=== PATIENT | female | born 1945 | race African-American/Black ===

== ENCOUNTER → 2022-03-18 08:09 | Outpatient (CLI) | payer MEDICARE, MEDICAID, SELFPAY ==
--- NOTE | ~2022-03-18 | MMUS_ITS ---
EXAMINATION: MM diagnostic savage BI w aviva, US breast LT limited HISTORY: Palpable lump of the lower inner left breast TECHNIQUE: Craniocaudal, mediolateral, and mediolateral oblique 3-D tomosynthesis images of the breas ts were performed and synthetic 2-D images were generated. CAD analysis was submitted and interpreted . High resolution limited left breast and left axillary ultrasound was performed. COMPARISON: No prior mammogram is currently available for comparison. BREAST PARENCHYMAL COMPOSITION: The breasts are almost entirely fatty. FINDINGS: MAMMOGRAPHIC FINDINGS: Left breast: There is a 3.2 x 2.4 cm irregular spiculated high density mass in the posterior third of the lower-outer quadrant of the breast at the 7:00 location 9 cm from the nipple corresponding to th e palpable abnormality of concern. The mass causes retraction of the adjacent skin. There is also an enlarged left axillary lymph node. Right breast: There is no suspicious mass, calcification, or architectural distortion to suggest mal ignancy. Scattered benign-appearing calcifications are present. ULTRASOUND: There is a 2.9 x 1.4 cm irregular parallel, hypoechoic mass with spiculated margins at the 8:00 locat ion 8 cm from the nipple corresponding to the palpable abnormality of concern in the left breast. The mass extends to the skin and demonstrates posterior acoustic shadowing and internal vascularity. The re is a 2.7 x 0.7 cm lymph node of the left axilla with a 1.5 cm of focal irregular cortical thickeni ng. IMPRESSION: 1. Highly suspicious left breast mass corresponding to the palpable abnormality of concern and abnorm al cortical thickening of a left axillary lymph node as described above. 2. Ultrasound-guided biopsy is recommended. BI-RADS category 5, highly suggestive of malignancy. Reviewed, dictated and finalized at location A. IMPRESSION: 1. Highly suspicious left breast mass corresponding to the palpable abnormality of concern and abnormal cortical thickening of a left axillary lymph node as d escribed above. 2. Ultrasound-guided biopsy is recommended. BI-RADS category 5, highly suggestive of malignancy.
== END ==
PROVIDERS: PCP Family Medicine Adolescent Medicine; Visit Provider Physician Assistant
DX: N63.24 Unspecified lump in the left breast, lower inner quadrant (principal)
CPT/HCPCS: 76642; 77062; 77066; G0279

== ENCOUNTER 2022-03-27 09:52 | Outpatient (CLI) | payer MEDICARE, MEDICAID, SELFPAY ==
--- NOTE | ~2022-03-27 | MMUS_ITS ---
MM post biopsy invasive LT, US breast biopsy LT w image EXAMINATION: US GUIDED NEEDLE BIOPSY WITH VACUUM ASSISTANCE DATE: 03/27/2022 11:31 CDT INDICATION: Left breast mass seen on recent ultrasound and mammogram. Ultrasound-guided core biopsy is requested to evaluate for malignancy. TECHNIQUE AND FINDINGS: The risks and potential benefits of the procedure were discussed with the patient, and written inform ed consent was obtained. After sterile preparation of the left breast, 1% lidocaine was utilized for local anesthesia. 1% lidocaine with epinephrine was used for deep anesthesia. A 10G vacuum-assisted biopsy gun needle was advanced through to the outer edge of the region of inter est from a medial approach utilizing sonographic guidance. A total of 4 tissue core samples were obt ained through the lesion. An Inrad tissue marker clip was then placed at the biopsy site. Hemostasis was achieved. The patient tolerated procedure well and there was no evidence of immediate complication. The patien t was given verbal instructions partly is from the department. Left breast mammograms to document ti ssue marker clip placement. The tissue samples were submitted to surgical pathology for histologic an alysis. IMPRESSION: 1. Successful ultrasound-guided vacuum-assisted biopsy of left breast mass with tissue marker placem ent in the lower inner quadrant. Please refer to pathology report for histologic analysis. Reviewed, dictated and finalized at location A. IMPRESSION: 1. Successful ultrasound-guided vacuum-assisted biopsy of left breast mass wit h tissue marker placement in the lower inner quadrant. Please refer to patholog y report for histologic analysis.
== END 2022-03-27 09:53 | disposition home or self-care (01) ==
PROVIDERS: PCP Family Medicine Adolescent Medicine; Visit Provider Physician Assistant
DX: C50.912 Malignant neoplasm of unspecified site of left female breast (principal)
CPT/HCPCS: 19083; 88305; 88360; A4648

== ENCOUNTER 2022-04-10 09:32 | Outpatient (CLI) | payer MEDICARE, MEDICAID, SELFPAY ==
[2022-04-10 10:03] LABS: Anion Gap 9 mmol/L (8-16); Blood Urea Nitrogen 17 mg/dL (7-17); Carbon Dioxide 25 mmol/L (22-30); Chloride 107 mmol/L (98-107); Estimated Glomerular Filt Rate 48; Glucose 141 mg/dL (65-110); Potassium 3.5 mmol/L (3.4-5.0); Sodium 141 mmol/L (137-145)
== END 2022-04-10 09:33 | disposition home or self-care (01) ==
LOC: ANHSURGERY 09:37
PROVIDERS: Anesthesiology; PCP Family Medicine Adolescent Medicine; Visit Provider Surgery
DX: Z01.812 Encounter for preprocedural laboratory examination (principal); C50.912 Malignant neoplasm of unspecified site of left female breast; E11.9 Type 2 diabetes mellitus without complications
CPT/HCPCS: 36415; 80048; 86850; 86900; 86901

== ENCOUNTER 2022-04-17 01:16 | Day surgery (SDC) | payer MEDICARE, MEDICAID, SELFPAY ==
--- NOTE | 2022-04-08 11:13 | PC.NURSE ---
Report to the Outpatient Waiting Room, entrance under the green pavilion located off [facility], at time __0830 on date _04/17/22 . OR Time: 1130___. - You and your visitor will be asked a series of questions to screen for COVID 19 for your protection. NUC MED 0930 - Only one visitor is allowed at this time. - The patient visitor is requested to leave or wait in car when not with patient. - A mask is required within the hospital. Patients may have clear liquids (water, carbonated beverages, clear teas, apple juice) until 3 hours prior to surgery with a maximum of 20 ounces. - No food from midnight until time of surgery - Infants may have breast milk until 4 hours before surgery, infant formula 6 hours prior to surgery. - Children will be allowed to drink immediately following surgery. If applicable, please bring a bottle or sippy cup to assist with drinking. Juice, water, soda, and popsicles are readily available. For infants on formula, please bring formula the day of surgery. Pacifiers are allowed. Take the following medications with a SIP of water the morning of surgery: ___AMLODIPINE,METOPROLOL Medications to discontinue per physician ____PLAVIX 5 DAYS PRE OP PER DR LUNA, Date to take last dose___04/11/22 Please no make-up, nail samoan, hairspray, perfume, deodorant, or body powder the day of surgery. No jewelry (including any body piercings) or valuables the day of surgery, leave them at home. Please take a shower or bath the night before, or the morning of, surgery with an antibacterial soap. Wear comfortable, loose fitting clothing. Children are encouraged to wear pajamas. - Jewelry must be removed prior to entering the operating room. Rings and piercings that are not removed may be cut off. - The hospital will not accept responsibility for valuables. HIBICLENS SHOWER MORNING OF SURGERY - Please leave all valuables, including medications, at home the day of surgery. If you are going home after surgery, a licensed hazmat cdl driver must drive you home. - NO public transportation without another adult. - We recommend that an adult stay with you for 24 hours following discharge. - We also recommend that you do not drive, make important decision, drink alcoholic beverages, or take any drugs that were not prescribed by your health care provider for at least 24 hours after your discharge time. For Pediatric surgeries, we recommend two adults accompany the child home (only one inside the building at this time). Follow any additional instructions given to you from your surgeon. If you or anyone in your household have experienced Covid symptoms in the past week, please notify your surgeon or the nurse liaison at the phone number below for possible testing. Telephone instructions given to _PATIENT and asked if any additional questions and then verbalized understanding. Patient advised to call surgeon office or pre surgery nurse liaison [phone] if any additional questions.
[2022-04-08 11:28] VITALS: BMI 36.6
[2022-04-17] VITALS (15 sets, daily range): BP systolic 113–146; BP diastolic 47–80; PULSE 62–85; RESP 12–18; TEMP 36.1–36.7; O2SAT 91–100; BMI 35.2
--- NOTE | ~2022-04-17 | NM_ITS ---
NM sentinel node inject only 04/17/2022 10:26 CDT INDICATION: Left breast cancer TECHNIQUE: 1.08 Millicuries Tc 99m filtered sulfur colloid was injected and 4 aliquots in the anterio r upper outer quadrant of the breast near the areola. No images were obtained. IMPRESSION: 1: Status post left breast sentinel lymph node radiopharmaceutical injection. Reviewed, dictated and finalized at location A.
[2022-04-17 09:40] LABS: Glucose Point of Care 115 mg/dl (65-105)
[2022-04-17] MEDS: LACTATED RINGERS 1,000 ML 30 ML IV CONT ×2 (10:14→13:37)
[2022-04-17] MEDS: KETOROLAC 15 MG/ML VIAL (*BKC) IV PUSH (10:16)
[2022-04-17] MEDS: ACETAMINOPHEN 500 MG TABLET 1000 MG PO (10:16)
--- NOTE | 2022-04-17 10:59 | WPDANESEPPF ---
Anes - Initial Pre Proc Eval Procedure: Operation Date: 04/17/22 11:30 Proposed Procedures p Left Breast Mastectomy with [place] Lymph Node Biopsy - Jose Lim DO Date/Time: 04/17/22 10:59 Surgeon: Jose Lim DO Pre Op Diagnosis: left breast CA Patient Data Age: 76 Gender: F Height: 1.55 m Weight: 84.45 kg Last Vital Signs Temp 98.0 F 04/17/22 08:44 Pulse 85 04/17/22 08:44 Resp 18 04/17/22 08:44 BP 146/66 H 04/17/22 08:44 Pulse Ox 100 04/17/22 08:44 O2 Del Method Room Air 04/17/22 08:44 Allergies Allergy/AdvReac Type Severity Reaction Status Date / Time No Known Allergies Allergy Verified 04/17/22 08:45 Home Medications Medication Instructions Recorded Confirmed Type glimepiride 1 mg tablet 1 mg PO QAM #30 tabs 11/05/21 04/17/22 Rx albuterol sulfate 90 mcg/actuation 1 puff inhalation Q4H PRN 03/03/22 04/17/22 History aerosol inhaler (Proventil HFA) Shortness Of Breath aspirin 81 mg tablet,delayed 81 mg PO DAILY 03/03/22 04/17/22 History release atorvastatin 80 mg tablet 80 mg PO HS 03/03/22 04/17/22 History cetirizine 10 mg capsule (Zyrtec) 10 mg PO PRN PRN Allergy Symptoms 03/03/22 04/17/22 History clopidogrel 75 mg tablet 75 mg PO DAILY 03/03/22 04/17/22 History famotidine 20 mg tablet 20 mg PO BID 03/03/22 04/17/22 History losartan 100 mg tablet 100 mg PO DAILY 03/03/22 04/17/22 History metoprolol succinate 100 mg 100 mg PO DAILY #90 tabs 03/03/22 04/17/22 Rx tablet,extended release 24 hr nitroglycerin 0.4 mg sublingual 0.4 mg sublingual Q5M PRN Chest 03/03/22 04/17/22 History tablet Pain potassium chloride 20 mEq 20 meq PO DAILY 03/03/22 04/17/22 History tablet,extended release(part/cryst) triamterene 37.5 1 tablet PO QAM 03/03/22 04/17/22 History mg-hydrochlorothiazide 25 mg tablet acetaminophen 500 mg tablet 500 mg PO Q6H PRN Pain 03/31/22 04/17/22 History (Tylenol Extra Strength) amlodipine 10 mg tablet 10 mg PO DAILY 03/31/22 04/17/22 History Laboratory Tests 04/17/22 09:37 POC Capillary Glucose 115 mg/dl H mg/dl (65-105) Patient hx anesthesia problems: none Family hx anesthesia problems: none Results Review: All pre-operative results and documents have been reviewed as part of the pre-operative evaluation. [facility] Past Medical History Medical History Hx of hemorrhoids Surgical History Surgical History Hx of CABG Hx of carpal tunnel repair Hx of hysterectomy Family History Family History Other Cerebrovascular accident Family history of malignant neoplasm Social History Social History (Updated 03/31/22 @ 16:28 by JULIAN Pinzon) Social History: current everyday caffeine use Smoking packs per day: 0.5 Smoking cigarettes per day: 10.0 Years smoked: 24 Smoking pack-years: 12.00 Smoking status: Former smoker Tobacco type: cigarettes Second hand tobacco smoke exposure: No Smoking end date: 10/11/82 Alcohol intake: never Substance use: never Substance use type: does not use Living arrangements: alone Gender identity (if verbalized by the patient): Female Sexual Orientation (if Verbalized by the Patient): Straight or Heterosexual Spiritual care concerns: No Agree to blood products: Yes Anes - Eval Final PreProcedure Day of Procedure 04/17/22 10:59 Patient weight: obese Heart: regular rate and rhythm Lungs: clear to auscultation Airway: Mallampati scale class II Neurological: alert and oriented Last oral intake: >/= 8 hours ASA classification: III Emergent: no Anesthetic plan: proceed Anesthesia type and monitoring: general ETT and standard monitoring Results Review: All pre-operative results and documents have been reviewed as part of the pre-operative evaluation.
--- NOTE | 2022-04-17 11:16 | WPDHPUPDATE1 ---
History and Physical Update Update Date/Time: 04/17/22 11:16 History and Physical has been reviewed, including an updated exam of the patient. There are NO changes in the patient's condition. Risks, benefits, and alternatives have been discussed and questions answered. Patient agrees to proceed with procedure.
[2022-04-17] MEDS: ceFAZolin 2 GM/D5W 50 ML 2 GM/50 ML BAG IVPB (11:42)
[2022-04-17] MEDS: ISOSULFAN BLUE 1% INJ 5 ML VIAL SUB-Q (12:10)
[2022-04-17] MEDS: TRANEXAMIC ACID 1,000MG/ISO100 1,000 MG/100 ML BAG 200 MG IVPB (12:18)
--- NOTE | 2022-04-17 12:33 | SUR.OPER ---
Left Axillary Sentinal Lymph Node #1 & #2 (Fresh) sent with KAROL Lozano to Pathology. Received by Bruno.
--- NOTE | 2022-04-17 12:57 | SUR.OPER ---
Left Breast Mastectomy Specimen sent Fresh with KAROL Lozano to Path. Received by Dwight.
[2022-04-17] MEDS: BUPIVACAINE/EPINEPHRINE 0.25% 50 ML VIAL INFILTRATE (13:23)
--- NOTE | 2022-04-17 13:35 | W.PM.PROC2 ---
Procedure Note - Detailed Date of Procedure 04/17/22 Pre-op Diagnosis left breast cancer Post-op Diagnosis Same Procedure Performed 1. Left simple mastectomy 2. Injection of isosulfan blue for lymphatic mapping 3. Left axillary sentinel lymph node biopsy Surgeon Jose Lim, DO Indications This is a 76-year-old woman who presented with a recent finding of left breast cancer. She had a wound developed on the inner portion of her left breast and had an associated mass in this area. She underwent mammogram and ultrasound on 03/18/2022 and then subsequently underwent ultrasound-guided core needle biopsy on 03/27/2022. Biopsy confirmed ductal carcinoma which was ER and [place] positive and HER2 negative. She also had a palpable enlarged lymph node that was also visible on the ultrasound. This was suspected to be a metastatic lymph node but had not been biopsied preoperatively. Discussions were made with the patient about treatment options and decision was made to proceed with left simple mastectomy with left axillary sentinel lymph node biopsy. Findings Left simple mastectomy was performed. The patient had an infiltrating mass in the left lower inner breast that appeared to be eroding through the skin. Patient underwent isotope injection preoperatively and then I also injected isosulfan blue in the periareolar region once patient was on the table for surgery. This allowed for mapping the sentinel lymph node. A wide elliptical incision was made around the area where the mass was infiltrating through the skin and simple mastectomy was performed. I identified a blue lymph node in the region of the enlarged lymph node and excised the enlarged lymph node along with the blue lymph node. This initial sentinel lymph node had an uptake with the gamma probe around 2100. I then used the gamma probe to identify any further lymph nodes and there was 1 other lymph node that was showing up with significant uptake with the gamma probe. This also appeared to be blue as well. This sentinel lymph node was removed and sent as sentinel lymph node 2 and had an uptake of around 1400. After removing these sentinel lymph nodes, the baseline gamma uptake was only around 50. A 19 round Ghulam drain was placed within the axillary and pectoral region. The mastectomy specimen was marked with a short suture superior and long suture lateral. Description of Procedure Procedure as well as risks, benefits, and alternatives were discussed with the patient. Written consent was obtained and placed in chart prior to procedure. Patient was brought back to surgical suite. She was placed supine on operating table. Time-out was done to confirm patient and procedure. She was then intubated by the anesthesia department. 4 mL Isosulfan blue was infiltrated in the periareolar region. The left breast was massaged for about 5 minutes to allow for adequate uptake of the dye. Her left breast and axillary region was prepped and draped in sterile fashion using chlorhexidine prep. 0.25% bupivacaine with epinephrine was infiltrated locally around the breast tissue. The skin flaps were marked out for proper wide excision. A light elliptical incision was then made using a 10 blade scalpel to encompass the entire left breast and this was angled towards the left axillary region. Electrocautery was used for hemostasis and for dissection through the subcutaneous tissue. The cephalad skin flap was then carefully created using electrocautery and as I dissected out further lateral I then extended into the axilla. The clavipectoral fascia was incised with electrocautery and the axillary contents were identified. The gamma probe was used to help identify the sentinel lymph nodes. The sentinel lymph nodes with blue dye were identified and excised with electrocautery and sent for pathology. I then continued along with the mastectomy. The inferior skin flap was extended using electrocautery all the way to the inf
[2022-04-17 13:56] LABS: Glucose Point of Care 130 mg/dl (65-105)
--- NOTE | 2022-04-17 15:30 | ADMGEN ---
This patient, Savannah Lyles, was admitted to Medical Room 258-. Patient/family oriented to hospital policies and general routines including ID bracelet, bed and alarms, visiting hours, pain management, procedures, bathroom and other care routines, personal items, smoking policy, room service/diet, and visiting hours. Information on how to activate the Rapid Response Team has been discussed. Patient/Family are encouraged to report perceived risks to care and to ask questions if they do not understand what they are told or what they should do.
[2022-04-17 16:23] LABS: Estimated CRCL calculation 26 ml/min; Estimated Glomerular Filt Rate 38
[2022-04-17 16:45] LABS: Glucose Point of Care 149 mg/dl (65-105)
[2022-04-17] MEDS: LACTATED RINGERS 1,000 ML 100 ML IV CONT (16:48)
[2022-04-17] MEDS: ACETAMINOPHEN 500 MG TABLET PO ×2 (16:49→23:08)
[2022-04-17] MEDS: ATORVASTATIN 40 MG TABLET 80 MG PO (21:44)
[2022-04-17] MEDS: FAMOTIDINE 20 MG TABLET PO (21:44)
[2022-04-17 22:23] LABS: Glucose Point of Care 185 mg/dl (65-105)
[2022-04-18 04:00] VITALS: BP 127/82; PULSE 82; RESP 18; TEMP 36.1; O2SAT 100
[2022-04-18 06:15] LABS: Mean Platelet Volume 8.9 fl (7.4-10.4); Platelet Count Result 180 k/mm3 (150-375)
--- NOTE | 2022-04-18 07:54 | WPDANESPN ---
Anes - Prog Note Post-Op Date/Time: 04/18/22 07:54 Cardiovascular status: normal Respiratory status: normal Airway patency: baseline Mental status: baseline Post-Op hydration status: normal Vital Signs: Last Vital Signs Temp 36.1 C L 04/18/22 04:00 Pulse 82 04/18/22 04:00 Resp 18 04/18/22 04:00 BP 127/82 04/18/22 04:00 Pulse Ox 100 04/18/22 04:00 O2 Del Method Room Air 04/17/22 16:23 O2 Flow Rate 10 04/17/22 13:45 Pain Score (VAS): 12/18 I/O: Intake & Output 04/17/22 04/17/22 04/18/22 15:59 23:59 07:59 Intake Total 192 904 5488 Output Total 20 650 950 Balance 530 -230 550 Laboratory Tests 04/18/22 06:04 04/17/22 15:58 04/17/22 04/17/22 04/17/22 09:37 13:41 15:58 Plt Count MPV Creatinine 1.60 H Estim Creat Clear Calc 26 Estimated GFR 38 L POC Capillary Glucose 115 H 130 H 04/17/22 04/17/22 04/18/22 16:42 21:41 06:04 Plt Count 180 MPV 8.9 Creatinine Estim Creat Clear Calc Estimated GFR POC Capillary Glucose 149 H 185 H Post-procedural complaints: none Patient Feedback: Patient satisfied with anesthetic care.
[2022-04-18 08:00] VITALS: BP 144/62; PULSE 81; RESP 20; TEMP 36.3; O2SAT 97
[2022-04-18] MEDS: ACETAMINOPHEN 500 MG TABLET PO (08:27)
[2022-04-18] MEDS: FAMOTIDINE 20 MG TABLET PO (08:28)
[2022-04-18] MEDS: ASPIRIN 81 MG ENTERIC TABLET PO (08:28)
[2022-04-18] MEDS: amLODIPine BESYLATE 5 MG TABLET 10 MG PO (08:28)
[2022-04-18 08:29] VITALS: PULSE 62
[2022-04-18 08:29] LABS: Glucose Point of Care 169 mg/dl (65-105)
[2022-04-18] MEDS: POTASSIUM CHLORIDE 20 MEQ TABLET.ER PO (08:29)
[2022-04-18] MEDS: GLIMEPIRIDE 1 MG TABLET PO (08:29)
[2022-04-18] MEDS: TRIAMTERENE 37.5 MG/HCTZ 25 MG (MAXZIDE) TABLET 1 TAB PO (08:29)
[2022-04-18] MEDS: METOPROLOL SUCCINATE EXT REL 100 MG TABCR PO (08:29)
[2022-04-18] MEDS: LOSARTAN POTASSIUM 100 MG TABLET PO (08:29)
[2022-04-18] MEDS: ENOXAPARIN 40 MG/0.4 ML SYRINGE SUB-Q (08:30)
--- NOTE | 2022-04-18 09:07 | PM.DS ---
DS: Admitting Diagnosis Discharge Date 04/18/2022 Admitting Diagnosis left breast cancer DS: Discharge Diagnosis Discharge Diagnosis (1) Invasive ductal carcinoma of left breast: Code(s): C50.912 - Malignant neoplasm of unspecified site of left female breast Status: Acute Assessment and Plan: Status post mastectomy and lymph node biopsy, doing well continue routine postoperative care and drain care, home with p.o. analgesia, follow-up in 1 week for drain removal, await path (2) Antiplatelet or antithrombotic long-term use: Code(s): Z79.02 - care home (current) use of antithrombotics/antiplatelets Status: Acute Assessment and Plan: continue to hold Plavix until Friday 04/20 DS: Summary Hospital Course Reason for hospitalization: Left invasive ductal breast cancer Hospital Course: The patient is a 76-year-old female presenting with left invasive ductal breast cancer. The patient was brought to the operating room on 04/17/2022 and left mastectomy with left axillary sentinel lymph node biopsy was done, please see full operative report for details. Postoperative, the patient did well was transferred to the surgical floor. On postoperative day 1. , the patient was doing well and reports her pain is well controlled with p.o. analgesia. She has been up and ambulating without difficulty and tolerating a normal diet. The patient will be sent home at this time with instructions for routine postoperative care and drain care. She will be sent home with p.o. analgesia and instructions to follow up in 1 week for drain removal. Status at Discharge Functional status at discharge: independent ambulation Overall status at discharge: patient is progressing back to baseline Time Spent with Patient Time attestation: Total time spent providing and/or coordinating discharge services: Exam Const: General: cooperative, comfortable and no acute distress Chest: Other: L breast incision - C/D/I, RAINA c mod s/s fluid Resp: Auscultation: clear to auscultation bilaterally Cardio: Rate: regular rate Rhythm: regular rhythm GI: Inspection: normal to inspection and non-distended GI Palp: No abdominal tenderness and Yes Soft to palpation DS: Data Data Completed and Pending Pending studies at discharge: Pending at discharge 04/17/22 12:38 Surgical [PTH] Routine Surgical [PTH] Routine Surgical [PTH] Routine Labs on day of discharge: Labs from last 24 hours 04/18/22 04/18/22 04/17/22 08:27 06:04 21:41 Plt Count 180 MPV 8.9 Creatinine Estim Creat Clear Calc Estimated GFR POC Capillary Glucose 169 H 185 H 04/17/22 04/17/22 04/17/22 16:42 15:58 13:41 Plt Count MPV Creatinine 1.60 H Estim Creat Clear Calc 26 Estimated GFR 38 L POC Capillary Glucose 149 H 130 H 04/17/22 09:37 Plt Count MPV Creatinine Estim Creat Clear Calc Estimated GFR POC Capillary Glucose 115 H Discharge Plan Discharge Patient Disposition: Home, Self-Care Discharge Instructions: Discharge Instruction Sheet for [place] Node Biopsy (Possible Axillary Node Dissection) Patients Dr. [facility] [address] [place]. [address] 1.) Keep wound clean and dry. If drains are present, will need to sponge bathe until drain(s) are removed. This drain will be removed during your follow up visit. 2.) No vigorous activity or carrying with affected arm. May use arm to comb hair, eat, write, etc. 3.) Do not apply creams or ointments unless directed to do so by your surgeon. 4.) Ambulate (walk) for exercise at least 3 times per day. 5.) Contact your surgeon?s office if you have excessive and persistent pain, swelling, bleeding, or drainage through the dressing, redness or red streaks around the wound, heat or warmth at the site of the incision, or fever of more the
[2022-04-18 11:13] LABS: Glucose Point of Care 152 mg/dl (65-105)
--- NOTE | 2022-04-18 11:33 | PC.NURSE ---
spoke with Dr. Tam to clarify dressing/ drain order at time of discharge. Dr. Tam stated he had already spoken with patient's family on dressing and drain care at home. Will send patient with measuring cup for drainage amount as well as drain sponges to replace per Dr. Tam's instruction at time of discharge
[2022-04-18 12:04] VITALS: BP 140/50; PULSE 83; RESP 20; TEMP 36.6; O2SAT 100
== END 2022-04-18 12:50 | disposition home or self-care (01) ==
LOC: ANHSURGERY 07:36 → ANH2MED 15:24
PROVIDERS: PCP Family Medicine Adolescent Medicine; Visit Provider Surgery
PROC: (CPT 19303; principal; 2022-04-17 11:30)
DX: C50.512 Malignant neoplasm of lower-outer quadrant of left female breast (principal); C77.3 Secondary and unspecified malignant neoplasm of axilla and upper limb lymph nodes; I25.10 Atherosclerotic heart disease of native coronary artery without angina pectoris; I10 Essential (primary) hypertension; E11.9 Type 2 diabetes mellitus without complications; Z95.1 Presence of aortocoronary bypass graft; Z87.891 Personal history of nicotine dependence; Z79.51 Long term (current) use of inhaled steroids; Z79.84 Long term (current) use of oral hypoglycemic drugs; Z79.02 Long term (current) use of antithrombotics/antiplatelets
CPT/HCPCS: 19303; 38525; 38900; 36415; 38792; 82565; 82948; 85049; 88307; A9270; A9520; J0330; J0690; J1100; J1170; J1650; J1885; J2370; J2405; J2704; J2710; J3010; J7120

== ENCOUNTER 2022-04-22 10:24 | Outpatient (CLI) | payer MEDICARE, SELFPAY ==
[2022-04-22 10:56] LABS: Basophils Percent Auto 0.2 % (0.2-1.2); Eosinophils Absolute Auto 0.3 K/mm3 (0-0.3); Eosinophils Percent Auto 2.9 % (0-4.4); Hematocrit 36.9 % (37.0-47.0); Hemoglobin 11.3 g/dL (12.0-15.0); Immature Granulocyte Absolute 0.03 K/mm3 (0.00-0.031); Immature Granulocyte Percent A 0.3 % (0-0.5); Lymphocytes Absolute Auto 2.08 K/mm3 (0.9-3.2); Lymphocytes Percent Auto 23.3 % (18.3-44.2); Mean Corpuscular HGB Conc 30.6 g/dl (32-36); Mean Corpuscular Volume 88.3 fl (80-100); Mean Platelet Volume 8.8 fl (7.4-10.4); Monocytes Absolute Auto 0.8 K/mm3 (0.1-0.6); Monocytes Percent Auto 8.8 % (2.6-8.5); Neutrophils Absolute Auto 5.8 K/mm3 (1.3-6.7); Neutrophils Percent Auto 64.5 % (45.5-73.1); Platelet Count Result 209 k/mm3 (150-375); Red Blood Count 4.18 M/mm3 (4.2-5.4); Red Cell Distribution Width 14.6 % (11.5-14.5); White Blood Count 8.9 K/mm3 (4.5-10.0)
[2022-04-22 11:14] LABS: Alanine Aminotransferase 23 U/L (6-35); Albumin Level 4.3 g/dL (3.5-5.1); Alkaline Phosphatase 87 U/L (38-126); Anion Gap 8 mmol/L (8-16); Aspartate Amino Transferase 37 U/L (14-36); Bilirubin,Total 0.4 mg/dL (0.2-1.3); Blood Urea Nitrogen 19 mg/dL (7-17); Calcium 9.2 mg/dL (8.4-10.2); Carbon Dioxide 26 mmol/L (22-30); Chloride 106 mmol/L (98-107); Estimated Glomerular Filt Rate 53; Glucose 106 mg/dL (65-110); Potassium 3.6 mmol/L (3.4-5.0); Sodium 140 mmol/L (137-145)
[2022-04-24 05:09] LABS: CA 15-3 11 U/mL (<32)
== END 2022-04-22 10:25 | disposition home or self-care (01) ==
LOC: ANHLAB 10:25
PROVIDERS: PCP Family Medicine Adolescent Medicine; Visit Provider Internal Medicine Hematology & Oncology
DX: C50.312 Malignant neoplasm of lower-inner quadrant of left female breast (principal); Z17.0 Estrogen receptor positive status [ER+]
CPT/HCPCS: 36415; 80053; 85025; 86300

== ENCOUNTER 2022-05-07 08:48 | Outpatient (CLI) | payer MEDICARE, MEDICAID, SELFPAY ==
--- NOTE | ~2022-05-07 | PE_ITS ---
EXAMINATION: PET skull to mid thigh DATE: 05/07/2022 11:06 INDICATION: Malignant neoplasm of the lower-outer quadrant of the left breast TECHNIQUE: Blood glucose level was 129 mg/dL. 10.055 mCi of 18-fluorodeoxyglucose (18-FDG) was admini stered i.v. Low dose computed tomography (CT) images were acquired from the base of the brain to the proximal thighs for attenuation correction and anatomic localization. Positron emission tomography (P ET) images were acquired in the same distribution beginning 67 minutes after injection. The dose-miriam th product (DLP) was 1007.63 mGy-cm. COMPARISON: None FINDINGS: Head/neck: No abnormal FDG uptake is identified. FDG uptake in the oral cavity and vocal cords withou t suspicious CT correlate is likely physiologic. Chest: There are changes of left mastectomy. No abnormal FDG uptake is identified. There is mild emph ysema. There is a 7 mm nodule of the right upper lobe without associated FDG uptake. There are at diane st five nodules of the right upper lobe measuring up to 7 mm. There is a 5 mm nodule in the superior segment of the right lower lobe. None of the nodules demonstrate associated FDG uptake however this c ould be due to their small size. No pleural effusion or pneumothorax. Mediastinal lymph nodes are upp er limits of normal in size and without abnormal FDG uptake. The heart size is normal. There are reyes ges of coronary artery bypass grafting. There is low level FDG uptake in the left anterior chest wall at the site of prior mastectomy, likely postsurgical change. No discrete mass is identified. Abdomen/pelvis/proximal thighs: Physiologic FDG activity is present in the bowel and urinary tract. N o abnormal FDG uptake is identified. The gallbladder is surgically absent. The liver, spleen, pancrea s, and adrenal glands are normal. The kidneys are unremarkable. No pathologically enlarged abdominal or pelvic lymph nodes are identified. There is no free intraperitoneal gas or evidence of bowel obstr uction. There is calcified atherosclerosis of the aorta and many of the other arteries. Colonic diver ticulosis is present without evidence of diverticulitis. Musculoskeletal: No abnormal FDG uptake is identified. IMPRESSION: 1. Changes of left mastectomy with low level FDG activity in the left anterior chest wall, likely pos tsurgical in nature. No discrete mass identified. 2. No definite evidence of a metastatic disease however right lung nodules are small and possibly bel ow threshold for detection of metabolic activity. Consider follow-up with CT of the chest in 3-6 alex hs. Reviewed, dictated and finalized at location L. IMPRESSION: 1. Changes of left mastectomy with low level FDG activity in the left anterior chest wall, likely postsurgical in nature. No discrete mass identified. 2. No definite evidence of a metastatic disease however right lung nodules are small and possibly below threshold for detection of metabolic activity. Conside r follow-up with CT of the chest in 3-6 months.
[2022-05-07 09:34] LABS: Glucose Point of Care 129 mg/dl (65-105)
== END 2022-05-07 08:49 | disposition home or self-care (01) ==
PROVIDERS: PCP Family Medicine Adolescent Medicine; Visit Provider Internal Medicine Hematology & Oncology
DX: C50.512 Malignant neoplasm of lower-outer quadrant of left female breast (principal); Z90.12 Acquired absence of left breast and nipple; R91.8 Other nonspecific abnormal finding of lung field
CPT/HCPCS: 78815; A9552

== ENCOUNTER 2022-05-26 11:46 | Outpatient (CLI) | payer MEDICARE, MEDICAID, SELFPAY ==
[2022-05-26 12:28] LABS: Prothrombin Time 13.1 Seconds (11.1-14.7)
[2022-05-26 12:29] LABS: Partial Thromboplastin Time 49.9 SECONDS (22.3-36.8)
== END 2022-05-26 11:47 | disposition home or self-care (01) ==
LOC: ANHSURGERY 11:58
PROVIDERS: PCP Family Medicine Adolescent Medicine; Visit Provider Surgery
DX: Z01.818 Encounter for other preprocedural examination (principal); C50.919 Malignant neoplasm of unspecified site of unspecified female breast
CPT/HCPCS: 36415; 85610; 85730

== ENCOUNTER 2022-05-28 01:07 | Day surgery (SDC) | payer MEDICARE, MEDICAID, SELFPAY ==
[2022-05-22 15:04] VITALS: BMI 34.9
--- NOTE | 2022-05-22 15:15 | PC.NURSE ---
PRE-OP INSTRUCTIONS, PLEASE READ CAREFULLY Report to the Outpatient Waiting Room, entrance under the green pavilion located off [facility], at time _1100_ on date _05/28/22_. OR Time: _1 PM_. - You and your visitor will be asked to self-screen and do not enter if you have any COVID symptoms. - Only one visitor and NO children visitors are allowed at this time. - The patient visitor is requested to leave or wait in car when not with patient due to restrictions. - A mask is required within the hospital. Patients may have clear liquids (water, carbonated beverages, clear teas, apple juice) until 3 hours prior to surgery (1000 AM) with a maximum of 20 ounces. - No food from midnight until time of surgery Take the following medications with a SIP of water the morning of surgery: _AMLODIPINE, METOPROLOL, TYLENOL IF NEEDED_ Medications to discontinue per physician _CLOPIDOGREL (PLAVIX) 5 DAYS PRIOR TO SURGERY, Date to take last dose 05/22/22_ Please no make-up, nail belgian, hairspray, perfume, deodorant, or body powder the day of surgery. No jewelry (including any body piercings) or valuables the day of surgery, leave them at home. Please take a shower or bath the night before, or the morning of, surgery with an antibacterial soap. Wear comfortable, loose fitting clothing. - Jewelry must be removed prior to entering the operating room. Rings and piercings that are not removed may be cut off. - The hospital will not accept responsibility for valuables. - Please leave all valuables, including medications, at home the day of surgery. If you are going home after surgery, a licensed horse and wagon driver must drive you home. - NO public transportation without another adult. - We recommend that an adult stay with you for 24 hours following discharge. - We also recommend that you do not drive, make important decision, drink alcoholic beverages, or take any drugs that were not prescribed by your health care provider for at least 24 hours after your discharge time. Follow any additional instructions given to you from your surgeon. If you or anyone in your household have experienced Covid symptoms in the past week, please notify your surgeon or the nurse liaison at the phone number below for possible testing. Telephone instructions given to _MIAH LEO_and asked if any additional questions and then verbalized understanding. Patient advised to call surgeon office or pre surgery nurse liaison [phone] if any additional questions.
--- NOTE | ~2022-05-28 | XR_ITS ---
EXAMINATION: XR chest port-a-cath/central INDICATION: Port-A-Cath insertion TECHNIQUE: Portable AP chest at 1344 hours COMPARISON: 01/23/2006 FINDINGS: A right subclavian Port-A-Cath ends with its tip in the distal superior vena cava. The port is kinked as it passes between the clavicle and first rib. There is a mild diffuse interstitial lázaro rashi. No pleural effusion or pneumothorax. The heart size is normal. Median sternotomy wires and media stinal surgical clips are seen, likely from prior coronary artery bypass grafting. Surgical clips in the right upper quadrant are likely from prior cholecystectomy. IMPRESSION: 1. Right subclavian Port-A-Cath ending with its tip in the distal superior vena cava. Port is kinked as it passes between the clavicle and first rib and at increased risk for catheter fracture. 2. Mild diffuse interstitial pattern, likely mild pulmonary edema. Reviewed, dictated and finalized at location A. IMPRESSION: 1. Right subclavian Port-A-Cath ending with its tip in the distal superior vena cava. Port is kinked as it passes between the clavicle and first rib and at in creased risk for catheter fracture. 2. Mild diffuse interstitial pattern, likely mild pulmonary edema.
--- NOTE | ~2022-05-28 | XR_ITS ---
EXAMINATION: XR fl guide central line place INDICATION: Port-A-Cath insertion TECHNIQUE: Total fluoroscopic time was 30.9 seconds. A single fluoroscopic image is submitted for rev iew. COMPARISON: None available FINDINGS: Fluoroscopic image demonstrates a right subclavian Port-A-Cath ending with its tip in the d istal superior vena cava. There is kinking of the cord as it passes between the clavicle and first ri b. IMPRESSION: 1. Right subclavian Port-A-Cath insertion with kinking of the port as it passes between the clavicle and first rib. Please refer to procedure note for full details. Reviewed, dictated and finalized at location A. IMPRESSION: 1. Right subclavian Port-A-Cath insertion with kinking of the port as it passes between the clavicle and first rib. Please refer to procedure note for full de tails.
[2022-05-28 11:33] VITALS: BP 150/57; PULSE 69; RESP 20; TEMP 36.8; O2SAT 100
--- NOTE | 2022-05-28 11:44 | PM.IMHP ---
H&P: HPI History of Present Illness Date/Time: 05/28/22 11:44 Chief Complaint: L breast cancer Narrative: Pt is a 76 y/o F c L breast cancer s/p mastectomy and SLNB. Pt will require adjuvant chemoradiation. Pt had previous central line for CABG but does not remember exact location. Review of Systems Review of Systems: All systems reviewed & are unremarkable except as noted in HPI and below PMFSH Past Medical History Medical History Hx of hemorrhoids Surgical History Surgical History H/O lymph node biopsy left axillary sentinel lymph node biopsy on 04/17/22. H/O mastectomy left simple mastectomy on 04/17/22 Hx of CABG Hx of carpal tunnel repair Hx of hysterectomy Family History Family History Other Cerebrovascular accident Family history of malignant neoplasm Social History Social History Social History: current everyday caffeine use Smoking packs per day: 0.5 Smoking cigarettes per day: 10.0 Years smoked: 24 Smoking pack-years: 12.00 Smoking status: Former smoker Tobacco type: cigarettes Second hand tobacco smoke exposure: No Smoking end date: 10/11/82 Alcohol intake: never Substance use: never Substance use type: does not use Living arrangements: alone Gender identity (if verbalized by the patient): Female Sexual Orientation (if Verbalized by the Patient): Straight or Heterosexual Spiritual care concerns: No Agree to blood products: Yes Meds Home Medications and Allergies Home Medications Medication Instructions Recorded Confirmed Type glimepiride 1 mg tablet 1 mg PO QAM #30 tabs 11/05/21 05/28/22 Rx albuterol sulfate 90 mcg/actuation 1 puff inhalation Q4H PRN 03/03/22 05/22/22 History aerosol inhaler (Proventil HFA) Shortness Of Breath aspirin 81 mg tablet,delayed 81 mg PO DAILY 03/03/22 05/28/22 History release atorvastatin 80 mg tablet 80 mg PO HS 03/03/22 05/28/22 History cetirizine 10 mg capsule (Zyrtec) 10 mg PO PRN PRN Allergy Symptoms 03/03/22 05/22/22 History clopidogrel 75 mg tablet 75 mg PO DAILY 03/03/22 05/28/22 History famotidine 20 mg tablet 20 mg PO BID 03/03/22 05/28/22 History losartan 100 mg tablet 100 mg PO DAILY 03/03/22 05/28/22 History metoprolol succinate 100 mg 100 mg PO DAILY #90 tabs 03/03/22 05/28/22 Rx tablet,extended release 24 hr nitroglycerin 0.4 mg sublingual 0.4 mg sublingual Q5M PRN Chest 03/03/22 05/22/22 History tablet Pain potassium chloride 20 mEq 20 meq PO DAILY 03/03/22 05/28/22 History tablet,extended release(part/cryst) triamterene 37.5 1 tablet PO QAM 03/03/22 05/28/22 History mg-hydrochlorothiazide 25 mg tablet acetaminophen 500 mg tablet 500 mg PO Q6H PRN Pain 03/31/22 05/28/22 History (Tylenol Extra Strength) amlodipine 10 mg tablet 10 mg PO DAILY 03/31/22 05/28/22 History docusate sodium 100 mg capsule 100 mg PO BID #30 caps 04/18/22 05/28/22 Rx (Colace) hydrocodone 5 mg-acetaminophen 325 1 tablet PO Q6H PRN pain #30 tabs 04/18/22 05/22/22 Rx mg tablet Allergies Allergy/AdvReac Type Severity Reaction Status Date / Time No Known Allergies Allergy Verified 05/28/22 11:34 Exam Const: General: cooperative, comfortable and no acute distress Neck: Neck: normal visual inspection, full ROM and no lymphadenopathy Chest: Chest palpation & inspection: normal inspection of the chest Resp: Auscultation: clear to auscultation bilaterally Cardio: Rate: regular rate Rhythm: regular rhythm GI: Inspection: normal to inspection Assessment and Plan Assessment and plan (1) Breast CA: Code(s): C50.919 - Malignant neoplasm of unspecified site of unspecified female breast Status: Acute Assessment and Plan: will setup for right sided port placement
--- NOTE | 2022-05-28 11:47 | WPDHPUPDATE1 ---
History and Physical Update Update Date/Time: 05/28/22 11:47 History and Physical has been reviewed, including an updated exam of the patient. There are NO changes in the patient's condition. Risks, benefits, and alternatives have been discussed and questions answered. Patient agrees to proceed with procedure.
[2022-05-28] MEDS: LACTATED RINGERS 1,000 ML 30 ML IV CONT (12:05)
[2022-05-28 12:12] LABS: Glucose Point of Care 127 mg/dl (65-105)
--- NOTE | 2022-05-28 12:25 | WPDANESEPPF ---
Anes - Initial Pre Proc Eval Procedure: Operation Date: 05/28/22 13:00 Proposed Procedures p Insertion Abhi Cath - Raysa Tam MD Date/Time: 05/28/22 12:25 Surgeon: Raysa Tam MD Pre Op Diagnosis: malignant neoplasm of Left breast Patient Data Age: 76 Gender: F Height: 1.55 m Weight: 84 kg Allergies Allergy/AdvReac Type Severity Reaction Status Date / Time No Known Allergies Allergy Verified 05/28/22 11:34 Home Medications Medication Instructions Recorded Confirmed Type glimepiride 1 mg tablet 1 mg PO QAM #30 tabs 11/05/21 05/28/22 Rx albuterol sulfate 90 mcg/actuation 1 puff inhalation Q4H PRN 03/03/22 05/22/22 History aerosol inhaler (Proventil HFA) Shortness Of Breath aspirin 81 mg tablet,delayed 81 mg PO DAILY 03/03/22 05/28/22 History release atorvastatin 80 mg tablet 80 mg PO HS 03/03/22 05/28/22 History cetirizine 10 mg capsule (Zyrtec) 10 mg PO PRN PRN Allergy Symptoms 03/03/22 05/22/22 History clopidogrel 75 mg tablet 75 mg PO DAILY 03/03/22 05/28/22 History famotidine 20 mg tablet 20 mg PO BID 03/03/22 05/28/22 History losartan 100 mg tablet 100 mg PO DAILY 03/03/22 05/28/22 History metoprolol succinate 100 mg 100 mg PO DAILY #90 tabs 03/03/22 05/28/22 Rx tablet,extended release 24 hr nitroglycerin 0.4 mg sublingual 0.4 mg sublingual Q5M PRN Chest 03/03/22 05/22/22 History tablet Pain potassium chloride 20 mEq 20 meq PO DAILY 03/03/22 05/28/22 History tablet,extended release(part/cryst) triamterene 37.5 1 tablet PO QAM 03/03/22 05/28/22 History mg-hydrochlorothiazide 25 mg tablet acetaminophen 500 mg tablet 500 mg PO Q6H PRN Pain 03/31/22 05/28/22 History (Tylenol Extra Strength) amlodipine 10 mg tablet 10 mg PO DAILY 03/31/22 05/28/22 History docusate sodium 100 mg capsule 100 mg PO BID #30 caps 04/18/22 05/28/22 Rx (Colace) hydrocodone 5 mg-acetaminophen 325 1 tablet PO Q6H PRN pain #30 tabs 04/18/22 05/22/22 Rx mg tablet Laboratory Tests 05/28/22 05/28/22 11:58 12:06 APTT Pending POC Capillary Glucose 127 mg/dl H mg/dl (65-105) Patient hx anesthesia problems: none Family hx anesthesia problems: none Results Review: All pre-operative results and documents have been reviewed as part of the pre-operative evaluation. [facility] Past Medical History Medical History Hx of hemorrhoids Surgical History Surgical History H/O lymph node biopsy left axillary sentinel lymph node biopsy on 04/17/22. H/O mastectomy left simple mastectomy on 04/17/22 Hx of CABG Hx of carpal tunnel repair Hx of hysterectomy Family History Family History Other Cerebrovascular accident Family history of malignant neoplasm Social History Social History Social History: current everyday caffeine use Smoking packs per day: 0.5 Smoking cigarettes per day: 10.0 Years smoked: 24 Smoking pack-years: 12.00 Smoking status: Former smoker Tobacco type: cigarettes Second hand tobacco smoke exposure: No Smoking end date: 10/11/82 Alcohol intake: never Substance use: never Substance use type: does not use Living arrangements: alone Gender identity (if verbalized by the patient): Female Sexual Orientation (if Verbalized by the Patient): Straight or Heterosexual Spiritual care concerns: No Agree to blood products: Yes Anes - Eval Final PreProcedure Day of Procedure 05/28/22 12:25 Patient weight: obese Heart: regular rate and rhythm Lungs: clear to auscultation Airway: Mallampati scale class III Neurological: alert and oriented Last oral intake: >/= 8 hours ASA classification: III Emergent: no Anesthetic plan: proceed Anesthesia type and monitoring: general GIVS and standard monitoring Resul
[2022-05-28 12:31] LABS: Partial Thromboplastin Time 49.8 SECONDS (22.3-36.8)
[2022-05-28] MEDS: KETOROLAC 15 MG/ML VIAL (*BKC) IV PUSH (12:33)
[2022-05-28] MEDS: ceFAZolin 2 GM/D5W 50 ML 2 GM/50 ML BAG IVPB (12:48)
[2022-05-28] MEDS: HEPARIN SODIUM 5,000 UNITS/ML VIAL 5000 UNITS IRRIGATION (13:15)
[2022-05-28] MEDS: HEPARIN SODIUM, PORCINE 10,000 UNITS/10 ML VIAL 5000 UNITS IV PUSH (13:27)
[2022-05-28 13:37] VITALS: BP 136/50; PULSE 88; RESP 16; O2SAT 98
--- NOTE | 2022-05-28 13:44 | SUR.PREOP ---
[id number] RESULT CALLED TO DR. STREET, STATES OKAY TO PROCEED.
--- NOTE | 2022-05-28 13:49 | W.PM.PROC2 ---
Procedure Note - Detailed Date of Procedure 05/28/22 Pre-op Diagnosis malignant neoplasm of Left breast Post-op Diagnosis Same Procedure Performed placement right subclavian venous access device under fluroscopic guidance Surgeon Raysa Tam MD Anesthesia MAC and Local Indications 76 y/o F c L breast cancer requiring access for chemotherapy Findings 1st stick R SCV Description of Procedure Patient was brought into the operating room and placed in the supine position. After adequate induction of mac anesthesia, the patient was prepped and draped in normal sterile fashion. Time-out was then done to verify the patient's identity, as well as the procedure being performed. I began by making a small incision in the right chest, I then gained access into the right subclavian vein with an 18 gauge needle. I then placed the guidewire into the vein and confirmed placement via fluoroscopic guidance. I then locally anesthetized the area in the right chest. I then enlarged the incision around the guidewire including making a subcutaneous pocket inferiorly to allow placement of the port itself. I then placed a dilating sheath over the guidewire into the right subclavian vein via sterile Seldinger technique. This was once again done and confirmed via fluoroscopic guidance. I then removed the dilator and the guidewire, now just leaving the sheath in the vein. I then fed the previously flushed catheter into the right subclavian vein under fluoroscopic guidance. At approximately 15 cm, the catheter was noted to be near the atrial caval junction. I then peeled away the sheath, now just leaving the catheter in the vein. I then was able to easily draw and flush from the catheter. The catheter was cut to fit and attached to the port itself. The port was placed into the previously made subcutaneous pocket and sutured in with 0 Ethibond suture. Final fluoroscopic view showed the termination of the catheter at the atrial caval junction with a nice smooth curvature back to the port itself. I was able to gain access to the port with a Chester needle and was able to easily draw and flush from the port. I then flushed 4 cc of a final heparin flush into the port. The incision was closed with 3 0 Vicryl suture in the subcutaneous tissue and the skin was closed with 4 O Monocryl subcuticular suture. Dermabond was then placed on wound. The patient tolerated the procedure well and will be sent to the recovery room in stable condition. Implants R SCV VAD Estimated Blood Loss 5 Drains No Packing No Pathology None sent Complications No immediate complications Condition Stable Disposition PACU [facility] Billing Surgery - Charge Forward: Surgery Billing
[2022-05-28 13:50] LABS: Glucose Point of Care 136 mg/dl (65-105)
[2022-05-28 14:00] VITALS: BP 127/43; PULSE 71; RESP 16; O2SAT 100
[2022-05-28 14:25] VITALS: BP 123/40; PULSE 67; RESP 16
== END 2022-05-28 14:34 | disposition home or self-care (01) ==
PROVIDERS: PCP Family Medicine Adolescent Medicine; Visit Provider Surgery
PROC: (CPT 36561; principal; 2022-05-28 13:00)
DX: C50.919 Malignant neoplasm of unspecified site of unspecified female breast (principal); Z79.51 Long term (current) use of inhaled steroids; Z79.84 Long term (current) use of oral hypoglycemic drugs; Z79.02 Long term (current) use of antithrombotics/antiplatelets; Z79.82 Long term (current) use of aspirin; Z79.891 Long term (current) use of opiate analgesic; Z95.1 Presence of aortocoronary bypass graft; Z87.891 Personal history of nicotine dependence; E66.9 Obesity, unspecified; Z68.35 Body mass index [BMI] 35.0-35.9, adult
CPT/HCPCS: 36561; 36415; 77001; 82948; 85730; C1788; J0690; J1644; J1885; J2704; J3010; J7030; J7120

== ENCOUNTER 2022-07-17 08:24 | Outpatient (CLI) | payer MEDICARE, MEDICAID, SELFPAY ==
[2022-07-17 08:48] LABS: Basophils Percent Auto 0.6 % (0.2-1.2); Eosinophils Percent Auto 0.6 % (0-4.4); Hematocrit 31.8 % (37.0-47.0); Hemoglobin 9.8 g/dL (12.0-15.0); Immature Granulocyte Absolute 0.01 K/mm3 (0.00-0.031); Immature Granulocyte Percent A 0.6 % (0-0.5); Lymphocytes Absolute Auto 0.89 K/mm3 (0.9-3.2); Lymphocytes Percent Auto 57.1 % (18.3-44.2); Mean Corpuscular HGB Conc 30.8 g/dl (32-36); Mean Corpuscular Hemoglobin 26.8 pg (26-34); Mean Corpuscular Volume 86.9 fl (80-100); Mean Platelet Volume 8.6 fl (7.4-10.4); Monocytes Absolute Auto 0.6 K/mm3 (0.1-0.6); Monocytes Percent Auto 38.5 % (2.6-8.5); Neutrophils Percent Auto 2.6 % (45.5-73.1); Platelet Count Result 160 k/mm3 (150-375); Red Blood Count 3.66 M/mm3 (4.2-5.4); Red Cell Distribution Width 14.9 % (11.5-14.5)
[2022-07-17 09:17] LABS: Partial Thromboplastin Time 45.7 SECONDS (22.3-36.8)
[2022-07-17 10:48] LABS: White Blood Count 1.6 K/mm3 (4.5-10.0)
== END 2022-07-17 08:25 | disposition home or self-care (01) ==
LOC: ANHSURGERY 08:29
PROVIDERS: PCP Family Medicine Adolescent Medicine; Visit Provider Surgery
DX: Z01.818 Encounter for other preprocedural examination (principal); C50.919 Malignant neoplasm of unspecified site of unspecified female breast
CPT/HCPCS: 36415; 85025; 85730

== ENCOUNTER 2022-07-22 00:21 | Day surgery (SDC) | payer MEDICARE, MEDICAID, SELFPAY ==
--- NOTE | 2022-07-16 08:37 | PC.NURSE ---
PRE-OP INSTRUCTIONS, PLEASE READ CAREFULLY Report to the Outpatient Waiting Room, entrance under the green pavilion located off [facility], at time _0800_ on date _07/22/22_. OR Time: _1000_. Time changes happen often and if your time is changed the preop area will call you the afternoon before. - You and your visitor will be asked to self-screen and do not enter if you have any COVID symptoms. - Only one visitor and NO children visitors are allowed at this time. - The patient visitor is requested to leave or wait in car when not with patient due to restrictions. - A mask is required within the hospital. Patients may have clear liquids (water, carbonated beverages, clear teas, apple juice) until 3 hours prior to surgery (0700 AM) with a maximum of 20 ounces. - No food from midnight until time of surgery Take the following medications with a SIP of water the morning of surgery: _AMLODIPINE, METOPROLOL, TYLENOL IF NEEDED_ Medications to discontinue _PLAVIX PER DR. STREET'S INSTRUCTIONS - (5 DAYS PRIOR TO SURGERY PER MIAH)_ Date to take last dose___07/16/22 Please no make-up, nail saudi arabian, hairspray, perfume, deodorant, or body powder the day of surgery. No jewelry (including any body piercings) or valuables the day of surgery, leave them at home. Please take a shower or bath the night before, or the morning of, surgery with an antibacterial soap. Wear comfortable, loose fitting clothing. - Jewelry must be removed prior to entering the operating room. Rings and piercings that are not removed may be cut off. - The hospital will not accept responsibility for valuables. - Please leave all valuables, including medications, at home the day of surgery. If you are going home after surgery, a licensed cat driver must drive you home. - NO public transportation without another adult. - We recommend that an adult stay with you for 24 hours following discharge. - We also recommend that you do not drive, make important decision, drink alcoholic beverages, or take any drugs that were not prescribed by your health care provider for at least 24 hours after your discharge time. Follow any additional instructions given to you from your surgeon. If you or anyone in your household have experienced Covid symptoms in the past week, please notify your surgeon or the nurse liaison at the phone number below for possible testing. Telephone instructions given to _PT'S DAUGHTER IN LAW (MIAH)_and asked if any additional questions and then verbalized understanding. Patient advised to call surgeon office or pre surgery nurse liaison [phone] if any additional questions.
[2022-07-16 08:43] VITALS: BMI 34.9
--- NOTE | ~2022-07-22 | XR_ITS ---
EXAMINATION: XR chest port-a-cath/central DATE: 07/22/2022 11:05 INDICATION: Port catheter insertion TECHNIQUE: frontal and lateral views of the chest were obtained. COMPARISON: Chest radiograph dated 05/28/2022 FINDINGS: Interval removal of a prior right subclavian central venous port catheter placement of a new right in ternal jugular central venous port catheter with distal tip at the caudal superior vena cava. Persistent subtle increased interstitial pattern which could represent mild pulmonary edema, atelecta sis or more chronic interstitial lung disease. No new airspace opacities, pleural effusion or pneumot horax. The cardiomediastinal silhouette is normal. Cholecystectomy clips in the right upper quadrant. IMPRESSION: 1. Replacement of a now right internal jugular central venous port catheter with distal tip at the ca udal superior vena cava. 2. Unchanged subtle diffuse increased interstitial pattern which could represent mild pulmonary edema , atelectasis or chronic interstitial lung disease. Reviewed, dictated and finalized at location B. IMPRESSION: 1. Replacement of a now right internal jugular central venous port catheter wit h distal tip at the caudal superior vena cava. 2. Unchanged subtle diffuse increased interstitial pattern which could represen t mild pulmonary edema, atelectasis or chronic interstitial lung disease.
--- NOTE | ~2022-07-22 | XR_ITS ---
EXAMINATION: XR fl guide central line place DATE: 07/22/2022 10:45 INDICATION: Port catheter insertion TECHNIQUE: Single frontal fluoroscopic image of the upper chest was obtained during procedure perform ed by Dr. Tam. Radiologist was not present for the imaging or procedure. The amount of fluoroscopy time used during this procedure was 0.3 minutes. COMPARISON: 05/28/2022 FINDINGS: Interval removal of prior right subclavian central venous port catheter and placement of a new right internal jugular central venous port catheter with distal tip near the superior cavoatrial junction. Visualized portions of the lungs are clear. No pneumothorax. Median sternotomy wires and mediastinal surgical clips are seen, likely from prior coronary artery bypass grafting. IMPRESSION: 1. Replacement of a now right internal jugular central venous port catheter with distal tip near the superior cavoatrial junction. Reviewed, dictated and finalized at location B. IMPRESSION: 1. Replacement of a now right internal jugular central venous port catheter wit h distal tip near the superior cavoatrial junction.
[2022-07-22 08:15] VITALS: BP 146/60; PULSE 105; RESP 16; TEMP 37.2; O2SAT 100; BMI 35.0
[2022-07-22] MEDS: LACTATED RINGERS 1,000 ML 30 ML IV CONT (08:40)
[2022-07-22] MEDS: KETOROLAC 15 MG/ML VIAL (*BKC) IV PUSH (08:49)
--- NOTE | 2022-07-22 08:58 | WPDANESEPPF ---
Anes - Initial Pre Proc Eval Procedure: Operation Date: 07/22/22 10:00 Proposed Procedures p Removal Abhi Cath - Raysa Tam MD s Insertion Abhi Cath - Raysa Tam MD Date/Time: 07/22/22 08:58 Surgeon: Raysa aTm MD Pre Op Diagnosis: malfunctioning port Patient Data Age: 77 Gender: F Height: 1.55 m Weight: 84 kg Allergies Allergy/AdvReac Type Severity Reaction Status Date / Time No Known Allergies Allergy Verified 07/22/22 08:28 Home Medications Medication Instructions Recorded Confirmed Type glimepiride 1 mg tablet 1 mg PO QAM #30 tabs 11/05/21 07/21/22 Rx aspirin 81 mg tablet,delayed 81 mg PO DAILY 03/03/22 07/21/22 History release atorvastatin 80 mg tablet 80 mg PO HS 03/03/22 07/21/22 History cetirizine 10 mg capsule (Zyrtec) 10 mg PO PRN PRN Allergy Symptoms 03/03/22 07/21/22 History clopidogrel 75 mg tablet 75 mg PO DAILY 03/03/22 07/22/22 History famotidine 20 mg tablet 20 mg PO BID 03/03/22 07/21/22 History losartan 100 mg tablet 100 mg PO DAILY 03/03/22 07/21/22 History metoprolol succinate 100 mg 100 mg PO DAILY #90 tabs 03/03/22 07/22/22 Rx tablet,extended release 24 hr nitroglycerin 0.4 mg sublingual 0.4 mg sublingual Q5M PRN Chest 03/03/22 07/21/22 History tablet Pain potassium chloride 20 mEq 20 meq PO DAILY 03/03/22 07/21/22 History tablet,extended release(part/cryst) triamterene 37.5 1 tablet PO QAM 03/03/22 07/21/22 History mg-hydrochlorothiazide 25 mg tablet acetaminophen 500 mg tablet 500 mg PO Q6H PRN Pain 03/31/22 07/21/22 History (Tylenol Extra Strength) amlodipine 10 mg tablet 10 mg PO DAILY 03/31/22 07/22/22 History docusate sodium 100 mg capsule 100 mg PO BID #30 caps 04/18/22 07/21/22 Rx (Colace) albuterol sulfate 90 mcg/actuation 2 puff inhalation QID PRN 07/13/22 07/21/22 Rx aerosol inhaler (Proventil HFA) Shortness Of Breath #8.5 grams cholecalciferol (vitamin D3) 125 125 mcg PO DAILY 07/13/22 07/21/22 History mcg (5,000 unit) capsule dexamethasone 4 mg tablet 4 mg PO .COMPLEX 07/13/22 07/21/22 History ondansetron 8 mg disintegrating 8 mg PO Q12H PRN Nausea 07/13/22 07/21/22 History tablet vitamin B complex (B 1 tablet PO DAILY 07/13/22 07/21/22 History Complex-Vitamin B12 tablet) Laboratory Tests 07/22/22 08:44 APTT Pending Patient hx anesthesia problems: none Family hx anesthesia problems: none Results Review: All pre-operative results and documents have been reviewed as part of the pre-operative evaluation. [facility] Past Medical History Medical History Hx of hemorrhoids Surgical History Surgical History H/O lymph node biopsy left axillary sentinel lymph node biopsy on 04/17/22. H/O mastectomy left simple mastectomy on 04/17/22 Hx of CABG Hx of carpal tunnel repair Hx of hysterectomy Family History Family History Other Cerebrovascular accident Family history of malignant neoplasm Social History Social History Social History: current everyday caffeine use Smoking packs per day: 0.5 Smoking cigarettes per day: 10.0 Years smoked: 24 Smoking pack-years: 12.00 Smoking status: Former smoker Tobacco type: cigarettes Second hand tobacco smoke exposure: No Smoking end date: 10/11/82 Alcohol intake: never Substance use: never Substance use type: does not use Living arrangements: alone Gender identity (if verbalized by the patient): Female Sexual Orientation (if Verbalized by the Patient): Straight or Heterosexual Spiritual care concerns: No Agree to blood products: Yes Anes - Eval Final PreProcedure Day of Procedure 07/22/22 08:58 Patient weight: morbidly obese Heart: regular rate and rhythm Lungs: clear to auscultation Airwa
[2022-07-22 08:59] LABS: Glucose Point of Care 125 mg/dl (65-105)
[2022-07-22 09:06] LABS: Partial Thromboplastin Time 39.7 SECONDS (22.3-36.8)
--- NOTE | 2022-07-22 09:17 | SUR.PREOP ---
0917- PTT resulted at 39.7 for today's lab draw- call to Dr. Tam and notified. Per Dr. Tam will proceed with case.
--- NOTE | 2022-07-22 09:56 | PM.IMHP ---
H&P: HPI History of Present Illness Date/Time: 07/22/22 09:56 Chief Complaint: L breast cancer Narrative: Pt is a 77 y/o F c L breast cancer currently undergoing adjuvant chemotherapy. Pt had R SCV VAD placed in May. Pt reports VAD c difficulty drawing back at last treatment. Pt had further imaging showing kinking of catheter as it passes the clavicle. Pt denies any pain or other symptomatology. Review of Systems Review of Systems: All systems reviewed & are unremarkable except as noted in HPI and below PMFSH Past Medical History Medical History Hx of hemorrhoids Surgical History Surgical History H/O lymph node biopsy left axillary sentinel lymph node biopsy on 04/17/22. H/O mastectomy left simple mastectomy on 04/17/22 Hx of CABG Hx of carpal tunnel repair Hx of hysterectomy Family History Family History Other Cerebrovascular accident Family history of malignant neoplasm Social History Social History Social History: current everyday caffeine use Smoking packs per day: 0.5 Smoking cigarettes per day: 10.0 Years smoked: 24 Smoking pack-years: 12.00 Smoking status: Former smoker Tobacco type: cigarettes Second hand tobacco smoke exposure: No Smoking end date: 10/11/82 Alcohol intake: never Substance use: never Substance use type: does not use Living arrangements: alone Gender identity (if verbalized by the patient): Female Sexual Orientation (if Verbalized by the Patient): Straight or Heterosexual Spiritual care concerns: No Agree to blood products: Yes Meds Home Medications and Allergies Home Medications Medication Instructions Recorded Confirmed Type glimepiride 1 mg tablet 1 mg PO QAM #30 tabs 11/05/21 07/21/22 Rx aspirin 81 mg tablet,delayed 81 mg PO DAILY 03/03/22 07/21/22 History release atorvastatin 80 mg tablet 80 mg PO HS 03/03/22 07/21/22 History cetirizine 10 mg capsule (Zyrtec) 10 mg PO PRN PRN Allergy Symptoms 03/03/22 07/21/22 History clopidogrel 75 mg tablet 75 mg PO DAILY 03/03/22 07/22/22 History famotidine 20 mg tablet 20 mg PO BID 03/03/22 07/21/22 History losartan 100 mg tablet 100 mg PO DAILY 03/03/22 07/21/22 History metoprolol succinate 100 mg 100 mg PO DAILY #90 tabs 03/03/22 07/22/22 Rx tablet,extended release 24 hr nitroglycerin 0.4 mg sublingual 0.4 mg sublingual Q5M PRN Chest 03/03/22 07/21/22 History tablet Pain potassium chloride 20 mEq 20 meq PO DAILY 03/03/22 07/21/22 History tablet,extended release(part/cryst) triamterene 37.5 1 tablet PO QAM 03/03/22 07/21/22 History mg-hydrochlorothiazide 25 mg tablet acetaminophen 500 mg tablet 500 mg PO Q6H PRN Pain 03/31/22 07/21/22 History (Tylenol Extra Strength) amlodipine 10 mg tablet 10 mg PO DAILY 03/31/22 07/22/22 History docusate sodium 100 mg capsule 100 mg PO BID #30 caps 04/18/22 07/21/22 Rx (Colace) albuterol sulfate 90 mcg/actuation 2 puff inhalation QID PRN 07/13/22 07/21/22 Rx aerosol inhaler (Proventil HFA) Shortness Of Breath #8.5 grams cholecalciferol (vitamin D3) 125 125 mcg PO DAILY 07/13/22 07/21/22 History mcg (5,000 unit) capsule dexamethasone 4 mg tablet 4 mg PO .COMPLEX 07/13/22 07/21/22 History ondansetron 8 mg disintegrating 8 mg PO Q12H PRN Nausea 07/13/22 07/21/22 History tablet vitamin B complex (B 1 tablet PO DAILY 07/13/22 07/21/22 History Complex-Vitamin B12 tablet) Allergies Allergy/AdvReac Type Severity Reaction Status Date / Time No Known Allergies Allergy Verified 07/22/22 08:28 Vital Signs Vital Signs - 24 hr 07/22/22 08:15 Temperature 37.2 C Pulse Rate 105 H Respiratory Rate 16 Blood Pressure 146/60 H Pulse Oximetry 100 Oxygen Delivery Room Air Exam Const: General: cooperat
--- NOTE | 2022-07-22 10:00 | WPDHPUPDATE1 ---
History and Physical Update Update Date/Time: 07/22/22 10:00 History and Physical has been reviewed, including an updated exam of the patient. There are NO changes in the patient's condition. Risks, benefits, and alternatives have been discussed and questions answered. Patient agrees to proceed with procedure.
[2022-07-22] MEDS: ceFAZolin 2 GM/D5W 50 ML 2 GM/50 ML BAG IVPB (10:01)
[2022-07-22] MEDS: BUPIVACAINE/EPINEPHRINE 0.25% 50 ML VIAL 30 ML INFILTRATE (10:33)
[2022-07-22] MEDS: HEPARIN SODIUM 5,000 UNITS/ML VIAL 5000 UNITS IRRIGATION (10:34)
[2022-07-22] MEDS: HEPARIN SODIUM, PORCINE 10,000 UNITS/10 ML VIAL 3000 UNITS IRRIGATION (10:35)
[2022-07-22 11:00] VITALS: BP 127/46; PULSE 107; RESP 16; O2SAT 97
[2022-07-22 11:01] LABS: Glucose Point of Care 127 mg/dl (65-105)
--- NOTE | 2022-07-22 11:02 | P.OP_ITS ---
Procedure Note - Detailed Date of Procedure 07/22/22 Pre-op Diagnosis L breast cancer, R SCV malfunctioning port Post-op Diagnosis Same Procedure Performed removal of R SCV VAD, placement of RIJ VAD under U/S and fluoroscopic guidance Surgeon Raysa Tam MD Anesthesia MAC and Local Indications 77 y/o F c L breast cancer presenting c kinking of previously placed R SCV VAD Findings previous VAD removed intact, no evidence of fracture Description of Procedure Patient was brought into the operating room and placed in the supine position. After adequate induction of mac anesthesia, the patient was prepped and draped in normal sterile fashion. Time-out was then done to verify the patient's identity, as well as the procedure being performed. The previous incision site in the right chest was locally anesthetized. I then opened the incision and was able to dissect out the previous port. The suture holding the previous port was cut. I was then able to remove the port from the subcutaneous pocket. I then removed the port and catheter in full. The catheter was noted to be intact and there was no evidence of any fracturing. I then used the ultrasound to gain access into the right internal jugular vein. Once access was gained, I placed the guidewire in the vein and confirmed proper positioning using fluoroscopy. I proceeded to tunnel the catheter from the chest to the right neck insertion s ite. I then placed a dilating sheath over the guidewire into the right internal jugular vein via sterile Seldinger technique. This was once again done and confirmed via fluoroscopic guidance. I then removed the dilator and the guidewire, now just leaving the sheath in the vein. I then fed the previously flushed catheter into the right internal jugular vein under fluoroscopic guidance. At approximately 24 cm, the catheter was noted to be near the atrial caval junction. I then peeled away the sheath, now just leaving the catheter in the vein. I then was able to easily draw and flush from the catheter. The catheter was cut to fit and attached to the port itself. The port was placed into the previously made subcutaneous pocket and sutured in with 0 Ethibond suture. Final fluoroscopic view showed the termination of the catheter at the atrial caval junction with a nice smooth curvature back to the port itself. I was able to gain access to the port with a Chester needle and was able to easily draw and flush from the port. I then flushed 3 cc of a final heparin flush into the port. The incision was closed with 3 0 Vicryl suture in the subcutaneous tissue and the skin was closed with 4 O Monocryl subcuticular suture. Dermabond was then placed on wound. The patient tolerated the procedure well and will be sent to the recovery room in stable condition. Implants RIJ VAD Estimated Blood Loss 10 Pathology None sent Complications No immediate complications Condition Stable Disposition PACU [facility] Billing Surgery - Charge Forward: Surgery Billing
[2022-07-22 11:30] VITALS: BP 124/67; PULSE 100; RESP 16; O2SAT 100
--- NOTE | 2022-07-22 11:43 | SUR.PHASEII ---
NO PNEUMOTHORAX IN READING OF CXR.
[2022-07-22 12:00] VITALS: BP 136/52; PULSE 93; RESP 16
--- NOTE | 2022-07-22 12:20 | SUR.PHASEII ---
1120 PATIENT REQUESTED TO USE ALBUTEROL INHALER; NO RESPIRATORY DISTRESS; GOOD AERATION. USED 2 PUFFS.
== END 2022-07-22 12:10 | disposition home or self-care (01) ==
PROVIDERS: PCP Family Medicine Adolescent Medicine; Visit Provider Surgery
PROC: (CPT 36589; principal; 2022-07-22 10:00)
PROC: (CPT 36590; 2022-07-22 10:00)
DX: T82.524A Displacement of infusion catheter, initial encounter (principal); C50.912 Malignant neoplasm of unspecified site of left female breast; Y83.8 Other surgical procedures as the cause of abnormal reaction of the patient, or of later complication, without mention of misadventure at the time of the procedure; Z95.1 Presence of aortocoronary bypass graft; Z87.891 Personal history of nicotine dependence; E66.9 Obesity, unspecified; Z68.35 Body mass index [BMI] 35.0-35.9, adult; Z79.84 Long term (current) use of oral hypoglycemic drugs; Z79.82 Long term (current) use of aspirin; Z79.02 Long term (current) use of antithrombotics/antiplatelets; Z79.899 Other long term (current) drug therapy
CPT/HCPCS: 36590; 36561; 36415; 77001; 82948; 85730; C1788; J0690; J1644; J1885; J2704; J3010; J7030; J7120

== ENCOUNTER 2022-07-28 10:34 | Outpatient (CLI) | payer MEDICARE, MEDICAID, SELFPAY ==
--- NOTE | ~2022-07-28 | XR_ITS ---
EXAMINATION: XR chest 2V DATE: 07/28/2022 11:35 INDICATION: Breast cancer TECHNIQUE: PA and lateral views of the chest are obtained. COMPARISON: 07/22/2022 FINDINGS: There is mild chronic interstitial lung disease. The lungs are free of acute opacities. No pleural effusion or pneumothorax. A right internal jugular Port-A-Cath ends with its tip at the super ior cavoatrial junction. Changes of prior cardiac surgery are noted. There is severe thoracic spondyl osis. Cholecystectomy clips are noted. IMPRESSION: 1. No acute cardiopulmonary abnormality. Reviewed, dictated and finalized at location A.
== END 2022-07-28 10:35 | disposition home or self-care (01) ==
PROVIDERS: PCP Family Medicine Adolescent Medicine; Visit Provider Surgery
DX: C50.919 Malignant neoplasm of unspecified site of unspecified female breast (principal); Z45.2 Encounter for adjustment and management of vascular access device
CPT/HCPCS: 36415; 71046; 80047; 80053; 85025

== ENCOUNTER 2022-07-30 11:42 | Outpatient (CLI) | payer MEDICARE, MEDICAID, SELFPAY ==
[2022-07-30 14:22] LABS: INR 1.1; Prothrombin Time 13.4 Seconds (11.1-14.7)
[2022-07-30 14:23] LABS: Partial Thromboplastin Time 36.8 SECONDS (22.3-36.8)
== END 2022-07-30 11:43 | disposition home or self-care (01) ==
LOC: ANHLAB 08-04 15:34
PROVIDERS: PCP Family Medicine Adolescent Medicine; Visit Provider Surgery
DX: Z01.818 Encounter for other preprocedural examination (principal)
CPT/HCPCS: 36415; 85610; 85730

== ENCOUNTER 2022-08-03 00:23 | Day surgery (SDC) | payer MEDICARE, MEDICAID, SELFPAY ==
--- NOTE | 2022-07-29 14:26 | PC.NURSE ---
Addendum entered by Karen Hitchcock RN 07/29/22 14:33: DAUGHTER IN LAW MIAH LEO STATES HOLD PLAVIX STARTING TOMORROW(PT ALREADY TOOK DOSE TODAY). INSTRUCTIONS GIVEN TO MIAH LEO Original Note: Report to the Outpatient Waiting Room, entrance under the green pavilion [facility], at time __0830 on date __08/03/22 . Planned Procedure Time: _1030 . Time changes happen often and if your time is changed the preop area will call you the afternoon before. - You and your visitor will be asked to self-screen and do not enter if you have any COVID symptoms. - We encourage only one visitor and NO visitors under age 16 are allowed at this time. Your visitor will receive communication by the phone number that is given day of service. - The patient visitor is requested to social distance or may leave the building when not with patient due to restrictions. - A mask is required within the hospital. Patients may have clear liquids (water, carbonated beverages, clear teas, apple juice) until 3 hours prior to surgery with a maximum of 20 ounces. - No food from midnight until time of surgery - Infants may have breast milk until 4 hours before surgery, formula 6 hours prior to surgery. - Children will be allowed to drink immediately following surgery. If applicable, please bring a bottle or sippy cup to assist with drinking. Juice, water, soda, and popsicles are readily available. For infants on formula, please bring formula the day of surgery. Pacifiers are allowed. Take the following medications with a SIP of water the morning of surgery: __AMLODIPINE,METOPROLOL,DEXAMETHASONE Medications to discontinue per physician _ALL VITAMINS AND SUPPLEMENTS 3 DAYS PRE OP Date to take last dose__07/30/22 Please no make-up, nail sa[place], hairspray, perfume, deodorant, or body powder the day of surgery. No jewelry (including any body piercings) or valuables the day of surgery, leave them at home. Please take a shower or bath the night before, or the morning of, surgery with an antibacterial soap. Wear comfortable, loose fitting clothing. Children are encouraged to wear pajamas. - Jewelry must be removed prior to entering the operating room. Rings and piercings that are not removed may be cut off. - The hospital will not accept responsibility for valuables. - Please leave all valuables, including medications, at home the day of surgery. If you are going home after surgery, a licensed fuel oil truck driver must drive you home. - NO public transportation without another adult. - We recommend that an adult stay with you for 24 hours following discharge. - We also recommend that you do not drive, make important decision, drink alcoholic beverages, or take any drugs that were not prescribed by your health care provider for at least 24 hours after your discharge time. For Pediatric surgeries, we recommend two adults accompany the child home. Follow any additional instructions given to you from your surgeon. If you or anyone in your household have experienced Covid symptoms in the past week, please notify your surgeon or the nurse liaison at the phone number below for possible testing. Telephone instructions given to and asked if any additional questions and then verbalized understanding. Patient advised to call surgeon office or pre surgery nurse liaison [phone] if any additional questions.
[2022-07-29 14:35] VITALS: BMI 54.7
--- NOTE | ~2022-08-03 | XR_ITS ---
CORRECTED REPORT Examination changed to XR fluoroscopy <1hr 08/07/2022 sef This report was recreated on 08/07/2022 09:36 CDT. Original report was signed by Cricket Thorne on 08/04/2022 7:25 CDT . EXAMINATION: XR fluoroscopy <1hr DATE: 08/03/2022 15:37 INDICATION: Open assessment and repositioning of the portography right internal jugular central venous port catheter. TECHNIQUE: 2 fluoroscopic images of the right chest were obtained during procedure performed by Dr. Orozco. Radiologist was not present for the imaging or procedure. The amount of fluoroscopy time used during this procedure was 0.3 minutes. COMPARISON: 07/28/2022 FINDINGS: Again seen is a right internal jugular central venous port catheter. Change in position of the port of the catheter which was previously rotated to the face laterally and now appears in expected position. The distal tip is in the high right atrium. Markers for a lap sponge, presumably external to the patient projects over the right chest on one of the images. Median sternotomy wires which may be related to prior coronary artery bypass grafting. No pneumothorax. IMPRESSION: 1. Expected appearance of a right internal jugular central venous port catheter post repositioning of the port. Reviewed, dictated and finalized at location A. MTDD
--- NOTE | ~2022-08-03 | XR_ITS ---
XR chest port-a-cath/central DATE: 08/03/2022 16:05 INDICATION: Port-A-Cath revision TECHNIQUE: Portable upright AP chest on 07/30/2022 at 1554 hours COMPARISON: 07/28/2022 2 view chest FINDINGS: Right internal jugular Port-A-Cath, catheter tip situated near superior cavoatrial junction . Cardiomegaly. Aortic calcification. There is pulmonary vascular congestion and redistribution. There are mild patchy infiltrates involvin g primarily the mid and lower lung zones. Findings suggest congestive heart failure and pulmonary blanca ma. Pneumonia is not excluded. There is minimal if any pleural effusion. No pneumothorax. Suggestion of surgical clips, right upper quadrant, likely due to cholecystectomy. IMPRESSION: Congestive changes Right internal jugular Port-A-Cath catheter tip at superior cavoatrial junction; no pneumothorax Reviewed, dictated and finalized at [facility]. Reviewed, dictated and finalized at location A. IMPRESSION: Congestive changes Right internal jugular Port-A-Cath catheter tip at superior cavoatrial junction ; no pneumothorax
[2022-08-03 09:00] VITALS: BP 171/66; PULSE 98; RESP 16; TEMP 36.2; O2SAT 100
[2022-08-03] MEDS: LACTATED RINGERS 1,000 ML 30 ML IV CONT (09:00)
--- NOTE | 2022-08-03 09:31 | WPDANESEPPF ---
Anes - Initial Pre Proc Eval Procedure: Operation Date: 08/03/22 10:30 Proposed Procedures p Revision of Abhi Cath - Davonte Orozco MD Date/Time: 08/03/22 09:31 Surgeon: Davonte Orozco MD Pre Op Diagnosis: malfunctioning portacath Patient Data Age: 77 Gender: F Height: 1.52 m Weight: 127.05 kg Allergies Allergy/AdvReac Type Severity Reaction Status Date / Time No Known Allergies Allergy Verified 07/29/22 14:20 Home Medications Medication Instructions Recorded Confirmed Type glimepiride 1 mg tablet 1 mg PO QAM #30 tabs 11/05/21 08/01/22 Rx aspirin 81 mg tablet,delayed 81 mg PO DAILY 03/03/22 08/01/22 History release atorvastatin 80 mg tablet 80 mg PO HS 03/03/22 08/01/22 History cetirizine 10 mg capsule (Zyrtec) 10 mg PO PRN PRN Allergy Symptoms 03/03/22 08/01/22 History clopidogrel 75 mg tablet 75 mg PO DAILY 03/03/22 08/01/22 History famotidine 20 mg tablet 20 mg PO BID 03/03/22 08/01/22 History losartan 100 mg tablet 100 mg PO DAILY 03/03/22 08/01/22 History metoprolol succinate 100 mg 100 mg PO DAILY #90 tabs 03/03/22 08/01/22 Rx tablet,extended release 24 hr nitroglycerin 0.4 mg sublingual 0.4 mg sublingual Q5M PRN Chest 03/03/22 08/01/22 History tablet Pain potassium chloride 20 mEq 20 meq PO DAILY 03/03/22 08/01/22 History tablet,extended release(part/cryst) triamterene 37.5 1 tablet PO QAM 03/03/22 08/01/22 History mg-hydrochlorothiazide 25 mg tablet acetaminophen 500 mg tablet 500 mg PO Q6H PRN Pain 03/31/22 08/01/22 History (Tylenol Extra Strength) amlodipine 10 mg tablet 10 mg PO DAILY 03/31/22 08/01/22 History docusate sodium 100 mg capsule 100 mg PO BID #30 caps 04/18/22 08/01/22 Rx (Colace) albuterol sulfate 90 mcg/actuation 2 puff inhalation QID PRN 07/13/22 08/01/22 Rx aerosol inhaler (Proventil HFA) Shortness Of Breath #8.5 grams cholecalciferol (vitamin D3) 125 125 mcg PO DAILY 07/13/22 08/01/22 History mcg (5,000 unit) capsule dexamethasone 4 mg tablet 4 mg PO .COMPLEX 07/13/22 08/01/22 History ondansetron 8 mg disintegrating 8 mg PO Q12H PRN Nausea 07/13/22 08/01/22 History tablet vitamin B complex (B 1 tablet PO DAILY 07/13/22 08/01/22 History Complex-Vitamin B12 tablet) Patient hx anesthesia problems: none Family hx anesthesia problems: none Results Review: All pre-operative results and documents have been reviewed as part of the pre-operative evaluation. [facility] Past Medical History Medical History Hx of hemorrhoids Surgical History Surgical History H/O lymph node biopsy left axillary sentinel lymph node biopsy on 04/17/22. H/O mastectomy left simple mastectomy on 04/17/22 Hx of CABG Hx of carpal tunnel repair Hx of hysterectomy Family History Family History Other Cerebrovascular accident Family history of malignant neoplasm Social History Social History Social History: current everyday caffeine use Smoking packs per day: 0.5 Smoking cigarettes per day: 10.0 Years smoked: 24 Smoking pack-years: 12.00 Smoking status: Former smoker Tobacco type: cigarettes Second hand tobacco smoke exposure: No Smoking end date: 10/11/82 Alcohol intake: never Substance use: never Substance use type: does not use Living arrangements: alone Gender identity (if verbalized by the patient): Female Sexual Orientation (if Verbalized by the Patient): Straight or Heterosexual Spiritual care concerns: No Agree to blood products: Yes Anes - Eval Final PreProcedure Day of Procedure 08/03/22 09:31 Patient weight: morbidly obese Heart: regular rate and rhythm Lungs: clear to auscultation Airway: Mallampati scale class II Neurological: alert and oriented Last oral intake: >/= 8 hours A
[2022-08-03 09:37] LABS: Glucose Point of Care 154 mg/dl (65-105)
--- NOTE | 2022-08-03 14:08 | WPDHPUPDATE1 ---
History and Physical Update Update Date/Time: 08/03/22 14:08 History and Physical has been reviewed, including an updated exam of the patient. There are NO changes in the patient's condition. Risks, benefits, and alternatives have been discussed and questions answered. Patient agrees to proceed with procedure.
[2022-08-03] MEDS: ceFAZolin 2 GM/D5W 50 ML 2 GM/50 ML BAG IVPB (14:35)
[2022-08-03] MEDS: BUPIVACAINE/EPINEPHRINE 0.25% 50 ML VIAL 30 ML INFILTRATE (15:10)
[2022-08-03] MEDS: HEPARIN SODIUM 5,000 UNITS/ML VIAL 5000 UNITS IRRIGATION (15:11)
[2022-08-03 15:45] VITALS: BP 129/46; PULSE 95; RESP 16; O2SAT 95
--- NOTE | 2022-08-03 16:02 | W.PM.PROC2 ---
Procedure Note - Detailed Date of Procedure 08/03/22 Pre-op Diagnosis malfunctioning portacath Post-op Diagnosis Same Procedure Performed Repositioning of Port-A-Cath, port Surgeon Davonte Orozco MD Licensed Real Estate Broker JOE [place] 1st assist Indications Patient is a pleasant 77-year-old white female who is being treated for breast cancer with chemotherapy. She has had several treatments but a recently placed Port-A-Cath seems to have rotated such that it cannot be accessed. Therefore, after trying access in the office and evaluated chest x-ray we brought her to the operating room in order to explore the pocket for the Port-A-Cath and re-sutured it. As long as it was able to be accessed and flushed properly with good aspiration of blood we were not planning to replace it. Findings The Bard low-profile if profile port was sitting on it side within the pocket with the diaphragm for needle access pointing laterally. Description of Procedure Patient was brought to the operative room placed supine on the operating table. After induction of adequate IV sedation by a Maurilio anesthesia we prepped and draped the patient's entire upper chest and neck. Following this time-out was performed confirming patient site of surgery. Following this I carefully placed local anesthetic into the incision for the pocket on the patient's right anterior chest. I allowed this to work for 30 seconds. Following this we carefully made an incision and removed the old Monocryl sutures and continued to gently cut down on to the port- catheter junction. I then carefully dissected around this with scissors. We found that the port was facing to the right side laying on its side rather than laying flat with the silastic dome pointing toward the surface of the skin. I completely dissected the port out of the pocket. I brought it up and out the pocket laid it on a 4 x 4. Then I accessed it with a bent Chester needle. It immediately kasi back good dark blood and we flushed this with 3 cc of heparinized saline. ( this means that I did not need replace the whole catheter and I did not need to disconnect the catheter from the port ). Following this I remodeled the pocket such that I could place the port more medially in the pocket and further inferior under the inferior skin flap.. This was done with iris scissors and Bovie cautery to achieve hemostasis. The port seemed to sit deeply or inferiorly in the pocket well. I then re-sutured it both medially and laterally with a 3-0 Prolene suture such that it would sit with its flat back toward the patient's chest wall and the silastic dome toward the skin. The port itself was nicely about a cm inferior to the incision. Prior to closing the incision we reaccessed the port with a new bent Chester needle that was connected to tubing. We accessed on the 2nd try and good dark blood was aspirated we flushed with 3 cc of heparinized saline and left this needle in place going through the skin inferior to the incision directly into the silastic top of the port. Following this I sutured the incision closed with buried subcutaneous sutures of 3-0 Vicryl x3 followed by a skin closure with a running subcuticular closure of 4-0 Monocryl. We then dressed the wound with his surgical glue. Once this was dried I then placed a antibiotic ring around the base of the needle between it and the port site skin. We then placed a folded 2 x 2 underneath the right angle part of the needle and then a flat 2 x 2 over the needle and covered the area entirely with a medium Tegaderm. We left the IV tubing that connects to the right angle Chester needle coming out from underneath the Tegaderm dressing such that it can be used for chemo tomorrow and then nurses at Dr. Mohan's office will remove it and use it again 3 weeks later. 2 times during this repositioning I did use fluoro to reconfirm that the catheter was still in the central venous systemand had a good curvilinear flow fro
[2022-08-03 16:15] VITALS: BP 135/56; PULSE 82
[2022-08-03 16:15] LABS: Glucose Point of Care 161 mg/dl (65-105)
[2022-08-03 16:45] VITALS: BP 134/58; PULSE 78
== END 2022-08-03 16:55 | disposition home or self-care (01) ==
PROVIDERS: PCP Family Medicine Adolescent Medicine; Visit Provider Surgery
PROC: (CPT 36597; principal; 2022-08-03 10:30)
DX: T82.524A Displacement of infusion catheter, initial encounter (principal); Y83.8 Other surgical procedures as the cause of abnormal reaction of the patient, or of later complication, without mention of misadventure at the time of the procedure; Z79.84 Long term (current) use of oral hypoglycemic drugs; Z79.02 Long term (current) use of antithrombotics/antiplatelets; Z79.51 Long term (current) use of inhaled steroids; Z87.891 Personal history of nicotine dependence; E66.01 Morbid (severe) obesity due to excess calories; Z68.36 Body mass index [BMI] 36.0-36.9, adult
CPT/HCPCS: 36597; 76000; 77001; 82948; J0690; J1644; J2704; J3010; J7030; J7120

== ENCOUNTER 2023-04-06 09:53 | Outpatient (CLI) | payer MEDICARE, MEDICAID, SELFPAY ==
--- NOTE | ~2023-04-06 | MM_ITS ---
EXAMINATION: MM screening savage RT w aviva HISTORY: Screening mammogram; status post left mastectomy in March 2022 breast malignancy. TECHNIQUE: Craniocaudal and mediolateral oblique 3-D tomosynthesis images were obtained and synthetic 2-D images were generated. CAD analysis was submitted and interpreted. COMPARISON: 03/18/2022 bilateral screening mammogram BREAST PARENCHYMAL COMPOSITION: The breasts are almost entirely fatty. FINDINGS: Scattered benign calcifications. There is no evidence of suspicious mass, calcification, or architectural distortion to suggest malignancy in either breast. There has been no suspicious interv al change. IMPRESSION: 1. Status post left mastectomy for breast cancer. No mammographic evidence of right breast malignancy . 2. Recommend routine screening mammography in one year. BI-RADS Category 2: Benign finding(s). Reviewed, dictated and finalized at location A. IMPRESSION: 1. Status post left mastectomy for breast cancer. No mammographic evidence of r ight breast malignancy. 2. Recommend routine screening mammography in one year. BI-RADS Category 2: Benign finding(s).
== END 2023-04-06 09:54 | disposition home or self-care (01) ==
LOC: ANHIMG 09:55
PROVIDERS: PCP Family Medicine Adolescent Medicine; Visit Provider Internal Medicine Hematology & Oncology
DX: Z12.31 Encounter for screening mammogram for malignant neoplasm of breast (principal)
CPT/HCPCS: 77063; 77067

== ENCOUNTER 2023-06-02 14:49 | Outpatient (CLI) | payer MEDICARE, MEDICAID, SELFPAY ==
--- NOTE | ~2023-06-02 | DEXA_ITS ---
Bone Density Report Name: LEVON CLINE Age: 77 Sex: Female Ethnicity: White Date of : 1945 Indication: postmenopausal; screening for osteoporosis; height loss; cancer; asthma or emphysema; hysterectomy; rheumatoid arthritis; Referring Provider: HAL SOLIMAN Study: Bone densitometry was performed. Exam Date: June 02, 2023 Accession number: [id number] Bone Density: Region BMD T-score Z-score Classification AP Spine(L1-L4) 0.849 -1.8 0.8 Osteopenia Femoral Neck (Left) 0.607 -2.2 0.1 Osteopenia Total Hip (Left) 0.826 -1.0 1.0 Normal Femoral Neck (Right) 0.603 -2.2 0.0 Osteopenia Total Hip (Right) 0.832 -0.9 1.1 Normal Total Hip Mean 0.829 -1.0 1.1 Normal World Health Organization criteria for BMD impression classify patients as: Normal (T-score at or above -1.0), Osteopenia (T-score between -1.0 and -2.5), or Osteoporosis (T-score at or below -2.5). 10-year Fracture Risk(1): Major Osteoporotic Fracture 18% Hip Fracture 5.6% Reported Risk Factors: [place] (), Neck BMD=0.607, BMI=39.0, rheumatoid arthritis (1) FRAX(R) Version 3.08. Fracture probability calculated for an untreated patient. Fracture probability may be lower if the patient has received treatment. Clinical Information Provided by Patient: Has rheumatoid arthritis Has used the following medications: Vitamin D, Calcium Has the following medical conditions: Asthma or Emphysema, Cancer, Hysterectomy Patient maximum height was 60 Menopause Age: 49 No regular weight bearing exercise Does not regularly consume dairy products Drinks caffeinated beverages Onset of menses at age 12 Number of children 5 Impression: The patient has low bone mass, based on the Left Femoral Neck T-score. The patient has an estimated ten-year risk of hip fracture of 5.6% and an estimated ten-year risk of major fracture of 18%, based on the WHO FRAX algorithm. Discussion: BONE DENSITY IS LOW AT ONE OR MORE SKELETAL SITES. THE PATIENT'S BMD AND CLINICAL RISK FACTORS CONTRIBUTE TO THIS PATIENT'S INCREASED RISK OF FRACTURE. This patient's lowest T-score is low at one or more skeletal sites. It meets the World Health Organization's (WHO) criteria for ?low bone mass? (T-score between -1.0 and -2.5). The patient's 10-year risk of hip fracture as calculated by FRAX exceeds the threshold where pharmacological therapy is recommended by the National Osteoporosis Foundation (NOF). However, all treatment decisions require clinical judgment and consideration of individual patient factors, including patient preferences, comorbidities, previous drug use, risk factors not captured in the FRAX model (e.g., frailty, falls, vitamin D deficiency, increased bone turnover, interval significant decline in bone density) and possible under or overes
== END 2023-06-02 14:50 | disposition home or self-care (01) ==
LOC: ANHIMG 14:51
PROVIDERS: PCP Family Medicine Adolescent Medicine; Visit Provider Internal Medicine Hematology & Oncology
DX: M85.89 Other specified disorders of bone density and structure, multiple sites (principal)
CPT/HCPCS: 77080

== ENCOUNTER 2024-01-15 09:04 | Outpatient (CLI) | payer MEDICARE, SELFPAY ==
[2024-01-15 09:21] LABS: Hemoglobin 11.5 g/dL (12.0-15.0)
[2024-01-15 12:05] LABS: Anion Gap 7 mmol/L (4-12); Blood Urea Nitrogen 21 mg/dL (7-17); Calcium 9.9 mg/dL (8.4-10.2); Carbon Dioxide 23 mmol/L (22-30); Chloride 105 mmol/L (98-107); Estimated Glomerular Filt Rate 53; Glucose 232 mg/dL (65-110); Potassium 4.1 mmol/L (3.4-5.0); Sodium 135 mmol/L (137-145)
== END 2024-01-15 09:05 | disposition home or self-care (01) ==
LOC: ANHLAB 09:07
PROVIDERS: PCP Family Medicine Adolescent Medicine; Visit Provider Anesthesiology
DX: Z01.818 Encounter for other preprocedural examination (principal); E11.9 Type 2 diabetes mellitus without complications; D64.9 Anemia, unspecified
CPT/HCPCS: 36415; 80048; 85014; 85018

== ENCOUNTER 2024-01-17 00:47 | Day surgery (SDC) | payer MEDICARE, SELFPAY ==
[2024-01-10 12:50] VITALS: BMI 38.7
--- NOTE | 2024-01-10 12:58 | PC.NURSE ---
Report to the Outpatient Waiting Room, entrance under the green pavilion located off [facility], at time __8:30AM on date __01/17/24 . Planned Procedure Time: __10:30AM . Time changes happen often and if your time is changed the preop area will call you the afternoon before. - You and your visitor will be asked to self-screen and do not enter if you have any COVID symptoms. - A mask is optional within the hospital at this time. Patients may have clear liquids (water, carbonated beverages, clear teas, apple juice) until 3 hours prior to surgery with a maximum of 20 ounces. - No food from midnight until time of surgery. Take the following medications with a SIP of water the morning of surgery: __AMLODIPINE & METOPROLOL. USE INHALER NEEDED DO NOT STOP ANY OF YOUR OTHER PRESCRIPTION MEDICATIONS PRIOR TO SURGERY ?EXCEPT THE FOLLOWING Medications to discontinue per physician __HOLD PLAVIX, ASPIRIN & FISH OIL 7 DAYS PRE-OP PER STUDENT SUPPORT ADVISOR/DR LAWRENCE. LAST DOSE 01/09/24.__ HOLD ALL VITAMINS/SUPPLEMENTS 3 DAYS PRE-OP PER ANESTHESIA -LAST DOSE 01/13/24. Please no make-up, nail danish, hairspray, perfume, deodorant, or body powder the day of surgery. No jewelry (including any body piercings) or valuables the day of surgery, leave them at home. Please take a shower or bath the night before, or the morning of, surgery with an antibacterial soap. Wear comfortable, loose fitting clothing. - Jewelry must be removed prior to entering the operating room. Rings and piercings that are not removed may be cut off. - The hospital will not accept responsibility for valuables. - Please leave all valuables, including medications, at home the day of surgery. If you are going home after surgery, a licensed driver education instructor must drive you home. - NO public transportation without another adult if you receive anesthesia. - We recommend that an adult stay with you for 24 hours following discharge. - We also recommend that you do not drive, make important decision, drink alcoholic beverages, or take any drugs that were not prescribed by your health care provider for at least 24 hours after your discharge time. Follow any additional instructions given to you from your surgeon. If you or anyone in your household have experienced Covid symptoms in the past week, please notify your surgeon or the nurse liaison at the phone number below for possible testing. Telephone instructions given to ___PATIENT and asked if any additional questions and then verbalized understanding. Patient advised to call surgeon office or pre surgery nurse liaison [phone] if any additional questions.
[2024-01-17 07:47] VITALS: BP 147/53; PULSE 87; RESP 18; TEMP 37.2; O2SAT 100
[2024-01-17] MEDS: LACTATED RINGERS 1,000 ML 30 ML IV CONT (07:50)
[2024-01-17 07:59] LABS: Glucose Point of Care 185 mg/dl (65-105)
--- NOTE | 2024-01-17 08:22 | WPDANESEPPF ---
Anes - Initial Pre Proc Eval Procedure: Operation Date: 01/17/24 09:30 Proposed Procedures p Removal Abhi Cath - Francesco Baptiste MD Date/Time: 01/17/24 08:22 Surgeon: Francesco Baptiste MD Pre Op Diagnosis: malignant neoplasm of lower inner quadrant Patient Data Age: 78 Gender: F Height: 1.52 m Weight: 88.5 kg Allergies Allergy/AdvReac Type Severity Reaction Status Date / Time No Known Allergies Allergy Verified 01/17/24 07:29 Home Medications Medication Instructions Recorded Confirmed Type aspirin 81 mg tablet,delayed 81 mg PO DAILY 03/03/22 01/10/24 History release atorvastatin 80 mg tablet 80 mg PO HS 03/03/22 01/10/24 History cetirizine 10 mg capsule (Zyrtec) 10 mg PO PRN PRN Allergy Symptoms 03/03/22 01/10/24 History clopidogrel 75 mg tablet 75 mg PO DAILY 03/03/22 01/10/24 History losartan 100 mg tablet 100 mg PO QAM 03/03/22 01/10/24 History nitroglycerin 0.4 mg sublingual 0.4 mg sublingual Q5M PRN Chest 03/03/22 01/10/24 History tablet Pain potassium chloride 20 mEq 20 meq PO DAILY 03/03/22 01/10/24 History tablet,extended release(part/cryst) triamterene 37.5 1 tablet PO QAM 03/03/22 01/10/24 History mg-hydrochlorothiazide 25 mg tablet acetaminophen 500 mg tablet 1,000 mg PO Q6H PRN Pain 03/31/22 01/10/24 History (Tylenol Extra Strength) amlodipine 10 mg tablet 10 mg PO QAM 03/31/22 01/10/24 History cholecalciferol (vitamin D3) 125 125 mcg PO DAILY 07/13/22 01/10/24 History mcg (5,000 unit) capsule ondansetron 8 mg disintegrating 8 mg PO Q12H PRN Nausea 07/13/22 01/10/24 History tablet vitamin B complex (B 1 tablet PO DAILY 07/13/22 01/10/24 History Complex-Vitamin B12 tablet) anastrozole 1 mg tablet 1 mg PO DAILY 02/08/23 01/10/24 History Ventolin HFA 90 mcg/actuation 2 inh inhalation QID PRN shortness 10/01/23 01/10/24 Rx aerosol inhaler (albuterol sulfate) of breath or wheezing #8 grams ferrous sulfate 325 mg (65 mg 325 mg PO DAILY 12/09/23 01/10/24 History iron) tablet,delayed release glimepiride 1 mg tablet See Rx Instructions .Route 12/27/23 01/10/24 Rx .COMPLEX #30 tabs docusate sodium 100 mg capsule 100 mg PO BID PRN Constipation 01/10/24 01/10/24 History (Colace) metoprolol succinate 100 mg 100 mg PO QAM 01/10/24 01/10/24 History tablet,extended release 24 hr omega-3 fatty acids-vitamin E 1 cap PO DAILY 01/10/24 01/10/24 History 1,000 mg capsule Laboratory Tests 01/17/24 07:56 POC Capillary Glucose 185 H mg/dl (65-105) Patient hx anesthesia problems: none Family hx anesthesia problems: none Results Review: All pre-operative results and documents have been reviewed as part of the pre-operative evaluation. [facility] Past Medical History Medical History (Updated 12/09/23 @ 06:00 by Jose Arguello MD) History of breast cancer (2021) Hx of hemorrhoids Surgical History Surgical History (Updated 09/20/22 @ 13:09 by Nehemias Zarate MD) H/O lymph node biopsy left axillary sentinel lymph node biopsy on 04/17/22. H/O mastectomy left simple mastectomy on 04/17/22 Hx of CABG Hx of carpal tunnel repair Hx of hysterectomy Family History Family History Other Cerebrovascular accident Family history of malignant neoplasm Social History Social History Social History: current everyday caffeine use Smoking packs per day: 0.5 Smoking cigarettes per day: 10.0 Years smoked: 13 Smoking pack-years: 6.50 Smoking status: Former smoker Tobacco type: cigarettes Second hand tobacco smoke exposure: No Smoking end date: 04/10/88 Alcohol intake: never Substance use: never Substance use type: does not use Living arrangements: alone Occupation/Education: retired Gender identity (if verbalized by the patient): Female Sexual Orientation (if Verbalized by the Patient): Straight or Heterosexual
--- NOTE | 2024-01-17 09:12 | PM.IMHP ---
H&P: HPI History of Present Illness Date/Time: 01/17/24 09:12 Chief Complaint: Hx of Left breast cancer Narrative: Patient has a history of left breast cancer is been treated. She has a zayda catheter in place and no longer needs to zayda catheter. She presents now for removal zayda catheter. She has not used zayda catheter in over a year. Review of Systems Review of Systems: The remainder of the review of systems to include constitutional, HEENT, cardiovascular, respiratory, GI, , integumentary, musculoskeletal, endocrine, immunologic, hematologic, psychiatric, and neurologic are all negative except for which is mentioned above in the HPI. [facility] Past Medical History Medical History History of breast cancer (2021) Hx of hemorrhoids Surgical History Surgical History H/O lymph node biopsy left axillary sentinel lymph node biopsy on 04/17/22. H/O mastectomy left simple mastectomy on 04/17/22 Hx of CABG Hx of carpal tunnel repair Hx of hysterectomy Family History Family History Other Cerebrovascular accident Family history of malignant neoplasm Social History Social History Social History: current everyday caffeine use Smoking packs per day: 0.5 Smoking cigarettes per day: 10.0 Years smoked: 13 Smoking pack-years: 6.50 Smoking status: Former smoker Tobacco type: cigarettes Second hand tobacco smoke exposure: No Smoking end date: 04/10/88 Alcohol intake: never Substance use: never Substance use type: does not use Living arrangements: alone Occupation/Education: retired Gender identity (if verbalized by the patient): Female Sexual Orientation (if Verbalized by the Patient): Straight or Heterosexual Spiritual care concerns: No Agree to blood products: Yes Meds Home Medications and Allergies Home Medications Medication Instructions Recorded Confirmed Type aspirin 81 mg tablet,delayed 81 mg PO DAILY 03/03/22 01/10/24 History release atorvastatin 80 mg tablet 80 mg PO HS 03/03/22 01/10/24 History cetirizine 10 mg capsule (Zyrtec) 10 mg PO PRN PRN Allergy Symptoms 03/03/22 01/10/24 History clopidogrel 75 mg tablet 75 mg PO DAILY 03/03/22 01/10/24 History losartan 100 mg tablet 100 mg PO QAM 03/03/22 01/10/24 History nitroglycerin 0.4 mg sublingual 0.4 mg sublingual Q5M PRN Chest 03/03/22 01/10/24 History tablet Pain potassium chloride 20 mEq 20 meq PO DAILY 03/03/22 01/10/24 History tablet,extended release(part/cryst) triamterene 37.5 1 tablet PO QAM 03/03/22 01/10/24 History mg-hydrochlorothiazide 25 mg tablet acetaminophen 500 mg tablet 1,000 mg PO Q6H PRN Pain 03/31/22 01/10/24 History (Tylenol Extra Strength) amlodipine 10 mg tablet 10 mg PO QAM 03/31/22 01/10/24 History cholecalciferol (vitamin D3) 125 125 mcg PO DAILY 07/13/22 01/10/24 History mcg (5,000 unit) capsule ondansetron 8 mg disintegrating 8 mg PO Q12H PRN Nausea 07/13/22 01/10/24 History tablet vitamin B complex (B 1 tablet PO DAILY 07/13/22 01/10/24 History Complex-Vitamin B12 tablet) anastrozole 1 mg tablet 1 mg PO DAILY 02/08/23 01/10/24 History Ventolin HFA 90 mcg/actuation 2 inh inhalation QID PRN shortness 10/01/23 01/10/24 Rx aerosol inhaler (albuterol sulfate) of breath or wheezing #8 grams ferrous sulfate 325 mg (65 mg 325 mg PO DAILY 12/09/23 01/10/24 History iron) tablet,delayed release glimepiride 1 mg tablet See Rx Instructions .Route 12/27/23 01/10/24 Rx .COMPLEX #30 tabs docusate sodium 100 mg capsule 100 mg PO BID PRN Constipation 01/10/24 01/10/24 History (Colace) metoprolol succinate 100 mg 100 mg PO QAM 01/10/24 01/10/24 History tablet,extended release 24 hr omega-3 fatty acids-vitamin E 1 cap PO DAILY 01/10/24 01/10/24 History 1
--- NOTE | 2024-01-17 09:19 | WPDHPUPDATE1 ---
History and Physical Update Update Date/Time: 01/17/24 09:19 History and Physical has been reviewed, including an updated exam of the patient. There are NO changes in the patient's condition. Risks, benefits, and alternatives have been discussed and questions answered. Patient agrees to proceed with procedure.
[2024-01-17] MEDS: ceFAZolin 2 GM/D5W 50 ML 2 GM/50 ML BAG IVPB (09:24)
[2024-01-17] MEDS: BUPivacaine HCL 0.5% PF 30 ML VIAL 20 ML INFILTRATE (09:45)
[2024-01-17] MEDS: LIDO 1%/EPINEPHRINE 1:100,000 50 ML VIAL 20 ML INFILTRATE (09:45)
--- NOTE | 2024-01-17 10:06 | W.PM.PROC2 ---
Procedure Note - Detailed Date of Procedure 01/17/24 Pre-op Diagnosis History left breast cancer Post-op Diagnosis Same Procedure Performed Removal right internal jugular vein portacatheter Surgeon Francesco Baptiste MD Anesthesia MAC and Local Indications Patient is a 78-year-old female who had a history of left breast cancer which has been treated. She had a left mastectomy. She received chemotherapy treatments but no longer needs chemotherapy and so she is presenting now for removal of the right internal jugular vein zayda catheter. Findings None significant Description of Procedure After informed consent was obtained patient brought to the operating room where she was placed supine position and IV sedation was administered by anesthesia. The right upper anterior neck and chest was then prepped and draped usual sterile fashion. A time-out was then performed correctly identifying the patient as well as procedure to be performed. She was given some Ancef for IV antibiotics. I then anesthetized the area the old scar in the right upper anterior chest utilizing 1% lidocaine mixed with 0.5% Marcaine with some epinephrine. I also anesthetized around the port the subcutaneous tissues. A scalp was then used to excise out the small narrow ellipse of skin was continue the old scar. Dissection was then carried down through subcutaneous tissues with electrocautery to encounter the hub of the port. The hub was then dissected out circumferentially in the proximal portion of the catheter was dissected out so that was freely movable. I then with gentle traction pulled back on the catheter and wire removed from the right internal jugular vein. Gentle pressure was then held on the area the right internal jugular vein to achieve hemostasis. I then sized the port out from the subcutaneous port pocket utilized electrocautery. Port and catheter was then discarded. I then irrigated out the incision sterile saline solution hemostasis was good. I then fulgurated the fibrous capsule the subcu port pocket utilized electrocautery. I then closed the utilizing interrupted 3-0 Vicryl sutures in subcutaneous tissues. Skin edges were then approximated utilizing a running subcuticular 4 Monocryl suture. The incision was then cleaned the skin glue was applied. The patient tolerated the procedure well no complications. All sponges, needles, and instrument counts were correct at the end procedure. EBL was __5_cc. The patient was awakened and taken to recovery in stable and satisfactory condition. Implants None Estimated Blood Loss 5 Drains No Packing No Pathology None sent Complications No immediate complications Condition Stable Disposition PACU [facility] Billing Surgery - Charge Forward: Surgery Billing
[2024-01-17 10:15] VITALS: BP 114/33; RESP 14; O2SAT 98
[2024-01-17 10:22] LABS: Glucose Point of Care 183 mg/dl (65-105)
[2024-01-17 10:45] VITALS: BP 110/55; RESP 14
== END 2024-01-17 11:05 | disposition home or self-care (01) ==
PROVIDERS: PCP Family Medicine Adolescent Medicine; Visit Provider Surgery
PROC: (CPT 36589; principal; 2024-01-17 09:30)
DX: Z45.2 Encounter for adjustment and management of vascular access device (principal); E66.9 Obesity, unspecified; Z68.38 Body mass index [BMI] 38.0-38.9, adult; Z79.82 Long term (current) use of aspirin; Z79.02 Long term (current) use of antithrombotics/antiplatelets; Z79.84 Long term (current) use of oral hypoglycemic drugs; Z98.890 Other specified postprocedural states; Z90.12 Acquired absence of left breast and nipple; Z87.891 Personal history of nicotine dependence; Z95.1 Presence of aortocoronary bypass graft; Z85.3 Personal history of malignant neoplasm of breast; Z92.21 Personal history of antineoplastic chemotherapy; Z80.9 Family history of malignant neoplasm, unspecified; Z82.49 Family history of ischemic heart disease and other diseases of the circulatory system
CPT/HCPCS: 36590; 82948; J0690; J2704; J3010; J7120

== ENCOUNTER 2024-02-11 08:23 | Outpatient (CLI) | payer MEDICARE, SELFPAY ==
[2024-02-11 08:44] LABS: Basophils Percent Auto 0.2 % (0.2-1.2); Eosinophils Absolute Auto 0.2 K/mm3 (0-0.3); Eosinophils Percent Auto 3.3 % (0-4.4); Hematocrit 36.9 % (37.0-47.0); Hemoglobin 11.7 g/dL (12.0-15.0); Immature Granulocyte Absolute 0.03 K/mm3 (0.00-0.031); Immature Granulocyte Percent A 0.6 % (0-0.5); Lymphocytes Absolute Auto 1.38 K/mm3 (0.9-3.2); Lymphocytes Percent Auto 25.4 % (18.3-44.2); Mean Corpuscular HGB Conc 31.7 g/dl (32-36); Mean Corpuscular Hemoglobin 28.5 pg (26-34); Mean Corpuscular Volume 89.8 fl (80-100); Mean Platelet Volume 8.5 fl (7.4-10.4); Monocytes Absolute Auto 0.6 K/mm3 (0.1-0.6); Monocytes Percent Auto 11.4 % (2.6-8.5); Neutrophils Absolute Auto 3.2 K/mm3 (1.3-6.7); Neutrophils Percent Auto 59.1 % (45.5-73.1); Platelet Count Result 120 k/mm3 (150-375); Red Blood Count 4.11 M/mm3 (4.2-5.4); Red Cell Distribution Width 14.3 % (11.5-14.5); White Blood Count 5.4 K/mm3 (4.5-10.0)
[2024-02-11 11:55] LABS: Alanine Aminotransferase 133 U/L (6-35); Albumin Level 4.2 g/dL (3.5-5.1); Alkaline Phosphatase 133 U/L (38-126); Anion Gap 7 mmol/L (4-12); Aspartate Amino Transferase 76 U/L (14-36); Bilirubin,Total 0.5 mg/dL (0.2-1.3); Blood Urea Nitrogen 16 mg/dL (7-17); Calcium 9.6 mg/dL (8.4-10.2); Carbon Dioxide 26 mmol/L (22-30); Chloride 105 mmol/L (98-107); Estimated Glomerular Filt Rate > 60; Glucose 212 mg/dL (65-110); Potassium 3.5 mmol/L (3.4-5.0); Sodium 138 mmol/L (137-145)
[2024-02-15 01:28] LABS: CA 15-3 11 U/mL (<32)
== END 2024-02-11 08:24 | disposition home or self-care (01) ==
LOC: ANHLAB 08:25
PROVIDERS: PCP Family Medicine Adolescent Medicine; Visit Provider Internal Medicine Hematology & Oncology
DX: C50.312 Malignant neoplasm of lower-inner quadrant of left female breast (principal); Z17.0 Estrogen receptor positive status [ER+]
CPT/HCPCS: 36415; 80053; 85025; 86300

== ENCOUNTER 2024-03-01 14:06 | Outpatient (CLI) | payer MEDICARE, SELFPAY ==
[2024-03-01 14:24] LABS: Basophils Percent Auto 0.2 % (0.2-1.2); Eosinophils Absolute Auto 0.1 K/mm3 (0-0.3); Eosinophils Percent Auto 1.3 % (0-4.4); Hematocrit 38.8 % (37.0-47.0); Hemoglobin 12.2 g/dL (12.0-15.0); Immature Granulocyte Absolute 0.01 K/mm3 (0.00-0.031); Immature Granulocyte Percent A 0.2 % (0-0.5); Lymphocytes Absolute Auto 1.26 K/mm3 (0.9-3.2); Lymphocytes Percent Auto 23.3 % (18.3-44.2); Mean Corpuscular HGB Conc 31.4 g/dl (32-36); Mean Corpuscular Hemoglobin 28.5 pg (26-34); Mean Corpuscular Volume 90.7 fl (80-100); Mean Platelet Volume 8.6 fl (7.4-10.4); Monocytes Absolute Auto 0.5 K/mm3 (0.1-0.6); Monocytes Percent Auto 9.8 % (2.6-8.5); Neutrophils Absolute Auto 3.5 K/mm3 (1.3-6.7); Neutrophils Percent Auto 65.2 % (45.5-73.1); Platelet Count Result 125 k/mm3 (150-375); Red Blood Count 4.28 M/mm3 (4.2-5.4); Red Cell Distribution Width 14.3 % (11.5-14.5); White Blood Count 5.4 K/mm3 (4.5-10.0)
[2024-03-01 14:31] LABS: Blood Urea Nitrogen 17 mg/dL (8-26); Carbon Dioxide 28 mmol/L (22-30); Chloride 101 mmol/L (98-109); Estimated Glomerular Filt Rate 58; Glucose 328 mg/dL (70-105); Ionized Calcium (POC) 1.27 mmol/L (1.11-1.31); Sodium 139 mmol/L (138-146)
[2024-03-01 17:27] LABS: Alanine Aminotransferase 223 U/L (6-35); Albumin Level 4.3 g/dL (3.5-5.1); Alkaline Phosphatase 142 U/L (38-126); Anion Gap 8 mmol/L (4-12); Aspartate Amino Transferase 137 U/L (14-36); Bilirubin,Total 0.5 mg/dL (0.2-1.3); Blood Urea Nitrogen 18 mg/dL (7-17); Calcium 9.5 mg/dL (8.4-10.2); Carbon Dioxide 26 mmol/L (22-30); Chloride 103 mmol/L (98-107); Estimated Glomerular Filt Rate > 60; Glucose 328 mg/dL (65-110); Sodium 137 mmol/L (137-145)
== END 2024-03-01 14:07 | disposition home or self-care (01) ==
PROVIDERS: PCP Family Medicine Adolescent Medicine; Visit Provider Internal Medicine Hematology & Oncology
DX: C50.312 Malignant neoplasm of lower-inner quadrant of left female breast (principal); Z17.0 Estrogen receptor positive status [ER+]
CPT/HCPCS: 36415; 80047; 80053; 85025

== ENCOUNTER 2024-04-11 09:31 | Outpatient (CLI) | payer MEDICARE, SELFPAY ==
--- NOTE | ~2024-04-11 | MM_ITS ---
EXAMINATION: MM screening savage RT w aviva HISTORY: Screening mammogram TECHNIQUE: Craniocaudal and mediolateral oblique 3-D tomosynthesis images were obtained and synthetic 2-D images were generated. CAD analysis was submitted and interpreted. COMPARISON: 04/06/2023, 03/18/2022 BREAST PARENCHYMAL COMPOSITION:Not Dense. The breasts are almost entirely fatty FINDINGS: No suspicious mass, calcification, or architectural distortion are identified in either rosalee ast to suggest malignancy. There has been no suspicious interval change. IMPRESSION: No mammographic evidence of malignancy. Recommend routine screening mammography in one year. BI-RADS Category 1: Negative Reviewed, dictated and finalized at location .
== END 2024-04-11 09:32 | disposition home or self-care (01) ==
LOC: ANHIMG 09:35
PROVIDERS: PCP Family Medicine Adolescent Medicine; Visit Provider Internal Medicine Hematology & Oncology
DX: Z12.31 Encounter for screening mammogram for malignant neoplasm of breast (principal)
CPT/HCPCS: 77063; 77067

== ENCOUNTER 2024-06-21 12:34 | Outpatient (CLI) | payer MEDICARE, SELFPAY ==
[2024-06-21 13:05] LABS: Basophils Percent Auto 0.2 % (0.2-1.2); Eosinophils Absolute Auto 0.1 K/mm3 (0-0.3); Eosinophils Percent Auto 0.9 % (0-4.4); Hematocrit 38.3 % (37.0-47.0); Immature Granulocyte Absolute 0.03 K/mm3 (0.00-0.031); Immature Granulocyte Percent A 0.6 % (0-0.5); Immature Platelet Fraction Pct 1.7 % (0.9-11.2); Lymphocytes Absolute Auto 1.36 K/mm3 (0.9-3.2); Lymphocytes Percent Auto 25.7 % (18.3-44.2); Mean Corpuscular HGB Conc 31.3 g/dl (32-36); Mean Corpuscular Hemoglobin 29.1 pg (26-34); Monocytes Absolute Auto 0.5 K/mm3 (0.1-0.6); Monocytes Percent Auto 9.2 % (2.6-8.5); Neutrophils Absolute Auto 3.4 K/mm3 (1.3-6.7); Neutrophils Percent Auto 63.4 % (45.5-73.1); Platelet Count Result 128 k/mm3 (150-375); Red Blood Count 4.12 M/mm3 (4.2-5.4); White Blood Count 5.3 K/mm3 (4.5-10.0)
[2024-06-21 16:35] LABS: Alanine Aminotransferase 116 U/L (6-35); Albumin Level 3.8 g/dL (3.5-5.1); Alkaline Phosphatase 156 U/L (38-126); Anion Gap 9 mmol/L (4-12); Aspartate Amino Transferase 79 U/L (14-36); Bilirubin,Total 0.4 mg/dL (0.2-1.3); Blood Urea Nitrogen 21 mg/dL (7-17); Calcium 9.4 mg/dL (8.4-10.2); Carbon Dioxide 28 mmol/L (22-30); Chloride 102 mmol/L (98-107); Estimated Glomerular Filt Rate 41; Glucose 217 mg/dL (65-110); Potassium 3.8 mmol/L (3.4-5.0); Sodium 139 mmol/L (137-145)
[2024-06-23 06:08] LABS: CA 15-3 20 U/mL (<32)
== END 2024-06-21 12:35 | disposition home or self-care (01) ==
LOC: ANHLAB 12:36
PROVIDERS: PCP Family Medicine Adolescent Medicine; Visit Provider Internal Medicine Hematology & Oncology
DX: C50.512 Malignant neoplasm of lower-outer quadrant of left female breast (principal); Z17.0 Estrogen receptor positive status [ER+]
CPT/HCPCS: 36415; 80053; 85025; 85055; 86300

== ENCOUNTER 2024-11-21 10:44 | Outpatient (CLI) | payer MEDICARE, SELFPAY ==
--- NOTE | ~2024-11-21 | PE_ITS ---
EXAMINATION: PET skull to mid thigh DATE: 11/21/2024 12:44 INDICATION: Left breast cancer metastatic to bone. TECHNIQUE: Blood glucose level was 65 mg/dL. 9.379 mCi of 18-fluorodeoxyglucose (18-FDG) was administ ered i.v. Low dose computed tomography (CT) images were acquired from the base of the brain to the pr oximal thighs for attenuation correction and anatomic localization. Automated exposure control was em ployed. Dose-length product (DLP) was 945 mGy-cm. Positron emission tomography (PET) images were acqu ired in the same distribution. COMPARISON: PET/CT 04/27/2022 FINDINGS: Head/neck: There are likely changes of ocular lens replacement surgeries. 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 There are lytic lesions in cervical spine with increased activity. Chest: There is mild emphysema. There is mild radiation fibrosis in anterior left lung. There are gre ater than 10 nodules in the lungs in a random distribution, some with increased activity. The largest measures 15 mm in right upper lobe with maximum SUV of 15.7. No pleural effusion. The heart size is normal. There are coronary artery calcifications. No pericardial effusion. There are changes of coron sheyla artery bypass grafting. There is a small sliding hiatal hernia. There are widespread lytic bone l esions with increased activity. There is a healing pathologic fracture of proximal right humerus. Abdomen/pelvis/proximal thighs: The liver and spleen are normal. There are changes of cholecystectomy . The pancreas, adrenal glands, and kidneys are normal. There is diverticulosis of the colon without evidence of diverticulitis. The appendix is normal. There are no dilated loops of bowel. There are no pathologically enlarged lymph nodes. There is no free intraperitoneal fluid. There are widespread ly tic bone lesions with increased activity. There is a 1.4 cm subcutaneous mass in lateral left pelvis with increased activity that may be inflammation or metastatic disease. IMPRESSION: 1. Pulmonary nodules and widespread bone lesions with increased activity, consistent with metastatic disease, worsened from 05/07/2022. Reviewed, dictated and finalized at location A. [facility]ER IMPRESSION: 1. Pulmonary nodules and widespread bone lesions with increased activity, consi stent with metastatic disease, worsened from 05/07/2022.
[2024-11-21 11:18] LABS: Glucose Point of Care 65 mg/dl (65-105)
--- OUTSIDE RECORDS SUMMARY | 2024-11-21 12:03 | XMS_ITS | Referral Summary ---
Author Organization [facility] Address [address] [place] [address] Care Team Providers Care Communications Advisor Name Role Phone Jose Arguello MD Primary Care Prov ider Encounters Date Type Department Care Team Description 11/09/2024 Orders Only [facility] [address] [facility] 6th [place] [address] [place] [phone] Dany Guerin MD 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) (Primary Dx) 11/06/2024 8:07 PM DEHAIRER - 11/06/2024 11:59 PM DEHAIRER Hospital Encounter [facility] MRI [address] [place] [address] Unspecified fracture of shaft of humerus, right arm, initial encounter for closed fracture Discharge Disposition: Discharge to home or self care 10/19/2024 Orders Only [facility] [address] [facility] 6th [place] [address] [place] [phone] Dany Guerin MD 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, subsequent encounter (Primary Dx) 09/29/2024 8:15 AM DEHAIRER - 09/29/2024 11:59 PM DEHAIRER Hospital Encounter [facility] [address] [place] [address] Dany Guerin MD 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, subsequent encounter Discharge Disposition: Discharge to home or self care 09/29/2024 8:45 AM DEHAIRER Office Visit [facility] [address] [facility] 6th [place] [address] [place] [address] Dany Guerin MD 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) (Primary Dx); 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, initial encounter 09/28/2024 Orders Only [facility] [address] [place] [address] 6th [place] [address] [place] [address] Dany Guerin MD 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, subsequent encounter (Primary Dx) 09/26/2024 1:15 PM DEHAIRER - 09/26/2024 11:59 PM DEHAIRER Hospital Encounter [facility] [address] [place] [id number] Acute pain of right shoulder Discharge Disposition: Discharge to home or self care 09/26/2024 1:00 PM DEHAIRER Office Visit [facility] [address] [place] [address] 2nd [address] [place] [phone] Antony Silva PA Pathological fracture of right humerus, unspecified pathological cause, initial encounter (Primary Dx); Acute pain of right shoulder; Chronic right shoulder pain 09/19/2024 Telephone [facility] [address] [place] [phone] Pramod Carty MD 09/19/2024 Orders Only [facility] [address] [place] [phone] Pramod Carty MD Chronic right shoulder pain (Primary Dx) 09/17/2024 2:09 PM DEHAIRER - 09/17/2024 6:26 PM DEHAIRER Emergency [address] [address] Closed fracture of proximal end of right humerus, unspecified fracture morphology, initial encounter (Primary Dx); Left hip pain Discharge Disposition: Discharge to home or self care from Last 3 Months Allergies Active Allergy Reactions Criticality Noted Date Comments Aspirin Nausea only Low 02/04/2020 nausea Atorvastatin Muscle pain Medium 04/18/2016 Colesevelam Other (See comments) Low 04/18/2016 Ezetimibe Unknown 05/11/2016 ineffective Fenofibrate Muscle pain Medium 04/18/2016 Fluvastatin Muscle pain Medium 04/18/2016 Lisinopril Swelling Medium 04/18/2016 Pitavastatin Rash Medium 04/18/2016 Pravastatin Muscle pain Medium 04/18/2016 Rosuvastatin Muscle pain Medium 04/18/2016 Simvastatin Muscle pain Medium 04/18/2016 Qwjlmxv-Url-Noq Reductase Inhibitors Muscle pain Medium 04/18/2016 Medications metoprolol XL (TOPROL-XL) 100 mg 24 hr tablet Take 1 tablet (100 mg total) by mouth daily 6 9 Active aspirin 81 mg chewable tablet 1 tablet (81 mg total) daily Active albuterol HFA (PROVENTIL HFA,VENTOLIN HFA,PROAIR HFA) 90 mcg/actuation inhaler Inhale 1 puff every 6 (six) hours as needed Active glimepiride (AMARYL) 1 mg tablet Take 1 tablet (1 mg total) by mouth daily 0 Active cetirizine (ZyrTEC) 10 mg tablet Take 1 tablet (10 mg total) by mouth daily as needed for allergies Active nitroglycerin (NITROSTAT) 0.[address] 1 tablet (0.4 mg total) under the tongue as needed for chest pain 30 tablet 2 Active ondansetron (ZOFRAN) 8 mg tablet Take by mouth every 8 (eight) hours as needed 2 Active omega 4-dxl-tmg-fish oil 1,000 mg (120 mg-180 mg) capsule Take 1 capsule (1,000 mg total) by mouth 2 (two) times a day 180 capsule 3 2 Active anastrozole (ARIMIDEX) 1 mg tablet Take 1 tablet (1 mg total) by mouth daily 3 Active cyanocobalamin (Vitamin B-12) 1,000 mcg tabletIndicatio ns:Prevention of Vitamin B12 Deficiency Take 1 tablet (1,000 mcg total) by mouth daily Active doxycycline (doxycycline hyclate) 100 mg capsule Take 1 tablet/capsule (100 mg total) by mouth 2 (two) times a day 2 Active dexAMETHasone (DECADRON) 4 mg tablet Take 1 tablet (4 mg total) by mouth 2 (two) times a day 2 Active losartan (COZAAR) 100 mg tablet Take 1 tablet by mouth once daily 90 tablet 3 4 Active clopidogreL (PLAVIX) 75 mg tablet Take 1 tablet by mouth once daily 90 tablet 3 4 Active triamterene-hyd roCHLOROthiazid e 37.5-25 mg per tablet/capsule Take 1 tablet by mouth once daily 90 tablet 3 4 Active potassium chloride ER 20 mEq CR tablet Take 1 tablet by mouth once daily 90 tablet 3 4 Active atorvastatin (LIPITOR) 80 mg tablet Take 1 tablet by mouth nightly 90 tablet 2 4 Active HYDROcodone-elvi taminophen (NORCO) 5-325 mg per tabletIndicatio ns:Pain Take 1 tablet by mouth every 6 (six) hours as needed for pain 15 tablet [address] (VOLTAREN) 75 mg EC tablet Take 1 tablet (75 mg total) by mouth 2 (two) times a day 4 Active ferrous sulfate 325 mg (65 mg of elemental iron) tablet Take 1 tablet (325 mg total) by mouth 2 (two) times a day 4 Active ketoconazole (NIZORAL) 2 % cream 4 Active predniSONE (DELTASONE) 10 mg tablet TAKE 4 TABLETS BY MOUTH ONCE DAILY FOR 5 DAYS THEN 3 ONCE DAILY FOR 5 DAYS THEN 2 ONCE DAILY FOR 5 DAYS THEN 1 ONCE DAILY FOR 5 DAYS 4 Active amLODIPine (NORVASC) 10 mg tablet Take 1 tablet by mouth once daily 90 tablet 5 Active Active Problems Problem Noted Date Diagnosed Date Benign essential hypertension 09/29/2024 CAD (coronary artery disease) 09/29/2024 Dyslipidemia 09/29/2024 Pathological fracture of rig ht 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 Rincon. Assessment & Plan (04/30/2021 8:42 PM CDT): Stent to the saphenous vein graft to the RCA 07/01/[address] Rincon. Aspirin. Plavix. Atorvastatin. Assessment & Plan (03/26/2021 4:08 PM CDT): Stent to the saphenous vein graft to the RCA 07/01/[address] Rincon. Aspirin. Plavix. Atorvastatin. Assessment & Plan (09/25/2020 10:41 AM DEHAIRER): Stent to the saphenous vein graft to the RCA 07/01/[address] Rincon. Anti- platelet regimen. Aggressive risk factor modification. Assessment & Plan (03/20/2020 5:41 PM CDT): Stent to the saphenous vein graft to the RCA 07/01/[address] Rincon. Assessment & Plan (11/15/2019 1:37 PM DEHAIRER): Stent to the saphenous vein graft to the RCA 07/01/[address] Rincon. Aggressive risk factor modification. Assessment & Plan (05/10/2019 5:06 PM CDT): Stent to the saphenous vein graft to the RCA 07/01/[address] Rincon. Exertional dyspnea 06/24/2018 Assessment & Plan (04/30/2021 8:40 PM CDT): Was related to the coronary artery disease and myocardial ischemia. No dyspnea since the the stenting to the saphenous vein graft to the RCA 07/01/2018. Assessment & Plan (03/26/2021 4:06 PM CDT): Was related to the coronary disease and myocardial ischemia. No dyspnea since the stenting to the saphenous vein graft to the RCA 07/01/2018. Assessment & Plan (09/25/2020 10:38 AM DEHAIRER): Was related to myocardial ischemia and to the coronary artery disease. No dyspnea since the stenting of the saphenous vein graft to the RCA 07/01/2018. Assessment & Plan (03/20/2020 5:36 PM CDT): No exertional dyspnea since the stenting of the saphenous vein graft to the RCA 07/01/2018. Assessment & Plan (11/15/2019 1:39 PM DEHAIRER): No exertional dyspnea since the stenting of the saphenous vein graft to the RCA 07/01/2018. Assessment & Plan (05/10/2019 5:05 PM CDT): No exertional dyspnea since the stenting of the SVG to the RCA on 07/01/2018. Hypertensive heart disease without heart failure 06/21/2018 Assessment & Plan (05/01/2021 10:26 AM CDT): Salt restriction. The the amlodipine. Losartan. Toprol XL. The blood pressure was elevated at the last visit. Strict salt restriction was emphasized once again. The. The dose of the amlodipine was increased to 10 mg p.o. daily. Blood pressure 130/70 today. Good response. Her blood pressure at home have been running somewhat higher than the office readings. I suggested buying a wider cuff for the home medications. Assessment & Plan (03/27/2021 9:29 AM CDT): Salt restriction. Amlodipine. Losartan. Toprol XL. Triamterene-HCTZ. Blood pressure 182/80 initially. I retook the blood pressure. 170/90. She has not been careful about her salt intake. Strict salt restriction was explained in emphasized once again. Low-salt diet menu was provided. Increase the Norvasc to 10 mg p.o. daily. Return 6 weeks. Assessment & Plan (09/26/2020 9:58 AM DEHAIRER): Blood pressure 158/60. Salt restriction. Continue the current regimen. Add losartan 100 mg p.o. daily for blood pressure control and for renal protective effect from diabetes. Assessment & Plan (03/21/2020 9:43 AM CDT): Blood pressure 144/80. Salt restriction. Continue the current regimen. Assessment & Plan (11/16/2019 11:28 AM DEHAIRER): Blood pressure 140/70. Salt restriction. Continue the current regimen. Assessment & Plan (05/11/2019 12:18 PM CDT): Blood pressure 138/80. Salt restriction. Continue the current regimen. History of coronary artery bypass surgery 2017 Overview (05/08/2019): 2006. Assessment & Plan (04/30/2021 8:41 PM CDT): Coronary artery bypass surgery 2006. Aspirin. Plavix. Atorvastatin. Assessment & Plan (03/26/2021 4:07 PM CDT): Coronary artery bypass surgery 2006. Aspirin. Atorvastatin. Plavix. Assessment & Plan (09/25/2020 10:38 AM DEHAIRER): Coronary artery bypass surgery 2006. Aggressive risk factor modification. Assessment & Plan (03/20/2020 5:37 PM CDT): Coronary artery bypass surgery 2006. Aggressive risk factor modification. Assessment & Plan (11/15/2019 1:39 PM DEHAIRER): History of coronary artery bypass surgery 2006. Aggressive risk factor modification. Assessment & Plan (05/10/2019 5:02 PM CDT): History of coronary artery bypass surgery 2006. Aggressive risk factor modification. Precordial chest pain 06/21/2018 Assessment & Plan (04/30/2021 8:41 PM CDT): No chest pain since his stenting to the SVG to the RCA 07/01/2018. Assessment & Plan (03/26/2021 4:08 PM CDT): No chest pain since the stenting to the SVG to the RCA 07/01/2018. Assessment & Plan (09/25/2020 10:40 AM DEHAIRER): No chest pains since stenting to the saphenous vein graft to the RCA 07/01/2018. Assessment & Plan (03/20/2020 5:42 PM CDT): No chest pain since stent to the saphenous vein graft to the RCA 07/01/2018. Ranexa was added which he found too expensive. Will consider Imdur if necessary. Assessment & Plan (11/16/2019 11:28 AM DEHAIRER): Stent to the saphenous vein graft to the RCA 07/01/2018. No chest pain since then. She discontinued the Ranexa as it was too expensive. Will consider Imdur if necessary. Assessment & Plan (05/11/2019 12:18 PM CDT): Stent to the saphenous vein graft to the RCA 07/01/2018. No chest pain since then. She discontinued the Ranexa as it was too expensive. Will consider Imdur if necessary. Right bundle branch block 06/21/2018 Assessment & Plan (04/30/2021 8:38 PM CDT): Chronic. Stable . Assessment & Plan (03/26/2021 4:05 PM CDT): Chronic. Stable. Assessment & Plan (09/25/2020 10:41 AM DEHAIRER): Chronic. Stable. Assessment & Plan (03/20/2020 5:40 PM CDT): Chronic. Stable. Assessment & Plan (11/15/2019 1:37 PM DEHAIRER): Chronic. Stable. Assessment & Plan (05/11/2019 12:19 PM CDT): Chronic. Stable. EKG today shows normal sinus rhythm, right bundle branch block, left axis deviation, T-wave changes. Hyperlipidemia 06/21/2018 Assessment & Plan (04/30/2021 8:37 PM CDT): Low-fat low-cholesterol diet. Atorvastatin. 01/04/2021 LDL 75. Assessment & Plan (03/26/2021 4:02 PM CDT): Low-fat low-cholesterol diet. Atorvastatin. On 07/24 the LDL was 86. Target less than 70. The Lipitor was increased to 80 mg bedtime daily . 01/04/2021 triglycerides 109, LDL 75 Assessment & Plan (09/26/2020 9:58 AM DEHAIRER): Low-fat low-cholesterol diet. Atorvastatin. On 07/24/2020 triglycerides 139, LDL 86. Target LDL less than 70. Increase the Lipitor to 80 mg bedtime daily. Repeat the lipid profile and CPK 2 months after increasing the dose. Assessment & Plan (03/21/2020 9:41 AM CDT): Low-fat low-cholesterol diet. Atorvastatin 40 mg bedtime daily . On 07/07/2018 the LDL was 67. Muscle cramps. Her CPK on 11/16/2019 was 93. Assessment & Plan (11/16/2019 11:29 AM DEHAIRER): Low-fat low-cholesterol diet. Atorvastatin 40 mg bedtime daily. On 07/07/2018 the LDL was 67. CPK 141. Having some muscle cramping most probably from the Lipitor. Will check the CPK today. Take plain Tylenol p.r.n. for cramping. Assessment & Plan (05/10/2019 5:04 PM CDT): Is low-fat low-cholesterol diet. Atorvastatin 40 mg bedtime daily. On 07/07/2018 the triglycerides were 153, total cholesterol 152, HDL 54, LDL 67, CPK 141. The Social History Tobacco Use Types Packs/Day Years Used Date Smoking Tobacco: Former Tobacco Cessation:Counseling Given: No Alcohol Use Standard Drinks/Week Comments Not Currently 0 (1 standard drink = 0.6 oz pur e alcohol) AUDIT-C Answer Date Recorded Q1: How often do you have a drink containing alc ohol? Never 09/29/2024 Average Number of Drinks Not on file 024 Frequency of Binge Drinking Not on file 09/11 Personal Safety Answer Date Recorded Have you ever been in or are you currently in a harmful physical or emotional relationship or is someone making you feel afraid or unsafe? Denies 09/17/2024 Comments No Sex and Gender Information Value Date Recorded Sex Assigned at Not on file Legal Sex Female 6:44 PM DEHAIRER Gender Identity Not on file Sexual Orientation Not on file Last Filed Vital Signs Vital Sign Reading Time Taken Comments Blood Pressure 145/81 09/17/2024 6:25 PM DEHAIRER Pulse 81 09/17/2024 6:25 PM DEHAIRER Temperature 36.7 C (98.1 F) 09/17/2024 10:39 AM DEHAIRER Respiratory Rate 14 09/17/2024 6:25 PM DEHAIRER Oxygen Saturation 98% 09/17/2024 6:25 PM DEHAIRER Inhaled Oxygen Concentration - - Weight 76.2 kg (168 lb) 09/29/2024 9:18 AM DEHAIRER Height 152.4 cm (5') 09/29/2024 9:18 AM DEHAIRER Body Mass Index 32.81 09/29/2024 9:18 AM DEHAIRER Plan of Treatment Not on file Procedures Procedure Name Priority Date/Time Associated Diagnosis Comments MRI SHOULDER RIGHT WO CONTRAST Schedule Routine, Read Routine (OP Routine) 11/06/2024 9:38 PM DEHAIRER Unspecified fracture of shaft of humerus, right arm, initial encounter for closed fracture XR HUMERUS RIGHT 2 OR MORE VIEWS Routine 09/29/2024 8:53 AM DEHAIRER 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, subsequent encounter XR SHOULDER RIGHT 2 OR MORE VIEWS Schedule Routine, Read Routine (OP Routine) 09/26/2024 1:38 PM DEHAIRER Acute pain of right shoulder XR HIP LEFT 2 OR 3 VIEWS ED 09/17/2024 11:51 AM DEHAIRER XR SHOULDER RIGHT 2 OR MORE VIEWS ED 09/17/2024 11:51 AM DEHAIRER DEXA AXIAL SKELETON BONE DENSITY 1 OR MORE SITES Routine 2015 1:50 PM CDT from Last 3 Months or Most Recently Relevant to Health Maintenance Results * MRI Shoulder Right WO Contrast (11/06/2024 9:38 PM DEHAIRER) Anatomical Region Laterality Modality Upper Extremities Right Magnetic Reson ance 11/07/2024 6:12 AM DEHAIRER Narrative 11/07/2024 6:24 AM DEHAIRER EXAM DESCRIPTION: MRI SHOULDER RIGHT WO CONTRAST REASON FOR STUDY: s42.801a F/u fracture. Patient was unable to put her arm in anatomic position due to injury. Patient was moving some during exam due to pain. Best obtainable TECHNIQUE: Multiplanar, multisequence MRI of the right shoulder was performed without contrast. COMPARISON: 09/26/2024 FINDINGS: MR images confirm a pathologic proximal right humerus fracture. There is a 7.9 cm marrow replacing lesion involving the proximal right humerus. Extra skeletal component versus evolving periosteal new bone formation can not be determined on this exam. There are additional 3 and 5 mm marrow replacing lesions more proximal to the primary predominant humerus lesion. There is a marrow replacing lesion involving the mid clavicle. Right upper lobe pulmonary nodule is present. There is a mesoacromion os acromiale. The coracoacromial ligament is mildly thickened. There is mild acromioclavicular joint osteoarthritis. There is mild subacromial subdeltoid bursitis. There is mild atrophy of the supraspinatus. The subscapularis is intact. The biceps tendon is located within the bicipital groove. There is insertional supraspinatus and infraspinatus cuff tendinopathy. There is superimposed interstitial tearing of the posterior supraspinatus. On this non arthrographic evaluation, the bicipital anchor and superior glenoid labrum are intact. The labrum below the equator is normal. There is mild glenohumeral joint chondrosis. Trace shoulder effusion is present. IMPRESSION: Pathologic proximal right humerus fracture with 7.9 cm marrow replacing lesion involving the proximal right humerus. Extra skeletal component versus evolving periosteal new bone formation can not be determined on this exam. Additional 3 and 5 mm marrow replacing lesions involving the proximal humerus and a marrow replacing lesion involving the mid right clavicle are present. Right upper lobe pulmonary nodule is present. These findings are suspicious for metastatic disease. Recommend further evaluation with a chest abdomen and pelvis CT with contrast. Insertional right supraspinatus and infraspinatus cuff tendinopathy with superimposed interstitial tearing of the posterior supraspinatus. Mild right acromioclavicular joint osteoarthritis with mild subacromial subdeltoid bursitis. Mild right glenohumeral joint chondrosis with a trace shoulder effusion. THIS IS AN ELECTRONICALLY VERIFIED FINAL REPORT 11/07/2024 6:24 AM - Electronically signed by Pramod Caraballo M.D. T: Report ID: [id number] Reading Location: [id number] Procedure Note Pramod Caraballo MD - 11/07/2024 EXAM DESCRIPTION: MRI SHOULDER RIGHT WO CONTRAST REASON FOR STUDY: s42.801a F/u fracture. Patient was unable to put her arm in anatomic position dueto injury. Patient was moving some during exam due to pain. Best obtainable TECHNIQUE: Multiplanar, multisequence MRI of the right shoulder was performed without contrast. COMPARISON: 09/26/2024 FINDINGS: MR images confirm a pathologic proximal right humerus fracture. There is a 7.9 cm marrow replacing lesion involving the proximal right humerus. Extra skeletal component versus evolving periosteal new bone formation can not be determined on this exam. There are additional 3 and 5 mm marrow replacing lesions more proximal tothe primary predominant humerus lesion. There is a marrow replacing lesion involving the mid clavicle. Right upper lobe pulmonary nodule is present. There is a mesoacromion os acromiale. The coracoacromial ligament ismildly thickened. There is mild acromioclavicular joint osteoarthritis. There is mild subacromial subdeltoid bursitis. There is mild atrophy of the supraspinatus. The subscapularis is intact.The biceps tendon is located within the bicipital groove. There is insertional supraspinatus and infraspinatus cuff tendinopathy. There is superimposed interstitial tearing of the posterior supraspinatus. On this non arthrographic evaluation, the bicipital anchor and superior glenoid labrum are intact. The labrum below the equator is normal. Thereis mild glenohumeral joint chondrosis. Trace shoulder effusion is present. IMPRESSION: Pathologic proximal right humerus fracture with 7.9 cm marrow replacing lesion involving the proximal right humerus. Extra skeletal componentversus evolving periosteal new bone formation can not be determined on this exam. Additional 3 and 5 mm marrow replacing lesions involving the proximalhumerus and a marrow replacing lesion involving the mid right clavicle arepresent. Right upper lobe pulmonary nodule is present. These findings aresuspicious for metastatic disease. Recommend further evaluation with a chest abdomenand pelvis CT with contrast. Insertional right supraspinatus and infraspinatus cuff tendinopathy with superimposed interstitial tearing of the posterior supraspinatus. Mild right acromioclavicular joint osteoarthritis with mild subacromial subdeltoid bursitis. Mild right glenohumeral joint chondrosis with a trace shouldereffusion. THIS IS AN ELECTRONICALLY VERIFIED FINAL REPORT 11/07/2024 6:24 AM - Electronically signed by Pramod Caraballo M.D. T: Report ID: [id number] Reading Location: [id number] Jose Arguello MD IMG MRI PROCEDURES Final Result * XR Humerus Right 2 or More Views (09/29/2024 8:53 AM DEHAIRER) Anatomical Region Laterality Modality Upper Extremities, Upper Arm Right Com puted Radiography 09/29/2024 11:0 1 AM DEHAIRER Impressions 09/29/2024 12:40 PM DEHAIRER Unchanged mildly displaced and angulated right proximal humerus pathologic fracture with underlying lytic lesion. Dictated by: Saige Bowers MD The radiology attending physician has personally reviewed this study, and had reviewed and/or edited this written report and agrees with it. Electronically signed by: Andrew Bernal M.D. Narrative 09/29/2024 12:40 PM DEHAIRER EXAMINATION: XR HUMERUS RIGHT 2 OR MORE VIEWS HISTORY: Fracture of the right humerus COMPARISON: 09/26/2024 FINDINGS: Mildly displaced and angulated pathologic fracture of the right proximal humerus diaphysis through an underlying permeative lytic lesion which extends to the mid humeral shaft. Mild right glenohumeral and acromioclavicular joint osteoarthritis. Procedure Note Andrew Bernal MD - 09/29/2024 EXAMINATION: XR HUMERUS RIGHT 2 OR MORE VIEWS HISTORY: Fracture of the right humerus COMPARISON: 09/26/2024 FINDINGS: Mildly displaced and angulated pathologic fracture of the right proximal humerus diaphysis through an underlying permeative lytic lesion which extends to the mid humeral shaft. Mild right glenohumeral and acromioclavicular joint osteoarthritis. IMPRESSION: Unchanged mildly displaced and angulated right proximal humerus pathologic fracture with underlying lytic lesion. Dictated by: Saige Bowers MD The radiology attending physician has personally reviewed this study, and had reviewed and/or edited this written report and agrees with it. Electronically signed by: Andrew Bernal M.D. Dany Guerin MD IMG XR PROCEDURES Final Re sult * XR Shoulder Right 2 or More Views (09/26/2024 1:38 PM DEHAIRER) Anatomical Region Laterality Modality Upper Extremities, Shoulder Right Comp uted Radiography 09/26/2024 1:43 PM DEHAIRER Impressions 09/26/2024 1:43 PM DEHAIRER 1. Mildly displaced right proximal humerus pathologic fracture with 6.5 cm underlying lytic lesion. Electronically signed by: Maite Sanchez MD Narrative 09/26/2024 1:43 PM DEHAIRER EXAMINATION: XR SHOULDER RIGHT 2 OR MORE VIEWS HISTORY: Fracture. FINDINGS: Comparison to 09/17/2024. There is a mildly displaced pathologic fracture of the proximal humerus with underlying roughly 6 cm permeative lytic lesion with endosteal scalloping. Alignment is unchanged, with slight anterior angulation and impaction. Moderate acromioclavicular and mild glenohumeral osteoarthritis. Sternotomy wires. Procedure Note Maite Sanchez MD - 09/26/2024 EXAMINATION: XR SHOULDER RIGHT 2 OR MORE VIEWS HISTORY: Fracture. FINDINGS: Comparison to 09/17/2024. There is a mildly displaced pathologic fracture of the proximal humerus with underlying roughly 6 cm permeative lytic lesion with endosteal scalloping. Alignment is unchanged, with slight anterior angulation and impaction. Moderate acromioclavicular and mild glenohumeral osteoarthritis. Sternotomy wires. IMPRESSION: 1. Mildly displaced right proximal humerus pathologic fracture with 6.5 cm underlying lytic lesion. Electronically signed by: Maite Sanchez MD Antony [facility] IMG XR PROCEDURES Final Result * XR Hip Left 2 or 3 Views (09/17/2024 11:51 AM DEHAIRER) Anatomical Region Laterality Modality Lower Extremities, Hip, Pelvis Left C omputed Radiography 09/17/2024 12:2 3 PM DEHAIRER Narrative 09/17/2024 12:24 PM DEHAIRER EXAM DESCRIPTION: XR HIP LEFT 2 OR 3 VIEWS REASON FOR STUDY: pain BIBEMS with c/o rt arm pain x2 weeks and left hip pain x1 week. Pt denies any injury. Pt breathing is even and non-labored. 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 No known injury to left hip TECHNIQUE: Two views COMPARISON: None available FINDINGS: No acute fracture or dislocation. No lytic or destructive process. Tesz-pn-lzzfpwuf degenerative change acetabulum and left SI joint. Soft tissues demonstrate phleboliths. IMPRESSION: Ezdm-td-pcjthbte degenerative changes left hip. THIS IS AN ELECTRONICALLY VERIFIED FINAL REPORT 09/17/2024 12:24 PM - Electronically signed by Calos DOWNING T: Report ID: [id number] Reading Location: [id number] Procedure Note Calos Madsen MD - 09/17/2024 EXAM DESCRIPTION: XR HIP LEFT 2 OR 3 VIEWS REASON FOR STUDY: pain BIBEMS with c/o rt arm pain x2 weeks and left hip pain x1 week. Pt deniesany injury. Pt breathing is even and non-labored. 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 Noknown injury to left hip TECHNIQUE: Two views COMPARISON: None available FINDINGS: No acute fracture or dislocation. No lytic or destructive process. Iirj-ba-myohhhqf degenerative change acetabulum and left SI joint. Soft tissues demonstrate phleboliths. IMPRESSION: Lnnr-uw-xkatfilr degenerative changes left hip. THIS IS AN ELECTRONICALLY VERIFIED FINAL REPORT 09/17/2024 12:24 PM - Electronically signed by Calos DOWNING T: Report ID: [id number] Reading Location: [id number] Rubi [facility] IMG XR PROCEDURES Olivia l Result * XR Shoulder Right 2 or More Views (09/17/2024 11:51 AM DEHAIRER) Anatomical Region Laterality Modality Upper Extremities, Shoulder Right Comp uted Radiography 09/17/2024 12:2 1 PM DEHAIRER Addenda Addendum by Pramod Ellison MD on 09/18/2024 2:14 PM DEHAIRER ADDENDUM: This addendum report supersedes the original report dated 09/17/2024. Review of this film with orthopedic surgery. On the [place] view along the most proximal shaft of the humerus is a somewhat mottled appearance through the identified angulated and mildly displaced fracture. Pathologic fracture is a consideration. Patient has history of breast cancer. Follow-up cross-sectional imaging could be obtained as warranted. END OF ADDENDUM REPORT THIS IS AN ELECTRONICALLY VERIFIED FINAL REPORT 09/18/2024 2:14 PM Addendum Electronically signed by Pramod ZABALA T: Report ID: [id number] Reading Location: [id number] Narrative 09/17/2024 12:23 PM DEHAIRER EXAM DESCRIPTION: XR SHOULDER RIGHT 2 OR MORE VIEWS REASON FOR STUDY: pain BIBEMS with c/o rt arm pain x2 weeks and left hip pain x1 week. Pt denies any injury. Pt breathing is even and non-labored. 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 No known injury to left hip TECHNIQUE: Four views COMPARISON: None available FINDINGS: Angulated fracture proximal right humeral metaphysis just below the surgical neck. Humeral head remains projecting over the bony glenoid normally. Moderate bony degenerative changes of the humeral head glenoid and AC joint. Adjacent ribs and lung apex as visualized appear normal. IMPRESSION: Angulated proximal humeral metaphyseal fracture. THIS IS AN ELECTRONICALLY VERIFIED FINAL REPORT 09/17/2024 12:23 PM - Electronically signed by Calos DOWNING T: Report ID: [id number] Reading Location: [id number] Procedure Note Calos Madsen MD / Pramod Ellison MD - 09/17/2024 EXAM DESCRIPTION: XR SHOULDER RIGHT 2 OR MORE VIEWS REASON FOR STUDY: pain BIBEMS with c/o rt arm pain x2 weeks and left hip pain x1 week. Pt deniesany injury. Pt breathing is even and non-labored. 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 Noknown injury to left hip TECHNIQUE: Four views COMPARISON: None available FINDINGS: Angulated fracture proximal right humeral metaphysis just below thesurgical neck. Humeral head remains projecting over the bony glenoid normally. Moderatebony degenerative changes of the humeral head glenoid and AC joint. Adjacent ribs and lung apex as visualized appear normal. IMPRESSION: Angulated proximal humeral metaphyseal fracture. THIS IS AN ELECTRONICALLY VERIFIED FINAL REPORT 09/17/2024 12:23 PM - Electronically signed by Calos DOWNING T: Report ID: [id number] Reading Location: [id number] Rubi [facility] IMG XR PROCEDURES Edit ed Result - Final * Dexa Axial Skeleton Bone Density 1 or 2 Site (2015 1:50 PM CDT) Anatomical Region Laterality Modality Body N/A Radiographic Tia ging 2015 1:50 PM CDT Impressions 2015 2:55 PM CDT Low bone mass. Fracture risk, as above. Significant increase in bone mineral density and lumbar spine since 2011. Bone mineral density: Normal (T-score above or = -1.0) Low bone mass (T-score between -1.0 and -2.5) replaces the previously used term osteopenia Osteoporosis (T-score = or below -2.5) Medical evaluation for secondary causes of low bone mineral density may be appropriate. FRAX is a World Health Organization validated fracture risk assessment tool that calculates a person's 10 year probability of a major osteoporosis related fracture and hip fracture. According to the National Osteoporosis Foundation guidelines, postmenopausal women and men age 50 or older with low bone mass and a 10 year probability of a major osteoporosis related fracture = or greater than 20% or a 10 year probability of a hip fracture = or greater than 3% should be considered for treatment. For further information, including treatment recommendations, please refer to the 2013 ISCD Official Positions (http://www.iscd.org) and the NOF's Clinician's Guide to Prevention and Treatment of Osteoporosis (http://www.nof.org/professionals/clinical-guidelines) THIS IS AN ELECTRONICALLY VERIFIED REPORT 2015 2:52 PM: Leander Moreira M.D. Leander Moreira M.D. NH:perla 02:52 PM 02:52 PM BM [EOD] Narrative 2015 2:55 PM CDT HISTORY: 70 year old postmenopausal female with given history of osteoporosis. Current Height: 60 inches Maximum Height: 60 inches Weight: 195 pounds RISK FACTORS: History of rheumatoid arthritis. History of 1 fall in the past year. She takes Fosamax. She does not regularly perform weightbearing exercise. She regularly consumes dairy products and caffeinated beverages. 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 Left Hip Current Total BMD is 0.959 g/eb1V-fvdlb is 0.1 Most recent prior Total BMD was 0.973 g/cm2 There has been a 1.4% decrease in BMD. Current femoral neck BMD is 0.705 g/tn2M-vggod is -1.3 Fracture risk assessment (FRAX): 10 year risk for a major osteoporotic fracture is 5.1 % 10 year risk for a hip fracture is 0.7 % The FRAX tool has not been validated in patients currently or previously treated with pharmacotherapy for osteoporosis. In such patients, clinical judgement must be exercised in interpreting FRAX scores as the fracture risk may be overestimated. Procedure Note Provider, MD Christopher - 02/24/2021 HISTORY: 70 year old postmenopausal female with given history ofosteoporosis. Current Height: 60 inches Maximum Height: 60 inches Weight: 195 pounds RISK FACTORS: History of rheumatoid arthritis. History of 1 fall in the past year. She takes Fosamax. She does not regularly performweightbearing exercise. She regularly consumes dairy products and caffeinatedbeverages. 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 Left Hip Current Total BMD is 0.959 g/ey0Y-epsyv is 0.1 Most recent prior Total BMD was 0.973 g/cm2 There has been a 1.4% decrease in BMD. Current femoral neck BMD is 0.705 g/gg1B-cdzjn is -1.3 Fracture risk assessment (FRAX): 10 year risk for a major osteoporotic fracture is 5.1 % 10 year risk for a hip fracture is 0.7 % The FRAX tool has not been validated in patients currently or previously treated with pharmacotherapy for osteoporosis. In such patients, clinical judgement must be exercised in interpreting FRAX scores as the fracturerisk may be overestimated. IMPRESSION: Low bone mass. Fracture risk, as above. Significant increasein bone mineral density and lumbar spine since 2011. Bone mineral density: Normal (T-score above or = -1.0) Low bone mass (T-score between -1.0 and -2.5) replaces the previously used term osteopenia Osteoporosis (T-score = or below -2.5) Medical evaluation for secondary causes of low bone mineral density may be appropriate. FRAX is a World Health Organization validated fracture risk assessmenttool that calculates a person's 10 year probability of a major osteoporosisrelated fracture and hip fracture. According to the National OsteoporosisFoundation guidelines, postmenopausal women and men age 50 or older with low bonemass and a 10 year probability of a major osteoporosis related fracture = or greater than 20% or a 10 year probability of a hip fracture = or greaterthan 3% should be considered for treatment. For further information, including treatment recommendations, please referto the 2013 ISCD Official Positions (http://www.iscd.org) and the NOF's Clinician's Guide to Prevention and Treatment of Osteoporosis (http://www.nof.org/professionals/clinical-guidelines) THIS IS AN ELECTRONICALLY VERIFIED REPORT 2015 2:52 PM: Leander Moreira M.D. Leander Moreira M.D. NH:perla 02:52 PM 02:52 PM BM [EOD] Jose Arguello MD IMBarry DXA PROCEDURES Final Result from Last 3 Months or Most Recently Relevant to Health Maintenance Insurance MEDICARE [facility] MEDICARE MEDICARE Advance Directives For more information, please contact: [phone] Documents on File Type Date Recorded Patient Tooth Cutter Spur Expl anation ADVANCE DIRECTIVE 02/22/2013 12:00 AM SARAY R OF MANAGER DATABASE ADMINISTRATION FINANCIAL/MEDICAL Care Teams Communications Advisor Relationship Specialty Start Date End Date Jose Arguello MD PCP - General Family Medicine 05/11/19
--- OUTSIDE RECORDS SUMMARY | 2024-11-21 12:03 | XMS_ITS | Clinical Summary ---
Author Organization [facility] at the [facility] Address [address] [place] [address] Care Team Providers Care Paper Cleaner Name Role Phone Jose Arguello MD Primary Care Prov ider Allergies Active Allergy Reactions Criticality Noted Date Comments Aspirin Nausea only Low 02/04/2020 nausea Atorvastatin Muscle pain Medium 04/18/2016 Colesevelam Other (See comments) Low 04/18/2016 Ezetimibe Unknown 05/11/2016 ineffective Fenofibrate Muscle pain Medium 04/18/2016 Fluvastatin Muscle pain Medium 04/18/2016 Lisinopril Swelling Medium 04/18/2016 Pitavastatin Rash Medium 04/18/2016 Pravastatin Muscle pain Medium 04/18/2016 Rosuvastatin Muscle pain Medium 04/18/2016 Simvastatin Muscle pain Medium 04/18/2016 Nxaqogj-Zfo-Oyn Reductase Inhibitors Muscle pain Medium 04/18/2016 Medications [...] (eight) hours as needed 2 Active omega 4-eje-luv-fish oil 1,000 mg (120 mg-180 mg) capsule [...] hours as needed for pain 15 tablet 12/08/[address] (VOLTAREN) 75 mg [...] Atorvastatin. Assessment & Plan (09/25/2020 10:41 AM WHITEPRINTING MACHINE OPERATOR): Stent to the saphenous vein graft to the RCA 07/01/[address] Rincon. Anti- platelet regimen. Aggressive risk factor modification. Assessment & Plan (03/20/2020 5:41 PM CDT): Stent to the saphenous vein graft to the RCA 07/01/[address] Rincon. Assessment & Plan (11/15/2019 1:37 PM WHITEPRINTING MACHINE OPERATOR): Stent to the saphenous vein graft to [...] 07/01/2018. Assessment & Plan (09/25/2020 10:38 AM WHITEPRINTING MACHINE OPERATOR): Was related to myocardial ischemia and to the coronary artery disease. No dyspnea since the stenting of the saphenous vein graft to the RCA 07/01/2018. Assessment & Plan (03/20/2020 5:36 PM CDT): No exertional dyspnea since the stenting of the saphenous vein graft to the RCA 07/01/2018. Assessment & Plan (11/15/2019 1:39 PM WHITEPRINTING MACHINE OPERATOR): No exertional dyspnea since the stenting of [...] weeks. Assessment & Plan (09/26/2020 9:58 AM WHITEPRINTING MACHINE OPERATOR): Blood pressure 158/60. Salt restriction. Continue the current regimen. Add losartan 100 mg p.o. daily for blood pressure control and for renal protective effect from diabetes. Assessment & Plan (03/21/2020 9:43 AM CDT): Blood pressure 144/80. Salt restriction. Continue the current regimen. Assessment & Plan (11/16/2019 11:28 AM WHITEPRINTING MACHINE OPERATOR): Blood pressure 140/70. Salt restriction. Continue the current regimen. Assessment & Plan (05/11/2019 12:18 PM CDT): Blood pressure 138/80. Salt restriction. Continue the current regimen. History of coronary artery bypass surgery 2017 Overview (05/08/2019): 2005. Assessment & Plan (04/30/2021 8:41 PM CDT): Coronary artery bypass surgery 2006. Aspirin. Plavix. Atorvastatin. Assessment & Plan (03/26/2021 4:07 PM CDT): Coronary artery bypass surgery 2006. Aspirin. Atorvastatin. Plavix. Assessment & Plan (09/25/2020 10:38 AM WHITEPRINTING MACHINE OPERATOR): Coronary artery bypass surgery 2006. Aggressive risk factor modification. Assessment & Plan (03/20/2020 5:37 PM CDT): Coronary artery bypass surgery 2006. Aggressive risk factor modification. Assessment & Plan (11/15/2019 1:39 PM WHITEPRINTING MACHINE OPERATOR): History of coronary artery bypass surgery 2006. [...] 07/01/2018. Assessment & Plan (09/25/2020 10:40 AM WHITEPRINTING MACHINE OPERATOR): No chest pains since stenting to the saphenous vein graft to the RCA 07/01/2018. Assessment & Plan (03/20/2020 5:42 PM CDT): No chest pain since stent to the saphenous vein graft to the RCA 07/01/2018. Ranexa was added which he found too expensive. Will consider Imdur if necessary. Assessment & Plan (11/16/2019 11:28 AM WHITEPRINTING MACHINE OPERATOR): Stent to the saphenous vein graft to [...] Stable. Assessment & Plan (09/25/2020 10:41 AM WHITEPRINTING MACHINE OPERATOR): Chronic. Stable. Assessment & Plan (03/20/2020 5:40 PM CDT): Chronic. Stable. Assessment & Plan (11/15/2019 1:37 PM WHITEPRINTING MACHINE OPERATOR): Chronic. Stable. Assessment & Plan (05/11/2019 12:19 PM CDT): Chronic. Stable. EKG today shows normal sinus rhythm, right bundle branch block, left axis deviation, T-wave changes. Hyperlipidemia 06/21/2018 Assessment & Plan (04/30/2021 8:37 PM CDT): Low-fat low-cholesterol diet. Atorvastatin. 01/04/2021 LDL 75. Assessment & Plan (03/26/2021 4:02 PM CDT): Low-fat low-cholesterol diet. Atorvastatin. On 07/24 220 the LDL was 86. Target less than 70. The Lipitor was increased to 80 mg bedtime daily . 01/04/2021 triglycerides 109, LDL 75 Assessment & Plan (09/26/2020 9:58 AM WHITEPRINTING MACHINE OPERATOR): Low-fat low-cholesterol diet. Atorvastatin. On 07/24/2020 triglycerides [...] 93. Assessment & Plan (11/16/2019 11:29 AM WHITEPRINTING MACHINE OPERATOR): Low-fat low-cholesterol diet. Atorvastatin 40 mg bedtime [...] HDL 54, LDL 67, CPK 141. The Encounters Date Type Department Care Team Description 11/09/2024 Orders Only [facility] [address] [place] [address] [address]th [place] [address] [place] [address] Dany Guerin MD 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) (Primary Dx) 11/06/2024 8:07 PM WHITEPRINTING MACHINE OPERATOR - 11/06/2024 11:59 PM WHITEPRINTING MACHINE OPERATOR Hospital Encounter [address] [address] Unspecified fracture of shaft of humerus, right arm, initial encounter for closed fracture Discharge Disposition: Discharge to home or self care 10/19/2024 Orders Only [facility] [address] [place] [address] [place] [address] [place] [address] Dany Guerin MD 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 [address] [place] [id number] Acute pain of right shoulder Discharge Disposition: Discharge to home or self care 09/26/2024 1:00 PM WHITEPRINTING MACHINE OPERATOR Office Visit [facility] [id number] [place] [address] 2nd [address] [place] [phone] Antony Silva PA Pathological fracture of right humerus, unspecified pathological cause, initial encounter (Primary Dx); Acute pain of right shoulder; Chronic right shoulder pain 09/19/2024 Telephone [facility] [address] [place] [phone] Pramod Carty MD 09/19/2024 Orders Only [facility] [address] [place] [phone] Pramod Carty MD Chronic right shoulder pain (Primary Dx) 09/17/2024 2:09 PM WHITEPRINTING MACHINE OPERATOR - 09/17/2024 6:26 PM WHITEPRINTING MACHINE OPERATOR Emergency [address] [address] Closed fracture of proximal end of right humerus, unspecified fracture morphology, initial encounter (Primary Dx); Left hip pain Discharge Disposition: Discharge to home or self care from Last 3 Months Surgical History Surgery Date Site/Laterality Comments HEMORRHOID SURGERY 06/09/2018 CATARACT EXTRACTION 12/16/2018 CATARACT EXTRACTION 11/11/2018 - 12/08/2018 BREAST LUMPECTOMY 10/11/2021 - 10/10/2022 Medical History Medical History Date Comments Hypertensive heart disease without heart failure History of coronary artery bypass surgery Precordial chest pain Right bundle branch block Hyperlipidemia Exertional dyspnea S/P coronary artery stent placement Diabetes mellitus (HCC) Family History Relation Name Status Comments Father Mother Social History Tobacco Use Types Packs/Day Years [...] on file Legal Sex Female 6:44 PM WHITEPRINTING MACHINE OPERATOR Gender Identity Not on file Sexual Orientation Not on file Obstetrics History Last Filed Vital Signs Vital Sign Reading Time Taken Comments Blood Pressure 145/81 09/17/2024 6:25 PM WHITEPRINTING MACHINE OPERATOR Pulse 81 09/17/2024 6:25 PM WHITEPRINTING MACHINE OPERATOR Temperature 36.7 C (98.1 F) 09/17/2024 10:39 AM WHITEPRINTING MACHINE OPERATOR Respiratory Rate 14 09/17/2024 6:25 PM WHITEPRINTING MACHINE OPERATOR Oxygen Saturation 98% 09/17/2024 6:25 PM WHITEPRINTING MACHINE OPERATOR Inhaled Oxygen Concentration - - Weight 76.2 kg (168 lb) 09/29/2024 9:18 AM WHITEPRINTING MACHINE OPERATOR Height 152.4 cm (5') 09/29/2024 9:18 AM WHITEPRINTING MACHINE OPERATOR Body Mass Index 32.81 09/29/2024 9:18 AM WHITEPRINTING MACHINE OPERATOR Plan of Treatment Health Maintenance Due Date Last Done Comments Depression Screening 1944 Fall Risk Assessment 1944 Pneumococcal vaccine 65+ (1 of 2 - PCV) 1950 Hepatitis B Screening 1962 Zoster Vaccine (1 of 2) 1963 DTaP/Tdap/Td Vaccine (1 - Tdap) 03/20/1995 5 Well Visit 65+ 2009 Osteoporosis Screening-Bone Density Scan 2017 2015, 2015 Influenza Vaccine (#1) 2024 10/11/2017, 2012 Procedures Procedure Name Priority Date/Time Associated Diagnosis Comments MRI SHOULDER RIGHT WO CONTRAST Schedule Routine, Read Routine (OP Routine) 11/06/2024 9:38 PM WHITEPRINTING MACHINE OPERATOR Unspecified fracture of shaft of humerus, right arm, initial encounter for closed fracture XR HUMERUS RIGHT 2 OR MORE VIEWS Routine 09/29/2024 8:53 AM WHITEPRINTING MACHINE OPERATOR 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, subsequent encounter XR SHOULDER RIGHT 2 OR MORE VIEWS Schedule Routine, Read Routine (OP Routine) 09/26/2024 1:38 PM WHITEPRINTING MACHINE OPERATOR Acute pain of right shoulder XR HIP LEFT 2 OR 3 VIEWS ED 09/17/2024 11:51 AM WHITEPRINTING MACHINE OPERATOR XR SHOULDER RIGHT 2 OR MORE VIEWS ED 09/17/2024 11:51 AM WHITEPRINTING MACHINE OPERATOR DEXA AXIAL SKELETON BONE DENSITY 1 OR MORE SITES Routine 2015 1:50 PM CDT from Last 3 Months or Most Recently Relevant to Health Maintenance Results * MRI Shoulder Right WO Contrast (11/06/2024 9:38 PM WHITEPRINTING MACHINE OPERATOR) Anatomical Region Laterality Modality Upper Extremities Right Magnetic Reson ance 11/07/2024 6:12 AM WHITEPRINTING MACHINE OPERATOR Narrative 11/07/2024 6:24 AM WHITEPRINTING MACHINE OPERATOR EXAM DESCRIPTION: MRI SHOULDER RIGHT WO CONTRAST [...] by Pramod Caraballo M.D. T: Report ID: [id number] Reading Location: [id number] Procedure Note Pramod Caraballo MD - 11/07/2024 [...] by Pramod Caraballo M.D. T: Report ID: [id number] Reading Location: [place] [address] Jose Arguello MD IMG MRI PROCEDURES Final Result * XR Humerus Right 2 or More Views (09/29/2024 8:53 AM WHITEPRINTING MACHINE OPERATOR) Anatomical Region Laterality Modality Upper Extremities, Upper Arm Right Com puted Radiography 09/29/2024 11:0 1 AM WHITEPRINTING MACHINE OPERATOR Impressions 09/29/2024 12:40 PM WHITEPRINTING MACHINE OPERATOR Unchanged mildly displaced and angulated right proximal humerus pathologic fracture with underlying lytic lesion. Dictated by: Saige Bowers MD The radiology attending physician has personally reviewed this study, and had reviewed and/or edited this written report and agrees with it. Electronically signed by: Andrew Bernal M.D. Narrative 09/29/2024 12:40 PM WHITEPRINTING MACHINE OPERATOR EXAMINATION: XR HUMERUS RIGHT 2 OR MORE [...] 2 or More Views (09/26/2024 1:38 PM WHITEPRINTING MACHINE OPERATOR) Anatomical Region Laterality Modality Upper Extremities, Shoulder Right Comp uted Radiography 09/26/2024 1:43 PM WHITEPRINTING MACHINE OPERATOR Impressions 09/26/2024 1:43 PM WHITEPRINTING MACHINE OPERATOR 1. Mildly displaced right proximal humerus pathologic fracture with 6.5 cm underlying lytic lesion. Electronically signed by: Maite Sanchez MD Narrative 09/26/2024 1:43 PM WHITEPRINTING MACHINE OPERATOR EXAMINATION: XR SHOULDER RIGHT 2 OR MORE [...] Electronically signed by: Maite Sanchez MD Antony RYAN XR PROCEDURES Final Result * XR Hip Left 2 or 3 Views (09/17/2024 11:51 AM WHITEPRINTING MACHINE OPERATOR) Anatomical Region Laterality Modality Lower Extremities, Hip, Pelvis Left C omputed Radiography 09/17/2024 12:2 3 PM WHITEPRINTING MACHINE OPERATOR Narrative 09/17/2024 12:24 PM WHITEPRINTING MACHINE OPERATOR EXAM DESCRIPTION: XR HIP LEFT 2 OR 3 VIEWS REASON FOR STUDY: pain BIBEMS with c/o rt arm pain x2 weeks and left hip pain x1 week. Pt denies any injury. Pt breathing is even and non-labored. Patient states she reached down to steel pickler a pillow from her chair and heard a pop in her right arm. No known injury to left hip TECHNIQUE: Two views COMPARISON: None available FINDINGS: No acute fracture or dislocation. No lytic or destructive process. Cvva-yp-caqdqdtb degenerative change acetabulum and left SI joint. Soft tissues demonstrate phleboliths. IMPRESSION: Myrz-fl-nawoheeb degenerative changes left hip. THIS IS AN ELECTRONICALLY VERIFIED FINAL REPORT 09/17/2024 12:24 PM - Electronically signed by Calos DOWNING T: Report ID: [id number] Reading Location: [id number] Procedure Note Calos Madsen MD - 09/17/2024 EXAM DESCRIPTION: XR HIP LEFT 2 OR 3 VIEWS REASON FOR STUDY: pain BIBEMS with c/o rt arm pain x2 weeks and left hip pain x1 week. Pt deniesany injury. Pt breathing is even and non-labored. Patient states she reacheddown to steel pickler a pillow from her chair and heard a pop in her right arm. Noknown injury to left hip TECHNIQUE: Two views COMPARISON: None available FINDINGS: No acute fracture or dislocation. No lytic or destructive process. Qqsd-to-qwozawwg degenerative change acetabulum and left SI joint. Soft tissues demonstrate phleboliths. IMPRESSION: Dagg-os-trobwhmx degenerative changes left hip. THIS IS AN ELECTRONICALLY VERIFIED FINAL REPORT 09/17/2024 12:24 PM - Electronically signed by Calos Madsen M.D. RB T: Report ID: [id number] Reading Location: [id number] Rubi P[facility] IMG XR PROCEDURES Olivia l Result * XR Shoulder Right 2 or More Views (09/17/2024 11:51 AM WHITEPRINTING MACHINE OPERATOR) Anatomical Region Laterality Modality Upper Extremities, Shoulder Right Comp uted Radiography 09/17/2024 12:2 1 PM WHITEPRINTING MACHINE OPERATOR Addenda Addendum by Pramod Ellison MD on 09/18/2024 2:14 PM WHITEPRINTING MACHINE OPERATOR ADDENDUM: This addendum report supersedes the original [...] signed by Pramod ZABALA T: Report ID: [id number] Reading Location: [id number] Narrative 09/17/2024 12:23 PM WHITEPRINTING MACHINE OPERATOR EXAM DESCRIPTION: XR SHOULDER RIGHT 2 OR MORE VIEWS REASON FOR STUDY: pain BIBEMS with c/o rt arm pain x2 weeks and left hip pain x1 week. Pt denies any injury. Pt breathing is even and non-labored. Patient states she reached down to steel pickler a pillow from her chair and heard [...] signed by Calos DOWNING T: Report ID: [id number] Reading Location: [id number] Procedure Note Calos Madsen MD / Pramod Ellison MD - 09/17/2024 EXAM DESCRIPTION: XR SHOULDER RIGHT 2 OR MORE VIEWS REASON FOR STUDY: pain BIBEMS with c/o rt arm pain x2 weeks and left hip pain x1 week. Pt deniesany injury. Pt breathing is even and non-labored. Patient states she reacheddown to steel pickler a pillow from her chair and heard [...] signed by Calos DOWNING T: Report ID: [id number] Reading Location: [place] [address] Rubi P[facility] IMG XR PROCEDURES Edit ed [...] PM: Leander Moreira M.D. Leander Moreira M.D. NH:nh 02:52 PM 02:52 PM [facility] [EOD] Narrative 2015 2:55 PM CDT HISTORY: 70 year old postmenopausal female with given history of osteoporosis. Current Height: 60 inches Maximum Height: 60 inches Weight: 195 pounds RISK FACTORS: History of rheumatoid arthritis. History of 1 fall in the past year. She takes Fosamax. She does not regularly perform weightbearing exercise. She regularly consumes dairy products and caffeinated beverages. 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 Left Hip Current Total BMD is 0.959 g/uy1Y-tsrmg is 0.1 Most recent prior Total BMD was 0.973 g/cm2 There has been a 1.4% decrease in BMD. Current femoral neck BMD is 0.705 g/qo9V-fjtsb is -1.3 Fracture risk assessment (FRAX): 10 [...] consumes dairy products and caffeinatedbeverages. COMPARISON(S): 06/08/2012 DECKHAND OYSTER DREDGE/MODEL: [employer] (S/N [id number]) FINDINGS: AP lumbar spine L1-L4 Total BMD is 0.86 g/lw1D-gtxkb is -1.7 Most recent prior BMD was 0.819 g/cm2 There has been a 4.9% increase in BMD which is statisticallysignificant. Left Hip Current Total BMD is 0.959 g/py8W-fsgsy is 0.1 Most recent prior Total BMD was 0.973 g/cm2 There has been a 1.4% decrease in BMD. Current femoral neck BMD is 0.705 g/uv0G-nfanx is -1.3 Fracture risk assessment (FRAX): 10 [...] Moreira M.D. NH:perla 02:52 PM 02:52 PM [facility] [EOD] Jose Arguello MD IM DXA PROCEDURES Final Result from Last 3 Months or Most Recently Relevant to Health Maintenance Insurance MEDICARE [facility] Address: [address] [address] [place] [address] [employer]PR MEDICARE Member Subscriber Plan / Payer (Ef fective 2009-Present) Name:Savannah Lyles Member ID:[id number] Relation to Subscriber:Self Name:Savannah Lyles Subscriber ID:[id number] Payer ID:[id number] Group ID:Not on file Type:[facility] Address: [address] [address] MEDICARE Advance Directives For more information, please contact: [phone] Documents on File Type Date Recorded Patient Engine Manager Expl anation ADVANCE DIRECTIVE 02/22/2013 12:00 AM SARAY Toure OF STEAMFITTER APPRENTICE FINANCIAL/MEDICAL Care Teams Paper Cleaner Relationship Specialty Start Date End Date Jose Arguello MD PCP - General Family Medicine 05/11/19
--- OUTSIDE RECORDS SUMMARY | 2024-11-21 12:04 | XMS_ITS | Encounter Summary ---
Author Organization [facility] Care Team Providers Care Glove Parts Inspector Name Role Phone No, Physician Primary Care Provider [phone] Jose Arguello MD Primary Care Prov ider Encounter Details Date Type Department Care Team (Latest Contact Info) Description 02/10/2006 Orders Only [facility] CLINCONV Provider, MD Christopher [address] [place] [id number] Social History Tobacco Use Types Packs/Day Years Used Date Smoking Tobacco: Never Assessed Comments Unknown Sex and Gender Information Value Date Recorded Sex Assigned at Not on file Legal Sex Female 6:44 PM RELOCATION MANAGER Gender Identity Not on file Sexual Orientation Not on file documented as of this encounter Plan of Treatment Not on file documented as of this encounter Procedures Procedure Name Priority Date/Time Associated Diagnosis Comments CARDIOLOGY REPORT 06/27/2018 12: 00 AM CDT documented in this encounter Results * CARDIOLOGY REPORT (06/27/2018 12:00 AM CDT) Anatomical Region Laterality Modality Other Narrative 06/27/2018 12:00 AM CDT Ordered by an unspecified provider. Historical Provider [facility] JEANNIE FRIEDMAN Final Result documented in this encounter Visit Diagnoses Not on filedocumented in this encounter Care Teams Glove Parts Inspector Relationship Specialty Start Date End Date No, Physician PCP - General 01/05/19 05/10/19 Jose Arguello MD PCP - General Family Medicine 05/11/19 documented as of this encounter
--- OUTSIDE RECORDS SUMMARY | 2024-11-21 12:04 | XMS_ITS | Clinical Summary ---
Author Organization [facility] / [facility] Address [address] [place] [address] Care Team Providers Care Deputy Sheriff Bailiff Name Role Phone Jose Arguello MD Primary Care Provider [phone] Zhou Elder MD Unavailable Allergies Active Allergy Reactions Criticality Noted Date Comments Atorvastatin Myalgias 04/18/2016 Colesevelam Lab Results 04/18/2016 Fenofibrate Myalgias 04/18/2016 Fluvastatin Myalgias 04/18/2016 Lisinopril Swelling 04/18/2016 Pitavastatin Rash Low 04/18/2016 Pravastatin Myalgias 04/18/2016 Rosuvastatin Myalgias 04/18/2016 Simvastatin Myalgias 04/18/2016 Statins Myalgias 04/18/2016 Ezetimibe Other (see comment) 05/11/2016 ineffective Medications Aspirin (ASPIR-81 OR) Take 1 tablet by mouth daily. 3 Active rosuvastatin (CRESTOR) 5 MG tablet take 1 tablet by mouth once a day at bedtime 5 Active meclizine 25 MG tablet take 1 tablet by mouth as needed 5 Active metoprolol succinate 50 MG 24 hr tablet Take 1 tablet by mouth daily. 4 Active nitroGLYCERIN (NITROSTAT) 0.4 MG SL tablet take 1 tablet under tongue as needed for chest pain 4 Active Potassium Chloride ER 20 MEQ Tab CR Take 1 tablet by mouth daily. 5 Active albuterol sulfate HFA (PROVENTIL HFA) 108 (90 BASE) MCG/ACT inhaler inhale 1 puff every 4 hours as needed for shortness of breath 6 Active Docusate Sodium (STOOL SOFTENER) 100 MG Tab take 1 tablet by mouth as needed 4 Active chlorpheniramin e (WAL-FINATE) 4 MG tablet take 1 tablet by mouth as needed 5 Active HYDROCHLOROTHIA ZIDE 25 MG tablet TAKE ONE TABLET BY MOUTH ONCE DAILY 30 tablet 6 6 Active amlodipine 5 MG tablet Take 1 tablet (5 mg total) by mouth daily. 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 Not on file Not on file Last Filed Vital Signs Vital Sign Reading Time Taken Comments Blood Pressure 148/84 10/15/2015 9:39 AM SCOUT EXECUTIVE Pulse 84 10/15/2015 9:39 AM SCOUT EXECUTIVE Temperature - - Respiratory Rate - - Oxygen Saturation - - Inhaled Oxygen Concentration - - Weight 89.8 kg (198 lb) 10/15/2015 9:39 AM SCOUT EXECUTIVE Height 154.9 cm (5' 1 ) 10/15/2015 9:39 AM SCOUT EXECUTIVE Body Mass Index 37.41 10/15/2015 9:39 AM SCOUT EXECUTIVE Plan of Treatment Health Maintenance Due Date Last Done Comments DTaP, Tdap and Td Vaccines ( 1 - Tdap) 1963 Zoster Vaccines (1 of 2) 1994 Dexa Scan (General) 2009 Pneumococcal Vaccine: 65+ Ye ars (1 of 1 - PCV) 2009 ASCVD LDL 10/17/2016 10/17/2015 RSV Immunization or 60+ Years (1 - 1-dose 75+ series) 2019 COVID-19 Vaccine ( - 2023-2 5 season) 2024 Influenza Adult (#1) 2024 Meningococcal B Vaccine Aged Out No l onger eligible based on patient's age to complete this topic Meningococcal Vaccine Aged Out No emilia analilia eligible based on patient's age to complete this topic RSV Immunizations Under 20 Months Aged Out No longer eligible based on patient's age to complete this topic Procedures Procedure Name Priority Date/Time Associated Diagnosis Comments LIPID PANEL Routine 10/17/2015 12:00 AM SCOUT EXECUTIVE from Last 3 Months or Most Recently Relevant to Health Maintenance Results * LIPID PANEL (10/17/2015 12:00 AM SCOUT EXECUTIVE) TRIGLYCERIDES 207 0 - 150 mg/dl MEDINFORMATIX TO EPIC CONVERSION CHOLESTEROL 238 0 - 200 mg/dl MEDINFORMATIX TO EPIC CONVERSION HDL 42 40 - 59 mg/dl MEDINFORMATIX TO EPIC CONVERSION LDL CONVERSION 155 0 - 100 mg/dl MEDINFORMATIX TO EPIC CONVERSION 10/17/2015 10/17/2015 Narrative MEDINFORMATIX TO EPIC CONVERSION - 10/17/2015 4:37 PM SCOUT EXECUTIVE Reviewed by NATASHA Oct 17 2015 4:37:54:000PM, Reviewed by JOHNY Nov 11 2015 2:36:31:000PM us Generic Conversion Md [facility] Final R esult MEDINFORMATIX TO EPIC CONVERSION from Last 3 Months or Most Recently Relevant to Health Maintenance Advance Directives Documents on File Type Date Recorded Patient Manager Of Pmo Expl anation Advance Directives and Livin g Will 08/29/2013 POWER OF STRESS ANALYST Care Teams Deputy Sheriff Bailiff Relationship Specialty Start Date End Date Jose Arguello MD [address] [facility] [address] [place] [address] PCP - General FAMILY PRACTICE 04/10/16 Zhou Elder MD [facility] [address] [place] [address] [place] Spray Applicator CARDIOVASCULAR DISEASE 04/10/16
--- OUTSIDE RECORDS SUMMARY | 2024-11-21 12:04 | XMS_ITS | Encounter Summary ---
Author Organization [facility] Facility Care Team Providers Care Flame Hardening Machine Operator Name Role Phone No, Physician Primary Care Provider [phone] Jose Arguello MD Primary Care Prov ider Encounter Details Date Type Department Care Team (Latest Contact Info) Description 08/30/2018 Orders Only [facility] CLINCONV Provider, MD Christopher [address] [place] [id number] Social History Tobacco Use Types Packs/Day Years Used Date Smoking Tobacco: Never Assessed Comments Unknown Sex and Gender Information Value Date Recorded Sex Assigned at Not on file Legal Sex Female 6:44 PM CLOCK MECHANIC Gender Identity Not on file Sexual Orientation Not on file documented as of this encounter Plan of Treatment Not on file documented as of this encounter Procedures Procedure Name Priority Date/Time Associated Diagnosis Comments PROCEDURE - RESULT 08/30/2018 12 :00 AM CLOCK MECHANIC documented in this encounter Results * PROCEDURE - RESULT (08/30/2018 12:00 AM CLOCK MECHANIC) Narrative 08/30/2018 12:00 AM CLOCK MECHANIC Ordered by an unspecified provider. us Historical Provider Final Res ult documented in this encounter Visit Diagnoses Not on filedocumented in this encounter Care Teams Flame Hardening Machine Operator Relationship Specialty Start Date End Date No, Physician PCP - General 01/05/19 05/10/19 Jose Arguello MD PCP - General Family Medicine 05/11/19 documented as of this encounter
--- OUTSIDE RECORDS SUMMARY | 2024-11-21 12:04 | XMS_ITS | Encounter Summary ---
Author Organization [facility] Facility Care Team Providers Care Project Manager Industrial Name Role Phone No, Physician Primary Care Provider [phone] Jose Arguello MD Primary Care Prov ider Encounter Details Date Type Department Care Team (Latest Contact Info) Description 06/24/2018 Orders Only [facility] CLINCONV Provider, MD Christopher [address] [place] [address] Social History Tobacco Use Types Packs/Day Years Used Date Smoking Tobacco: Never Assessed Comments Unknown Sex and Gender Information Value Date Recorded Sex Assigned at Not on file Legal Sex Female 6:44 PM RESOLUTION MANAGER Gender Identity Not on file Sexual Orientation Not on file documented as of this encounter Plan of Treatment Not on file documented as of this encounter Procedures Procedure Name Priority Date/Time Associated Diagnosis Comments CARDIOLOGY REPORT 06/24/2018 12: 00 AM CDT CARDIOLOGY REPORT 06/24/2018 12: 00 AM CDT documented in this encounter Results * CARDIOLOGY REPORT (06/24/2018 12:00 AM CDT) Anatomical Region Laterality Modality Other Narrative 06/24/2018 12:00 AM CDT Ordered by an unspecified provider. Historical Provider MD [facility] CARDIAC SERVICES PROCE DURES Final Result * CARDIOLOGY REPORT (06/24/2018 12:00 AM CDT) Anatomical Region Laterality Modality Other Narrative 06/24/2018 12:00 AM CDT Ordered by an unspecified provider. Historical Provider [facility] CARDIAC SERVICES PROCE DURES Final Result documented in this encounter Visit Diagnoses Not on filedocumented in this encounter Care Teams Project Manager Industrial Relationship Specialty Start Date End Date No, Physician PCP - General 01/05/19 05/10/19 Jose Arguello MD PCP - General Family Medicine 05/11/19 documented as of this encounter
[2024-11-21 13:07] LABS: Basophils Percent Auto 0.2 % (0.2-1.2); Eosinophils Percent Auto 0.2 % (0-4.4); Hematocrit 38.5 % (37.0-47.0); Immature Granulocyte Absolute 0.04 K/mm3 (0.00-0.031); Immature Granulocyte Percent A 0.8 % (0-0.5); Lymphocytes Absolute Auto 1.57 K/mm3 (0.9-3.2); Lymphocytes Percent Auto 30.1 % (18.3-44.2); Mean Corpuscular HGB Conc 31.2 g/dl (32-36); Mean Corpuscular Hemoglobin 29.2 pg (26-34); Mean Corpuscular Volume 93.7 fl (80-100); Mean Platelet Volume 8.9 fl (7.4-10.4); Monocytes Absolute Auto 0.6 K/mm3 (0.1-0.6); Monocytes Percent Auto 11.9 % (2.6-8.5); Neutrophils Percent Auto 56.8 % (45.5-73.1); Platelet Count Result 142 k/mm3 (150-375); Red Blood Count 4.11 M/mm3 (4.2-5.4); Red Cell Distribution Width 15.5 % (11.5-14.5); White Blood Count 5.2 K/mm3 (4.5-10.0)
[2024-11-21 14:22] LABS: Alanine Aminotransferase 22 U/L (6-35); Albumin Level 3.9 g/dL (3.5-5.1); Alkaline Phosphatase 141 U/L (38-126); Anion Gap 10 mmol/L (4-12); Aspartate Amino Transferase 47 U/L (14-36); Bilirubin,Total 0.7 mg/dL (0.2-1.3); Blood Urea Nitrogen 22 mg/dL (7-17); Calcium 12.6 mg/dL (8.4-10.2); Carbon Dioxide 22 mmol/L (22-30); Chloride 106 mmol/L (98-107); Estimated Glomerular Filt Rate 34; Glucose 65 mg/dL (65-110); Potassium 4.6 mmol/L (3.4-5.0); Sodium 138 mmol/L (137-145)
[2024-11-23 03:14] LABS: CA 15-3 121 U/mL (<32)
== END 2024-11-21 10:45 | disposition home or self-care (01) ==
PROVIDERS: PCP Family Medicine Adolescent Medicine; Visit Provider Internal Medicine Hematology & Oncology
DX: C50.512 Malignant neoplasm of lower-outer quadrant of left female breast (principal); C79.51 Secondary malignant neoplasm of bone; Z17.0 Estrogen receptor positive status [ER+]
CPT/HCPCS: 36415; 78815; 80053; 85025; 86300; A9552

== ENCOUNTER 2024-11-21 15:19 | Emergency (ER) | payer MEDICARE, SELFPAY ==
[2024-11-21 15:24] VITALS: BP 132/52; PULSE 81; RESP 16; TEMP 36.6; O2SAT 98
--- OUTSIDE RECORDS SUMMARY | 2024-11-21 15:57 | XMS_ITS | Clinical Summary ---
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 Not on file Not on file Last Filed Vital Signs Vital Sign Reading Time Taken Comments Blood Pressure 148/84 10/15/2015 9:39 AM LAPPING MACHINE TENDER Pulse 84 10/15/2015 9:39 AM LAPPING MACHINE TENDER Temperature - - Respiratory Rate - - Oxygen Saturation - - Inhaled Oxygen Concentration - - Weight 89.8 kg (198 lb) 10/15/2015 9:39 AM LAPPING MACHINE TENDER Height 154.9 cm (5' 1 ) 10/15/2015 9:39 AM LAPPING MACHINE TENDER Body Mass Index 37.41 10/15/2015 9:39 AM LAPPING MACHINE TENDER Plan of Treatment Health Maintenance Due Date [...] Comments LIPID PANEL Routine 10/17/2015 12:00 AM LAPPING MACHINE TENDER from Last 3 Months or Most Recently Relevant to Health Maintenance Results * LIPID PANEL (10/17/2015 12:00 AM LAPPING MACHINE TENDER) TRIGLYCERIDES 207 0 - 150 mg/dl MEDINFORMATIX TO EPIC CONVERSION CHOLESTEROL 238 0 - 200 mg/dl MEDINFORMATIX TO EPIC CONVERSION HDL 42 40 - 59 mg/dl MEDINFORMATIX TO EPIC CONVERSION LDL CONVERSION 155 0 - 100 mg/dl MEDINFORMATIX TO EPIC CONVERSION 10/17/2015 10/17/2015 Narrative MEDINFORMATIX TO EPIC CONVERSION - 10/17/2015 4:37 PM LAPPING MACHINE TENDER Reviewed by NATASHA Oct 17 2015 4:37:54:000PM, Reviewed by JOHNY Nov 11 2015 2:36:31:000PM us Generic Conversion Md [facility] Final R esult MEDINFORMATIX TO EPIC CONVERSION from Last 3 Months or Most Recently Relevant to Health Maintenance Advance Directives Documents on File Type Date Recorded Patient Teller Manager Expl anation Advance Directives and Livin g Will 08/29/2013 POWER OF TENTER FEEDER Care Teams Mediator Relationship Specialty Start Date End Date Jose Arguello MD [address] [facility] [address] [place] [address] PCP - General FAMILY PRACTICE 04/10/16 Zhou Elder MD [facility] [address] [place] [address] [place] Metal Weather Stripper CARDIOVASCULAR DISEASE 04/10/16
--- OUTSIDE RECORDS SUMMARY | 2024-11-21 15:57 | XMS_ITS | Encounter Summary ---
Author Organization [facility] [employer] [facility] Address [address] [place] [address] Care Team Providers Care Day Care Aide Name Role Phone Jose Arguello MD Primary Care Provider [phone] Encounter Details Date Type Department Care Team (Late Contact Info) Description 11/16/2024 Orders Only [facility] Oncology and Hematology - [address] [place] [address] Bhanu Mohan MD [facility] [employer] [address] [place] [id number] Social History Tobacco Use Types Packs/Day Years Used Date Smoking Tobacco: Former Alcohol Use Standard Drinks/Week Comments Never 0 (1 standard drink = 0.6 oz pur e alcohol) Comments Unknown Sex and Gender Information Value Date Recorded Sex Assigned at Not on file Legal Sex Female 12:27 PM CDT Gender Identity Not on file Sexual Orientation Not on file documented as of this encounter Plan of Treatment Upcoming Encounters Date Type Department Care Team (Late Contact Info) Description 11/28/2024 2:30 PM INCOME TAX RETURN PREPARER Office Visit [facility] Oncology and Hematology - [address] [place] [address] Bhanu Mohan MD [facility] [employer] [address] [place] [address] documented as of this encounter Procedures Procedure Name Priority Date/Time Associated Diagnosis Comments NM BONE SCAN WHOLE BODY Routine 11/13/2024 8:21 AM INCOME TAX RETURN PREPARER documented in this encounter Results * NM BONE SCAN WHOLE BODY (11/13/2024 8:21 AM INCOME TAX RETURN PREPARER) Anatomical Region Laterality Modality Other Bhanu Mohan MD NM ORDERABLES Final Result documented in this encounter Visit Diagnoses Not on filedocumented in this encounter Care Teams Day Care Aide Relationship Specialty Start Date End Date Jose Arguello MD [address] [address] PCP - General Family Practice 04/22/22 documented as of this encounter
--- OUTSIDE RECORDS SUMMARY | 2024-11-21 15:57 | XMS_ITS | Clinical Summary ---
Author Organization [facility] Address [address] [place] [address] Care Team Providers Care Right Of Way Agent Name Role Phone Jose Arguello MD Primary [...] Medium 04/18/2016 Simvastatin Muscle pain Medium 04/18/2016 Sxlhxoz-Wav-Uom Reductase Inhibitors Muscle pain Medium 04/18/2016 Medications [...] (eight) hours as needed 2 Active omega 6-xvr-mna-fish oil 1,000 mg (120 mg-180 mg) capsule [...] Atorvastatin. Assessment & Plan (09/25/2020 10:41 AM FINISHER SCREWDOWN): Stent to the saphenous vein graft to the RCA 07/01/[address] Rincon. Anti- platelet regimen. Aggressive risk factor modification. Assessment & Plan (03/20/2020 5:41 PM CDT): Stent to the saphenous vein graft to the RCA 07/01/[address] Rincon. Assessment & Plan (11/15/2019 1:37 PM FINISHER SCREWDOWN): Stent to the saphenous vein graft to [...] 07/01/2018. Assessment & Plan (09/25/2020 10:38 AM FINISHER SCREWDOWN): Was related to myocardial ischemia and to the coronary artery disease. No dyspnea since the stenting of the saphenous vein graft to the RCA 07/01/2018. Assessment & Plan (03/20/2020 5:36 PM CDT): No exertional dyspnea since the stenting of the saphenous vein graft to the RCA 07/01/2018. Assessment & Plan (11/15/2019 1:39 PM FINISHER SCREWDOWN): No exertional dyspnea since the stenting of [...] weeks. Assessment & Plan (09/26/2020 9:58 AM FINISHER SCREWDOWN): Blood pressure 158/60. Salt restriction. Continue the current regimen. Add losartan 100 mg p.o. daily for blood pressure control and for renal protective effect from diabetes. Assessment & Plan (03/21/2020 9:43 AM CDT): Blood pressure 144/80. Salt restriction. Continue the current regimen. Assessment & Plan (11/16/2019 11:28 AM FINISHER SCREWDOWN): Blood pressure 140/70. Salt restriction. Continue the [...] Plavix. Assessment & Plan (09/25/2020 10:38 AM FINISHER SCREWDOWN): Coronary artery bypass surgery 2006. Aggressive risk factor modification. Assessment & Plan (03/20/2020 5:37 PM CDT): Coronary artery bypass surgery 2006. Aggressive risk factor modification. Assessment & Plan (11/15/2019 1:39 PM FINISHER SCREWDOWN): History of coronary artery bypass surgery 2006. [...] 07/01/2018. Assessment & Plan (09/25/2020 10:40 AM FINISHER SCREWDOWN): No chest pains since stenting to the saphenous vein graft to the RCA 07/01/2018. Assessment & Plan (03/20/2020 5:42 PM CDT): No chest pain since stent to the saphenous vein graft to the RCA 07/01/2018. Ranexa was added which he found too expensive. Will consider Imdur if necessary. Assessment & Plan (11/16/2019 11:28 AM FINISHER SCREWDOWN): Stent to the saphenous vein graft to [...] Stable. Assessment & Plan (09/25/2020 10:41 AM FINISHER SCREWDOWN): Chronic. Stable. Assessment & Plan (03/20/2020 5:40 PM CDT): Chronic. Stable. Assessment & Plan (11/15/2019 1:37 PM FINISHER SCREWDOWN): Chronic. Stable. Assessment & Plan (05/11/2019 12:19 [...] 75 Assessment & Plan (09/26/2020 9:58 AM FINISHER SCREWDOWN): Low-fat low-cholesterol diet. Atorvastatin. On 07/24/2020 triglycerides [...] 93. Assessment & Plan (11/16/2019 11:29 AM FINISHER SCREWDOWN): Low-fat low-cholesterol diet. 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) (Primary Dx) 11/06/2024 8:07 PM FINISHER SCREWDOWN - 11/06/2024 11:59 PM FINISHER SCREWDOWN Hospital Encounter [address] [address] Unspecified fracture of shaft of humerus, right arm, initial encounter for closed fracture Discharge Disposition: Discharge to home or self care 10/19/2024 Orders Only [facility] [address] [place] [address] [place] [address] [place] [address] Dany Guerin MD 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, subsequent encounter (Primary Dx) 09/29/2024 8:45 AM FINISHER SCREWDOWN Office Visit [facility] [address] [place] [address] 6th [place] [address] [place] [address] Dany Guerin MD 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) (Primary Dx); 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, initial encounter 09/29/2024 8:15 AM FINISHER SCREWDOWN - 09/29/2024 11:59 PM FINISHER SCREWDOWN Hospital Encounter [facility] [address] [place] [address] Dany Guerin MD 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, subsequent encounter Discharge Disposition: Discharge to home or self care 09/28/2024 Orders Only [facility] [address] [place] [address] [facility] 6th [place] [address] [place] [address] Dany Guerin MD 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, subsequent encounter (Primary Dx) 09/26/2024 1:15 PM FINISHER SCREWDOWN - 09/26/2024 11:59 PM FINISHER SCREWDOWN Hospital Encounter [facility] [address] [place] [address] Acute pain of right shoulder Discharge Disposition: Discharge to home or self care 09/26/2024 1:00 PM FINISHER SCREWDOWN Office Visit [facility] [id number] [place] [address] 2nd Floor [address] [place] [phone] Antony Silva PA Pathological fracture of right humerus, unspecified pathological cause, initial encounter (Primary Dx); Acute pain of right shoulder; Chronic right shoulder pain 09/19/2024 Telephone [facility] [address] [place] [phone] Pramod Carty MD 09/19/2024 Orders Only [facility] [address] [place] [phone] Pramod Carty MD Chronic right shoulder pain (Primary Dx) 09/17/2024 2:09 PM FINISHER SCREWDOWN - 09/17/2024 6:26 PM FINISHER SCREWDOWN Emergency [address] [address] Closed fracture of proximal end of right [...] on file Legal Sex Female 6:44 PM FINISHER SCREWDOWN Gender Identity Not on file Sexual Orientation Not on file Obstetrics History Last Filed Vital Signs Vital Sign Reading Time Taken Comments Blood Pressure 145/81 09/17/2024 6:25 PM FINISHER SCREWDOWN Pulse 81 09/17/2024 6:25 PM FINISHER SCREWDOWN Temperature 36.7 C (98.1 F) 09/17/2024 10:39 AM FINISHER SCREWDOWN Respiratory Rate 14 09/17/2024 6:25 PM FINISHER SCREWDOWN Oxygen Saturation 98% 09/17/2024 6:25 PM FINISHER SCREWDOWN Inhaled Oxygen Concentration - - Weight 76.2 kg (168 lb) 09/29/2024 9:18 AM FINISHER SCREWDOWN Height 152.4 cm (5') 09/29/2024 9:18 AM FINISHER SCREWDOWN Body Mass Index 32.81 09/29/2024 9:18 AM FINISHER SCREWDOWN Plan of Treatment Health Maintenance Due Date [...] Read Routine (OP Routine) 11/06/2024 9:38 PM FINISHER SCREWDOWN Unspecified fracture of shaft of humerus, right arm, initial encounter for closed fracture XR HUMERUS RIGHT 2 OR MORE VIEWS Routine 09/29/2024 8:53 AM FINISHER SCREWDOWN 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, subsequent encounter XR SHOULDER RIGHT 2 OR MORE VIEWS Schedule Routine, Read Routine (OP Routine) 09/26/2024 1:38 PM FINISHER SCREWDOWN Acute pain of right shoulder XR HIP LEFT 2 OR 3 VIEWS ED 09/17/2024 11:51 AM FINISHER SCREWDOWN XR SHOULDER RIGHT 2 OR MORE VIEWS ED 09/17/2024 11:51 AM FINISHER SCREWDOWN DEXA AXIAL SKELETON BONE DENSITY 1 OR MORE SITES Routine 2015 1:50 PM CDT from Last 3 Months or Most Recently Relevant to Health Maintenance Results * MRI Shoulder Right WO Contrast (11/06/2024 9:38 PM FINISHER SCREWDOWN) Anatomical Region Laterality Modality Upper Extremities Right Magnetic Reson ance 11/07/2024 6:12 AM FINISHER SCREWDOWN Narrative 11/07/2024 6:24 AM FINISHER SCREWDOWN EXAM DESCRIPTION: MRI SHOULDER RIGHT WO CONTRAST [...] by Pramod Caraballo M.D. T: Report ID: [id number] Reading Location: [id number] Procedure Note Pramod Caraballo MD - 11/07/2024 [...] by Pramod Caraballo M.D. T: Report ID: [id number] Reading Location: [place] [address] Jose Arguello MD IMG MRI PROCEDURES Final Result * XR Humerus Right 2 or More Views (09/29/2024 8:53 AM FINISHER SCREWDOWN) Anatomical Region Laterality Modality Upper Extremities, Upper Arm Right Com puted Radiography 09/29/2024 11:0 1 AM FINISHER SCREWDOWN Impressions 09/29/2024 12:40 PM FINISHER SCREWDOWN Unchanged mildly displaced and angulated right proximal humerus pathologic fracture with underlying lytic lesion. Dictated by: Saige Bowers MD The radiology attending physician has personally reviewed this study, and had reviewed and/or edited this written report and agrees with it. Electronically signed by: Andrew Bernal M.D. Narrative 09/29/2024 12:40 PM FINISHER SCREWDOWN EXAMINATION: XR HUMERUS RIGHT 2 OR MORE [...] 2 or More Views (09/26/2024 1:38 PM FINISHER SCREWDOWN) Anatomical Region Laterality Modality Upper Extremities, Shoulder Right Comp uted Radiography 09/26/2024 1:43 PM FINISHER SCREWDOWN Impressions 09/26/2024 1:43 PM FINISHER SCREWDOWN 1. Mildly displaced right proximal humerus pathologic fracture with 6.5 cm underlying lytic lesion. Electronically signed by: Maite Sanchez MD Narrative 09/26/2024 1:43 PM FINISHER SCREWDOWN EXAMINATION: XR SHOULDER RIGHT 2 OR MORE [...] 2 or 3 Views (09/17/2024 11:51 AM FINISHER SCREWDOWN) Anatomical Region Laterality Modality Lower Extremities, Hip, Pelvis Left C omputed Radiography 09/17/2024 12:2 3 PM FINISHER SCREWDOWN Narrative 09/17/2024 12:24 PM FINISHER SCREWDOWN EXAM DESCRIPTION: XR HIP LEFT 2 OR 3 VIEWS REASON FOR STUDY: pain BIBEMS with c/o rt arm pain x2 weeks and left hip pain x1 week. Pt denies any injury. Pt breathing is even and non-labored. Patient states she reached down to bead picker a pillow from her chair and heard a pop in her right arm. No known injury to left hip TECHNIQUE: Two views COMPARISON: None available FINDINGS: No acute fracture or dislocation. No lytic or destructive process. Nmtq-by-vsulsugc degenerative change acetabulum and left SI joint. Soft tissues demonstrate phleboliths. IMPRESSION: Sjrd-gx-jhgfwxbg degenerative changes left hip. THIS IS AN ELECTRONICALLY VERIFIED FINAL REPORT 09/17/2024 12:24 PM - Electronically signed by Calos DOWNING T: Report ID: [id number] Reading Location: [id number] Procedure Note Calos Madsen MD - 09/17/2024 EXAM DESCRIPTION: XR HIP LEFT 2 OR 3 VIEWS REASON FOR STUDY: pain BIBEMS with c/o rt arm pain x2 weeks and left hip pain x1 week. Pt deniesany injury. Pt breathing is even and non-labored. Patient states she reacheddown to bead picker a pillow from her chair and heard a pop in her right arm. Noknown injury to left hip TECHNIQUE: Two views COMPARISON: None available FINDINGS: No acute fracture or dislocation. No lytic or destructive process. Qnbg-et-fqigzmlb degenerative change acetabulum and left SI joint. Soft tissues demonstrate phleboliths. IMPRESSION: Fbsf-wc-xqbzleav degenerative changes left hip. THIS IS AN ELECTRONICALLY VERIFIED FINAL REPORT 09/17/2024 12:24 PM - Electronically signed by Calos Madsen M.D. RB T: Report ID: [id number] Reading Location: [id number] [facility] IMG XR PROCEDURES Olivia l Result * XR Shoulder Right 2 or More Views (09/17/2024 11:51 AM FINISHER SCREWDOWN) Anatomical Region Laterality Modality Upper Extremities, Shoulder Right Comp uted Radiography 09/17/2024 12:2 1 PM FINISHER SCREWDOWN Addenda Addendum by Pramod Ellison MD on 09/18/2024 2:14 PM FINISHER SCREWDOWN ADDENDUM: This addendum report supersedes the original [...] signed by Pramod ZABALA T: Report ID: [id number] Reading Location: [id number] Narrative 09/17/2024 12:23 PM FINISHER SCREWDOWN EXAM DESCRIPTION: XR SHOULDER RIGHT 2 OR MORE VIEWS REASON FOR STUDY: pain BIBEMS with c/o rt arm pain x2 weeks and left hip pain x1 week. Pt denies any injury. Pt breathing is even and non-labored. Patient states she reached down to bead picker a pillow from her chair and heard [...] signed by Calos DOWNING T: Report ID: [id number] Reading Location: [id number] Procedure Note Calos Madsen MD / Pramod Ellison MD - 09/17/2024 EXAM DESCRIPTION: XR SHOULDER RIGHT 2 OR MORE VIEWS REASON FOR STUDY: pain BIBEMS with c/o rt arm pain x2 weeks and left hip pain x1 week. Pt deniesany injury. Pt breathing is even and non-labored. Patient states she reacheddown to bead picker a pillow from her chair and heard [...] signed by Calos DOWNING T: Report ID: [id number] Reading Location: [place] [address] [facility] IMG XR PROCEDURES Edit ed [...] dairy products and caffeinated beverages. COMPARISON(S): 06/08/2012 CRANE CHASER/MODEL: [employer] SL (S/N [id number]) FINDINGS: AP lumbar spine L1-L4 Total BMD is 0.86 g/hy4N-cnphn is -1.7 Most recent prior BMD was 0.819 g/cm2 There has been a 4.9% increase in BMD which is statistically significant. Left Hip Current Total BMD is 0.959 g/ag1P-dvmoy is 0.1 Most recent prior Total BMD was 0.973 g/cm2 There has been a 1.4% decrease in BMD. Current femoral neck BMD is 0.705 g/up5L-kxywh is -1.3 Fracture risk assessment (FRAX): 10 [...] consumes dairy products and caffeinatedbeverages. COMPARISON(S): 06/08/2012 CRANE CHASER/MODEL: [employer] (S/N [id number]) FINDINGS: AP lumbar spine L1-L4 Total BMD is 0.86 g/fk3L-qlriw is -1.7 Most recent prior BMD was 0.819 g/cm2 There has been a 4.9% increase in BMD which is statisticallysignificant. Left Hip Current Total BMD is 0.959 g/cw9X-uhzqo is 0.1 Most recent prior Total BMD was 0.973 g/cm2 There has been a 1.4% decrease in BMD. Current femoral neck BMD is 0.705 g/yh2V-pgnzk is -1.3 Fracture risk assessment (FRAX): 10 [...] Recently Relevant to Health Maintenance Insurance MEDICARE IDOH MEDICARE MEDICARE Advance Directives For more information, please contact: [phone] Documents on File Type Date Recorded Patient Machine Finisher Expl anation ADVANCE DIRECTIVE 02/22/2013 12:00 AM SARAY Toure OF CULINARY INSTRUCTOR FINANCIAL/MEDICAL Care Teams Right Of Way Agent Relationship Specialty Start Date End Date Jose Arguello MD PCP - General Family Medicine 05/11/19
--- OUTSIDE RECORDS SUMMARY | 2024-11-21 15:57 | XMS_ITS | Encounter Summary ---
Author Organization [facility])[3] [employer] [facility] Address [address] [place] [address] Care Team Providers Care Deckhand Maintenance Name Role Phone Jose Arguello MD Primary Care Provider [phone]- [phone] Reason for Visit * Reason Onset Date Comments Lab Results 11/21/2024 Encounter Details Date Type Department Care Team (Late st Contact Info) Description 11/21/2024 Telephone [facility] Oncology and Hematology [address] [facility] [address] [place] [address] [place] [address] [place] [address] [address] [place] [address] Lab Results Social History Tobacco Use Types Packs/Day Years [...] on file documented as of this encounter Miscellaneous Notes * Telephone Encounter - Hawa Simon - 11/21/2024 3:23 PM CST [facility] called stating patient had a critical lab. Her calcium is 12.6. I Talked to Dr. Mohan and he advised the patient go to the ER for treatment via IV therapy. I called patient to inform her . I called her which the patient asked me to call her son TL so he can bring her to the ER. Icalled patients son and after a second phone call he answered. I told Patients son what was going on that patient had a critical lab and that her calcium was high enough that Dr. Mohan would like her to go to the ER to get it treated immediately. Patients son expressed understanding and stated he will get her to the ER. TESTER documented in this encounter Plan of Treatment Upcoming Encounters Date Type Department Care Team (Late st Contact Info) Description 11/28/2024 2:30 PM AIR TESTER Office Visit [facility] Oncology and Hematology - [place] [address] [facility] [address] [address] Bhanu Mohan MD [address] [facility] [address] [place] [address] documented as of this encounter Visit Diagnoses Not on filedocumented in this encounter Care Teams Deckhand Maintenance Relationship Specialty Start Date End Date Jose Arguello MD [address] [facility] [address] [place] [phone] PCP - General Family Practice 04/22/22 documented as of this encounter
--- OUTSIDE RECORDS SUMMARY | 2024-11-21 15:57 | XMS_ITS | Clinical Summary ---
Author Organization [facility] Address [address] [place] [address] Care Team Providers Care Stock Cutter Name Role Phone Jose Arguello MD Primary Care Provider [phone] Allergies No known active allergies Medications amLODIPine (NORVASC) 10 mg tablet Take 10 mg by mouth daily. Active atorvastatin (LIPITOR) 80 mg tablet TAKE 1 TABLET BY MOUTH NIGHTLY Active clopidogreL (PLAVIX) 75 mg Tablet Take 75 mg by mouth daily. Active docusate sodium (COLACE) 100 mg capsule Take 100 mg by mouth 2 times daily. Active glimepiride (AMARYL) 1 mg tablet TAKE 1 TABLET BY MOUTH ONCE DAILY IN THE MORNING WITH BREAKFAST Active HYDROcodone-elvi taminophen (NORCO) 5-325 mg tablet Take 1 Tablet by mouth every 6 hours as needed. Active losartan (COZAAR) 100 mg tablet Take 100 mg by mouth daily. Active metoprolol succinate (TOPROL XL) 100 mg Extended Release 24 hour tablet Take 100 mg by mouth daily. Active potassium chloride (KLOR-CON) 20 mEq Extended Release tablet Take 20 mEq by mouth daily. Active aspirin (ECOTRIN EC) 81 mg Tablet, Delayed Release (E.C.) Take 81 mg by mouth daily. Active famotidine (PEPCID) 20 mg tablet Take 20 mg by mouth 2 times daily. Active albuterol sulfate 90 mcg/Actuation inhaler Take 1 Puff by inhalation. Active cetirizine (ZyrTEC) 10 mg tablet Take 10 mg by mouth. Active nitroglycerin (NITROSTAT) 0.4 mg Tablet, Sublingual Place 0.4 mg under tongue. 020 Active triamterene-hyd roCHLOROthiazid e (MAXZIDE 25) 37.5-25 mg tablet Take 1 Tablet by mouth daily. 022 Active dexAMETHasone (DECADRON) 4 mg tabletIndicatio ns:Malignant neoplasm of lower-inner quadrant of left breast in female, estrogen receptor positive (CMS/HCC) Take 1 Tablet (4 mg) by mouth 2 times daily. take 2 tablets with breakfast the day before treatment, the day of treatment, and the day after treatment. 12 Tablet 3 022 Active lidocaine-prilo elizabeth (EMLA) 2.5-2.5 % CreamIndication s:Malignant neoplasm of lower-inner quadrant of left breast in female, estrogen receptor positive (CMS/HCC) Apply to affected area see administration instructions. 30 Gram 3 022 Active omega-3 fatty acids-fish oil 300-1,000 mg Capsule Take by mouth daily. Active doxycycline hyclate (VIBRAMYCIN) 100 mg capsule Take 100 mg by mouth 2 times daily. 022 Active lidocaine (lidocaine viscous 2%) 2 % Solution 5 mL by Mouth/Throat route every 6 hours as needed for Pain. 100 mL 3 022 Active silver sulfADIAZINE (SILVADENE) 1 % Cream Apply to affected area daily. 400 Gram 023 Active anastrozole (ARIMIDEX) 1 mg tablet Take 1 Tablet (1 mg) by mouth daily. 90 Tablet 3 024 Active ferrous sulfate 325 mg (65 mg iron) Tablet, Delayed Release (E.C.)Indicatio ns:Malignant neoplasm of lower-outer quadrant of left breast of female, estrogen receptor positive (CMS/HCC) Take 1 tablet by mouth twice daily 60 Tablet 025 Active ondansetron (ZOFRAN) 8 mg TabletIndicatio ns:Malignant neoplasm of lower-inner quadrant of left breast in female, estrogen receptor positive (CMS/HCC) Take 1 Tablet (8 mg) by mouth every 8 hours as needed for Nausea/Emesis. 90 Tablet 025 Active ondansetron (ZOFRAN) 8 mg TabletIndicatio ns:Malignant neoplasm of lower-inner quadrant of left breast in female, estrogen receptor positive (CMS/HCC) take 1 tablet by mouth every 8 hours as needed for nausea 90 Tablet 024 2024 Discontinued(R eorder) ferrous sulfate 325 mg (65 mg iron) Tablet, Delayed Release (E.C.)Indicatio ns:Malignant neoplasm of lower-outer quadrant of left breast of female, estrogen receptor positive (CMS/HCC) Take 1 tablet by mouth twice daily 60 Tablet 024 2024 Discontinued Active Problems Problem Noted Date Diagnosed Date Malignant neoplasm of lower- outer quadrant of left breast of female, estrogen receptor positive 04/22/2022 Encounters Date Type Department Care Team Description 11/21/2024 Telephone [facility] Oncology and Hematology - [place] [address] [place] [id number] Bhanu Mohan MD Lab Results 11/16/2024 Orders Only [facility] On[facility] Hematology [facility] [address] [place] [phone] Bhanu Mohan MD 11/15/2024 Refill [facility] On[facility]ology - [place] [address] [place] [id number] Bhanu Mohan MD Malignant neoplasm of lower-inner quadrant of left breast in female, estrogen receptor positive (CMS/HCC) 11/14/2024 Abstract [facility] On[facility] Hematology - [place] [address] [place] [id number] Bhanu Mohan MD 11/08/2024 Telephone [facility] On[facility] H[facility]ology - [place] [address] [place] [id number] Bhanu Mohan MD MRI Results 11/08/2024 Telephone [facility] - [place] [address] [place] [phone] Bhanu Mohan MD labs for appt 11/07/2024 External Device Data ST[facility] ABSTRACTION Provider, Abstract 10/27/2024 [facility] Oncology and Hematology [facility] [address] [place] [phone] Bhanu Mohan MD Malignant neoplasm of lower-outer quadrant of left breast of female, estrogen receptor positive (CMS/HCC) 09/25/2024 [facility] On[facility] Hematology [facility] [address] [place] [address] Bhanu Mohan MD Malignant neoplasm of lower-outer quadrant of left breast of female, estrogen receptor positive (CMS/HCC) 09/19/2024 [facility] Oncology and Hematology [facility] [address] [place] [address] Bhanu Mohan MD Broken Arm from Last 3 Months Family History Medical History Relation Name Comments Cancer Sister Relation Name Status Comments Brother Daughter 1 Daughter 2 Alive Daughter 3 Alive Daughter 4 Alive Father Mother Sister Son Alive Social History Tobacco Use Types Packs/Day Years Used Date Smoking Tobacco: Former Tobacco Cessation:Counseling Given: Not Answered Alcohol Use Standard Drinks/Week Comments Never 0 (1 standard drink = 0.6 oz pur e alcohol) Comments Unknown Sex and Gender Information Value Date Recorded Sex Assigned at Not on file Legal Sex Female 12:27 PM CDT Gender Identity Not on file Sexual Orientation Not on file Last Filed Vital Signs Vital Sign Reading Time Taken Comments Blood Pressure 127/73 07/05/2024 1:06 PM CDT Pulse 87 07/05/2024 1:06 PM CDT Temperature 36.7 C (98 F) 07/05/2024 1:06 PM CDT Respiratory Rate 15 07/05/2024 1:06 PM CDT Oxygen Saturation 94% 07/05/2024 1:06 PM CDT Inhaled Oxygen Concentration - - Weight 86.5 kg (190 lb 9.6 oz) 07/05/2024 1:06 P M CDT Height 165.1 cm (5' 5 ) 07/28/2022 9:48 AM CDT Body Mass Index 31.72 07/28/2022 9:48 AM CDT Plan of Treatment Upcoming Encounters Date Type Department Care Team (Late st Contact Info) Description 11/28/2024 2:30 PM HANGING FLAGS DECORATOR Office Visit [facility] Oncology and Hematology - [place] [address] [facility] [address] [place] [address] Bhanu Mohan MD [address] [facility] [address] [place] [address] Health Maintenance Due Date Last Done Comments DTAP/TDAP/TD VACCINES (1 - Tdap) 1964 Traditional Medicare (ACO) Annual Wellness Visit 07/10 PNEUMOCOCCAL VACCINE 65+ YEARS (1 of 1 - PCV) 07/10/19 94 ZOSTER VACCINE (1 of 2) 1994 RSV VACCINE (60+ or ) (1 - 1-dose 75+ series) 2019 INFLUENZA VACCINE (#1) 2024 OSTEOPOROSIS SCREENING Completed 2015 Procedures Procedure Name Priority Date/Time Associated Diagnosis Comments NM BONE SCAN WHOLE BODY Routine 11/13/2024 8:21 AM HANGING FLAGS DECORATOR from Last 3 Months Results * NM BONE SCAN WHOLE BODY (11/13/2024 8:21 AM HANGING FLAGS DECORATOR) Anatomical Region Laterality Modality Other Bhanu Mohan MD NM ORDERABLES Final Result from Last 3 Months Insurance MEDICARE PART A AND B Care Teams Stock Cutter Relationship Specialty Start Date End Date Jose Arguello MD [address] [address] PCP - General Family Practice 04/22/22
--- OUTSIDE RECORDS SUMMARY | 2024-11-21 15:58 | XMS_ITS | Encounter Summary ---
Author Organization [facility] Facility Care Team Providers Care Model Builder Display Name Role Phone No, Physician Primary Care Provider [phone] Jose Arguello MD Primary Care Prov ider Encounter Details Date Type Department Care Team (Latest Contact Info) Description 06/24/2018 Orders Only [facility] Provider, MD Christopher [address] [place] [id number] Social History Tobacco Use Types Packs/Day Years Used Date Smoking Tobacco: Never Assessed Comments Unknown Sex and Gender Information Value Date Recorded Sex Assigned at Not on file Legal Sex Female 6:44 PM [employer] Gender Identity Not on file Sexual Orientation [...] on filedocumented in this encounter Care Teams Model Builder Display Relationship Specialty Start Date End Date No, Physician PCP - General 01/05/19 05/10/19 Jose Arguello MD PCP - General Family Medicine 05/11/19 documented as of this encounter
--- OUTSIDE RECORDS SUMMARY | 2024-11-21 15:58 | XMS_ITS | Referral Summary ---
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) 11/06/2024 8:07 PM VASCULAR ULTRASOUND TECHNICIAN - 11/06/2024 11:59 PM VASCULAR ULTRASOUND TECHNICIAN Hospital Encounter [facility] MRI [address] [place] [address] Unspecified fracture of shaft of humerus, right arm, initial encounter for closed fracture Discharge Disposition: Discharge to home or self care 10/19/2024 Orders Only [facility] Orthopaedic Surgery [address] [facility] 6th [place] [address] [place] [phone] Dany Guerin MD 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, subsequent encounter (Primary Dx) 09/29/2024 8:15 AM VASCULAR ULTRASOUND TECHNICIAN - 09/29/2024 11:59 PM VASCULAR ULTRASOUND TECHNICIAN Hospital Encounter [facility] [address] [place] [address] Dany Guerin MD 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, subsequent encounter Discharge Disposition: Discharge to home or self care 09/29/2024 8:45 AM VASCULAR ULTRASOUND TECHNICIAN Office Visit [facility] Orthopaedic Surgery [address] [facility] 6th [place] [address] [place] [address] Dany Guerin MD 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) (Primary Dx); 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, initial encounter 09/28/2024 Orders Only [facility] Orthopaedic Surgery [address] [place] [address] 6th [place] [address] [place] [address] Dany Guerin MD 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, subsequent encounter (Primary Dx) 09/26/2024 1:15 PM VASCULAR ULTRASOUND TECHNICIAN - 09/26/2024 11:59 PM VASCULAR ULTRASOUND TECHNICIAN Hospital Encounter [facility] [address] [place] [address] Acute pain of right shoulder Discharge Disposition: Discharge to home or self care 09/26/2024 1:00 PM VASCULAR ULTRASOUND TECHNICIAN Office Visit [facility] Orthopaedic Surgery [address] [place] [address] 2nd [address] [place] [phone] Antony Silva PA Pathological fracture of right humerus, unspecified pathological cause, initial encounter (Primary Dx); Acute pain of right shoulder; Chronic right shoulder pain 09/19/2024 Telephone [facility]ics [facility] Medicine [address] [place] [phone] Pramod Carty MD 09/19/2024 Orders Only [facility] [address] [place] [phone] Pramod Carty MD Chronic right shoulder pain (Primary Dx) 09/17/2024 2:09 PM VASCULAR ULTRASOUND TECHNICIAN - 09/17/2024 6:26 PM VASCULAR ULTRASOUND TECHNICIAN Emergency [address] [address] Closed fracture of proximal end of right [...] Medium 04/18/2016 Simvastatin Muscle pain Medium 04/18/2016 Opqzuiq-Kcx-Ccc Reductase Inhibitors Muscle pain Medium 04/18/2016 Medications [...] (eight) hours as needed 2 Active omega 5-fus-hdm-fish oil 1,000 mg (120 mg-180 mg) capsule [...] Atorvastatin. Assessment & Plan (09/25/2020 10:41 AM VASCULAR ULTRASOUND TECHNICIAN): Stent to the saphenous vein graft to the RCA 07/01/[address] Rincon. Anti- platelet regimen. Aggressive risk factor modification. Assessment & Plan (03/20/2020 5:41 PM CDT): Stent to the saphenous vein graft to the RCA 07/01/[address] Rincon. Assessment & Plan (11/15/2019 1:37 PM VASCULAR ULTRASOUND TECHNICIAN): Stent to the saphenous vein graft to [...] 07/01/2018. Assessment & Plan (09/25/2020 10:38 AM VASCULAR ULTRASOUND TECHNICIAN): Was related to myocardial ischemia and to the coronary artery disease. No dyspnea since the stenting of the saphenous vein graft to the RCA 07/01/2018. Assessment & Plan (03/20/2020 5:36 PM CDT): No exertional dyspnea since the stenting of the saphenous vein graft to the RCA 07/01/2018. Assessment & Plan (11/15/2019 1:39 PM VASCULAR ULTRASOUND TECHNICIAN): No exertional dyspnea since the stenting of [...] weeks. Assessment & Plan (09/26/2020 9:58 AM VASCULAR ULTRASOUND TECHNICIAN): Blood pressure 158/60. Salt restriction. Continue the current regimen. Add losartan 100 mg p.o. daily for blood pressure control and for renal protective effect from diabetes. Assessment & Plan (03/21/2020 9:43 AM CDT): Blood pressure 144/80. Salt restriction. Continue the current regimen. Assessment & Plan (11/16/2019 11:28 AM VASCULAR ULTRASOUND TECHNICIAN): Blood pressure 140/70. Salt restriction. Continue the [...] Plavix. Assessment & Plan (09/25/2020 10:38 AM VASCULAR ULTRASOUND TECHNICIAN): Coronary artery bypass surgery 2006. Aggressive risk factor modification. Assessment & Plan (03/20/2020 5:37 PM CDT): Coronary artery bypass surgery 2006. Aggressive risk factor modification. Assessment & Plan (11/15/2019 1:39 PM VASCULAR ULTRASOUND TECHNICIAN): History of coronary artery bypass surgery 2006. [...] 07/01/2018. Assessment & Plan (09/25/2020 10:40 AM VASCULAR ULTRASOUND TECHNICIAN): No chest pains since stenting to the saphenous vein graft to the RCA 07/01/2018. Assessment & Plan (03/20/2020 5:42 PM CDT): No chest pain since stent to the saphenous vein graft to the RCA 07/01/2018. Ranexa was added which he found too expensive. Will consider Imdur if necessary. Assessment & Plan (11/16/2019 11:28 AM VASCULAR ULTRASOUND TECHNICIAN): Stent to the saphenous vein graft to [...] Stable. Assessment & Plan (09/25/2020 10:41 AM VASCULAR ULTRASOUND TECHNICIAN): Chronic. Stable. Assessment & Plan (03/20/2020 5:40 PM CDT): Chronic. Stable. Assessment & Plan (11/15/2019 1:37 PM VASCULAR ULTRASOUND TECHNICIAN): Chronic. Stable. Assessment & Plan (05/11/2019 12:19 [...] 75 Assessment & Plan (09/26/2020 9:58 AM VASCULAR ULTRASOUND TECHNICIAN): Low-fat low-cholesterol diet. Atorvastatin. On 07/24/2020 triglycerides [...] 93. Assessment & Plan (11/16/2019 11:29 AM VASCULAR ULTRASOUND TECHNICIAN): Low-fat low-cholesterol diet. Atorvastatin 40 mg bedtime [...] on file Legal Sex Female 6:44 PM VASCULAR ULTRASOUND TECHNICIAN Gender Identity Not on file Sexual Orientation Not on file Last Filed Vital Signs Vital Sign Reading Time Taken Comments Blood Pressure 145/81 09/17/2024 6:25 PM VASCULAR ULTRASOUND TECHNICIAN Pulse 81 09/17/2024 6:25 PM VASCULAR ULTRASOUND TECHNICIAN Temperature 36.7 C (98.1 F) 09/17/2024 10:39 AM VASCULAR ULTRASOUND TECHNICIAN Respiratory Rate 14 09/17/2024 6:25 PM VASCULAR ULTRASOUND TECHNICIAN Oxygen Saturation 98% 09/17/2024 6:25 PM VASCULAR ULTRASOUND TECHNICIAN Inhaled Oxygen Concentration - - Weight 76.2 kg (168 lb) 09/29/2024 9:18 AM VASCULAR ULTRASOUND TECHNICIAN Height 152.4 cm (5') 09/29/2024 9:18 AM VASCULAR ULTRASOUND TECHNICIAN Body Mass Index 32.81 09/29/2024 9:18 AM VASCULAR ULTRASOUND TECHNICIAN Plan of Treatment Not on file Procedures Procedure Name Priority Date/Time Associated Diagnosis Comments MRI SHOULDER RIGHT WO CONTRAST Schedule Routine, Read Routine (OP Routine) 11/06/2024 9:38 PM VASCULAR ULTRASOUND TECHNICIAN Unspecified fracture of shaft of humerus, right arm, initial encounter for closed fracture XR HUMERUS RIGHT 2 OR MORE VIEWS Routine 09/29/2024 8:53 AM VASCULAR ULTRASOUND TECHNICIAN 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, subsequent encounter XR SHOULDER RIGHT 2 OR MORE VIEWS Schedule Routine, Read Routine (OP Routine) 09/26/2024 1:38 PM VASCULAR ULTRASOUND TECHNICIAN Acute pain of right shoulder XR HIP LEFT 2 OR 3 VIEWS ED 09/17/2024 11:51 AM VASCULAR ULTRASOUND TECHNICIAN XR SHOULDER RIGHT 2 OR MORE VIEWS ED 09/17/2024 11:51 AM VASCULAR ULTRASOUND TECHNICIAN DEXA AXIAL SKELETON BONE DENSITY 1 OR MORE SITES Routine 2015 1:50 PM CDT from Last 3 Months or Most Recently Relevant to Health Maintenance Results * MRI Shoulder Right WO Contrast (11/06/2024 9:38 PM VASCULAR ULTRASOUND TECHNICIAN) Anatomical Region Laterality Modality Upper Extremities Right Magnetic Reson ance 11/07/2024 6:12 AM VASCULAR ULTRASOUND TECHNICIAN Narrative 11/07/2024 6:24 AM VASCULAR ULTRASOUND TECHNICIAN EXAM DESCRIPTION: MRI SHOULDER RIGHT WO CONTRAST [...] by Pramod Caraballo M.D. T: Report ID: [id number] Reading Location: [id number] Procedure Note Pramod Caraballo MD - 11/07/2024 [...] by Pramod Caraballo M.D. T: Report ID: [id number] Reading Location: [id number] Jose Arguello MD IMG MRI PROCEDURES Final Result * XR Humerus Right 2 or More Views (09/29/2024 8:53 AM VASCULAR ULTRASOUND TECHNICIAN) Anatomical Region Laterality Modality Upper Extremities, Upper Arm Right Com puted Radiography 09/29/2024 11:0 1 AM VASCULAR ULTRASOUND TECHNICIAN Impressions 09/29/2024 12:40 PM VASCULAR ULTRASOUND TECHNICIAN Unchanged mildly displaced and angulated right proximal humerus pathologic fracture with underlying lytic lesion. Dictated by: Saige Bowers MD The radiology attending physician has personally reviewed this study, and had reviewed and/or edited this written report and agrees with it. Electronically signed by: Andrew Bernal M.D. Narrative 09/29/2024 12:40 PM VASCULAR ULTRASOUND TECHNICIAN EXAMINATION: XR HUMERUS RIGHT 2 OR MORE [...] 2 or More Views (09/26/2024 1:38 PM VASCULAR ULTRASOUND TECHNICIAN) Anatomical Region Laterality Modality Upper Extremities, Shoulder Right Comp uted Radiography 09/26/2024 1:43 PM VASCULAR ULTRASOUND TECHNICIAN Impressions 09/26/2024 1:43 PM VASCULAR ULTRASOUND TECHNICIAN 1. Mildly displaced right proximal humerus pathologic fracture with 6.5 cm underlying lytic lesion. Electronically signed by: Maite Sanchez MD Narrative 09/26/2024 1:43 PM VASCULAR ULTRASOUND TECHNICIAN EXAMINATION: XR SHOULDER RIGHT 2 OR MORE [...] 2 or 3 Views (09/17/2024 11:51 AM VASCULAR ULTRASOUND TECHNICIAN) Anatomical Region Laterality Modality Lower Extremities, Hip, Pelvis Left C omputed Radiography 09/17/2024 12:2 3 PM VASCULAR ULTRASOUND TECHNICIAN Narrative 09/17/2024 12:24 PM VASCULAR ULTRASOUND TECHNICIAN EXAM DESCRIPTION: XR HIP LEFT 2 OR 3 VIEWS REASON FOR STUDY: pain BIBEMS with c/o rt arm pain x2 weeks and left hip pain x1 week. Pt denies any injury. Pt breathing is even and non-labored. Patient states she reached down to fish bait picker a pillow from her chair and heard a pop in her right arm. No known injury to left hip TECHNIQUE: Two views COMPARISON: None available FINDINGS: No acute fracture or dislocation. No lytic or destructive process. Kuet-ni-ttkqfpox degenerative change acetabulum and left SI joint. Soft tissues demonstrate phleboliths. IMPRESSION: Mloj-qk-rsbuylxg degenerative changes left hip. THIS IS AN ELECTRONICALLY VERIFIED FINAL REPORT 09/17/2024 12:24 PM - Electronically signed by Calos DOWNING T: Report ID: [id number] Reading Location: [id number] Procedure Note Calos Madsen MD - 09/17/2024 EXAM DESCRIPTION: XR HIP LEFT 2 OR 3 VIEWS REASON FOR STUDY: pain BIBEMS with c/o rt arm pain x2 weeks and left hip pain x1 week. Pt deniesany injury. Pt breathing is even and non-labored. Patient states she reacheddown to fish bait picker a pillow from her chair and heard a pop in her right arm. Noknown injury to left hip TECHNIQUE: Two views COMPARISON: None available FINDINGS: No acute fracture or dislocation. No lytic or destructive process. Sysl-wh-xajijzfh degenerative change acetabulum and left SI joint. Soft tissues demonstrate phleboliths. IMPRESSION: Iyfu-el-fsyjyolk degenerative changes left hip. THIS IS AN ELECTRONICALLY VERIFIED FINAL REPORT 09/17/2024 12:24 PM - Electronically signed by Calos DOWNING T: Report ID: [id number] Reading Location: [id number] [facility] IMG XR PROCEDURES Olivia l Result * XR Shoulder Right 2 or More Views (09/17/2024 11:51 AM VASCULAR ULTRASOUND TECHNICIAN) Anatomical Region Laterality Modality Upper Extremities, Shoulder Right Comp uted Radiography 09/17/2024 12:2 1 PM VASCULAR ULTRASOUND TECHNICIAN Addenda Addendum by Pramod Ellison MD on 09/18/2024 2:14 PM VASCULAR ULTRASOUND TECHNICIAN ADDENDUM: This addendum report supersedes the original [...] signed by Pramod ZABALA T: Report ID: [id number] Reading Location: [id number] Narrative 09/17/2024 12:23 PM VASCULAR ULTRASOUND TECHNICIAN EXAM DESCRIPTION: XR SHOULDER RIGHT 2 OR MORE VIEWS REASON FOR STUDY: pain BIBEMS with c/o rt arm pain x2 weeks and left hip pain x1 week. Pt denies any injury. Pt breathing is even and non-labored. Patient states she reached down to fish bait picker a pillow from her chair and [...] signed by Calos DOWNING T: Report ID: [id number] Reading Location: [id number] Procedure Note Calos Madsen MD / Pramod Ellison MD - 09/17/2024 EXAM DESCRIPTION: XR SHOULDER RIGHT 2 OR MORE VIEWS REASON FOR STUDY: pain BIBEMS with c/o rt arm pain x2 weeks and left hip pain x1 week. Pt deniesany injury. Pt breathing is even and non-labored. Patient states she reacheddown to fish bait picker a pillow from her chair and [...] signed by Calos DOWNING T: Report ID: [id number] Reading Location: [id number] [facility] IMG XR PROCEDURES Edit ed [...] dairy products and caffeinated beverages. COMPARISON(S): 06/08/2012 WINTERIZER/MODEL: [employer]ENTS HTI (S/N [id number]) FINDINGS: AP lumbar spine L1-L4 Total BMD is 0.86 g/es4J-izvlx is -1.7 Most recent prior BMD was 0.819 g/cm2 There has been a 4.9% increase in BMD which is statistically significant. Left Hip Current Total BMD is 0.959 g/bq0Y-xfosq is 0.1 Most recent prior Total BMD was 0.973 g/cm2 There has been a 1.4% decrease in BMD. Current femoral neck BMD is 0.705 g/bi8T-kkyvv is -1.3 Fracture risk assessment (FRAX): 10 [...] consumes dairy products and caffeinatedbeverages. COMPARISON(S): 06/08/2012 WINTERIZER/MODEL: [employer] SL (S/N [id number]) FINDINGS: AP lumbar spine L1-L4 Total BMD is 0.86 g/pg2L-weehu is -1.7 Most recent prior BMD was 0.819 g/cm2 There has been a 4.9% increase in BMD which is statisticallysignificant. Left Hip Current Total BMD is 0.959 g/tz0Y-vpavu is 0.1 Most recent prior Total BMD was 0.973 g/cm2 There has been a 1.4% decrease in BMD. 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
--- OUTSIDE RECORDS SUMMARY | 2024-11-21 15:58 | XMS_ITS | Encounter Summary ---
Author Organization [facility] Care Team Providers Care Title Attorney Name Role Phone No, Physician Primary Care Provider [phone] Jose Arguello MD Primary Care Prov ider Encounter Details Date Type Department Care Team (Latest Contact Info) Description 08/30/2018 Orders Only [facility] Provider, MD Christopher [address] [place] [id number] Social History Tobacco Use Types Packs/Day Years Used Date Smoking Tobacco: Never Assessed Comments Unknown Sex and Gender Information Value Date Recorded Sex Assigned at Not on file Legal Sex Female 6:44 PM MASTER BAKER Gender Identity Not on file Sexual Orientation Not on file documented as of this encounter Plan of Treatment Not on file documented as of this encounter Procedures Procedure Name Priority Date/Time Associated Diagnosis Comments PROCEDURE - RESULT 08/30/2018 12 :00 AM MASTER BAKER documented in this encounter Results * PROCEDURE - RESULT (08/30/2018 12:00 AM MASTER BAKER) Narrative 08/30/2018 12:00 AM MASTER BAKER Ordered by an unspecified provider. us Historical Provider Final Res ult documented in this encounter Visit Diagnoses Not on filedocumented in this encounter Care Teams Title Attorney Relationship Specialty Start Date End Date No, Physician PCP - General 01/05/19 05/10/19 Jose Arguello MD PCP - General Family Medicine 05/11/19 documented as of this encounter
--- OUTSIDE RECORDS SUMMARY | 2024-11-21 15:58 | XMS_ITS | Encounter Summary ---
Author Organization [facility] Care Team Providers Care Air Conditioning Equipment Mechanic Name Role Phone No, Physician Primary Care Provider [phone] Jose Arguello MD Primary Care Prov ider Encounter Details Date Type Department Care Team (Latest Contact Info) Description 02/10/2006 Orders Only [facility] Provider, MD Christopher [address] [place] [id number] Social History Tobacco Use Types Packs/Day Years Used Date Smoking Tobacco: Never Assessed Comments Unknown Sex and Gender Information Value Date Recorded Sex Assigned at Not on file Legal Sex Female 6:44 PM DATA MANAGEMENT SPECIALIST Gender Identity Not on file Sexual Orientation [...] on filedocumented in this encounter Care Teams Air Conditioning Equipment Mechanic Relationship Specialty Start Date End Date No, Physician PCP - General 01/05/19 05/10/19 Joes Arguello MD PCP - General Family Medicine 05/11/19 documented as of this encounter
--- NOTE | 2024-11-21 17:59 | ED.RECABL ---
HPI - Recheck/Abnormal Lab/Rx General Chief Complaint: Recheck/Abnormal Lab/Rx <Kelly Grissom PA-C - Last Filed: 11/21/24 18:18> Stated Complaint: elevated calcium on OP labs <ADOLPH Grier Last Filed: 11/21/24 18:18> Time Seen by Provider: 11/21/24 17:59 <ADOLPH Grier Last Filed: 11/21/24 18:18> Focused HPI: Patient is an 79 y/o female who presents to the ED with c/o abnormal labs. Patient reports she had outpatient labs drawn today which showed elevated calcium level of 12.6. Was notified by Dr. Mohan and referred to the ED for further evaluation. Patient has history of left breast cancer status post cystectomy several years ago. A few months ago, she sustained a fracture to her R proximal humerus. This was thought to be a pathologic fracture. She has since undergone MRI and PET scanning which has shown evidence of metastatic disease. GENERAL: Elderly, obese with BMI of 31.2 and in no acute distress. HEAD: Normocephalic, atraumatic. CHEST: Clear to auscultation. ?No respiratory distress. HEART: Regular rate and rhythm.? MSK: RUE in sling. NEURO: ?Alert and oriented x3. Patient screened in triage and initial orders placed.? ?Additional care and disposition to be based upon?diagnostic testing and treatment. <Kelly Grissom PA-C - Last Filed: 11/21/24 18:18> Source: patient <Kelly Grissom PA-C - Last Filed: 11/21/24 18:18> Mode of arrival: ambulatory <ADOLPH Grier Last Filed: 11/21/24 18:18> Limitations: no limitations <ADOLPH Grier Last Filed: 11/21/24 18:18> History of Present Illness HPI narrative: I agree with the assessment and documentation of Kelly Grissom PA-C. <Neena Santiago APRN - Last Filed: 11/22/24 03:31> Related Data Home Medications: Home Medications ?Medication ?Instructions ?Recorded ?Confirmed ?Last Taken ?Type aspirin 81 mg tablet,delayed 81 mg PO DAILY 03/03/22 11/10/24 01/10/24 History release atorvastatin 80 mg tablet 80 mg PO HS 03/03/22 11/10/24 05/27/22 History cetirizine 10 mg capsule (Zyrtec) 10 mg PO PRN PRN Allergy Symptoms 03/03/22 11/10/24 Unknown History clopidogrel 75 mg tablet 75 mg PO DAILY 03/03/22 11/10/24 01/09/24 History losartan 100 mg tablet 100 mg PO QAM 03/03/22 11/10/24 05/27/22 History nitroglycerin 0.4 mg sublingual 0.4 mg sublingual Q5M PRN Chest 03/03/22 11/10/24 Unknown History tablet Pain potassium chloride 20 mEq 20 meq PO DAILY 03/03/22 11/10/24 05/27/22 History tablet,extended release(part/cryst) triamterene 37.5 1 tablet PO QAM 03/03/22 11/10/24 05/27/22 History mg-hydrochlorothiazide 25 mg tablet acetaminophen 500 mg tablet 1,000 mg PO Q6H PRN Pain 03/31/22 11/10/24 05/27/22 History (Tylenol Extra Strength) amlodipine 10 mg tablet 10 mg PO QAM 03/31/22 11/10/24 01/17/24 06:30 History cholecalciferol (vitamin D3) 125 125 mcg PO DAILY 07/13/22 11/10/24 01/10/24 History mcg (5,000 unit) capsule vitamin B complex (B 1 tablet PO DAILY 07/13/22 11/10/24 01/10/24 History Complex-Vitamin B12 tablet) docusate sodium 100 mg capsule 100 mg PO BID PRN Constipation 01/10/24 11/10/24 Unknown History (Colace) omega-3 fatty acids-vitamin E 1 cap PO DAILY 01/10/24 11/10/24 Unknown History 1,000 mg capsule anastrozole 1 mg tablet 1 mg PO DAILY 11/10/24 11/10/24 Unknown History ferrous sulfate 325 mg (65 mg 325 mg PO BID 11/10/24 11/10/24 Unknown History iron) tablet,delayed release <Kelly Grissom PA-C - Last Filed: 11/21/24 18:18> Allergies/Adverse Reactions: Allergies Allergy/AdvReac Type Severity Reaction Status Date / Time No Known Allergies Allergy Verified 11/10/24 10:43 <Kelly Grissom PA-C - Last Filed: 11/21/24 18:18> Review of Systems Review of Systems: All systems reviewed & are unremarkable except as noted in HPI and below <Neena Santiago APRN - Last Filed: 11/22/24 03:31> [facility] Past Medical History Medical History: Medical History Invasive ductal carcinoma of left breast History of breast cancer (2021) Hx of hemorrhoids <Kelly Grissom PA-C - Last Filed: 11/21/24 18:18> Surgical History Surgical History: Surgical History H/O lymph node biopsy left axillary sentinel lymph node biopsy on 04/17/22. H/O mastectomy left simple mastectomy on 04/17/22 Hx of hysterectomy Hx of carpal tunnel repair Hx of CABG <Kelly Grissom PA-C - Last Filed: 11/21/24 18:18> Family History Family History: Family History Other Cerebrovascular accident Family history of malignant neoplasm <Kelly Grissom PA-C - Last Filed: 11/21/24 18:18> Social History Social History: Social History Social History: current everyday caffeine use Smoking packs per day: 0.5 Smoking cigarettes per day: 10.0 Years smoked: 13 Smoking pack-years: 6.50 Smoking status: Former smoker Tobacco type: cigarettes Second hand tobacco smoke exposure: No Smoking end date: 04/10/88 Alcohol intake: never Substance use: never Substance use type: does not use Living arrangements: alone Occupation/Education: retired Gender identity (if verbalized by the patient): Female Sexual Orientation (if Verbalized by the Patient): Straight or Heterosexual Spiritual care concerns: No Agree to blood products: Yes <Kelly Grissom PA-C - Last Filed: 11/21/24 18:18> Exam Narrative: GENERAL: Well appearing, well-nourished, non-toxic, in no acute distress. HEAD: Normocephalic, atraumatic. NECK: Supple. No adenopathy, no masses. RESPIRATORY: Airway patent, respirations nonlabored. Clear to auscultation bilaterally, no rales, rhonchi, wheezing. CARDIOVASCULAR: Regular rate and rhythm without murmurs, rubs, or gallops. Peripheral pulses 2+ and equal bilaterally. ABDOMINAL: Soft, nontender, nondistended, no hepatosplenomegaly. Normoactive BS. MUSCULOSKELETAL: Moves all extremities. L arm weakness d/t previous R humerus fx. No back pain with palpation. SKIN: Warm, dry, normal color. No rashes. NEURO: A&O X3. Speech clear. Cranial nerves intact. No ataxic movements. PSYCHIATRIC: Appropriate mood and affect. Normal interaction. <Neena Santiago APRN - Last Filed: 11/22/24 03:31> Course Vital Signs Vital signs: Vital Signs Temperature 36.6 C 11/21/24 15:24 Pulse Rate 81 11/21/24 15:24 Respiratory Rate 16 11/21/24 15:24 Blood Pressure 132/52 L 11/21/24 15:24 Pulse Oximetry 98 11/21/24 15:24 Oxygen Delivery Room Air 11/21/24 15:24 Temperature 36.9 C 11/21/24 20:23 Pulse Rate 95 11/21/24 23:29 Respiratory Rate 14 11/21/24 23:29 Blood Pressure 155/70 H 11/21/24 23:29 Pulse Oximetry 98 11/21/24 23:29 Oxygen Delivery Room Air 11/21/24 15:24 <Kelly Grissom PA-C - Last Filed: 11/21/24 18:18> Vital Signs Temperature 36.6 C 11/21/24 15:24 Pulse Rate 81 11/21/24 15:24 Respiratory Rate 16 11/21/24 15:24 Blood Pressure 132/52 L 11/21/24 15:24 Pulse Oximetry 98 02/11/25 15:24 Oxygen Delivery Room Air 11/21/24 15:24 Temperature 36.9 C 11/21/24 20:23 Pulse Rate 95 11/21/24 23:29 Respiratory Rate 14 11/21/24 23:29 Blood Pressure 155/70 H 11/21/24 23:29 Pulse Oximetry 98 11/21/24 23:29 Oxygen Delivery Room Air 11/21/24 15:24 <Neena Santiago APRN - Last Filed: 11/22/24 03:31> MDM - Recheck/Abnormal Lab/Rx MDM Narrative Medical decision making narrative: MSE by BRANDYN in triage. <Kelly Grissom PA-C - Last Filed: 11/21/24 18:18> MSE by BRANDYN in triage. Patient is an 79 y/o female who presents to the ED with c/o abnormal labs. Patient reports she had outpatient labs drawn today which showed elevated calcium level of 12.6. Was notified by Dr. Mohan and referred to the ED for further evaluation. Patient has history of left breast cancer status post cystectomy several years ago. A few months ago, she sustained a fracture to her R proximal humerus. This was thought to be a pathologic fracture. She has since undergone MRI and PET scanning which has shown evidence of metastatic disease. Labs Ordered: CBC, CMP, TSH, troponin, phosphorus, magnesium Imaging Ordered: None necessary as patient had a PET scan yesterday Medications Ordered: 2 L normal saline IV bolus, Dilaudid 0.5 mg IV, Zolendronic Acid 5g IV Results: Patient's CBC indicates a red blood cell count of 3.73, hemoglobin of 10.9, hematocrit of 35.0%. Her CMP indicated carbon dioxide of 20, anion gap of 13, BUN of 24, creatinine of 1.86, GFR 32, calcium of 12.5, phosphorus of 4.3, magnesium 1.4, total bili of 0.6, AST of 45, ALT of 22, alk-phos of 133. Patient's troponin was less than 0.012. Her TSH was 9.510. Diagnosis: Hypercalcemia, elevated TSH, metastatic cancer Consults: oncology (Dr. Mohan) 2400-spoke with Dr. Mohan who advised patient be given IV fluids and zoledronic acid for treatment of her hypercalcemia. Will recheck pt's CMP following the IV fluids and medication administration. He reports if patient is asymptomatic, then she can be discharged home to follow-up with oncology. Patient Education/Shared MDM: 0300-After receiving 2 L normal saline IV bolus and Zoledronic Acid, patient's calcium levels have decreased to 11.8. Results shared of bloodwork shared with patient. She reports feeling pretty good. Patient strongly advised to call for an appointment and follow-up with an oncologist as soon as possible. She will be discharged home with no new prescriptions. Strict return precautions provided. Patient verbalized understanding is in agreement with plan. Vital signs stable at time of discharge. All questions answered. <Neena Santiago APRN - Last Filed: 11/22/24 03:31> Differential Diagnosis Differential diagnosis: Likely other (hypercalcemia, elevated TSH, abnormal electrolytes) <Neena Santiago APRN - Last Filed: 11/22/24 03:31> Lab Data Attestation: I reviewed the patient's lab results. <Neena Santiago APRN - Last Filed: 11/22/24 03:31> Result diagrams: 11/21/24 23:22 11/22/24 02:34 <Kelly Grissom PA-C - Last Filed: 11/21/24 18:18> Labs: Lab Results 11/21/24 11/22/24 Range/Units 23:22 02:34 WBC 6.1 (4.5-10.0) K/mm3 RBC 3.73 L (4.2-5.4) M/mm3 Hgb 10.9 L (12.0-15.0) g/dL Hct 35.0 L (37.0-47.0) % MCV 93.8 (80-100) fl MCH 29.2 (26-34) pg MCHC 31.1 L (32-36) g/dl RDW 15.5 H (11.5-14.5) % Plt Count 150 (150-375) k/mm3 MPV 8.9 (7.4-10.4) fl Immature Gran % (Auto) 1.3 H (0-0.5) % Neut % (Auto) 52.0 (45.5-73.1) % Lymph % (Auto) 31.2 (18.3-44.2) % [place] % (Auto) 14.7 H (2.6-8.5) % Eos % (Auto) 0.3 (0-4.4) % Baso % (Auto) 0.5 (0.2-1.2) % Lymph # (Auto) 1.91 (0.9-3.2) K/mm3 [place] # (Auto) 0.9 H (0.1-0.6) K/mm3 Eos # (Auto) 0.0 (0-0.3) K/mm3 Baso # (Auto) 0.0 (0.0-0.1) K/mm3 Abs Immat Gran (auto) 0.08 H (0.00-0.031) K/mm3 Absolute Neuts (auto) 3.2 (1.3-6.7) K/mm3 Absolute Nucleated RBC 0.000 (0.0-0.012) K/mm3 Nucleated RBC % 0.0 (0.0-0.2) % Sodium 139 139 (137-145) mmol/L Potassium 4.1 4.4 (3.4-5.0) mmol/L Chloride 106 107 (98-107) mmol/L Carbon Dioxide 20 L 21 L (22-30) mmol/L Anion Gap 13 H 11 (4-12) mmol/L BUN 24 H 22 H (7-17) mg/dL Creatinine 1.86 H 1.70 H (0.7-1.0) mg/dL Estim Creat Clear Calc 20 22 ml/min Estimated GFR 32 L 35 L (59 - ) Glucose 75 80 (65-110) mg/dL Calcium 12.5 H* 11.8 H (8.4-10.2) mg/dL Phosphorus 4.3 (2.5-4.5) mg/dL Magnesium 1.4 L (1.6-2.3) mg/dL Total Bilirubin 0.6 0.6 (0.2-1.3) mg/dL AST 45 H 43 H (14-36) U/L ALT 22 20 (6-35) U/L Alkaline Phosphatase 133 H 120 (38-126) U/L Troponin I < 0.012 (0.000-0.034) ng/mL Total Protein 7.0 7.0 (6.3-8.2) g/dL Albumin 3.7 3.4 L (3.5-5.1) g/dL TSH (Reflex) 9.510 H (0.465-4.68) uIU/mL Free T4 1.03 (0.78-2.19) ng/dL Total T3 1.35 (0.97-1.69) NG/ML <Kelly Grissom PA-C - Last Filed: 11/21/24 18:18> Lab Results 11/21/24 11/22/24 Range/Units 23:22 02:34 WBC 6.1 (4.5-10.0) K/mm3 RBC 3.73 L (4.2-5.4) M/mm3 Hgb 10.9 L (12.0-15.0) g/dL Hct 35.0 L (37.0-47.0) % MCV 93.8 (80-100) fl MCH 29.2 (26-34) pg MCHC 31.1 L (32-36) g/dl RDW 15.5 H (11.5-14.5) % Plt Count 150 (150-375) k/mm3 MPV 8.9 (7.4-10.4) fl Immature Gran % (Auto) 1.3 H (0-0.5) % Neut % (Auto) 52.0 (45.5-73.1) % Lymph % (Auto) 31.2 (18.3-44.2) % [place] % (Auto) 14.7 H (2.6-8.5) % Eos % (Auto) 0.3 (0-4.4) % Baso % (Auto) 0.5 (0.2-1.2) % Lymph # (Auto) 1.91 (0.9-3.2) K/mm3 [place] # (Auto) 0.9 H (0.1-0.6) K/mm3 Eos # (Auto) 0.0 (0-0.3) K/mm3 Baso # (Auto) 0.0 (0.0-0.1) K/mm3 Abs Immat Gran (auto) 0.08 H (0.00-0.031) K/mm3 Absolute Neuts (auto) 3.2 (1.3-6.7) K/mm3 Absolute Nucleated RBC 0.000 (0.0-0.012) K/mm3 Nucleated RBC % 0.0 (0.0-0.2) % Sodium 139 139 (137-145) mmol/L Potassium 4.1 4.4 (3.4-5.0) mmol/L Chloride 106 107 (98-107) mmol/L Carbon Dioxide 20 L 21 L (22-30) mmol/L Anion Gap 13 H 11 (4-12) mmol/L BUN 24 H 22 H (7-17) mg/dL Creatinine 1.86 H 1.70 H (0.7-1.0) mg/dL Estim Creat Clear Calc 20 22 ml/min Estimated GFR 32 L 35 L (59 - ) Glucose 75 80 (65-110) mg/dL Calcium 12.5 H* 11.8 H (8.4-10.2) mg/dL Phosphorus 4.3 (2.5-4.5) mg/dL Magnesium 1.4 L (1.6-2.3) mg/dL Total Bilirubin 0.6 0.6 (0.2-1.3) mg/dL AST 45 H 43 H (14-36) U/L ALT 22 20 (6-35) U/L Alkaline Phosphatase 133 H 120 (38-126) U/L Troponin I < 0.012 (0.000-0.034) ng/mL Total Protein 7.0 7.0 (6.3-8.2) g/dL Albumin 3.7 3.4 L (3.5-5.1) g/dL TSH (Reflex) 9.510 H (0.465-4.68) uIU/mL Free T4 1.03 (0.78-2.19) ng/dL Total T3 1.35 (0.97-1.69) NG/ML <Neena Santiago APRN - Last Filed: 11/22/24 03:31> Discharge Plan Discharge Clinical Impression: Hypercalcemia of malignancy, TSH elevation, Metastatic cancer <Kelly Grissom PA-C - Last Filed: 11/21/24 18:18> Patient Disposition: Home, Self-Care <Kelly Grissom PA-C - Last Filed: 11/21/24 18:18> Condition: Guarded Prognosis <Kelly Grissom PA-C - Last Filed: 11/21/24 18:18> Instructions: Antibiotic Form, Hypercalcemia (ED) <Kelly Grissom PA-C - Last Filed: 11/21/24 18:18> Additional Instructions: Please call your oncologist to day to schedule a follow-up appointment. Please return to the ER with an worsening symptoms. Take all regularly scheduled medications as prescribed. Do not take your calcium supplement anymore. <Kelly Grissom PA-C - Last Filed: 11/21/24 18:18> Patient Language: Croatian <Kelly Grissom PA-C - Last Filed: 11/21/24 18:18> Prescriptions: No Action anastrozole 1 mg tablet 1 mg PO DAILY amlodipine 10 mg tablet 10 mg PO QAM Patient Comments: QAM acetaminophen [Tylenol Extra Strength] 500 mg tablet 1,000 mg PO Q6H PRN (Reason: Pain) diclofenac sodium 75 mg tablet,delayed release (DR/EC) 75 mg PO BID Qty: 60 3RF cholecalciferol (vitamin D3) 125 mcg (5,000 unit) capsule 125 mcg PO DAILY vitamin B complex [B Complex-Vitamin B12] Tablet 1 tablet PO DAILY Patient Comments: QAM clopidogrel 75 mg tablet 75 mg PO DAILY Patient Comments: QAM aspirin 81 mg tablet,delayed release (DR/EC) 81 mg PO DAILY Patient Comments: QAM nitroglycerin 0.4 mg tablet, sublingual 0.4 mg sublingual Q5M PRN (Reason: Chest Pain) Rx Instructions: do not exceed 3 doses per episode triamterene-hydrochlorothiazid 37.5-25 mg tablet 1 tablet PO QAM atorvastatin 80 mg tablet 80 mg PO HS losartan 100 mg tablet 100 mg PO QAM Patient Comments: QAM potassium chloride 20 mEq tablet,ER particles/crystals 20 meq PO DAILY Patient Comments: QAM Zyrtec 10 mg capsule 10 mg PO PRN PRN (Reason: Allergy Symptoms) ferrous sulfate 325 mg (65 mg iron) tablet,delayed release (DR/EC) 325 mg PO BID docusate sodium [Colace] 100 mg capsule 100 mg PO BID PRN (Reason: Constipation) omega-3 fatty acids-vitamin E 1,000 mg Capsule 1 cap PO DAILY albuterol sulfate [Ventolin HFA] 90 mcg/actuation HFA aerosol inhaler 2 inh inhalation QID PRN (Reason: shortness of breath or wheezing) Qty: 8 3RF metoprolol succinate 100 mg tablet extended release 24 hr See Rx Instructions .ROUTE .COMPLEX Qty: 90 1RF Dose Instruction: Take 1 tablet by mouth once daily Rx Instructions: Take 1 tablet by mouth once daily glimepiride 1 mg tablet 1 mg PO DAILY Qty: 90 0RF ketoconazole 2 % cream 1 applic topical BID Qty: 30 1RF Rx Instructions: Apply o.5 grams to skin of the abdomen mupirocin 2 % ointment 1 applic topical BID Qty: 15 0RF <Kelly Grissom PA-C - Last Filed: 11/21/24 18:18> Follow-up/Referrals: Bhanu Mohan MD [Physician] - (oncology ) Jose Arguello MD [Primary Care Provider] - <Kelly Grissom PA-C - Last Filed: 11/21/24 18:18> Time of Disposition: 03:31 <Kelly Grissom PA-C - Last Filed: 11/21/24 18:18> 03:31 <Neena Santiago APRN - Last Filed: 11/22/24 03:31>
--- NOTE | 2024-11-21 18:04 | ECG_ITS ---
Test Date: 2024-11-21 18:40:18 Measurements Intervals [place] Rate: 85 P: 50 TN: 114 QRS: 5 QRSD: 125 T: 47 QT: 375 QTc: 448 Interpretive Statements SINUS RHYTHM WITH SHORT TN INTERVAL RIGHT BUNDLE BRANCH BLOCK BASELINE ARTIFACT- I, II, III, AVR, AVL, AVF, V4-V6 ABNORMAL ECG No previous ECG available for comparison Electronically Signed On 11-21-2024 20:06:29 ECLECTIC DOCTOR by Raymond Tena D.O.
[2024-11-21 20:23] VITALS: BP 156/79; PULSE 95; RESP 14; TEMP 36.9; O2SAT 100
--- OUTSIDE RECORDS SUMMARY | 2024-11-21 22:33 | XMS_ITS | Encounter Summary ---
Author Organization [facility] [employer] [facility] Address [address] [place] [address] Care Team Providers Care Oil And Gas Lease Pumper Name Role Phone Jose Arguello MD Primary Care Provider [phone] Encounter Details Date Type Department Care Team (Late Contact Info) Description 11/16/2024 Orders Only [facility] - [place] [address] [place] [address] Bhanu Mohan MD [facility] [address] [place] [id number] Social History Tobacco Use Types Packs/Day [...] (Late Contact Info) Description 11/28/2024 2:30 PM PRESS HAND Office Visit [facility] - [place] [address] [place] [address] Bhanu Mohan MD [facility] [address] [place] [address] documented as of this encounter Procedures Procedure Name Priority Date/Time Associated Diagnosis Comments NM BONE SCAN WHOLE BODY Routine 11/13/2024 8:21 AM PRESS HAND documented in this encounter Results * NM BONE SCAN WHOLE BODY (11/13/2024 8:21 AM PRESS HAND) Anatomical Region Laterality Modality Other Bhanu Mohan MD NM ORDERABLES Final Result documented in this encounter Visit Diagnoses Not on filedocumented in this encounter Care Teams Oil And Gas Lease Pumper Relationship Specialty Start Date End Date Jose Arguello MD [address] [address] PCP - General Family Practice 04/22/22 documented as of this encounter
--- OUTSIDE RECORDS SUMMARY | 2024-11-21 22:33 | XMS_ITS | Clinical Summary ---
Author Organization [facility] Address [address] [place] [address] Care Team Providers Care Field Professional Name Role Phone Jose Arguello MD Primary Care Provider [phone] Allergies No known active allergies Medications amLODIPine [...] Type Department Care Team Description 11/21/2024 Telephone [facility] - [place] [address] [place] [id number] Bhanu Mohan MD Lab Results 11/16/2024 Orders Only [facility] [address] [place] [phone] Bhanu Mohan MD 11/15/2024 Refill [facility] - [place] [address] [place] [phone] Bhanu Mohan MD Malignant neoplasm of lower-inner quadrant of left breast in female, estrogen receptor positive (CMS/HCC) 11/14/2024 Abstract [facility] - [place] [address] [place] [phone] Bhanu Mohan MD 11/08/2024 Telephone [facility] - [place] [address] [place] [phone] Bhanu Mohan MD MRI Results 11/08/2024 Telephone [facility] - [place] [address] [place] [phone] Bhanu Mohan MD labs for appt 11/07/2024 External Device Data ST[facility] ABSTRACTION Provider, Abstract 10/27/2024 [facility] [address] [place] [phone] Bhanu Mohan MD Malignant neoplasm of lower-outer quadrant of left breast of female, estrogen receptor positive (CMS/HCC) 09/25/2024 [facility] [address] [place] [address] Bhanu Mohan MD Malignant neoplasm of lower-outer quadrant of left breast of female, estrogen receptor positive (CMS/HCC) 09/19/2024 [facility] On[facility] and Hematology [facility] [address] [place] [address] Bhanu Mohan MD Broken Arm [...] st Contact Info) Description 11/28/2024 2:30 PM CRIMINAL RECORDS TECHNICIAN Office Visit [facility]ology - [place] [address] [facility] [address] [place] [address] Bhanu Mohan MD [address] [facility] [address] [place] [address] Health Maintenance Due Date Last [...] SCAN WHOLE BODY Routine 11/13/2024 8:21 AM CRIMINAL RECORDS TECHNICIAN from Last 3 Months Results * NM BONE SCAN WHOLE BODY (11/13/2024 8:21 AM CRIMINAL RECORDS TECHNICIAN) Anatomical Region Laterality Modality Other Bhanu Mohan MD NM ORDERABLES Final Result from Last 3 Months Insurance MEDICARE PART A AND B Care Teams Field Professional Relationship Specialty Start Date End Date Jose Arguello MD [address] [address] PCP - General Family Practice 04/22/22
--- OUTSIDE RECORDS SUMMARY | 2024-11-21 22:33 | XMS_ITS | Encounter Summary ---
Author Organization [facility] Facility Care Team Providers Care Science Job Titles Name Role Phone No, Physician Primary Care Provider [phone] Jose Arguello MD Primary Care Prov ider Encounter Details Date Type Department Care Team (Latest Contact Info) Description 08/30/2018 Orders Only [facility] Provider, MD Christopher [address] [place] [id number] Social History Tobacco Use Types Packs/Day Years Used Date Smoking Tobacco: Never Assessed Comments Unknown Sex and Gender Information Value Date Recorded Sex Assigned at Not on file Legal Sex Female 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 us Historical Provider Final Res ult documented in this encounter Visit Diagnoses Not on filedocumented in this encounter Care Teams Science Job Titles Relationship Specialty Start Date End Date No, Physician PCP - General 01/05/19 05/10/19 Jose Arguello MD PCP - General Family Medicine 05/11/19 documented as of this encounter
--- OUTSIDE RECORDS SUMMARY | 2024-11-21 22:33 | XMS_ITS | Encounter Summary ---
Author Organization [facility] Facility Care Team Providers Care Food Assembler [employer] Name Role Phone No, Physician Primary Care Provider [phone] Jose Arguello MD Primary Care Prov ider Encounter Details Date Type Department Care Team (Latest Contact Info) Description 02/10/2006 Orders Only [facility] Provider, MD Christopher [address] [place] [id number] Social History Tobacco Use Types Packs/Day Years Used Date Smoking Tobacco: Never Assessed Comments Unknown Sex and Gender Information Value Date Recorded Sex Assigned at Not on file Legal 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
--- OUTSIDE RECORDS SUMMARY | 2024-11-21 22:33 | XMS_ITS | Clinical Summary ---
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 Not on file Not on file Last Filed Vital Signs Vital Sign Reading Time Taken Comments Blood Pressure 148/84 10/15/2015 9:39 AM GAS BRAZER Pulse 84 10/15/2015 9:39 AM GAS BRAZER Temperature - - Respiratory Rate - - Oxygen Saturation - - Inhaled Oxygen Concentration - - Weight 89.8 kg (198 lb) 10/15/2015 9:39 AM GAS BRAZER Height 154.9 cm (5' 1 ) 10/15/2015 9:39 AM GAS BRAZER Body Mass Index 37.41 10/15/2015 9:39 AM GAS BRAZER Plan of Treatment Health Maintenance Due Date [...] Comments LIPID PANEL Routine 10/17/2015 12:00 AM GAS BRAZER from Last 3 Months or Most Recently Relevant to Health Maintenance Results * LIPID PANEL (10/17/2015 12:00 AM GAS BRAZER) TRIGLYCERIDES 207 0 - 150 mg/dl MEDINFORMATIX TO EPIC CONVERSION CHOLESTEROL 238 0 - 200 mg/dl MEDINFORMATIX TO EPIC CONVERSION HDL 42 40 - 59 mg/dl MEDINFORMATIX TO EPIC CONVERSION LDL CONVERSION 155 0 - 100 mg/dl MEDINFORMATIX TO EPIC CONVERSION 10/17/2015 10/17/2015 Narrative MEDINFORMATIX TO EPIC CONVERSION - 10/17/2015 4:37 PM GAS BRAZER Reviewed by NATASHA Oct 17 2015 4:37:54:000PM, Reviewed by JOHNY Nov 11 2015 2:36:31:000PM us Generic Conversion Md [facility] Final R esult MEDINFORMATIX TO EPIC CONVERSION from Last 3 Months or Most Recently Relevant to Health Maintenance Advance Directives Documents on File Type Date Recorded Patient Oracle Database Manager Expl anation Advance Directives and Livin g Will 08/29/2013 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
--- OUTSIDE RECORDS SUMMARY | 2024-11-21 22:33 | XMS_ITS | Clinical Summary ---
Author Organization [facility] Address [address] [place] [address] Care Team Providers Care Gas Meter Repair Supervisor Name Role Phone Jose Arguello MD Primary [...] Medium 04/18/2016 Simvastatin Muscle pain Medium 04/18/2016 Lnasvry-Egn-Exo Reductase Inhibitors Muscle pain Medium 04/18/2016 Medications [...] (eight) hours as needed 2 Active omega 6-lpf-awh-fish oil 1,000 mg (120 mg-180 mg) capsule [...] mouth nightly 90 tablet 2 4 Active HYDROcodone-eliv taminophen (NORCO) 5-325 mg per tabletIndicatio ns:Pain [...] Atorvastatin. Assessment & Plan (09/25/2020 10:41 AM SHOT BLASTER): Stent to the saphenous vein graft to the RCA 07/01/[address] Rincon. Anti- platelet regimen. Aggressive risk factor modification. Assessment & Plan (03/20/2020 5:41 PM CDT): Stent to the saphenous vein graft to the RCA 07/01/[address] Rincon. Assessment & Plan (11/15/2019 1:37 PM SHOT BLASTER): Stent to the saphenous vein graft to [...] 07/01/2018. Assessment & Plan (09/25/2020 10:38 AM SHOT BLASTER): Was related to myocardial ischemia and to the coronary artery disease. No dyspnea since the stenting of the saphenous vein graft to the RCA 07/01/2018. Assessment & Plan (03/20/2020 5:36 PM CDT): No exertional dyspnea since the stenting of the saphenous vein graft to the RCA 07/01/2018. Assessment & Plan (11/15/2019 1:39 PM SHOT BLASTER): No exertional dyspnea since the stenting of [...] weeks. Assessment & Plan (09/26/2020 9:58 AM SHOT BLASTER): Blood pressure 158/60. Salt restriction. Continue the current regimen. Add losartan 100 mg p.o. daily for blood pressure control and for renal protective effect from diabetes. Assessment & Plan (03/21/2020 9:43 AM CDT): Blood pressure 144/80. Salt restriction. Continue the current regimen. Assessment & Plan (11/16/2019 11:28 AM SHOT BLASTER): Blood pressure 140/70. Salt restriction. Continue the [...] Plavix. Assessment & Plan (09/25/2020 10:38 AM SHOT BLASTER): Coronary artery bypass surgery 2006. Aggressive risk factor modification. Assessment & Plan (03/20/2020 5:37 PM CDT): Coronary artery bypass surgery 2006. Aggressive risk factor modification. Assessment & Plan (11/15/2019 1:39 PM SHOT BLASTER): History of coronary artery bypass surgery 2006. [...] 07/01/2018. Assessment & Plan (09/25/2020 10:40 AM SHOT BLASTER): No chest pains since stenting to the saphenous vein graft to the RCA 07/01/2018. Assessment & Plan (03/20/2020 5:42 PM CDT): No chest pain since stent to the saphenous vein graft to the RCA 07/01/2018. Ranexa was added which he found too expensive. Will consider Imdur if necessary. Assessment & Plan (11/16/2019 11:28 AM SHOT BLASTER): Stent to the saphenous vein graft to [...] Stable. Assessment & Plan (09/25/2020 10:41 AM SHOT BLASTER): Chronic. Stable. Assessment & Plan (03/20/2020 5:40 PM CDT): Chronic. Stable. Assessment & Plan (11/15/2019 1:37 PM SHOT BLASTER): Chronic. Stable. Assessment & Plan (05/11/2019 12:19 [...] 74 Assessment & Plan (09/26/2020 9:58 AM SHOT BLASTER): Low-fat low-cholesterol diet. Atorvastatin. On 07/24/2020 triglycerides [...] 93. Assessment & Plan (11/16/2019 11:29 AM SHOT BLASTER): Low-fat low-cholesterol diet. 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) (Primary Dx) 11/06/2024 8:07 PM SHOT BLASTER - 11/06/2024 11:59 PM SHOT BLASTER Hospital Encounter [address] [address] Unspecified fracture of shaft of humerus, right arm, initial encounter for closed fracture Discharge Disposition: Discharge to home or self care 10/19/2024 Orders Only [facility] [address] [place] [address] [place] [address] [place] [address] Dany Guerin MD 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 [address] [place] [id number] Acute pain of right shoulder Discharge Disposition: Discharge to home or self care 09/26/2024 1:00 PM SHOT BLASTER Office Visit [facility] [address] [place] [address] 2nd [address] [place] [phone] Antony Silva PA Pathological fracture of right humerus, unspecified pathological cause, initial encounter (Primary Dx); Acute pain of right shoulder; Chronic right shoulder pain 09/19/2024 Telephone [facility] [address] [place] [phone] Pramod Carty MD 09/19/2024 Orders Only [facility] [address] [place] [phone] Pramod Carty MD Chronic right shoulder pain (Primary Dx) 09/17/2024 2:09 PM SHOT BLASTER - 09/17/2024 6:26 PM SHOT BLASTER Emergency [address] [address] Closed fracture of proximal end of right [...] on file Legal Sex Female 6:44 PM SHOT BLASTER Gender Identity Not on file Sexual Orientation Not on file Obstetrics History Last Filed Vital Signs Vital Sign Reading Time Taken Comments Blood Pressure 145/81 09/17/2024 6:25 PM SHOT BLASTER Pulse 81 09/17/2024 6:25 PM SHOT BLASTER Temperature 36.7 C (98.1 F) 09/17/2024 10:39 AM SHOT BLASTER Respiratory Rate 14 09/17/2024 6:25 PM SHOT BLASTER Oxygen Saturation 98% 09/17/2024 6:25 PM SHOT BLASTER Inhaled Oxygen Concentration - - Weight 76.2 kg (168 lb) 09/29/2024 9:18 AM SHOT BLASTER Height 152.4 cm (5') 09/29/2024 9:18 AM SHOT BLASTER Body Mass Index 32.81 09/29/2024 9:18 AM SHOT BLASTER Plan of Treatment Health Maintenance Due Date [...] Read Routine (OP Routine) 11/06/2024 9:38 PM SHOT BLASTER Unspecified fracture of shaft of humerus, right arm, initial encounter for closed fracture XR HUMERUS RIGHT 2 OR MORE VIEWS Routine 09/29/2024 8:53 AM SHOT BLASTER 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, subsequent encounter XR SHOULDER RIGHT 2 OR MORE VIEWS Schedule Routine, Read Routine (OP Routine) 09/26/2024 1:38 PM SHOT BLASTER Acute pain of right shoulder XR HIP LEFT 2 OR 3 VIEWS ED 09/17/2024 11:51 AM SHOT BLASTER XR SHOULDER RIGHT 2 OR MORE VIEWS ED 09/17/2024 11:51 AM SHOT BLASTER DEXA AXIAL SKELETON BONE DENSITY 1 OR MORE SITES Routine 2015 1:50 PM CDT from Last 3 Months or Most Recently Relevant to Health Maintenance Results * MRI Shoulder Right WO Contrast (11/06/2024 9:38 PM SHOT BLASTER) Anatomical Region Laterality Modality Upper Extremities Right Magnetic Reson ance 11/07/2024 6:12 AM SHOT BLASTER Narrative 11/07/2024 6:24 AM SHOT BLASTER EXAM DESCRIPTION: MRI SHOULDER RIGHT WO CONTRAST [...] by Pramod Caraballo M.D. T: Report ID: [id number] Reading Location: [id number] Procedure Note Pramod Caraballo MD - 11/07/2024 [...] by Pramod Caraballo M.D. T: Report ID: [id number] Reading Location: [place] [address] Jose Arguello MD IMG MRI PROCEDURES Final Result * XR Humerus Right 2 or More Views (09/29/2024 8:53 AM SHOT BLASTER) Anatomical Region Laterality Modality Upper Extremities, Upper Arm Right Com puted Radiography 09/29/2024 11:0 1 AM SHOT BLASTER Impressions 09/29/2024 12:40 PM SHOT BLASTER Unchanged mildly displaced and angulated right proximal humerus pathologic fracture with underlying lytic lesion. Dictated by: Saige Bowers MD The radiology attending physician has personally reviewed this study, and had reviewed and/or edited this written report and agrees with it. Electronically signed by: Andrew Bernal M.D. Narrative 09/29/2024 12:40 PM SHOT BLASTER EXAMINATION: XR HUMERUS RIGHT 2 OR MORE [...] 2 or More Views (09/26/2024 1:38 PM SHOT BLASTER) Anatomical Region Laterality Modality Upper Extremities, Shoulder Right Comp uted Radiography 09/26/2024 1:43 PM SHOT BLASTER Impressions 09/26/2024 1:43 PM SHOT BLASTER 1. Mildly displaced right proximal humerus pathologic fracture with 6.5 cm underlying lytic lesion. Electronically signed by: Maite Sanchez MD Narrative 09/26/2024 1:43 PM SHOT BLASTER EXAMINATION: XR SHOULDER RIGHT 2 OR MORE [...] 2 or 3 Views (09/17/2024 11:51 AM SHOT BLASTER) Anatomical Region Laterality Modality Lower Extremities, Hip, Pelvis Left C omputed Radiography 09/17/2024 12:2 3 PM SHOT BLASTER Narrative 09/17/2024 12:24 PM SHOT BLASTER EXAM DESCRIPTION: XR HIP LEFT 2 OR 3 VIEWS REASON FOR STUDY: pain BIBEMS with c/o rt arm pain x2 weeks and left hip pain x1 week. Pt denies any injury. Pt breathing is even and non-labored. Patient states she reached down to milk pickup driver a pillow from her chair and heard a pop in her right arm. No known injury to left hip TECHNIQUE: Two views COMPARISON: None available FINDINGS: No acute fracture or dislocation. No lytic or destructive process. Xlvt-vx-yyadzpjd degenerative change acetabulum and left SI joint. Soft tissues demonstrate phleboliths. IMPRESSION: Ejtr-kd-sfkwdlxa degenerative changes left hip. THIS IS AN ELECTRONICALLY VERIFIED FINAL REPORT 09/17/2024 12:24 PM - Electronically signed by Calos DOWNING T: Report ID: [id number] Reading Location: [id number] Procedure Note Calos Madsen MD - 09/17/2024 EXAM DESCRIPTION: XR HIP LEFT 2 OR 3 VIEWS REASON FOR STUDY: pain BIBEMS with c/o rt arm pain x2 weeks and left hip pain x1 week. Pt deniesany injury. Pt breathing is even and non-labored. Patient states she reacheddown to milk pickup driver a pillow from her chair and heard a pop in her right arm. Noknown injury to left hip TECHNIQUE: Two views COMPARISON: None available FINDINGS: No acute fracture or dislocation. No lytic or destructive process. Wvsx-ry-vdaapwjb degenerative change acetabulum and left SI joint. Soft tissues demonstrate phleboliths. IMPRESSION: Hkuf-ao-hnwmcyjd degenerative changes left hip. THIS IS AN ELECTRONICALLY VERIFIED FINAL REPORT 09/17/2024 12:24 PM - Electronically signed by Calos Madsen M.D. RB T: Report ID: [id number] Reading Location: [id number] [facility] IMG XR PROCEDURES Olivia l Result * XR Shoulder Right 2 or More Views (09/17/2024 11:51 AM SHOT BLASTER) Anatomical Region Laterality Modality Upper Extremities, Shoulder Right Comp uted Radiography 09/17/2024 12:2 1 PM SHOT BLASTER Addenda Addendum by Pramod Ellison MD on 09/18/2024 2:14 PM SHOT BLASTER ADDENDUM: This addendum report supersedes the original [...] signed by Pramod ZABALA T: Report ID: [id number] Reading Location: [id number] Narrative 09/17/2024 12:23 PM SHOT BLASTER EXAM DESCRIPTION: XR SHOULDER RIGHT 2 OR MORE VIEWS REASON FOR STUDY: pain BIBEMS with c/o rt arm pain x2 weeks and left hip pain x1 week. Pt denies any injury. Pt breathing is even and non-labored. Patient states she reached down to milk pickup driver a pillow from her chair and heard [...] signed by Calos DOWNING T: Report ID: [id number] Reading Location: [id number] Procedure Note Calos Madsen MD / Pramod Ellison MD - 09/17/2024 EXAM DESCRIPTION: XR SHOULDER RIGHT 2 OR MORE VIEWS REASON FOR STUDY: pain BIBEMS with c/o rt arm pain x2 weeks and left hip pain x1 week. Pt deniesany injury. Pt breathing is even and non-labored. Patient states she reacheddown to milk pickup driver a pillow from her chair and heard [...] signed by Calos DOWNING T: Report ID: [id number] Reading Location: [place] [address] [facility] IM[facility] XR PROCEDURES Edit ed [...] dairy products and caffeinated beverages. 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 Left Hip Current Total BMD is 0.959 g/vd9Z-pczvt is 0.1 Most recent prior Total BMD was 0.973 g/cm2 There has been a 1.4% decrease in BMD. Current femoral neck BMD is 0.705 g/rb9M-wtius is -1.3 Fracture risk assessment (FRAX): 10 [...] consumes dairy products and caffeinatedbeverages. COMPARISON(S): 06/08/2012 CRYSTALLOGRAPHER/MODEL: [employer] (S/N [id number]) FINDINGS: AP lumbar spine L1-L4 Total BMD is 0.86 g/ei9Q-oevto is -1.7 Most recent prior BMD was 0.819 g/cm2 There has been a 4.9% increase in BMD which is statisticallysignificant. Left Hip Current Total BMD is 0.959 g/cm4Y-nyznz is 0.1 Most recent prior Total BMD was 0.973 g/cm2 There has been a 1.4% decrease in BMD. 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
--- OUTSIDE RECORDS SUMMARY | 2024-11-21 22:33 | XMS_ITS | Referral Summary ---
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) 11/06/2024 8:07 PM EDUCATIONAL COORDINATOR - 11/06/2024 11:59 PM EDUCATIONAL COORDINATOR Hospital Encounter [facility] MRI [address] [place] [address] Unspecified fracture of shaft of humerus, right arm, initial encounter for closed fracture Discharge Disposition: Discharge to home or self care 10/19/2024 Orders Only [facility] Orthopaedic Surgery [address] [facility] 6th [place] [address] [place] [phone] Dany Guerin MD 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, subsequent encounter (Primary Dx) 09/29/2024 8:15 AM EDUCATIONAL COORDINATOR - 09/29/2024 11:59 PM EDUCATIONAL COORDINATOR Hospital Encounter [facility] [address] [place] [address] Dany Guerin MD 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, subsequent encounter Discharge Disposition: Discharge to home or self care 09/29/2024 8:45 AM EDUCATIONAL COORDINATOR Office Visit [facility] Orthopaedic Surgery [address] [facility] 6th [place] [address] [place] [address] Dany Guerin MD 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) (Primary Dx); 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, initial encounter 09/28/2024 Orders Only [facility] Orthopaedic Surgery [address] [place] [address] 6th [place] [address] [place] [address] Dany Guerin MD 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, subsequent encounter (Primary Dx) 09/26/2024 1:15 PM EDUCATIONAL COORDINATOR - 09/26/2024 11:59 PM EDUCATIONAL COORDINATOR Hospital Encounter [facility] [address] [place] [address] Acute pain of right shoulder Discharge Disposition: Discharge to home or self care 09/26/2024 1:00 PM EDUCATIONAL COORDINATOR Office Visit [facility] Orthopaedic Surgery [address] [place] [address] 2nd Floor [address] [place] [address] Antony Silva PA Pathological fracture of right humerus, unspecified pathological cause, initial encounter (Primary Dx); Acute pain of right shoulder; Chronic right shoulder pain 09/19/2024 Telephone [facility] Orth[facility] Medicine [address] [place] [phone] Pramod Carty MD 09/19/2024 Orders Only [facility] [address] [place] [phone] Pramod Carty MD Chronic right shoulder pain (Primary Dx) 09/17/2024 2:09 PM EDUCATIONAL COORDINATOR - 09/17/2024 6:26 PM EDUCATIONAL COORDINATOR Emergency [address] [address] Closed fracture of proximal end of right [...] Medium 04/18/2016 Simvastatin Muscle pain Medium 04/18/2016 Tyqrzkw-Lzu-Opb Reductase Inhibitors Muscle pain Medium 04/18/2016 Medications [...] (eight) hours as needed 2 Active omega 3-nue-jbf-fish oil 1,000 mg (120 mg-180 mg) capsule [...] Atorvastatin. Assessment & Plan (09/25/2020 10:41 AM EDUCATIONAL COORDINATOR): Stent to the saphenous vein graft to the RCA 07/01/[address] Rincon. Anti- platelet regimen. Aggressive risk factor modification. Assessment & Plan (03/20/2020 5:41 PM CDT): Stent to the saphenous vein graft to the RCA 07/01/[address] Rincon. Assessment & Plan (11/15/2019 1:37 PM EDUCATIONAL COORDINATOR): Stent to the saphenous vein graft to [...] 07/01/2018. Assessment & Plan (09/25/2020 10:38 AM EDUCATIONAL COORDINATOR): Was related to myocardial ischemia and to the coronary artery disease. No dyspnea since the stenting of the saphenous vein graft to the RCA 07/01/2018. Assessment & Plan (03/20/2020 5:36 PM CDT): No exertional dyspnea since the stenting of the saphenous vein graft to the RCA 07/01/2018. Assessment & Plan (11/15/2019 1:39 PM EDUCATIONAL COORDINATOR): No exertional dyspnea since the stenting of [...] weeks. Assessment & Plan (09/26/2020 9:58 AM EDUCATIONAL COORDINATOR): Blood pressure 158/60. Salt restriction. Continue the current regimen. Add losartan 100 mg p.o. daily for blood pressure control and for renal protective effect from diabetes. Assessment & Plan (03/21/2020 9:43 AM CDT): Blood pressure 144/80. Salt restriction. Continue the current regimen. Assessment & Plan (11/16/2019 11:28 AM EDUCATIONAL COORDINATOR): Blood pressure 140/70. Salt restriction. Continue the [...] Plavix. Assessment & Plan (09/25/2020 10:38 AM EDUCATIONAL COORDINATOR): Coronary artery bypass surgery 2006. Aggressive risk factor modification. Assessment & Plan (03/20/2020 5:37 PM CDT): Coronary artery bypass surgery 2006. Aggressive risk factor modification. Assessment & Plan (11/15/2019 1:39 PM EDUCATIONAL COORDINATOR): History of coronary artery bypass surgery 2006. [...] 07/01/2018. Assessment & Plan (09/25/2020 10:40 AM EDUCATIONAL COORDINATOR): No chest pains since stenting to the saphenous vein graft to the RCA 07/01/2018. Assessment & Plan (03/20/2020 5:42 PM CDT): No chest pain since stent to the saphenous vein graft to the RCA 07/01/2018. Ranexa was added which he found too expensive. Will consider Imdur if necessary. Assessment & Plan (11/16/2019 11:28 AM EDUCATIONAL COORDINATOR): Stent to the saphenous vein graft to [...] Stable. Assessment & Plan (09/25/2020 10:41 AM EDUCATIONAL COORDINATOR): Chronic. Stable. Assessment & Plan (03/20/2020 5:40 PM CDT): Chronic. Stable. Assessment & Plan (11/15/2019 1:37 PM EDUCATIONAL COORDINATOR): Chronic. Stable. Assessment & Plan (05/11/2019 12:19 [...] 75 Assessment & Plan (09/26/2020 9:58 AM EDUCATIONAL COORDINATOR): Low-fat low-cholesterol diet. Atorvastatin. On 07/24/2020 triglycerides [...] 93. Assessment & Plan (11/16/2019 11:29 AM EDUCATIONAL COORDINATOR): Low-fat low-cholesterol diet. Atorvastatin 40 mg bedtime [...] on file Legal Sex Female 6:44 PM EDUCATIONAL COORDINATOR Gender Identity Not on file Sexual Orientation Not on file Last Filed Vital Signs Vital Sign Reading Time Taken Comments Blood Pressure 145/81 09/17/2024 6:25 PM EDUCATIONAL COORDINATOR Pulse 81 09/17/2024 6:25 PM EDUCATIONAL COORDINATOR Temperature 36.7 C (98.1 F) 09/17/2024 10:39 AM EDUCATIONAL COORDINATOR Respiratory Rate 14 09/17/2024 6:25 PM EDUCATIONAL COORDINATOR Oxygen Saturation 98% 09/17/2024 6:25 PM EDUCATIONAL COORDINATOR Inhaled Oxygen Concentration - - Weight 76.2 kg (168 lb) 09/29/2024 9:18 AM EDUCATIONAL COORDINATOR Height 152.4 cm (5') 09/29/2024 9:18 AM EDUCATIONAL COORDINATOR Body Mass Index 32.81 09/29/2024 9:18 AM EDUCATIONAL COORDINATOR Plan of Treatment Not on file Procedures Procedure Name Priority Date/Time Associated Diagnosis Comments MRI SHOULDER RIGHT WO CONTRAST Schedule Routine, Read Routine (OP Routine) 11/06/2024 9:38 PM EDUCATIONAL COORDINATOR Unspecified fracture of shaft of humerus, right arm, initial encounter for closed fracture XR HUMERUS RIGHT 2 OR MORE VIEWS Routine 09/29/2024 8:53 AM EDUCATIONAL COORDINATOR 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, subsequent encounter XR SHOULDER RIGHT 2 OR MORE VIEWS Schedule Routine, Read Routine (OP Routine) 09/26/2024 1:38 PM EDUCATIONAL COORDINATOR Acute pain of right shoulder XR HIP LEFT 2 OR 3 VIEWS ED 09/17/2024 11:51 AM EDUCATIONAL COORDINATOR XR SHOULDER RIGHT 2 OR MORE VIEWS ED 09/17/2024 11:51 AM EDUCATIONAL COORDINATOR DEXA AXIAL SKELETON BONE DENSITY 1 OR MORE SITES Routine 2015 1:50 PM CDT from Last 3 Months or Most Recently Relevant to Health Maintenance Results * MRI Shoulder Right WO Contrast (11/06/2024 9:38 PM EDUCATIONAL COORDINATOR) Anatomical Region Laterality Modality Upper Extremities Right Magnetic Reson ance 11/07/2024 6:12 AM EDUCATIONAL COORDINATOR Narrative 11/07/2024 6:24 AM EDUCATIONAL COORDINATOR EXAM DESCRIPTION: MRI SHOULDER RIGHT WO CONTRAST [...] by Pramod Caraballo M.D. T: Report ID: [id number] Reading Location: [id number] Procedure Note Pramod Caraballo MD - 11/07/2024 [...] by Pramod Caraballo M.D. T: Report ID: [id number] Reading Location: [id number] Jose Arguello MD IMG MRI PROCEDURES Final Result * XR Humerus Right 2 or More Views (09/29/2024 8:53 AM EDUCATIONAL COORDINATOR) Anatomical Region Laterality Modality Upper Extremities, Upper Arm Right Com puted Radiography 09/29/2024 11:0 1 AM EDUCATIONAL COORDINATOR Impressions 09/29/2024 12:40 PM EDUCATIONAL COORDINATOR Unchanged mildly displaced and angulated right proximal humerus pathologic fracture with underlying lytic lesion. Dictated by: Saige Bowers MD The radiology attending physician has personally reviewed this study, and had reviewed and/or edited this written report and agrees with it. Electronically signed by: Andrew Bernal M.D. Narrative 09/29/2024 12:40 PM EDUCATIONAL COORDINATOR EXAMINATION: XR HUMERUS RIGHT 2 OR MORE [...] 2 or More Views (09/26/2024 1:38 PM EDUCATIONAL COORDINATOR) Anatomical Region Laterality Modality Upper Extremities, Shoulder Right Comp uted Radiography 09/26/2024 1:43 PM EDUCATIONAL COORDINATOR Impressions 09/26/2024 1:43 PM EDUCATIONAL COORDINATOR 1. Mildly displaced right proximal humerus pathologic fracture with 6.5 cm underlying lytic lesion. Electronically signed by: Maite Sanchez MD Narrative 09/26/2024 1:43 PM EDUCATIONAL COORDINATOR EXAMINATION: XR SHOULDER RIGHT 2 OR MORE [...] 2 or 3 Views (09/17/2024 11:51 AM EDUCATIONAL COORDINATOR) Anatomical Region Laterality Modality Lower Extremities, Hip, Pelvis Left C omputed Radiography 09/17/2024 12:2 3 PM EDUCATIONAL COORDINATOR Narrative 09/17/2024 12:24 PM EDUCATIONAL COORDINATOR EXAM DESCRIPTION: XR HIP LEFT 2 OR [...] or dislocation. No lytic or destructive process. Gnwd-nf-rwstvhjl degenerative change acetabulum and left SI joint. Soft tissues demonstrate phleboliths. IMPRESSION: Bzim-ln-qcctzvzh degenerative changes left hip. THIS IS AN ELECTRONICALLY VERIFIED FINAL REPORT 09/17/2024 12:24 PM - Electronically signed by Calos DOWNING T: Report ID: [id number] Reading Location: [id number] Procedure Note Calos Madsen MD - 09/17/2024 [...] or dislocation. No lytic or destructive process. Rezc-va-rcjfxzjf degenerative change acetabulum and left SI joint. Soft tissues demonstrate phleboliths. IMPRESSION: Wvek-qv-laglevgo degenerative changes left hip. THIS IS AN ELECTRONICALLY VERIFIED FINAL REPORT 09/17/2024 12:24 PM - Electronically signed by Calos DOWNING T: Report ID: [id number] Reading Location: [id number] [facility] IMG XR PROCEDURES Olivia l Result * XR Shoulder Right 2 or More Views (09/17/2024 11:51 AM EDUCATIONAL COORDINATOR) Anatomical Region Laterality Modality Upper Extremities, Shoulder Right Comp uted Radiography 09/17/2024 12:2 1 PM EDUCATIONAL COORDINATOR Addenda Addendum by Pramod Ellison MD on 09/18/2024 2:14 PM EDUCATIONAL COORDINATOR ADDENDUM: This addendum report supersedes the original [...] 09/18/2024 2:14 PM Addendum Electronically signed by Praomd ZABALA T: Report ID: [id number] Reading Location: [id number] Narrative 09/17/2024 12:23 PM EDUCATIONAL COORDINATOR EXAM DESCRIPTION: XR SHOULDER RIGHT 2 OR [...] signed by Calos DOWNING T: Report ID: [id number] Reading Location: [id number] Procedure Note Calos Madsen MD / Pramod [...] signed by Calos DOWNING T: Report ID: [id number] Reading Location: [id number] [facility] IMG XR PROCEDURES Edit ed [...] dairy products and caffeinated beverages. 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 Left Hip Current Total BMD is 0.959 g/nw4A-czvtq is 0.1 Most recent prior Total BMD was 0.973 g/cm2 There has been a 1.4% decrease in BMD. Current femoral neck BMD is 0.705 g/gh8F-gbsmg is -1.3 Fracture risk assessment (FRAX): 10 [...] consumes dairy products and caffeinatedbeverages. 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 Left Hip Current Total BMD is 0.959 g/ko8Q-sthur is 0.1 Most recent prior Total BMD was 0.973 g/cm2 There has been a 1.4% decrease in BMD. Current femoral neck BMD is 0.705 g/sc9N-ujmqi is -1.3 Fracture risk assessment (FRAX): 10 [...] Recently Relevant to Health Maintenance Insurance MEDICARE [facility] MEDICARE MEDICARE Advance Directives For more information, please contact: [phone] Documents on File Type Date Recorded Patient Sole Ruffer Expl anation ADVANCE DIRECTIVE 02/22/2013 12:00 AM SARAY R OF [employer] DES[employer] ENGINEER FINANCIAL/MEDICAL Care Teams Operations Manager/Coordinator Relationship Specialty Start Date End Date Jose Arguello MD PCP - General Family Medicine 05/11/19
--- OUTSIDE RECORDS SUMMARY | 2024-11-21 22:33 | XMS_ITS | Encounter Summary ---
Author Organization [facility] Care Team Providers Care Physical Therapy Teacher Name Role Phone No, Physician Primary Care Provider [phone] Jose Arguello MD Primary Care Prov ider Encounter Details Date Type Department Care Team (Latest Contact Info) Description 06/24/2018 Orders Only [facility] Provider, MD Christopher [address] [place] [address] Social History Tobacco Use Types Packs/Day Years Used Date Smoking Tobacco: Never Assessed Comments Unknown Sex and Gender Information Value Date Recorded Sex Assigned at Not on file Legal Sex Female 6:44 PM ROLL RECLAIMER Gender Identity Not on file Sexual Orientation [...] on filedocumented in this encounter Care Teams Physical Therapy Teacher Relationship Specialty Start Date End Date No, Physician PCP - General 01/05/19 05/10/19 Jose Arguello MD PCP - General Family Medicine 05/11/19 documented as of this encounter
--- OUTSIDE RECORDS SUMMARY | 2024-11-21 22:33 | XMS_ITS | Encounter Summary ---
Author Organization [facility] [place] [facility] Address [address] [place] [address] Care Team Providers Care Production Leader Name Role Phone Jose Arguello MD Primary Care Provider [phone] Reason for Visit * Reason Onset Date Comments Lab Results 11/21/2024 Encounter Details Date Type Department Care Team (Late st Contact Info) Description 11/21/2024 Telephone [facility] Oncology and Hematology [address] [facility] [address] [place] [address] [place] [address] [place] [address] [address] [place] [address] Lab Results Social History Tobacco [...] Hawa Simon - 11/21/2024 3:23 PM CST [facility] called stating patient had a critical [...] he will get her to the ER. L AREA NETWORK SYSTEMS ADMINSTRATOR documented in this encounter Plan of Treatment Upcoming Encounters Date Type Department Care Team (Late st Contact Info) Description 11/28/2024 2:30 PM LOCAL AREA NETWORK SYSTEMS ADMINSTRATOR Office Visit [facility] Oncology and Hematology - [place] [address] [facility] [address] [address] Bhanu Mohan MD [address] [facility] [address] [place] [address] documented as of this encounter Visit Diagnoses Not on filedocumented in this encounter Care Teams Production Leader Relationship Specialty Start Date End Date Jose Arguello MD [address] [facility] [address] [place] [phone] PCP - General Family Practice 04/22/22 documented as of this encounter
[2024-11-21] MEDS: HYDROmorphone HCL INJ (*CRX) 1 MG/ML SYR 0.5 MG IV PUSH (23:24)
[2024-11-21] MEDS: SODIUM CHLORIDE 0.9% IV 1,000 ML 999 ML IV CONT (23:24)
[2024-11-21 23:29] VITALS: BP 155/70; PULSE 95; RESP 14; O2SAT 98
[2024-11-21 23:38] LABS: Basophils Percent Auto 0.5 % (0.2-1.2); Eosinophils Percent Auto 0.3 % (0-4.4); Hemoglobin 10.9 g/dL (12.0-15.0); Immature Granulocyte Absolute 0.08 K/mm3 (0.00-0.031); Immature Granulocyte Percent A 1.3 % (0-0.5); Lymphocytes Absolute Auto 1.91 K/mm3 (0.9-3.2); Lymphocytes Percent Auto 31.2 % (18.3-44.2); Mean Corpuscular HGB Conc 31.1 g/dl (32-36); Mean Corpuscular Hemoglobin 29.2 pg (26-34); Mean Corpuscular Volume 93.8 fl (80-100); Mean Platelet Volume 8.9 fl (7.4-10.4); Monocytes Absolute Auto 0.9 K/mm3 (0.1-0.6); Monocytes Percent Auto 14.7 % (2.6-8.5); Neutrophils Absolute Auto 3.2 K/mm3 (1.3-6.7); Platelet Count Result 150 k/mm3 (150-375); Red Blood Count 3.73 M/mm3 (4.2-5.4); Red Cell Distribution Width 15.5 % (11.5-14.5); White Blood Count 6.1 K/mm3 (4.5-10.0)
[2024-11-21 23:45] LABS: Alanine Aminotransferase 22 U/L (6-35); Albumin Level 3.7 g/dL (3.5-5.1); Alkaline Phosphatase 133 U/L (38-126); Anion Gap 13 mmol/L (4-12); Aspartate Amino Transferase 45 U/L (14-36); Bilirubin,Total 0.6 mg/dL (0.2-1.3); Blood Urea Nitrogen 24 mg/dL (7-17); Calcium 12.5 mg/dL (8.4-10.2); Carbon Dioxide 20 mmol/L (22-30); Chloride 106 mmol/L (98-107); Estimated CRCL calculation 20 ml/min; Estimated Glomerular Filt Rate 32; Glucose 75 mg/dL (65-110); Magnesium 1.4 mg/dL (1.6-2.3); Potassium 4.1 mmol/L (3.4-5.0); Sodium 139 mmol/L (137-145)
[2024-11-21 23:46] LABS: Phosphorus 4.3 mg/dL (2.5-4.5)
[2024-11-21 23:52] LABS: Troponin I < 0.012 ng/mL (0.000-0.034)
[2024-11-22] MEDS: ZOLEDRONIC ACID 5 MG/100 ML 240 MG IVPB (00:40)
[2024-11-22] MEDS: SODIUM CHLORIDE 0.9% IV 1,000 ML 999 ML IV CONT (01:01)
[2024-11-22 01:14] LABS: Free T4 Free Thyroxine Reflex 1.03 ng/dL (0.78-2.19)
[2024-11-22 02:51] LABS: Alanine Aminotransferase 20 U/L (6-35); Albumin Level 3.4 g/dL (3.5-5.1); Alkaline Phosphatase 120 U/L (38-126); Anion Gap 11 mmol/L (4-12); Aspartate Amino Transferase 43 U/L (14-36); Bilirubin,Total 0.6 mg/dL (0.2-1.3); Blood Urea Nitrogen 22 mg/dL (7-17); Calcium 11.8 mg/dL (8.4-10.2); Carbon Dioxide 21 mmol/L (22-30); Chloride 107 mmol/L (98-107); Estimated CRCL calculation 22 ml/min; Estimated Glomerular Filt Rate 35; Glucose 80 mg/dL (65-110); Potassium 4.4 mmol/L (3.4-5.0); Sodium 139 mmol/L (137-145)
[2024-11-22 05:16] LABS: Total Triiodothyronine (T3) 1.34 NG/ML (0.97-1.69)
== END 2024-11-22 06:20 | disposition home or self-care (01) ==
PROVIDERS: Emergency Provider Registered Nurse; PCP Family Medicine Adolescent Medicine
DX: E83.52 Hypercalcemia (principal); R94.6 Abnormal results of thyroid function studies; C50.912 Malignant neoplasm of unspecified site of left female breast
CPT/HCPCS: 36415; 80053; 83735; 84100; 84439; 84443; 84480; 84484; 85025; 93005; 96361; 96365; 96375; 99284; J1171; J3489; J7030

== ENCOUNTER 2025-03-01 09:05 | Outpatient (CLI) | payer MEDICARE, SELFPAY ==
--- NOTE | ~2025-03-01 | NM_ITS ---
EXAMINATION: NM bone scan whole body DATE: 03/01/2025 14:08 INDICATION: Left breast cancer TECHNIQUE: 24.2 mCi Tc-99m HDP was administered intravenously. Delayed whole-body scintigrams were o btained. COMPARISON: Bone scan dated 11/13/[address] chest, abdomen and pelvis dated 03/01/2025 FINDINGS: There has been mild increase in size and degree of uptake associated with multiple lesions scattered throughout the axial and proximal appendicular skeleton. There are also few new small lesions includi ng at the superior left anterior iliac spine and on the proximal bilateral femoral diaphysis which ar e not evident on the prior study. There is been progression of uptake at the right humeral neck and a t the right iliac crest which is associated with healing pathologic fractures. IMPRESSION: 1. Mild increase in number, size and degree of uptake such with numerous mixed lytic and sclerotic jena ne lesions seen on prior CT consistent with progression of widespread osseous metastatic disease. 2. Increasing uptake associated with a healing pathologic fracture at the proximal right humeral neck and at the right ilium. Reviewed, dictated and finalized at location A. IMPRESSION: 1. Mild increase in number, size and degree of uptake such with numerous mixed lytic and sclerotic bone lesions seen on prior CT consistent with progression o f widespread osseous metastatic disease. 2. Increasing uptake associated with a healing pathologic fracture at the proxi mal right humeral neck and at the right ilium.
--- NOTE | ~2025-03-01 | CT_ITS ---
Clinical Indication: Breast cancer CT Scan of the Chest, Abdomen, and Pelvis without Contrast: Technique: Contiguous sections were acquired throughout the chest, abdomen, and pelvis without IV con trast administration. Dose reduction technique was used on this scan by utilizing automated exposure control and iterative reconstruction technique. The dose-length product (DLP) was 940.09 mGy-cm. COMPARISON: 11/21/2024 Findings: There is no evidence of any significant mediastinal, hilar or axillary lymphadenopathy. There are ext ensive atherosclerotic calcifications of the aorta and coronary arteries.. There is no evidence of pleural or pericardial effusion. Evidence of prior left mastectomy. Stable 1.7 cm apical pulmonary nodule. Several additional scattered subcentimeter pulmonary nodules a re also similar to prior exam, for example pleural-based at the lateral right upper lobe on image 47, right lower lobe image 55 and 57, left lower lobe image 91 and 82, and left upper lobe images 51, 56 . There is mild emphysema and mild chronic interstitial change. The liver, spleen, pancreas, adrenals and kidneys are within normal limits. Cholecystectomy clips are present. There are extensive atherosclerotic calcifications of the aorta and iliac vessels. No lymp hadenopathy. No bowel obstruction or bowel wall thickening. There is no evidence to suggest acute appendicitis. Urinary bladder is unremarkable. No pelvic mass seen. No ascites. There are multifocal lytic bone lesions, compatible with metastatic disease. There are pathologic com pression fractures of L3, L4, and S1, with underlying metastatic lesions at these levels. Probable ad ditional metastatic lesion present at T12. There is a lytic metastatic lesion at the left femoral nec k with destruction of the anterior cortex (axial image 29 for example). There are additional extensiv e lytic lesion involving the sacrum and bilateral iliac wings, with pathologic fracture through the r ight iliac wing (sagittal image 59). Impression: Pulmonary nodules, as detailed above, relatively stable from prior PET/CT, compatible with metastatic disease. Extensive lytic bone metastatic disease, with pathologic compression fractures of L3, L4, S1, as well as pathologic fractures the right iliac wing. There is extensive metastatic involvement of the pelvi c bones and sacrum. There is additional metastatic lesion at the left femoral neck with destruction o f the anterior cortex, possibly minimally progressed from prior exam. Reviewed, dictated and finalized at location M. Impression: Pulmonary nodules, as detailed above, relatively stable from prior PET/CT, comp atible with metastatic disease. Extensive lytic bone metastatic disease, with pathologic compression fractures of L3, L4, S1, as well as pathologic fractures the right iliac wing. There is e xtensive metastatic involvement of the pelvic bones and sacrum. There is additi onal metastatic lesion at the left femoral neck with destruction of the anterio r cortex, possibly minimally progressed from prior exam.
--- OUTSIDE RECORDS SUMMARY | 2025-03-01 09:11 | XMS_ITS | Encounter Summary ---
Author Organization [facility] Address [address] [place] [address] Care Team Providers Care Compensation Specialist Name Role Phone Jose Arguello MD Primary Care Provider [phone] Encounter Details Date Type Department Care Team (Late st Contact Info) Description 02/27/2025 External Device Data [facility] ABSTRACTION Provider, Abstract NO ADDRESS ON FILE Social History Tobacco Use Types Packs/Day Years [...] Care Team (Late st Contact Info) Description 03/07/2025 1:15 PM CDT Office Visit [facility] Oncology and Hematology - [place] [address] [facility] [address] [place] [address] Bhanu Mohan MD [address] [facility] [address] [place] [address] documented as of this encounter Visit Diagnoses Not on filedocumented in this encounter Care Teams Compensation Specialist Relationship Specialty Start Date End Date Jose Arguello MD PCP - General Family Practice 04/22/22 documented as of this encounter
--- OUTSIDE RECORDS SUMMARY | 2025-03-01 09:11 | XMS_ITS | Clinical Summary ---
Author Organization [facility] Address [address] [place] [address] Care Team Providers Care Home Health Outreach Coordinator Name Role Phone Jose Arguello MD Primary [...] Medium 04/18/2016 Simvastatin Muscle pain Medium 04/18/2016 Lnfzrky-Zkj-Lng Reductase Inhibitors Muscle pain Medium 04/18/2016 Medications [...] (eight) hours as needed 2 Active omega 0-lmp-ook-fish oil 1,000 mg (120 mg-180 mg) capsule [...] 2 (two) times a day 2 Active potassium chloride ER 20 mEq CR [...] ONCE DAILY FOR 5 DAYS 4 Active palbociclib (IBRANCE) 125 mg tablet Take 1 tablet (125 mg total) by mouth daily 5 Active mupirocin (BACTROBAN) 2 % ointment APPLY OINTMENT TOPICALLY TO AFFECTED AREA TWICE DAILY 5 Active clopidogreL (PLAVIX) 75 mg tablet Take 1 tablet by mouth once daily 90 tablet 5 Active losartan (COZAAR) 100 mg tablet Take 1 tablet by mouth once daily 90 tablet 5 Active triamterene-hyd roCHLOROthiazid e 37.5-25 mg per tablet/capsule Take 1 tablet by mouth once daily 90 tablet 2 5 Active amLODIPine (NORVASC) 10 mg tablet Take 1 tablet by mouth once daily 90 tablet 2 5 Active Active Problems Problem Noted Date [...] Atorvastatin. Assessment & Plan (09/25/2020 10:41 AM FILLING OPERATOR): Stent to the saphenous vein graft to the RCA 07/01/[address] Rincon. Anti- platelet regimen. Aggressive risk factor modification. Assessment & Plan (03/20/2020 5:41 PM CDT): Stent to the saphenous vein graft to the RCA 07/01/[address] Rincon. Assessment & Plan (11/15/2019 1:37 PM FILLING OPERATOR): Stent to the saphenous vein graft [...] 07/01/2018. Assessment & Plan (09/25/2020 10:38 AM FILLING OPERATOR): Was related to myocardial ischemia and to the coronary artery disease. No dyspnea since the stenting of the saphenous vein graft to the RCA 07/01/2018. Assessment & Plan (03/20/2020 5:36 PM CDT): No exertional dyspnea since the stenting of the saphenous vein graft to the RCA 07/01/2018. Assessment & Plan (11/15/2019 1:39 PM FILLING OPERATOR): No exertional dyspnea since the stenting [...] weeks. Assessment & Plan (09/26/2020 9:58 AM FILLING OPERATOR): Blood pressure 158/60. Salt restriction. Continue the current regimen. Add losartan 100 mg p.o. daily for blood pressure control and for renal protective effect from diabetes. Assessment & Plan (03/21/2020 9:43 AM CDT): Blood pressure 144/80. Salt restriction. Continue the current regimen. Assessment & Plan (11/16/2019 11:28 AM FILLING OPERATOR): Blood pressure 140/70. Salt restriction. Continue [...] Plavix. Assessment & Plan (09/25/2020 10:38 AM FILLING OPERATOR): Coronary artery bypass surgery 2006. Aggressive risk factor modification. Assessment & Plan (03/20/2020 5:37 PM CDT): Coronary artery bypass surgery 2006. Aggressive risk factor modification. Assessment & Plan (11/15/2019 1:39 PM FILLING OPERATOR): History of coronary artery bypass surgery [...] 07/01/2018. Assessment & Plan (09/25/2020 10:40 AM FILLING OPERATOR): No chest pains since stenting to the saphenous vein graft to the RCA 07/01/2018. Assessment & Plan (03/20/2020 5:42 PM CDT): No chest pain since stent to the saphenous vein graft to the RCA 07/01/2018. Ranexa was added which he found too expensive. Will consider Imdur if necessary. Assessment & Plan (11/16/2019 11:28 AM FILLING OPERATOR): Stent to the saphenous vein graft [...] Stable. Assessment & Plan (09/25/2020 10:41 AM FILLING OPERATOR): Chronic. Stable. Assessment & Plan (03/20/2020 5:40 PM CDT): Chronic. Stable. Assessment & Plan (11/15/2019 1:37 PM FILLING OPERATOR): Chronic. Stable. Assessment & Plan (05/11/2019 [...] 75 Assessment & Plan (09/26/2020 9:58 AM FILLING OPERATOR): Low-fat low-cholesterol diet. Atorvastatin. On 07/24/2020 [...] 93. Assessment & Plan (11/16/2019 11:29 AM FILLING OPERATOR): Low-fat low-cholesterol diet. 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, subsequent encounter (Primary Dx); 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) 12/11/2024 1:30 PM FILLING OPERATOR Office Visit [facility] Orthopaedic Surgery [address] [place] [address] Advanced [facility] 6th [place] [address] [place] [address] Dany Guerin MD 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) (Primary Dx); 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, initial encounter 12/11/2024 1:22 PM FILLING OPERATOR - 12/11/2024 11:59 PM FILLING OPERATOR Hospital Encounter [facility]) [address] [place] [address] 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) Discharge Disposition: Discharge to home or self care 12/07/2024 Orders Only [facility] Orthopaedic Surgery [address] [facility] Advanced Medicine 6th [place] [address] [place] [address] Dany Guerin MD from Last 3 Months Surgical History Surgery [...] on file Legal Sex Female 6:44 PM FILLING OPERATOR Gender Identity Not on file Sexual Orientation Not on file Obstetrics History Last Filed Vital Signs Vital Sign Reading Time Taken Comments Blood Pressure 145/81 09/17/2024 6:25 PM FILLING OPERATOR Pulse 81 09/17/2024 6:25 PM FILLING OPERATOR Temperature 36.7 C (98.1 F) 09/17/2024 10:39 AM FILLING OPERATOR Respiratory Rate 14 09/17/2024 6:25 PM FILLING OPERATOR Oxygen Saturation 98% 09/17/2024 6:25 PM FILLING OPERATOR Inhaled Oxygen Concentration - - Weight 74.8 kg (165 lb) 12/11/2024 1:40 PM FILLING OPERATOR Height 154.9 cm (5' 1 ) 12/11/2024 1:40 PM FILLING OPERATOR Body Mass Index 31.18 12/11/2024 1:40 PM FILLING OPERATOR Plan of Treatment Health Maintenance Due Date Last Done Comments Depression Screening 1944 Fall Risk Assessment 1944 Hepatitis B Screening 1962 Pneumococcal vaccine 65+ (1 of 2 - PCV) 1963 Zoster Vaccine (1 of 2) 1963 DTaP/Tdap/Td Vaccine (1 - Tdap) 03/20/1995 5 Well Visit 65+ 2009 Osteoporosis Screening-Bone Density Scan 2017 2015, 2015 Influenza Vaccine (Season Ended) 2025 10/11/19 18, 07/11/2013 Procedures Procedure Name Priority Date/Time Associated Diagnosis Comments XR HUMERUS RIGHT 2 OR MORE VIEWS Routine 12/11/2024 1:32 PM FILLING OPERATOR 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) DEXA AXIAL SKELETON BONE DENSITY 1 OR MORE SITES Routine 2015 1:50 PM CDT from Last 3 Months or Most Recently Relevant to Health Maintenance Results * XR Humerus Right 2 or More Views (12/11/2024 1:32 PM FILLING OPERATOR) Anatomical Region Laterality Modality Upper Extremities, Upper Arm Right Com puted Radiography 12/11/2024 5:37 PM FILLING OPERATOR Impressions 12/11/2024 6:27 PM FILLING OPERATOR Healing comminuted pathologic fracture of the proximal right humerus, in improved alignment. Dictated by: Tonny Jimenez MD The radiology attending physician has personally reviewed this study, and had reviewed and/or edited this written report and agrees with it. Electronically signed by: Tyson Corey MD Narrative 12/11/2024 6:27 PM FILLING OPERATOR EXAMINATION: XR HUMERUS RIGHT 2 OR MORE VIEWS HISTORY: Left breast cancer, bone metastasis. COMPARISON: MR 11/06/2024, radiograph 09/29/2024 . FINDINGS: 2 view right humerus are submitted for interpretation. There is a healing comminuted minimally displaced pathologic fracture of the proximal right humeral shaft, in improved alignment and bridging callus formation. Alignment at the elbow and shoulder are normal. There is a lytic process involving the proximal half of the humerus, measuring approximately 11 cm in length. Procedure Note Marnie Corey MD - 12/11/2024 EXAMINATION: XR HUMERUS RIGHT 2 OR MORE VIEWS HISTORY: Left breast cancer, bone metastasis. COMPARISON: MR 11/06/2024, radiograph 09/29/2024 . FINDINGS: 2 view right humerus are submitted for interpretation. There is a healing comminuted minimally displaced pathologic fracture of the proximal right humeral shaft, in improved alignment and bridging callus formation. Alignment at the elbow and shoulder are normal. There is a lytic process involving the proximal half of the humerus, measuring approximately 11 cm in length. IMPRESSION: Healing comminuted pathologic fracture of the proximal right humerus, in improved alignment. Dictated by: Tonny Jimenez MD The radiology attending physician has personally reviewed this study, and had reviewed and/or edited this written report and agrees with it. Electronically signed by: Tyson Corey MD us Dany Guerin MD IMG XR PROCEDURES Final Re sult * Dexa Axial Skeleton Bone Density 1 [...] dairy products and caffeinated beverages. COMPARISON(S): 06/08/2012 RETAIL PHARMACY TECHNICIAN/MODEL: [email or web address] (S/N [id number]) FINDINGS: AP lumbar spine L1-L4 Total BMD is 0.86 g/mc6M-ajwec is -1.7 Most recent prior BMD was 0.819 g/cm2 There has been a 4.9% increase in BMD which is statistically significant. Left Hip Current Total BMD is 0.959 g/ye9S-xhvvq is 0.1 Most recent prior Total BMD was 0.973 g/cm2 There has been a 1.4% decrease in BMD. Current femoral neck BMD is 0.705 g/qr0E-hncrx is -1.3 Fracture risk assessment (FRAX): 10 [...] consumes dairy products and caffeinatedbeverages. COMPARISON(S): 06/08/2012 RETAIL PHARMACY TECHNICIAN/MODEL: [employer] (S/N [id number]) FINDINGS: AP lumbar spine L1-L4 Total BMD is 0.86 g/oj8A-cnnse is -1.7 Most recent prior BMD was 0.819 g/cm2 There has been a 4.9% increase in BMD which is statisticallysignificant. Left Hip Current Total BMD is 0.959 g/ao4P-aptzo is 0.1 Most recent prior Total BMD was 0.973 g/cm2 There has been a 1.4% decrease in BMD. Current femoral neck BMD is 0.705 g/cv5S-jfluw is -1.3 Fracture risk assessment (FRAX): 10 [...] PM: Leander Moreira M.D. Leander Moreira M.D. NH:nc 02:52 PM 02:52 PM [facility] [EOD] Jose Arguello MD IMG DXA PROCEDURES Final Result from Last 3 Months or Most Recently Relevant to Health Maintenance Insurance MEDICARE [facility] MEDICARE MEDICARE Advance Directives For more information, please contact: [phone] Documents on File Type Date Recorded Patient Evaporator Helper Expl anation ADVANCE DIRECTIVE 02/22/2013 12:00 AM SARAY Toure OF [employer] FINANCIAL/MEDICAL Care Teams Home Health Outreach Coordinator Relationship Specialty Start Date End Date Jose Arguello MD PCP - General Family Medicine 05/11/19
--- OUTSIDE RECORDS SUMMARY | 2025-03-01 09:11 | XMS_ITS | Encounter Summary ---
Author Organization [facility] Facility Care Team Providers Care Java Groovy Developer Name Role Phone No, Physician Primary Care Provider [phone] Jose Arguello MD Primary Care Prov ider Encounter Details Date Type Department Care Team (Latest Contact Info) Description 02/10/2006 Orders Only [facility] CLINCONV ProviderChristopher MD [address] [id number] Social History Tobacco Use Types Packs/Day Years Used Date Smoking Tobacco: Never Assessed Comments Unknown Sex and Gender Information Value Date Recorded Sex Assigned at Not on file Legal Sex Female 6:44 PM CHIEF OF POLICE Gender Identity Not on file Sexual Orientation [...] on filedocumented in this encounter Care Teams Java Groovy Developer Relationship Specialty Start Date End Date No, Physician PCP - General 01/05/19 05/10/19 Jose Arguello MD PCP - General Family Medicine 05/11/19 documented as of this encounter
--- OUTSIDE RECORDS SUMMARY | 2025-03-01 09:11 | XMS_ITS | Referral Summary ---
Author Organization 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, subsequent encounter (Primary Dx); 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) 12/11/2024 1:22 PM ECONOMIC DEVELOPMENT SPECIALIST - 12/11/2024 11:59 PM ECONOMIC DEVELOPMENT SPECIALIST Hospital Encounter [facility] ([facility]) [address] [place] [address] 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) Discharge Disposition: Discharge to home or self care 12/11/2024 1:30 PM ECONOMIC DEVELOPMENT SPECIALIST Office Visit [facility] Orthopaedic Surgery [address] [place] [address] Advanced Medicine 6th [place] [address] [place] [address] Dany Guerin MD 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) (Primary Dx); 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 Assessment & Plan (09/25/2020 10:41 AM ECONOMIC DEVELOPMENT SPECIALIST): Stent to the saphenous vein graft to the RCA 07/01/[address] Rincon. Anti- platelet regimen. Aggressive risk factor modification. Assessment & Plan (03/20/2020 5:41 PM CDT): Stent to the saphenous vein graft to the RCA 07/01/[address] Rincon. Assessment & Plan (11/15/2019 1:37 PM ECONOMIC DEVELOPMENT SPECIALIST): Stent to the saphenous vein graft to [...] 07/01/2018. Assessment & Plan (09/25/2020 10:38 AM ECONOMIC DEVELOPMENT SPECIALIST): Was related to myocardial ischemia and to the coronary artery disease. No dyspnea since the stenting of the saphenous vein graft to the RCA 07/01/2018. Assessment & Plan (03/20/2020 5:36 PM CDT): No exertional dyspnea since the stenting of the saphenous vein graft to the RCA 07/01/2018. Assessment & Plan (11/15/2019 1:39 PM ECONOMIC DEVELOPMENT SPECIALIST): No exertional dyspnea since the stenting of [...] weeks. Assessment & Plan (09/26/2020 9:58 AM ECONOMIC DEVELOPMENT SPECIALIST): Blood pressure 158/60. Salt restriction. Continue the current regimen. Add losartan 100 mg p.o. daily for blood pressure control and for renal protective effect from diabetes. Assessment & Plan (03/21/2020 9:43 AM CDT): Blood pressure 144/80. Salt restriction. Continue the current regimen. Assessment & Plan (11/16/2019 11:28 AM ECONOMIC DEVELOPMENT SPECIALIST): Blood pressure 140/70. Salt restriction. Continue the [...] Plavix. Assessment & Plan (09/25/2020 10:38 AM ECONOMIC DEVELOPMENT SPECIALIST): Coronary artery bypass surgery 2006. Aggressive risk factor modification. Assessment & Plan (03/20/2020 5:37 PM CDT): Coronary artery bypass surgery 2006. Aggressive risk factor modification. Assessment & Plan (11/15/2019 1:39 PM ECONOMIC DEVELOPMENT SPECIALIST): History of coronary artery bypass surgery 2006. [...] 07/01/2018. Assessment & Plan (09/25/2020 10:40 AM ECONOMIC DEVELOPMENT SPECIALIST): No chest pains since stenting to the saphenous vein graft to the RCA 07/01/2018. Assessment & Plan (03/20/2020 5:42 PM CDT): No chest pain since stent to the saphenous vein graft to the RCA 07/01/2018. Ranexa was added which he found too expensive. Will consider Imdur if necessary. Assessment & Plan (11/16/2019 11:28 AM ECONOMIC DEVELOPMENT SPECIALIST): Stent to the saphenous vein graft to [...] Stable. Assessment & Plan (09/25/2020 10:41 AM ECONOMIC DEVELOPMENT SPECIALIST): Chronic. Stable. Assessment & Plan (03/20/2020 5:40 PM CDT): Chronic. Stable. Assessment & Plan (11/15/2019 1:37 PM ECONOMIC DEVELOPMENT SPECIALIST): Chronic. Stable. Assessment & Plan (05/11/2019 12:19 [...] 75 Assessment & Plan (09/26/2020 9:58 AM ECONOMIC DEVELOPMENT SPECIALIST): Low-fat low-cholesterol diet. Atorvastatin. On 07/24/2020 triglycerides [...] 93. Assessment & Plan (11/16/2019 11:29 AM ECONOMIC DEVELOPMENT SPECIALIST): Low-fat low-cholesterol diet. Atorvastatin 40 mg bedtime [...] on file Legal Sex Female 6:44 PM ECONOMIC DEVELOPMENT SPECIALIST Gender Identity Not on file Sexual Orientation Not on file Last Filed Vital Signs Vital Sign Reading Time Taken Comments Blood Pressure 145/81 09/17/2024 6:25 PM ECONOMIC DEVELOPMENT SPECIALIST Pulse 81 09/17/2024 6:25 PM ECONOMIC DEVELOPMENT SPECIALIST Temperature 36.7 C (98.1 F) 09/17/2024 10:39 AM ECONOMIC DEVELOPMENT SPECIALIST Respiratory Rate 14 09/17/2024 6:25 PM ECONOMIC DEVELOPMENT SPECIALIST Oxygen Saturation 98% 09/17/2024 6:25 PM ECONOMIC DEVELOPMENT SPECIALIST Inhaled Oxygen Concentration - - Weight 74.8 kg (165 lb) 12/11/2024 1:40 PM ECONOMIC DEVELOPMENT SPECIALIST Height 154.9 cm (5' 1 ) 12/11/2024 1:40 PM ECONOMIC DEVELOPMENT SPECIALIST Body Mass Index 31.18 12/11/2024 1:40 PM ECONOMIC DEVELOPMENT SPECIALIST Plan of Treatment Not on file Procedures Procedure Name Priority Date/Time Associated Diagnosis Comments XR HUMERUS RIGHT 2 OR MORE VIEWS Routine 12/11/2024 1:32 PM ECONOMIC DEVELOPMENT SPECIALIST 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) DEXA AXIAL SKELETON BONE DENSITY 1 OR MORE SITES Routine 2015 1:50 PM CDT from Last 3 Months or Most Recently Relevant to Health Maintenance Results * XR Humerus Right 2 or More Views (12/11/2024 1:32 PM ECONOMIC DEVELOPMENT SPECIALIST) Anatomical Region Laterality Modality Upper Extremities, Upper Arm Right Com puted Radiography 12/11/2024 5:37 PM ECONOMIC DEVELOPMENT SPECIALIST Impressions 12/11/2024 6:27 PM ECONOMIC DEVELOPMENT SPECIALIST Healing comminuted pathologic fracture of the proximal right humerus, in improved alignment. Dictated by: Tonny Jimenez MD The radiology attending physician has personally reviewed this study, and had reviewed and/or edited this written report and agrees with it. Electronically signed by: Tyson Corey MD Narrative 12/11/2024 6:27 PM ECONOMIC DEVELOPMENT SPECIALIST EXAMINATION: XR HUMERUS RIGHT 2 OR MORE [...] NH:perla 02:52 PM 02:52 PM [facility] [EOD] Narrative [...] dairy products and caffeinated beverages. COMPARISON(S): 06/08/2012 CERTIFIED [place]ER TECHNICIAN/MODEL: [employer] SL (S/N [id number]) FINDINGS: AP lumbar spine L1-L4 Total BMD is 0.86 g/ln5K-uxmnr is -1.7 Most recent prior BMD was 0.819 g/cm2 There has been a 4.9% increase in BMD which is statistically significant. Left Hip Current Total BMD is 0.959 g/nu8Z-eqcya is 0.1 Most recent prior Total BMD was 0.973 g/cm2 There has been a 1.4% decrease in BMD. Current femoral neck BMD is 0.705 g/rl7R-qwufm is -1.3 Fracture risk assessment (FRAX): 10 [...] consumes dairy products and caffeinatedbeverages. COMPARISON(S): 06/08/2012 CERTIFIED BENCH [place]ER TECHNICIAN/MODEL: [employer] (S/N [id number]) FINDINGS: AP lumbar spine L1-L4 Total BMD is 0.86 g/rh4Y-tasnc is -1.7 Most recent prior BMD was 0.819 g/cm2 There has been a 4.9% increase in BMD which is statisticallysignificant. Left Hip Current Total BMD is 0.959 g/eo0R-wxtwy is 0.1 Most recent prior Total BMD was 0.973 g/cm2 There has been a 1.4% decrease in BMD. Current femoral neck BMD is 0.705 g/ns4W-muyea is -1.3 Fracture risk assessment (FRAX): 10 [...] bone mineral density and lumbar spine since 2012. Bone mineral density: Normal (T-score above or [...] Moreira M.D. NH:perla 02:52 PM 02:52 PM [facility] [EOD] us Jose Arguello MD IMG DXA PROCEDURES Final Result from Last 3 Months or Most Recently Relevant to Health Maintenance Insurance MEDICARE [facility] Address: [address] [address] [facility] MEDICARE MEDICARE Advance Directives For more information, please contact: [phone] Documents on File Type Date Recorded Patient Acquisitions Assistant Expl anation ADVANCE DIRECTIVE 02/22/2013 12:00 AM SARAY R OF AGRONOM[employer] LOCATION MANAGER FINANCIAL/MEDICAL Care Teams Product Applications Engineer Relationship Specialty Start Date End Date Jose Arguello MD PCP - General Family Medicine 05/11/19
--- OUTSIDE RECORDS SUMMARY | 2025-03-01 09:11 | XMS_ITS | Encounter Summary ---
Author Organization [facility] Facility Care Team Providers Care Trim Sawyer Name Role Phone No, Physician Primary Care Provider [phone] Jose Arguello MD Primary Care Prov ider Encounter Details Date Type Department Care Team (Latest Contact Info) Description 06/24/2018 Orders Only [facility] CLINCONV ProviderChristopher MD [address] [place] [address] Social History Tobacco Use Types Packs/Day Years Used Date Smoking Tobacco: Never Assessed Comments Unknown Sex and Gender Information Value Date Recorded Sex Assigned at Not on file Legal Sex Female 6:44 PM SAP PROJECT MANAGER Gender Identity Not on file Sexual [...] AM CDT Ordered by an unspecified provider. us Historical Provider [facility] C[facility] PROCE DURES Final Result * CARDIOLOGY REPORT (06/24/2018 12:00 AM CDT) Anatomical Region Laterality Modality Other Narrative 06/24/2018 12:00 AM CDT Ordered by an unspecified provider. us Historical Provider CV CARDIAC SERVICES PROCE DURES Final Result documented in this encounter Visit Diagnoses Not on filedocumented in this encounter Care Teams Trim Sawyer Relationship Specialty Start Date End Date No, Physician PCP - General 01/05/19 05/10/19 Jose Arguello MD PCP - General Family Medicine 05/11/19 documented as of this encounter
--- OUTSIDE RECORDS SUMMARY | 2025-03-01 09:11 | XMS_ITS | Clinical Summary ---
Author Organization [facility] Jossue Evans Address [address] [place] [address] Care Team Providers Care Bonderizer Operator Name Role Phone Jose Arguello MD Primary Care Provider [phone]- [phone] Allergies No known active allergies Medications amLODIPine [...] mouth daily. 90 Tablet 3 024 Active diclofenac sodium (VOLTAREN) 75 mg Tablet, Delayed Release (E.C.) Take 75 mg by mouth 2 times daily. 024 Active mupirocin (BACTROBAN) 2 % Ointment by See Admin Instructions route see administration instructions. 025 Active palbociclib (Ibrance) 125 mg tablet Take 1 tablet (125 mg) by mouth daily for 21 days on, then 7 days off every day cycle. 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 90 Tablet 025 2024 Discontinued(R eorder) ferrous sulfate 325 mg (65 mg iron) Tablet, Delayed Release (E.C.)Indicatio ns:Malignant neoplasm of lower-outer quadrant of left breast of female, estrogen receptor positive (CMS/HCC) Take 1 tablet by mouth twice daily 60 Tablet 025 2024 Discontinued Active Problems Problem Noted Date Diagnosed Date Malignant neoplasm of lower- outer quadrant of left breast of female, estrogen receptor positive 04/22/2022 Encounters Date Type Department Care Team Description 02/27/2025 External Device Data STL ABSTRACTION Provider, Abstract 02/13/2025 4:30 PM CDT Telephone Check Up [facility] Oncology and Hematology - [place] [address] [place] [phone] Bhanu Mohan MD Malignant neoplasm of lower-outer quadrant of left breast of female, estrogen receptor positive (CMS/HCC) (Primary Dx); Chronic anemia; Renal insufficiency 02/01/2025 Refill [facility] On[facility] Hematology [place] [address] [place] [phone] Taylor Davila MD Malignant neoplasm of lower-inner quadrant of left breast in female, estrogen receptor positive (CMS/HCC) 01/31/2025 Refill [facility] Oncology and Hematology - [place] [address] [place] [phone] Bhanu Mohan MD Malignant neoplasm of lower-outer quadrant of left breast of female, estrogen receptor positive (CMS/HCC) 01/31/2025 Orders Only [facility] Oncology and Hematology - [place] [address] [place] [phone] Bhanu Mohan MD 01/29/2025 Orders Only [facility] Oncology and Hematology - [place] [address] [place] [phone] Bhanu Mohan MD 01/09/2025 Specialty Pharmacy [facility] [place] [phone] Mallory Rahman, PHARMACIST 01/02/2025 Refill [facility] Oncology and Hematology - [place] [address] [place] [address] Bhanu Mohan MD Malignant neoplasm of lower-outer quadrant of left breast of female, estrogen receptor positive (CMS/HCC) 01/02/2025 Refill [facility] Oncology and Hematology - [place] [address] [place] [phone] Bhanu Mohan MD 12/27/2024 9:45 AM CDT Office Visit [facility] Oncology and Hematology - [place] [address] [place] [address] Bhanu Mohan MD Malignant neoplasm of lower-outer quadrant of left breast of female, estrogen receptor positive (CMS/HCC) (Primary Dx) 12/27/2024 External Device Data STL ABSTRACTION Provider, Abstract 12/27/2024 External Device Data STL ABSTRACTION Provider, Abstract 12/20/2024 Orders Only [facility] Oncology and Hematology - [place] [address] [place] [address] Bhanu Mohan MD 12/18/2024 Telephone [facility] Hematology [place] [address] [place] [address] Bhanu Mohan MD Med Change Request 12/16/2024 External Device Data STL ABSTRACTION Provider, Abstract 12/15/2024 External Device Data STL ABSTRACTION Provider, Abstract 12/13/2024 Specialty Pharmacy [facility] [address] [place] [phone] Mary Ann Bae, PHARMACIST Specialty Pharmacy Clinical Assessment 12/12/2024 Specialty Pharmacy [facility] [address] [place] [phone] Mallory Rahman, PHARMACIST Specialty Pharmacy Refill Coordination 12/02/2024 Refill [facility] Oncology and Hematology [place] [address] [place] [address] Bhanu Mohan MD Malignant neoplasm of lower-outer quadrant of left breast of female, estrogen receptor positive (CMS/HCC) from Last 3 Months Family History Medical [...] Sign Reading Time Taken Comments Blood Pressure 113/59 12/27/2024 9:31 AM CDT Pulse 86 12/27/2024 9:31 AM CDT Temperature 36.4 C (97.5 F) 12/27/2024 9:31 AM CDT Respiratory Rate 15 12/27/2024 9:31 AM CDT Oxygen Saturation 95% 12/27/2024 9:31 AM CDT Inhaled Oxygen Concentration - - Weight 86.5 kg (190 lb 9.6 oz) 07/05/2024 1:06 P M CDT Height 165.1 cm (5' 5 ) 07/28/2022 9:48 AM CDT Body Mass Index 31.72 07/28/2022 9:48 AM CDT Plan of Treatment Upcoming Encounters Date Type Department Care Team (Late st Contact Info) Description 03/07/2025 1:15 PM CDT Office Visit [facility] Oncology and Hematology - [place] [address] [facility] [address] [place] [address] Bhanu Mohan MD [address] [facility] [address] [place] [address] Health Maintenance Due Date Last Done Comments DTAP/TDAP/TD VACCINES (1 - Tdap) 1964 PNEUMOCOCCAL VACCINE 50+ YEARS (1 of 1 - PCV) 07/10/19 94 ZOSTER VACCINE (1 of 2) 1994 RSV VACCINE (60+ or ) (1 - 1-dose 75+ series) 2019 OSTEOPOROSIS SCREENING 2020 2015 INFLUENZA VACCINE (#1) 2024 Procedures Procedure Name Priority Date/Time Associated Diagnosis Comments COMPREHENSIVE METABOLIC PANEL Routine 01/29/2025 3:27 PM CDT CANCER ANTIGEN 15-3 Routine 01/29/2025 9 :17 AM CDT CANCER ANTIGEN 15-3 Routine 12/19/2024 3 :51 PM CDT COMPREHENSIVE METABOLIC PANEL Routine 12/19/2024 9:37 AM CDT from Last 3 Months Results * COMPREHENSIVE METABOLIC PANEL (01/29/2025 3:27 PM CDT) Only the most recent of2 resultswithin the time period is included. Blood us Bhanu Mohan MD CHEMISTRY ORDERABLES Final Resu lt * CANCER ANTIGEN 15-3 (01/29/2025 9:17 AM CDT) Only the most recent of2 resultswithin the time period is included. Blood us Bhanu Mohan MD CHEMISTRY ORDERABLES Final Resu lt from Last 3 Months Insurance MEDICARE PART A AND B RX [employer] Medicare Part D RX [facility]ARM[facility] [employer] Commercial Care Teams Bonderizer Operator Relationship Specialty Start Date End Date Jose Arguello MD PCP - General Family Practice 04/22/22
--- OUTSIDE RECORDS SUMMARY | 2025-03-01 09:11 | XMS_ITS | Encounter Summary ---
Author Organization [facility] Care Team Providers Care Shoe Repair Cobbler Name Role Phone No, Physician Primary Care Provider [phone] Jose Arguello MD Primary Care Prov ider Encounter Details Date Type Department Care Team (Latest Contact Info) Description 08/30/2018 Orders Only [facility] ProviderChristopher MD [address] [place] [id number] Social History Tobacco Use Types Packs/Day Years Used Date Smoking Tobacco: Never Assessed Comments Unknown Sex and Gender Information Value Date Recorded Sex Assigned at Not on file Legal Sex Female 6:44 PM TRAPEZE PERFORMER Gender Identity Not on file Sexual Orientation Not on file documented as of this encounter Plan of Treatment Not on file documented as of this encounter Procedures Procedure Name Priority Date/Time Associated Diagnosis Comments PROCEDURE - RESULT 08/30/2018 12 :00 AM TRAPEZE PERFORMER documented in this encounter Results * PROCEDURE - RESULT (08/30/2018 12:00 AM TRAPEZE PERFORMER) Narrative 08/30/2018 12:00 AM TRAPEZE PERFORMER Ordered by an unspecified provider. Historical Provider Final Res ult documented in this encounter Visit Diagnoses Not on filedocumented in this encounter Care Teams Shoe Repair Cobbler Relationship Specialty Start Date End Date No, Physician PCP - General 01/05/19 05/10/19 Jose Arguello MD PCP - General Family Medicine 05/11/19 documented as of this encounter
[2025-03-01 09:57] LABS: Add Urine Microscopic? YES; Appearance Urine Turbid (Clear); Bacteria Urine 4+ /hpf; Bilirubin Urine Negative (Negative); Blood Urine 2+ (Negative); Color Urine Yellow (Yellow); Glucose Urine UA Negative (Negative); Ketones Urine Negative (Negative); Leukocyte Esterase Ur 3+ LEU/UL (Negative); Need Manual Microscopic Reviewed; Nitrate Urine Positive (Negative); Protein Urine 2+ mg/dL (Negative); Specific Grav Ur 1.017 (1.001-1.035); Squamous Epithelial Cell Urine Many /hpf (Few); WBC Urine >100 /hpf (0-3); pH Urine 5.5 (5.0-9.0)
== END 2025-03-01 09:06 | disposition home or self-care (01) ==
PROVIDERS: PCP Family Medicine Adolescent Medicine; Visit Provider Internal Medicine Hematology & Oncology
DX: R35.0 Frequency of micturition (principal); R91.8 Other nonspecific abnormal finding of lung field; C79.51 Secondary malignant neoplasm of bone; S32.030A Wedge compression fracture of third lumbar vertebra, initial encounter for closed fracture; S32.040A Wedge compression fracture of fourth lumbar vertebra, initial encounter for closed fracture; X58.XXXA Exposure to other specified factors, initial encounter
CPT/HCPCS: 71250; 74176; 78306; 81001; A9503

== ENCOUNTER 2025-04-19 11:03 | Inpatient (IN) | payer MEDICARE, SELFPAY ==
[2025-04-19] VITALS (7 sets, daily range): BP systolic 94–144; BP diastolic 44–76; PULSE 77–109; RESP 10–16; TEMP 36.5–37.6; O2SAT 93–99; BMI 27.4
--- NOTE | ~2025-04-19 | CT_ITS ---
CT abdomen pelvis w con Ordering provider: Alvin Rivera III DO History: 79 years Female with . abd pain . Comparison: March 01, 2025 Technique: CT abdomen and pelvis with IV and without oral contrast. Automated exposure control and it erative reconstruction technique were employed. The dose-length product was 675.47 mGy-cm. Findings: VISUALIZED LOWER CHEST: Possible nodule measuring 8 mm in the right lower lobe. Dependent atelectatic changes. Postoperative changes in the mediastinum. UPPER ABDOMINAL ORGANS: Liver: Normal. Gallbladder: Status post cholecystectomy. The CBD measuring 1.7 cm.. Spleen: Normal. Stomach/duodenum: Normal. Pancreas: Normal. Adrenals: Possible small left adrenal adenoma or metastatic lesion. Kidneys: Normal. PELVIC ORGANS: The bladder is underfilled with thickened wall. Evaluation for cystitis advised. BOWEL AND MESENTERY: Colon: No evidence of diverticulitis. Normal appendix. Small Bowel: Normal. No obstruction. Peritoneum/mesentery: No free air or free fluid. No mesenteric lymphadenopathy. RETROPERITONEUM: Moderate atheromatous disease of the abdominal aorta. No retroperitoneal lymphaden opathy. MUSCULOSKELETAL: Superficial soft tissues: The superficial soft tissues are normal. Bones: Extensive involvement of the bones with metastatic lesions involving the spine, iliac bones, s acrum, pubic bones, acetabula and left femoral neck is noted with a pathological fracture involving t he right iliac bone and sacrum. IMPRESSION: 1. Extensive metastatic lesions seen on the bones with pathological fracture in the right iliac bone and sacrum slightly advanced compared to previous study. 2. No evidence of appendicitis, diverticulitis or intestinal obstruction. 3. Dilated CBD measuring 1.7 cm. 4. Slightly thickened wall of the urinary bladder. Further evaluation advised. 5. Possible nodule in the right lung base. Reviewed, dictated and finalized at location A. IMPRESSION: 1. Extensive metastatic lesions seen on the bones with pathological fracture i n the right iliac bone and sacrum slightly advanced compared to previous study. 2. No evidence of appendicitis, diverticulitis or intestinal obstruction. 3. Dilated CBD measuring 1.7 cm. 4. Slightly thickened wall of the urinary bladder. Further evaluation advised. 5. Possible nodule in the right lung base.
--- OUTSIDE RECORDS SUMMARY | 2025-04-19 15:03 | XMS_ITS | Encounter Summary ---
Author Organization [facility] [email or web address] [facility] Address [address] [place] [address] Care Team Providers Care Sourcing Associate Name Role Phone Jose Arguello MD Primary Care Provider [phone] Reason for Visit * Reason Onset Date Comments Aphagia 04/18/2025 Encounter Details Date Type Department Care Team (Late st Contact Info) Description 04/18/2025 Telephone [facility] Oncology and Hematology - [place] [address] [place] [address] [facility] [address] [place] [address] Bhanu Mohan MD [address] [facility] [place] [address] Aphagia Social History Tobacco Use Types Packs/Day Years [...] encounter Miscellaneous Notes * Telephone Encounter - Leandro Walton, SAVANA - 04/18/2025 1:59 PM CDT I spoke with the patient???s daughter, Linsey, who reported that the patient has not been eating ordrinking normally and has only been taking small nibbles over the past 3 to 4 days. She also noted that the patient has been sleeping more than usual. The patients daughter also mentioned that when the patient attempts to speak, her speech is mumbled, as she struggles to find the right words. Regarding bowel movements, the patient has not had one since April 09. After using a suppository one time only, she had a bowel movement on April 16 but has since returned to having any. Patients daughteralso stated that the patient has an opened wound on her buttocks and is using an antiseptic spray. I informed the patients daughter that I have faxed over the prescription for the patient to get a hospital bed over to [facility]. I will relay this information to Dr. Mohan and then I will give her a call back to see what he advises. * Telephone Encounter - Leandro Walton CMA - 04/18/2025 1:58 PM CDT ----- Message from Solange Escalante sent at 04/17/2025 3:51 PM CDT ----- Regarding: Return phone call Patients daughter called and LVM stating that she was wanting to get her mom a hospital bed for herto start sleeping. She states that she is having a hard time getting in and our of bed. She also requested a call back about what to do about her not eating. Could you please give her daughter a callback and talk to her about what is going on? Return phone number left is [phone]/. Also on a script pad could you please fill it out with name, , Dx, and then write on there hospital bed just like you would with an order and send it over to [facility]. Fax number is [phone]. documented in this encounter Plan of Treatment Upcoming Encounters Date Type Department Care Team (Late st Contact Info) Description 05/10/2025 2:00 PM CDT Office Visit [facility] Oncology and Hematology [place] [address] [address] [place] [phone] Bhanu Mohan MD [facility] [facility] [address] [place] [phone] documented as of this encounter Visit Diagnoses Not on filedocumented in this encounter Care Teams Sourcing Associate Relationship Specialty Start Date End Date Jose Arguello MD PCP - General Family Practice 04/22/22 documented as of this encounter
--- OUTSIDE RECORDS SUMMARY | 2025-04-19 15:03 | XMS_ITS | Clinical Summary ---
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 Not on file Not on file Not on file Last Filed Vital Signs Vital Sign Reading Time Taken Comments Blood Pressure 148/84 10/15/2015 9:39 AM WAREHOUSE STOCKER Pulse 84 10/15/2015 9:39 AM WAREHOUSE STOCKER Temperature - - Respiratory Rate - - Oxygen Saturation - - Inhaled Oxygen Concentration - - Weight 89.8 kg (198 lb) 10/15/2015 9:39 AM WAREHOUSE STOCKER Height 154.9 cm (5' 1) 10/15/2015 9:39 AM WAREHOUSE STOCKER Body Mass Index 37.41 10/15/2015 9:39 AM WAREHOUSE STOCKER Plan of Treatment Health Maintenance Due Date Last Done Comments DTaP, Tdap and Td Vaccines ( 1 - Tdap) 1964 Pneumococcal Vaccine: 50+ Ye ars (1 of 1 - PCV) 1994 Zoster Vaccines (1 of 2) 1994 Dexa Scan (General) 2009 ASCVD LDL 10/17/2016 10/17/2015 RSV Immunization or 60+ Years (1 - 1-dose 75+ series) 2019 COVID-19 Vaccine ( - 2023-2 5 season) 2024 Meningococcal B Vaccine Aged Out No [...] Comments LIPID PANEL Routine 10/17/2015 12:00 AM WAREHOUSE STOCKER from Last 3 Months or Most Recently Relevant to Health Maintenance Results * LIPID PANEL (10/17/2015 12:00 AM WAREHOUSE STOCKER) TRIGLYCERIDES 207 0 - 150 mg/dl MEDINFORMATIX TO EPIC CONVERSION CHOLESTEROL 238 0 - 200 mg/dl MEDINFORMATIX TO EPIC CONVERSION HDL 42 40 - 59 mg/dl MEDINFORMATIX TO EPIC CONVERSION LDL CONVERSION 155 0 - 100 mg/dl MEDINFORMATIX TO EPIC CONVERSION 10/17/2015 10/17/2015 Narrative MEDINFORMATIX TO EPIC CONVERSION - 10/17/2015 4:37 PM WAREHOUSE STOCKER Reviewed by NATASHA Oct 17 2015 4:37:54:000PM, Reviewed by JOHNY Nov 11 2015 2:36:31:000PM us Generic Conversion Md [facility] Final R esult MEDINFORMATIX TO EPIC CONVERSION from Last 3 Months or Most Recently Relevant to Health Maintenance Advance Directives Documents on File Type Date Recorded Patient Healthcare Marketer Expl anation Advance Directives and Livin g Will 08/29/2013 POWER OF DYNAMOTOR REPAIRER Care Teams Cyber Operator Relationship Specialty Start Date End Date Jose Arguello MD [address] [facility] [address] [place] [address] PCP - General FAMILY PRACTICE 04/10/16 Zhou Elder MD [facility]. [address] [place] [address] [place] Separator Operator [employer] CARDIOVASCULAR DISEASE 04/10/16
--- OUTSIDE RECORDS SUMMARY | 2025-04-19 15:03 | XMS_ITS | Clinical Summary ---
Author Organization [facility] Jossue Evans Address [address] [place] [address] Care Team Providers Care Business Professor Name Role Phone Jose Arguello MD Primary Care Provider [phone] Allergies No known active allergies Medications amLODIPine (NORVASC) 10 mg tablet Take 10 mg by mouth daily. 01/27/20 22 Active atorvastatin (LIPITOR) 80 mg tablet TAKE 1 TABLET BY MOUTH NIGHTLY 03/04/20 22 Active clopidogreL (PLAVIX) 75 mg Tablet Take 75 mg by mouth daily. 03/04/20 22 Active docusate sodium (COLACE) 100 mg capsule Take 100 mg by mouth 2 times daily. 04/18/20 22 Active glimepiride (AMARYL) 1 mg tablet TAKE 1 TABLET BY MOUTH ONCE DAILY IN THE MORNING WITH BREAKFAST 03/02/20 22 Active losartan (COZAAR) 100 mg tablet Take 100 mg by mouth daily. 04/20/20 22 Active metoprolol succinate (TOPROL XL) 100 mg Extended Release 24 hour tablet Take 100 mg by mouth daily. 03/03/20 22 Active potassium chloride (KLOR-CON) 20 mEq Extended Release tablet Take 20 mEq by mouth daily. 02/21/20 22 Active aspirin (ECOTRIN EC) 81 mg Tablet, [...] Tablet, Sublingual Place 0.4 mg under tongue. 03/21/20 20 Active triamterene-hyd roCHLOROthiazid e (MAXZIDE 25) 37.5-25 mg tablet Take 1 Tablet by mouth daily. 04/25/20 22 Active dexAMETHasone (DECADRON) 4 mg tabletIndicatio ns:Malignant neoplasm of lower-inner quadrant of left breast in female, estrogen receptor positive (CMS/HCC) Take 1 Tablet (4 mg) by mouth 2 times daily. take 2 tablets with breakfast the day before treatment, the day of treatment, and the day after treatment. 12 Tablet 3 06/09/20 22 Active lidocaine-prilo elizabeth (EMLA) 2.5-2.5 % CreamIndication s:Malignant neoplasm of lower-inner quadrant of left breast in female, estrogen receptor positive (CMS/HCC) Apply to affected area see administration instructions. 30 Gram 3 06/09/20 22 Active omega-3 fatty acids-fish oil 300-1,000 mg Capsule Take by mouth daily. Active doxycycline hyclate (VIBRAMYCIN) 100 mg capsule Take 100 mg by mouth 2 times daily. 09/09/20 22 Active lidocaine (lidocaine viscous 2%) 2 % Solution 5 mL by Mouth/Throat route every 6 hours as needed for Pain. 100 mL 3 09/29/20 22 Active silver sulfADIAZINE (SILVADENE) 1 % Cream Apply to affected area daily. 400 Gram 10/28/19 23 Active anastrozole (ARIMIDEX) 1 mg tablet Take 1 Tablet (1 mg) by mouth daily. 90 Tablet 3 07/05/20 24 Active diclofenac sodium (VOLTAREN) 75 mg Tablet, Delayed Release (E.C.) Take 75 mg by mouth 2 times daily. 09/04/20 24 Active mupirocin (BACTROBAN) 2 % Ointment by See Admin Instructions route see administration instructions. 10/20/19 25 Active palbociclib (Ibrance) 125 mg tablet Take 1 tablet (125 mg) by mouth daily for 21 days on, then 7 days off every 28 day cycle. 21 Tablet 4 01/03/20 25 Active ferrous sulfate 325 mg (65 mg iron) Tablet, Delayed Release (E.C.)Indicatio ns:Malignant neoplasm of lower-outer quadrant of left breast of female, estrogen receptor positive (CMS/HCC) Take 1 tablet by mouth twice daily 60 Tablet 2 02/02/20 25 Active ondansetron (ZOFRAN) 8 mg TabletIndicatio ns:Malignant neoplasm of lower-inner quadrant of left breast in female, estrogen receptor positive (CMS/HCC) Take 1 Tablet (8 mg) by mouth every 8 hours as needed for Nausea/Emesis. 90 Tablet 02/02/20 25 Active traMADol (ULTRAM) 50 mg tabletIndicatio ns:Malignant neoplasm of lower-outer quadrant of left breast of female, estrogen receptor positive (CMS/HCC) Take 1 Tablet (50 mg) by mouth every 8 hours as needed for Pain. 30 Tablet 03/13/20 25 Active HYDROcodone-elvi taminophen (NORCO) 7.5-325 mg TabletIndicatio ns:Malignant neoplasm of breast in female, estrogen receptor positive, unspecified laterality, unspecified site of breast (CMS/HCC) Take 1 Tablet by mouth every 6 hours as needed for Pain, Moderate. Max Daily Amount: 4 Tablets 60 Tablet 04/05/20 25 Active alpelisib (PIQRAY) 300 mg/day (150 mg x 2) tablet Take 300 mg by mouth daily. 56 Tablet 3 04/09/20 25 Active HYDROcodone-elvi taminophen (NORCO) 5-325 mg tablet Take 1 Tablet by mouth every 6 hours as needed. 04/18/20 22 025 Discontinu ed(Alterna te therapy prescribed ) HYDROcodone-elvi taminophen (NORCO) 7.5-325 mg TabletIndicatio ns:Malignant neoplasm of breast in female, estrogen receptor positive, unspecified laterality, unspecified site of breast (CMS/HCC) Take 1 Tablet by mouth every 6 hours as needed for Pain, Moderate. Max Daily Amount: 4 Tablets 60 Tablet 04/03/20 25 025 Discontinu ed(Reorder ) Active Problems Problem Noted Date Diagnosed Date Malignant neoplasm of lower- outer quadrant of left breast of female, estrogen receptor positive 04/22/2022 Encounters Date Type Department Care Team Description 04/19/2025 Telephone [facility] Oncology and Hematology - [place] [address] [place] [phone] Bhanu Mohan MD Symptom Reccomendations 04/18/2025 Telephone [facility] Oncology and Hematology - [place] [address] [place] [address] Bhanu Mohan MD Aphagia 04/17/2025 Specialty Pharmacy [facility] [address] [place] [address] [place] [address] Mary Ann Bae, PHARMACIST Specialty Pharmacy Clinical Assessment 04/17/2025 Specialty Pharmacy [facility] [address] [place] [phone] Mary Ann Bae, PHARMACIST Specialty Pharmacy Refill Coordination 04/10/2025 Specialty Pharmacy [facility] [address] [place] [phone] Mary Ann Bae, PHARMACIST Specialty Pharmacy Prior Auth Coordination 04/09/2025 4:30 PM CDT Telephone Check Up [facility] Oncology and Hematology - [place] [address] [place] [address] Bhanu Mohan MD Malignant neoplasm of lower-outer quadrant of left breast of female, estrogen receptor positive (CMS/HCC) 04/09/2025 Orders Only [facility] Oncology and Hematology - [place] [address] [place] [address] Bhanu Mohan MD 04/06/2025 Abstract [facility] Oncology [facility] Hematology - [place] [address] [place] [address] Bhanu Mohan MD 04/05/2025 Telephone [facility] Oncology and Hematology - [place] [address] [place] [address] Bhanu Mohan MD [facility] 04/05/2025 Refill [facility] Oncology and Hematology - [place] [address] [place] [address] Bhanu Mohan MD Malignant neoplasm of breast in female, estrogen receptor positive, unspecified laterality, unspecified site of breast (CMS/HCC) 04/04/2025 Telephone [facility] Oncology and Hematology - [place] [address] [place] [address] Bhanu Mohan MD Pain 04/03/2025 External Device Data ST[facility] ABSTRACTION Provider, Abstract 04/03/2025 Orders Only [facility] Radiation Therapy [address] [place] [phone] Bety Jurado MD 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, initial encounter (Primary Dx); Malignant neoplasm of breast in female, estrogen receptor positive, unspecified laterality, unspecified site of breast (CMS/HCC) 03/27/2025 Orders Only [facility] Oncology and Hematology - [place] [address] [place] [address] Bhanu Mohan MD Malignant neoplasm of lower-outer quadrant of left breast of female, estrogen receptor positive (CMS/HCC) (Primary Dx) 03/26/2025 Orders Only [facility] Oncology and Hematology - [place] [address] [place] [address] Bhanu Mohan MD Malignant neoplasm of lower-outer quadrant of left breast of female, estrogen receptor positive (CMS/HCC) (Primary Dx) 03/16/2025 Orders Only [facility] Oncology and Hematology - [place] [address] [place] [address] Bhanu Mohan MD 03/14/2025 Orders Only [facility] Oncology and Hematology - [place] [address] [place] [address] Bhanu Mohan MD 03/13/2025 2:00 PM CDT Office Visit [facility] Oncology and Hematology - [place] [address] [place] [address] Bhanu Mohan MD Malignant neoplasm of lower-outer quadrant of left breast of female, estrogen receptor positive (CMS/HCC) (Primary Dx) 03/13/2025 External Device Data STL ABSTRACTION Provider, Abstract 03/09/2025 Orders Only [facility] Oncology and Hematology - [place] [address] [place] [phone] Bhanu Mohan MD 03/08/2025 Orders Only [facility] Oncology and Hematology - [place] [address] [place] [phone] Bhanu Mhoan MD 03/06/2025 External Device Data STL ABSTRACTION Provider, Abstract 03/02/2025 Orders Only [facility] Oncology and Hematology - [place] [address] [place] [phone] Bhanu Mohan MD 03/01/2025 External Device Data STL ABSTRACTION Provider, Abstract 03/01/2025 Orders Only [facility] Oncology and Hematology - [place] [address] [place] [phone] Bhanu Mohan MD 02/28/2025 External Device Data STL ABSTRACTION Provider, Abstract 02/27/2025 External Device Data ST[facility] ABSTRACTION Provider, Abstract 02/13/2025 4:30 PM CDT Telephone Check Up [facility] Oncology and Hematology - [place] [address] [place] [phone] Bhanu Mohan MD Malignant neoplasm of lower-outer quadrant of left breast of female, estrogen receptor positive (CMS/HCC) (Primary Dx); Chronic anemia; Renal insufficiency 02/01/2025 Refill [facility] Oncology and Hematology - [place] [address] [place] [address] Taylor Davila MD Malignant neoplasm of lower-inner quadrant of left breast in female, estrogen receptor positive (CMS/HCC) 01/31/2025 Refill [facility] Oncology and Hematology - [place] [address] [place] [phone] Bhanu Mohan MD Malignant neoplasm of lower-outer quadrant of left breast of female, estrogen receptor positive (CMS/HCC) 01/31/2025 Orders Only [facility] Oncology and Hematology - [place] [address] [place] [address] Bhanu Mohan MD 01/29/2025 Orders Only [facility] Oncology and Hematology - [place] [address] [place] [address] Bhanu Mohan MD from Last 3 Months Family History Medical [...] Sign Reading Time Taken Comments Blood Pressure 115/57 03/13/2025 1:55 PM CDT Pulse 88 03/13/2025 1:55 PM CDT Temperature 36.3 C (97.4 F) 03/13/2025 1:55 PM CDT Respiratory Rate 15 03/13/2025 1:55 PM CDT Oxygen Saturation 98% 03/13/2025 1:55 PM CDT Inhaled Oxygen Concentration - - Weight 86.5 kg (190 lb 9.6 oz) 07/05/2024 1:06 P M CDT Height 165.1 cm (5' 5) 07/28/2022 9:48 AM CDT Body Mass Index 31.72 07/28/2022 9:48 AM CDT Plan of Treatment Upcoming Encounters Date Type Department Care Team (Late st Contact Info) Description 05/10/2025 2:00 PM CDT Office Visit [facility] Oncology and Hematology - [place] [address] [place] [address] Bhanu Mohan MD [address] [place] [address] Health Maintenance Due Date Last Done Comments DTAP/TDAP/TD VACCINES (1 - Tdap) 1964 PNEUMOCOCCAL VACCINE 50+ YEARS (1 of 2 - PCV) 07/10/19 63 ZOSTER VACCINE (1 of 2) 1994 RSV VACCINE (60+ or ) (1 - 1-dose 75+ series) 2019 OSTEOPOROSIS SCREENING 2020 2015 INFLUENZA VACCINE (#1) 2025 Procedures Procedure Name Priority Date/Time Associated Diagnosis Comments CBC WITH DIFFERENTIAL Routine 03/29/2025 3:53 PM CDT [facility]F Routine 03/21/2025 5:04 PM CDT Malignant neoplasm of lower-outer quadrant of left breast of female, estrogen receptor positive (CMS/HCC) [facility] DNA AND RNA Routine 03/13/2025 2:42 PM CDT Malignant neoplasm of lower-outer quadrant of left breast of female, estrogen receptor positive (CMS/HCC) [facility] NORMAL BLOOD Routine 2:42 PM CDT Malignant neoplasm of lower-outer quadrant of left breast of female, estrogen receptor positive (CMS/HCC) [facility] DNA AND RNA SOLID TUMOR Routine 03/13/2025 2:42 PM CDT Malignant neoplasm of lower-outer quadrant of left breast of female, estrogen receptor positive (CMS/HCC) CBC WITH DIFFERENTIAL Routine 03/13/2025 12:32 PM CDT COMPREHENSIVE METABOLIC PANEL Routine 03/07/2025 3:03 PM CDT CANCER ANTIGEN 15-3 Routine 03/07/2025 1 2:[address] CHEST ABDOMEN PELVIS W CONT Routine 03/01/2025 2:51 PM CDT URINE CULTURE Routine 03/01/2025 11:18 AM CDT NM BONE SCAN WHOLE BODY Routine 03/01/2025 10:55 AM CDT COMPREHENSIVE METABOLIC PANEL Routine 01/29/2025 3:27 PM CDT CANCER ANTIGEN 15-3 Routine 01/29/2025 9 :17 AM CDT from Last 3 Months Results * CBC WITH DIFFERENTIAL (03/29/2025 3:53 PM CDT) Only the most recent of2 resultswithin the time period is included. Blood us Bhanu Mohan MD HEMATOLOGY ORDERABLES Final Res ult * [facility]F (03/21/2025 5:04 PM CDT) Reason for Study To identify mutation s relevant to patient's cancer. 03/21/2025 5:04 PM CDT [facility] Genetic Diseases Assessed Cancer 03/21/2025 5:04 PM CDT [facility] Description of Ranges of DNA Sequences Examined 105 gene liquid biopsy 5:04 PM CDT [facility] Overall Interpretation positive 03/21/2025 5:04 PM CDT [facility] [email or web address] [id number] 03/21/2025 5:04 PM CDT [facility] Comment:[facility] link Therapy Count 6 03/21/2025 5:04 PM CDT [facility]: Potential Therapy 1 Gene: 8975^PIK3CA^HGNC Variant: [id number] Match Type: snvIndel Match Type Description: PIK3CA p.Z6680G Agent: Alpelisib + Fulvestrant Drug Class: Combination (PI3K Inhibitor + Estrogen Receptor Antagonist) Tissue: Breast Cancer Association: Response Evidence Status: Consensus Evidence ID: NCCN KDB Variant: [id number] - GOF NCCN Associated Evidence: Consensus, Breast Cancer MSK Associated Evidence: MSK OncoKB, Level 1 Label: FDA On Label FDA Approved?: Yes On label?: Yes 03/21/2025 5:04 PM CDT [facility]: Potential Therapy 2 Gene: 8975^PIK3CA^HGNC Variant: p.[id number] Match Type: snvIndel Match Type Description: PIK3CA p.K7612G Agent: Capivasertib + Fulvestrant Drug Class: Combination (Shin-AKT Inhibitor + Estrogen Receptor Antagonist) Tissue: Breast Cancer Association: Response Evidence Status: Consensus Evidence ID: ANGELA KDB Variant: [id number] - GOF NCCN Associated Evidence: Consensus, Breast Cancer MSK Associated Evidence: MSK OncoKB, Level 1 Label: FDA On Label FDA Approved?: Yes On label?: Yes 03/21/2025 5:04 PM CDT [facility]: Potential Therapy 3 Gene: 3467^ESR1^HGNC Variant: p.Y537S Match Type: snvIndel Match Type Description: ESR1 p.Y537S Agent: Elacestrant Drug Class: Estrogen Receptor Antagonist Tissue: Breast Cancer Association: Response Evidence Status: Consensus Evidence ID: ANGELA MEYERB Variant: [id number] NCCN Associated Evidence: Consensus, Breast Cancer MSK Associated Evidence: MSK OncoKB, Level 1 Label: FDA On Label FDA Approved?: Yes On label?: Yes 03/21/2025 5:04 PM CDT [facility]: Potential Therapy 4 Gene: 8975^PIK3CA^HGNC Variant: p.[id number] Match Type: snvIndel Match Type Description: PIK3CA p.A6842F Agent: Inavolisib + Fulvestrant + Palbociclib Drug Class: Combination (PI3K Inhibitor + Estrogen Receptor Antagonist + CDK4/6 Inhibitor) Tissue: Breast Cancer Association: Response Evidence Status: Consensus Evidence ID: PRUDENCEN KDB Variant: [id number]-tudnknia NCCN Associated Evidence: Consensus, Breast Cancer MSK Associated Evidence: MSK OncoKB, Level 1 Label: FDA On Label FDA Approved?: Yes On label?: Yes 03/21/2025 5:04 PM CDT [facility]: Potential Therapy 5 Gene: 3467^ESR1^HGNC Variant: p.Y537S Match Type: snvIndel Match Type Description: ESR1 p.Y537S Agent: Class Effect Drug Class: Endocrine Therapy Tissue: Breast Cancer Association: Non-response Evidence Status: Clinical research Evidence ID: [id number] Evidence URL: https://www.ncbi.nlm.n ih.gov/pubmed/64474033 Evidence Title: ESR1 mutations are frequent in newly diagnosed metastatic and loco-regional recurrence of endocrine-treated breast cancer and carry worse prognosis - PubMed KDB Variant: [id number] - GOF Label: FDA On Label FDA Approved?: Yes On label?: Yes 03/21/2025 5:04 PM CDT [facility]: Potential Therapy 6 Gene: 8975^PIK3CA^HGNC Variant: p.[id number] Match Type: snvIndel Match Type Description: PIK3CA p.U9397G Agent: Alpelisib Drug Class: PI3K Inhibitor Tissue: Solid Tumors Association: Response Evidence Status: Clinical research Evidence ID: [id number] Evidence URL: https://www.ncbi.nlm.n ih.gov/pubmed/55611104 Evidence Title: Phosphatidylinositol 3-Kinase -Selective Inhibition With Alpelisib (SBH584) in VFE1ZU-Chsqtyg Solid Tumors: Results From the Ykpyf-yv-Vnvxf Study - PubMed KDB Variant: Oyhy-rr-fpsmizaq Label: FDA Off Label FDA Approved?: Yes On label?: No 03/21/2025 5:04 PM CDT [facility] Trial Count 3 03/21/2025 5:04 PM CDT [facility]: Clinical Trial Match 1 Clinical Trial NCT ID: [id number] Clinical Trial Title: Evexomostat Plus PI3K or AKT Inhibitor and Fulvestrant in Patients With a PI3K Alteration and HR+/Her2- Breast Cancer Clinical Trial URL: https://clinicaltrials .gov/ct2/show/FVC04867 619 Clinical Phase: Phase 1/Phase 2 Clinical Trial Matches: PIK3CA p.C1235E mutation Clinical Trial Distance and Location: [place], [place] 03/21/2025 5:04 PM CDT [facility]: Clinical Trial Match 2 Clinical Trial NCT ID: [id number] Clinical Trial Title: Kiexq-ge-Itkkc Study of Mutant-selective PI3K Inhibitor, RLY-2608, As a Single Agent in Advanced Solid Tumor Patients and in Combination with Fulvestrant in Patients with Advanced Breast Cancer Clinical Trial URL: https://clinicaltrials .gov/ct2/show/LUJ88179 432 Clinical Phase: Phase 1 Clinical Trial Matches: PIK3CA p.L8410D mutation Clinical Trial Distance and Location: [address] [place] [address] 03/21/2025 5:04 PM CDT [facility]: Clinical Trial Match 3 Clinical Trial NCT ID: [id number] Clinical Trial Title: Evaluation of Lasofoxifene Combined With Abemaciclib Compared With Fulvestrant Combined With Abemaciclib in Locally Advanced or Metastatic ER+/HER2- Breast Cancer With an ESR1 Mutation Clinical Trial URL: https://clinicaltrials .gov/ct2/show/BRU08486 626 Clinical Phase: Phase 3 Clinical Trial Matches: ESR1 p.Y537S mutation Clinical Trial Distance and Location: [address] [place], [place] 03/21/2025 5:04 PM CDT [facility] Tumor Mutational [place] 13.0 m/MB 03/21/2025 5:04 PM CDT [facility] Microsatellite Instability Note MSI-High not detected 5:04 PM CDT [facility] Blood specimen (specimen) 03/15/2025 8:36 PM CDT Narrative This result has genomic variants that were not included in this document. Bhanu Mohan MD MOLECULAR ORDERABLES Final Resu lt Performing Organization Address City/[facility]/ZIP Co de Phone Number [facility] [address] [facility], [address] [place] [id number], [facility] [address] [facility], [address] [place] [phone] * [facility] NORMAL BLOOD (03/13/2025 2:42 PM CDT) Pathologist [facility] 03/13/2025 11:00 PM CDT [facility] Comment:See NGS Report for R esults. Blood specimen (specimen) 03/13/2025 2:42 PM CDT 03/13/2025 2:43 PM CDT us Bhanu Mohan MD MOLECULAR ORDERABLES Final Resu lt Performing Organization Address City/[facility]/ZIP Co de Phone Number [facility] [address] [facility], [address] [place] [phone], [facility] [address] [facility], [address] [place] [address] * [facility] DNA AND RNA SOLID TUMOR (03/13/2025 2:42 PM CDT) Reason for Study To identify somatic and germline mutations relevant to patient's cancer. 04/06/2025 10:15 AM CDT [facility] Genetic Diseases Assessed Cancer 04/06/2025 10:15 AM CDT [facility] Description of Ranges of DNA Sequences Examined 648 gene panel 04/06/2025 10:15 AM CDT [facility] Overall Interpretation failure 04/06/2025 10:15 AM CDT [facility] [email or web address] [email or web address] [id number] 04/06/2025 10:15 AM CDT [facility] Comment:[facility] link Tissue specimen (specimen) 03/13/2025 2:42 PM CDT 03/17/2025 12:33 PM CDT us Bhanu Mohan MD MOLECULAR ORDERABLES Edited Res ult - Final [facility] [address] [facility], [address] [place] [address], [facility] [address] [facility], [address] [place] [address] * COMPREHENSIVE METABOLIC PANEL (03/07/2025 3:03 PM CDT) Only the most recent of2 resultswithin the time period is included. Blood us Bhanu Mohan MD CHEMISTRY ORDERABLES Final Resu lt * CANCER ANTIGEN 15-3 (03/07/2025 12:37 PM CDT) Only the most recent of2 resultswithin the time period is included. Blood us Bhanu Mohan MD CHEMISTRY ORDERABLES Final Resu lt * CT CHEST ABDOMEN PELVIS W CONT (03/01/2025 2:51 PM CDT) Anatomical Region Laterality Modality Chest Computed Tomogra phy us Bhanu Mohan MD CT ORDERABLES Final Result * URINE CULTURE (03/01/2025 11:18 AM CDT) Urine us Bhanu Mohan MD MICROBIOLOGY - GENERAL ORDERABL ES Final Result * NM BONE SCAN WHOLE BODY (03/01/2025 10:55 AM CDT) Anatomical Region Laterality Modality Nuclear Medicine us Bhanu Mohan MD NM ORDERABLES Final Result from Last 3 Months Insurance MEDICARE PART A AND B RX [employer] Medicare Part D RX [facility] [employer] Commercial Care Teams Business Professor Relationship Specialty Start Date End Date Jose Arguello MD PCP - General Family Practice 04/22/22
--- OUTSIDE RECORDS SUMMARY | 2025-04-19 15:03 | XMS_ITS | Encounter Summary ---
Author Organization [facility] [employer] [facility] Address [address] [place] [address] Care Team Providers Care Value Stream Manager Name Role Phone Jose Arguello MD Primary Care Provider [phone] Reason for Visit * Reason Onset Date Comments Symptom Reccomendations 04/19/2025 Encounter Details Date Type Department Care Team (Late st Contact Info) Description 04/19/2025 Telephone [facility] Oncology and Hematology - [place] [address] [facility] [address] [place] [address] [place] [address] [place] [address] [address] [place] [address] Symptom Reccomendations Social History Tobacco Use Types Packs/Day Years [...] Miscellaneous Notes * Telephone Encounter - Leandro Walton CMA - 04/19/2025 8:46 AM CDT I called the patients daughter Linsey and since she is not on the patients PHI form, I had to relayDr. Avila recommendations to the patients other daughter Savannah who is on the patients PHI form. Ilet the patient know that Dr. Mohan recommended that the patient needs to get evaluated by her primary care physician quickly and if they are unable to get her in today to go straight to the ER the patient may be septic and she's having those symptoms due to her wound. Patients daughter understoodDr. Avila recommendations and will be taking the patient to the ER. * Telephone Encounter - Leandro Walton CMA - 04/19/2025 8:46 AM CDT ----- Message from Dr. Bhanu Mohan sent at 04/18/2025 6:18 PM CDT ----- Regarding: RE: Unable to eat/drink Patient is to be evaluated by the primary care physician for the buttock wound and may eventually need a wound care referral. It may be that she is septic and having those symptoms due to the infection. I may even suggest that she needs to go to the ER if primary care doctor cannot see her quickly. ----- Message ----- From: Leandro Walton CMA Sent: 04/18/2025 3:03 PM CDT To: Bhanu Mohan MD Subject: Unable to eat/drink I spoke with the patient's daughter, Linsey, who reported that the patient has not been eating or drinking normally and has only been taking small nibbles over the past 3 to 4 days. She also noted that the patient has been sleeping more than usual. The patients daughter also mentioned that when thepatient attempts to speak, her speech is mumbled, as she struggles to find the right words. Regarding bowel movements, the patient has not had one since April 09. After using a suppository one time only, she had a bowel movement on April 16 but has since returned to having any. Patients daughter also stated that the patient has an opened wound on her buttocks and is using an antiseptic spray. Please advise on what you suggest or would like to do,thank you! documented in this encounter Plan of Treatment Upcoming Encounters Date Type Department Care Team (Late st Contact Info) Description 05/10/2025 2:00 PM CDT Office Visit [facility] Oncology and Hematology - [place] [address] [facility] [address] [place] [address] Bhanu Mohan MD [address] [facility] [address] [place] [address] documented as of this encounter Visit Diagnoses Not on filedocumented in this encounter Care Teams Value Stream Manager Relationship Specialty Start Date End Date Jose Arguello MD PCP - General Family Practice 04/22/22 documented as of this encounter
--- OUTSIDE RECORDS SUMMARY | 2025-04-19 15:03 | XMS_ITS | Clinical Summary ---
Author Organization [facility] at the [facility] Office Center Address [address] [place] [address] Care Team Providers Care Hardware Developer Name Role Phone Jose Arguello MD Primary Care Prov ider Jose Guadalupe Auguste MD Unavailable [phone] Allergies Active Allergy Reactions Criticality Noted Date Comments Aspirin Nausea only Low 02/04/2020 nausea Atorvastatin Muscle pain Medium 04/18/2016 Colesevelam Other (See comments) Low 04/18/2016 Ezetimibe Unknown 05/11/2016 ineffective Fenofibrate Muscle pain Medium 04/18/2016 Fluvastatin Muscle pain Medium 04/18/2016 Lisinopril Swelling Medium 04/18/2016 Pitavastatin Rash Medium 04/18/2016 Pravastatin Muscle pain Medium 04/18/2016 Rosuvastatin Muscle pain Medium 04/18/2016 Simvastatin Muscle pain Medium 04/18/2016 Uopvluw-Qzr-Oij Reductase Inhibitors Muscle pain Medium 04/18/2016 Medications aspirin 81 mg chewable tablet 1 tablet (81 mg total) daily Active albuterol HFA (PROVENTIL HFA,VENTOLIN HFA,PROAIR HFA) 90 mcg/actuation inhaler Inhale 1 puff every 6 (six) hours as needed Active cetirizine (ZyrTEC) 10 mg tablet Take 1 tablet (10 mg total) by mouth daily as needed for allergies Active nitroglycerin (NITROSTAT) 0.[address] 1 tablet (0.4 mg total) under the tongue as needed for chest pain 30 tablet 07/21/20 22 Active ondansetron (ZOFRAN) 8 mg tablet Take by mouth every 8 (eight) hours as needed 06/12/20 22 Active omega 0-fcm-whf-fish oil 1,000 mg (120 mg-180 mg) capsule Take 1 capsule (1,000 mg total) by mouth 2 (two) times a day 180 capsule 3 08/18/20 22 Active anastrozole (ARIMIDEX) 1 mg tablet Take 1 tablet (1 mg total) by mouth daily 01/31/20 23 Active cyanocobalamin (Vitamin B-12) 1,000 mcg tabletIndicati ons:Prevention of Vitamin B12 Deficiency Take 1 tablet (1,000 mcg total) by mouth daily Active atorvastatin (LIPITOR) 80 mg tablet Take 1 tablet by mouth nightly 90 tablet 2 08/09/20 24 Active HYDROcodone-ac etaminophen (NORCO) 5-325 mg per tabletIndicati ons:Pain Take 1 tablet by mouth every 6 (six) hours as needed for pain 15 tablet 09/17/20 24 Active ferrous sulfate 325 mg (65 mg of elemental iron) tablet Take 1 tablet (325 mg total) by mouth 2 (two) times a day 09/25/20 24 Active mupirocin (BACTROBAN) 2 % ointment APPLY OINTMENT TOPICALLY TO AFFECTED AREA TWICE DAILY 10/20/19 25 Active triamterene-hy droCHLOROthiaz jag 37.5-25 mg per tablet/capsule Take 1 tablet by mouth once daily 90 tablet 2 01/09/20 25 Active amLODIPine (NORVASC) 10 mg tablet Take 1 tablet by mouth once daily 90 tablet 2 01/09/20 25 Active traMADoL (ULTRAM) 50 mg tablet Take 1 tablet (50 mg total) by mouth every 8 (eight) hours as needed for pain Active metoprolol XL (TOPROL-XL) 100 mg 24 hr tablet Take 0.5 tablets (50 mg total) by mouth daily 03/22/[address] (PROTONIX) 40 mg EC tabletIndicati ons:GI Bleed Take 1 tablet (40 mg total) by mouth 2 (two) times a day 112 tablet 03/22/20 25 025 Active sucralfate (CARAFATE) 1 gram tablet Take 1 tablet (1 g total) by mouth 2 (two) times a day for 56 doses 56 tablet 03/22/20 25 Active alpelisib (PIQRAY) tablet Take 2 tablets (300 mg total) by mouth daily 04/09/20 25 Active metoprolol XL (TOPROL-XL) 100 mg 24 hr tablet Take 1 tablet (100 mg total) by mouth daily 6 03/17/20 19 025 Discontinued glimepiride (AMARYL) 1 mg tablet Take 1 tablet (1 mg total) by mouth daily 10/19/19 025 Discontinued(St op Taking at Discharge) doxycycline (doxycycline hyclate) 100 mg capsule Take 1 tablet/capsul e (100 mg total) by mouth 2 (two) times a day 09/09/20 025 Discontinued(St op Taking at Discharge) dexAMETHasone (DECADRON) 4 mg tablet Take 1 tablet (4 mg total) by mouth 2 (two) times a day 06/09/20 22 025 Discontinued(St op Taking at Discharge) potassium chloride ER 20 mEq CR tablet Take 1 tablet by mouth once daily 90 tablet 3 07/28/20 24 025 Discontinued(St op Taking at Discharge) diclofenac DR (VOLTAREN) 75 mg EC tablet Take 1 tablet (75 mg total) by mouth 2 (two) times a day 09/04/20 24 025 Discontinued(St op Taking at Discharge) ketoconazole (NIZORAL) 2 % cream 09/27/20 24 025 Discontinued(St op Taking at Discharge) predniSONE (DELTASONE) 10 mg tablet TAKE 4 TABLETS BY MOUTH ONCE DAILY FOR 5 DAYS THEN 3 ONCE DAILY FOR 5 DAYS THEN 2 ONCE DAILY FOR 5 DAYS THEN 1 ONCE DAILY FOR 5 DAYS 09/25/20 24 025 Discontinued(St op Taking at Discharge) palbociclib (IBRANCE) 125 mg tablet Take 1 tablet (125 mg total) by mouth daily 11/28/19 25 025 Discontinued(Ot her) clopidogreL (PLAVIX) 75 mg tablet Take 1 tablet by mouth once daily 90 tablet 01/04/20 25 025 Discontinued(St op Taking at Discharge) losartan (COZAAR) 100 mg tablet Take 1 tablet by mouth once daily 90 tablet 01/04/20 25 025 Discontinued(Ot her) Active Problems Problem Noted Date Diagnosed Date Iron deficiency anemia due to chronic blood loss 03/20/2025 Acute kidney injury superimposed on chronic kidn ey disease 03/19/2025 Metabolic acidosis 03/19/2025 Hyperkalemia 03/19/2025 Anemia of renal disease 03/19/2025 Other cirrhosis of liver 03/19/2025 Hypoglycemia 03/18/2025 Melena 03/18/2025 Benign essential hypertension 09/29/2024 CAD (coronary artery [...] Atorvastatin. Assessment & Plan (09/25/2020 10:41 AM GLASS BLOCK INSTALLER): Stent to the saphenous vein graft to the RCA 07/01/[address] Rincon. Anti- platelet regimen. Aggressive risk factor modification. Assessment & Plan (03/20/2020 5:41 PM CDT): Stent to the saphenous vein graft to the RCA 07/01/[address] Rincon. Assessment & Plan (11/15/2019 1:37 PM GLASS BLOCK INSTALLER): Stent to the saphenous vein graft to [...] 07/01/2018. Assessment & Plan (09/25/2020 10:38 AM GLASS BLOCK INSTALLER): Was related to myocardial ischemia and to the coronary artery disease. No dyspnea since the stenting of the saphenous vein graft to the RCA 07/01/2018. Assessment & Plan (03/20/2020 5:36 PM CDT): No exertional dyspnea since the stenting of the saphenous vein graft to the RCA 07/01/2018. Assessment & Plan (11/15/2019 1:39 PM GLASS BLOCK INSTALLER): No exertional dyspnea since the stenting of [...] weeks. Assessment & Plan (09/26/2020 9:58 AM GLASS BLOCK INSTALLER): Blood pressure 158/60. Salt restriction. Continue the current regimen. Add losartan 100 mg p.o. daily for blood pressure control and for renal protective effect from diabetes. Assessment & Plan (03/21/2020 9:43 AM CDT): Blood pressure 144/80. Salt restriction. Continue the current regimen. Assessment & Plan (11/16/2019 11:28 AM GLASS BLOCK INSTALLER): Blood pressure 140/70. Salt restriction. Continue the [...] Plavix. Assessment & Plan (09/25/2020 10:38 AM GLASS BLOCK INSTALLER): Coronary artery bypass surgery 2006. Aggressive risk factor modification. Assessment & Plan (03/20/2020 5:37 PM CDT): Coronary artery bypass surgery 2006. Aggressive risk factor modification. Assessment & Plan (11/15/2019 1:39 PM GLASS BLOCK INSTALLER): History of coronary artery bypass surgery 2006. [...] 07/01/2018. Assessment & Plan (09/25/2020 10:40 AM GLASS BLOCK INSTALLER): No chest pains since stenting to the saphenous vein graft to the RCA 07/01/2018. Assessment & Plan (03/20/2020 5:42 PM CDT): No chest pain since stent to the saphenous vein graft to the RCA 07/01/2018. Ranexa was added which he found too expensive. Will consider Imdur if necessary. Assessment & Plan (11/16/2019 11:28 AM GLASS BLOCK INSTALLER): Stent to the saphenous vein graft to [...] Stable. Assessment & Plan (09/25/2020 10:41 AM GLASS BLOCK INSTALLER): Chronic. Stable. Assessment & Plan (03/20/2020 5:40 PM CDT): Chronic. Stable. Assessment & Plan (11/15/2019 1:37 PM GLASS BLOCK INSTALLER): Chronic. Stable. Assessment & Plan (05/11/2019 12:19 [...] 75 Assessment & Plan (09/26/2020 9:58 AM GLASS BLOCK INSTALLER): Low-fat low-cholesterol diet. Atorvastatin. On 07/24/2020 triglycerides [...] 93. Assessment & Plan (11/16/2019 11:29 AM GLASS BLOCK INSTALLER): Low-fat low-cholesterol diet. Atorvastatin 40 mg bedtime [...] Encounters Date Type Department Care Team Description 04/17/2025 11:15 AM CDT Office Visit [facility] Medical Group Cardiology [address] [address] [place] Matt Pickard MD Coronary artery disease involving [place] coronary artery of [place] heart without angina pectoris (Primary Dx) 03/23/2025 Telephone [facility] Home Care Services [address] [place] [phone] Mynor Sharpe RN 03/23/2025 Telephone [facility] Home Care Services [address] [place] [address] Mynor Sharpe RN 03/20/2025 1:26 PM CDT Anesthesia Event [facility] [address] [place] [address] Clarence Bonilla MD 03/20/2025 12:30 PM CDT - 03/20/2025 1:00 PM CDT Surgery [facility] [address] [place] [address] [place] ra, MD ESOPHAGOGASTRODUODENOSCOPY 03/18/2025 7:09 PM CDT - 03/22/2025 3:56 PM CDT Hospital Encounter [facility] 1 Center [address] [place] [address] Brett Ho DO Paruchuri, Tharun, MD Chapagain, Akhil, MD Bondalapati, Naveen Kumar Reddy, MD Hypoglycemia (Primary Dx); JENIFER (acute kidney injury); Iron deficiency anemia due to chronic blood loss; Melena; Acute kidney injury superimposed on chronic kidney disease; Metabolic acidosis; Hyperkalemia; Anemia of renal disease; Other cirrhosis of liver (HCC) [K74.69]; Physical deconditioning Discharge Disposition: Discharge to home, home health skilled care 01/24/2025 Orders Only [facility] Orthopaedic Surgery [address] [place] [address] [place] [address] Dany Guerin MD 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, subsequent encounter (Primary Dx); 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) from Last 3 Months Surgical History Surgery Date Site/Laterality Comments HEMORRHOID SURGERY 06/09/2018 CATARACT EXTRACTION 12/16/2018 CATARACT EXTRACTION 11/11/2018 - 12/08/2018 BREAST LUMPECTOMY 10/11/2021 - 10/10/2022 SECTION Medical History Medical History Date Comments Hypertensive heart disease without heart failure History of coronary artery bypass surgery Precordial chest pain Right bundle branch block Hyperlipidemia Exertional dyspnea S/P coronary artery stent placement Diabetes mellitus (HCC) Asthma Breast cancer (HCC) Family History Relation Name Status Comments Father Mother Social History Tobacco Use Types Packs/Day Years Used Date Smoking Tobacco: Former Tobacco Cessation:Counseling Given: No Alcohol Use Standard Drinks/Week Comments Not Currently 0 (1 standard drink = 0.6 oz pur e alcohol) [facility] Utilities Answer Date Recorded In the past 12 months has e [employer], gas, oil, or water [employer] threatened to shut off services in your home? No 03/19/2025 Social Connection and Isolat ion Panel [NHANES] Answer Date Recorded In a typical week, how many times do you talk on the phone with family, friends, or neighbors? More than three times a week 03/19/2025 How often do you get togethe r with friends or relatives? More than three times a week 03/19/2025 How often do you attend chur ch or worship services? Never 03/19/2025 Do you belong to any clubs o r organizations such as protestant groups, unions, fraternal or athletic groups, or school groups? No 03/19/2025 How often do you attend meet ings of the clubs or organizations you belong to? Never 03/19/2025 Are you , , di vorced, , never , or living with a partner? 03/19/2025 AUDIT-C Answer Date Recorded Q1: How often do you have a drink containing alc ohol? Never 09/29/2024 Average Number of Drinks Not on file 024 Frequency of Binge Drinking Not on file 09/11 Overall Financial Resource Strain (CARDIA) Answe r Date Recorded How hard is it for you to pa y for the very basics like food, housing, medical care, and heating? Not hard at all 03/19/2025 Hunger Vital Sign Answer Date Recorded Within the past 12 months, y ou worried that your food would run out before you got the money to buy more. Never true 03/19/20 25 Within the past 12 months, t he food you bought just didn't last and you didn't have money to get more. Never true 03/19/2025 PRAPARE - Transportation Answer Date Re corded In the past 12 months, has l ack of transportation kept you from medical appointments or from getting medications? No 06/2025 In the past 12 months, has l ack of transportation kept you from meetings, work, or from getting things needed for daily living? No 03/19/2025 Housing Stability Vital Sign Answer Scott e Recorded In the last 12 months, was t here a time when you were not able to pay the mortgage or rent on time? No 03/19/2025 In the past 12 months, how m any times have you moved where you were living? 0 03/19/2025 At any time in the past 12 m [facility], were you homeless or living in a fci (including now)? No 03/19/2025 Personal Safety Answer Date Recorded Have you ever been in or are you currently in a harmful physical or emotional relationship or is someone making you feel afraid or unsafe? Denies 03/18/2025 Comments No Sex and Gender Information Value Date Recorded Sex Assigned at Not on file Legal Sex Female 6:44 PM GLASS BLOCK INSTALLER Gender Identity Not on file Sexual Orientation Not on file Obstetrics History Last Filed Vital Signs Vital Sign Reading Time Taken Comments Blood Pressure 110/60 04/17/2025 11:40 AM CDT Pulse 108 04/17/2025 11:40 AM CDT Temperature 36.7 C (98.1 F) 03/22/2025 2:58 PM CDT Respiratory Rate 18 03/22/2025 2:58 PM CDT Oxygen Saturation 96% 04/17/2025 11:40 AM CDT Inhaled Oxygen Concentration - - Weight 72 kg (158 lb 11.7 oz) 03/19/2025 4:34 AM CDT Height 165.1 cm (5' 5) 03/19/2025 4:34 AM CDT Body Mass Index 26.41 03/19/2025 4:34 AM CDT Plan of Treatment Health Maintenance Due Date Last Done Comments Depression Screening 1944 Hepatitis B Screening 1962 Pneumococcal vaccine 65+ (1 of 2 - PCV) 1963 Zoster Vaccine (1 of 2) 1963 DTaP/Tdap/Td Vaccine (1 - Tdap) 03/20/1995 5 Well Visit 65+ 2009 Osteoporosis Screening-Bone Density Scan 2017 2015, 2015 Influenza Vaccine (#1) 2025 10/11/2017, 2012 Fall Risk Assessment 03/22/2026 03/22/2025 Procedures Procedure Name Priority Date/Time Associated Diagnosis Comments POCT GLUCOSE DEVICE Routine 03/22/2025 12:15 PM CDT HEMOGLOBIN AND HEMATOCRIT Timed 2024 11:41 AM CDT POCT GLUCOSE DEVICE Routine 03/22/2025 7:24 AM CDT EGFR Routine 03/22/2025 6:25 AM CDT DIFFERENTIAL AUTO Routine 03/22/2025 6:25 AM CDT COMPREHENSIVE METABOLIC PANEL Routine 6:25 AM CDT CBC WITH AUTO DIFFERENTIAL Routine 03/22 6:25 AM CDT HEMOGLOBIN AND HEMATOCRIT Timed 2024 11:38 PM CDT POCT GLUCOSE DEVICE Routine 03/21/2025 8:15 PM CDT HEMOGLOBIN AND HEMATOCRIT Timed 2024 6:32 PM CDT POCT GLUCOSE DEVICE Routine 03/21/2025 5:03 PM CDT POCT GLUCOSE DEVICE Routine 03/21/2025 12:23 PM CDT HEMOGLOBIN AND HEMATOCRIT Timed 2024 11:55 AM CDT POCT GLUCOSE DEVICE Routine 03/21/2025 7:37 AM CDT POCT GLUCOSE DEVICE Routine 03/21/2025 6:15 AM CDT EGFR Routine 03/21/2025 5:12 AM CDT DIFFERENTIAL AUTO Routine 03/21/2025 5:12 AM CDT COMPREHENSIVE METABOLIC PANEL Routine 5:12 AM CDT CBC WITH AUTO DIFFERENTIAL Routine 03/21 5:12 AM CDT HEMOGLOBIN AND HEMATOCRIT Timed 2024 11:49 PM CDT POCT GLUCOSE DEVICE Routine 03/20/2025 8:34 PM CDT HEMOGLOBIN AND HEMATOCRIT Timed 2024 5:50 PM CDT POCT GLUCOSE DEVICE Routine 03/20/2025 2:10 PM CDT EGD 03/20/2025 1:27 PM CDT ESOPHAGOGASTRODUODENOSCOPY 03/20 1:25 PM CDT Melena POCT GLUCOSE DEVICE Routine 03/20/2025 12:58 PM CDT POCT GLUCOSE DEVICE Routine 03/20/2025 12:10 PM CDT CBC WITHOUT DIFFERENTIAL STAT 025 11:50 AM CDT POCT GLUCOSE DEVICE Routine 03/20/2025 7:59 AM CDT EGFR Routine 03/20/2025 5:51 AM CDT DIFFERENTIAL AUTO Routine 03/20/2025 5:51 AM CDT [id number], TUMOR MARKER Routine 03/20/2025 5:51 AM CDT MAGNESIUM Routine 03/20/2025 5:51 AM CDT COMPREHENSIVE METABOLIC PANEL Routine 5:51 AM CDT CBC WITH AUTO DIFFERENTIAL Routine 03/20 5:51 AM CDT HEPATITIS PANEL, ACUTE Routine 5:51 AM CDT POCT GLUCOSE DEVICE Routine 03/20/2025 1:14 AM CDT HEMOGLOBIN AND HEMATOCRIT Timed 2024 11:44 PM CDT POCT GLUCOSE DEVICE Routine 03/19/2025 11:38 PM CDT POCT GLUCOSE DEVICE Routine 03/19/2025 8:48 PM CDT HEMOGLOBIN AND HEMATOCRIT Timed 2024 6:03 PM CDT POCT GLUCOSE DEVICE Routine 03/19/2025 5:13 PM CDT US RUQ IP Routine 03/19/2025 4:37 PM CDT ALBUMIN CREATININE RATIO, URINE Routine 03/19/2025 1:13 PM CDT POCT GLUCOSE DEVICE Routine 03/19/2025 12:19 PM CDT VITAMIN D 25 HYDROXY Routine 03/19/2025 11:51 AM CDT PTH Routine 03/19/2025 11:51 AM CDT HEMOGLOBIN A1C Routine 03/19/2025 11:51 AM CDT AMMONIA Add-On 03/19/2025 9:47 AM CDT POCT GLUCOSE DEVICE Routine 03/19/2025 8:15 AM CDT DIFFERENTIAL AUTO Routine 03/19/2025 6:33 AM CDT CBC WITH AUTO DIFFERENTIAL Routine 03/19 6:33 AM CDT POCT GLUCOSE DEVICE Routine 03/19/2025 5:35 AM CDT HEMOGLOBIN AND HEMATOCRIT Timed 2024 5:22 AM CDT POCT GLUCOSE DEVICE Routine 03/19/2025 4:46 AM CDT POCT GLUCOSE DEVICE Routine 03/19/2025 4:14 AM CDT CREATINE KINASE (CK), TOTAL Routine 06/2025 4:11 AM CDT EGFR Routine 03/19/2025 4:11 AM CDT THYROID FUNCTION CASCADE Routine 025 4:11 AM CDT IRON PROFILE W/ IBC Routine 03/19/2025 4:11 AM CDT VITAMIN B12 Routine 03/19/2025 4:11 AM CDT PHOSPHORUS Routine 03/19/2025 4:11 AM CDT LACTATE DEHYDROGENASE Routine 03/19/2025 4:11 AM CDT HAPTOGLOBIN Routine 03/19/2025 4:11 AM CDT FOLATE Routine 03/19/2025 4:11 AM CDT MAGNESIUM Routine 03/19/2025 4:11 AM CDT COMPREHENSIVE METABOLIC PANEL Routine 4:11 AM CDT POCT GLUCOSE DEVICE Routine 03/19/2025 3:28 AM CDT POCT GLUCOSE DEVICE Routine 03/19/2025 2:46 AM CDT POCT GLUCOSE DEVICE Routine 03/19/2025 1:59 AM CDT POCT GLUCOSE DEVICE Routine 03/19/2025 1:03 AM CDT URINALYSIS, MICROSCOPIC ONLY STAT 06/2025 12:54 AM CDT URINE CULTURE STAT 03/19/2025 12:54 AM CDT URINALYSIS AND REFLEX TO MICROSCOPIC AND CULTURE STAT 03/19/2025 12:54 AM CDT HEMOGLOBIN AND HEMATOCRIT Timed 2024 12:44 AM CDT POCT GLUCOSE DEVICE Routine 03/18/2025 11:39 PM CDT POCT GLUCOSE DEVICE Routine 03/18/2025 10:49 PM CDT TRANSFUSE RED BLOOD CELLS Timed 2024 10:00 PM CDT ECG 12-LEAD Routine 03/18/2025 9:48 PM CDT TROPONIN T HIGH-SENSITIVITY 2-HOUR Timed 03/18/2025 9:[address] CHEST ABDOMEN PELVIS WO CONTRAST ED Urgent/IP Urgent 03/18/2025 8:50 PM CDT PREPARE RBC Timed 03/18/2025 8:46 PM CDT B ABO / RH CONFIRMATION TESTING STAT 03/18/2025 8:19 PM CDT POCT GLUCOSE DEVICE Routine 03/18/2025 8:12 PM CDT CROSSMATCH Timed 03/18/2025 8:04 PM CDT ANTIBODY SCREEN Timed 03/18/2025 8:04 PM CDT ABO/RH Timed 03/18/2025 8:04 PM CDT TYPE AND SCREEN Timed 03/18/2025 8:04 PM CDT XR CHEST 1 VIEW ED 03/18/2025 8:00 PM CDT PROTIME-INR Routine 03/18/2025 7:33 PM CDT D-DIMER, QUANTITATIVE STAT 03/18/2025 7:33 PM CDT EGFR STAT 03/18/2025 7:28 PM CDT DIFFERENTIAL AUTO STAT 03/18/2025 7:28 PM CDT PRO B-TYPE NATRIURETIC PEPTIDE STAT 0 03/18/2025 7:28 PM CDT TROPONIN T HIGH-SENSITIVITY SERIES (BASELINE, 2HR, 4HR, 6HR) STAT 03/18/2025 7:28 PM CDT COMPREHENSIVE METABOLIC PANEL STAT 7:28 PM CDT CBC WITH AUTO DIFFERENTIAL STAT 03/18 7:28 PM CDT POCT GLUCOSE DEVICE Routine 03/18/2025 7:19 PM CDT POCT GLUCOSE DEVICE Routine 03/18/2025 7:18 PM CDT DEXA AXIAL SKELETON BONE DENSITY 1 OR MORE SITES Routine 2015 1:50 PM CDT from Last 3 Months or Most Recently Relevant to Health Maintenance Results * POCT glucose (03/22/2025 12:15 PM CDT) Pathologist [facility] Glucose, POC 173 70 - 199 mg/dL Blood 03/22/2025 12:1 5 PM CDT 03/22/2025 12:15 PM CDT Hardik Andrade MD LAB POCT ORDER SARA - DEVICE Final Result [facility] [address] [facility] Department [place] [address] * (ABNORMAL) Hemoglobin and hematocrit (03/22/2025 11:41 AM CDT) Pathologist [facility] Hgb 9.2(L) 11.9 - 15.5 g/dL Hct 28.1(L) 35.6 - 45.5 % [facility] POPE Blood 03/22/2025 11:4 1 AM CDT 03/22/2025 11:51 AM CDT Kamila Askew MD LAB BLOOD ORDERABLES Final R esult [facility] [address] [place] [place] [address] * POCT glucose (03/22/2025 7:24 AM CDT) Glucose, POC 149 70 - 199 mg/dL Blood 03/22/2025 7:24 AM CDT 03/22/2025 7:24 AM CDT Hardik Andrade MD LAB POCT ORDER SARA - DEVICE Final Result Performing Organization Address [facility] Co de Phone Number [address] [address] * (ABNORMAL) eGFR (03/22/2025 6:25 AM CDT) eGFR 23(L) >=60 mL/min/1. 73 m2 Comment: Interpretive Data Reference Interval Normal >/= 90 mL/min/1.73m2 Mildly decreased* 60 - 89 mL/min/1.73m2 Mildly to moderately decreased 45 - 59 mL/min/1.73m2 Moderately to severely decreased 30 - 44 mL/min/1.73m2 Severely decreased 15 - 29 mL/min/1.73m2 Kidney Failure < 15 mL/min/1.73m2 *Relative to young adult level Estimated glomerular filtration rate is determined by the 2020 CKD-EPI equation recommended by the National Kidney Foundation (A Unifying Approach to GFR Estimation: Recommendations of the NKF-ASK Task Force on Reassessing the Inclusion of Race in Diagnosing Kidney Disease, JASN 2020). The CKD-EPI equation should not be used for patients with unstable renal function and has not been validated in children and those over 70. Current interpretive data was last reviewed 2021. Blood 03/22/2025 6:25 AM CDT 03/22/2025 6:33 AM CDT us Kamila Askew MD LAB BLOOD ORDERABLES Final R esult [facility] [address] [facility] Department [place] [address] * (ABNORMAL) Differential, auto (03/22/2025 6:25 AM CDT) Pathologist [facility] Neutrophil abs 2.22 1.50 - 6.50 K/cumm Imm gran abs 0.02 0.00 - 0.10 K/cumm [facility] Lymphocyte abs 1.36 0.80 - 3.30 K/cumm [facility] Monocyte abs 0.83(H) 0.20 - 0.80 K/cumm [facility] Eosinophil abs 0.09 0.00 - 0.50 K/cumm [facility] Basophil abs 0.02 0.00 - 0.10 K/cumm [facility] Neutrophil pct 48.9 % [facility] Comment: Interpretive Data Percent cell count reference ranges are not reported, since discordance with absolute values may lead to misinterpretation of CBC data. Current Interpretive Data was last revised on 2018. Imm gran pct 0.4 % [facility] Comment: Interpretive Data Percent cell count reference ranges are not reported, since discordance with absolute values may lead to misinterpretation of CBC data. Current Interpretive Data was last revised on 2018. Lymphocyte pct 30.0 % [facility] Comment: Interpretive Data Percent cell count reference ranges are not reported, since discordance with absolute values may lead to misinterpretation of CBC data. Current Interpretive Data was last revised on 2018. Monocyte pct 18.3 % [facility] Comment: Interpretive Data Percent cell count reference ranges are not reported, since discordance with absolute values may lead to misinterpretation of CBC data. Current Interpretive Data was last revised on 2018. Eosinophil pct 2.0 % [facility] Comment: Interpretive Data Percent cell count reference ranges are not reported, since discordance with absolute values may lead to misinterpretation of CBC data. Current Interpretive Data was last revised on 2018. Basophil pct 0.4 % [facility] Comment: Interpretive Data Percent cell count reference ranges are not reported, since discordance with absolute values may lead to misinterpretation of CBC data. Current Interpretive Data was last revised on 2018. Blood 03/22/2025 6:25 AM CDT 03/22/2025 6:33 AM CDT Kamila Askew MD LAB BLOOD ORDERABLES Final R esult Performing Organization Address City/[facility]/ZIP Co de Phone Number [address] [place] [place] [address] * (ABNORMAL) CBC with auto differential (03/22/2025 6:25 AM CDT) WBC 4.54 3.80 - 9.90 K/cumm Hgb 9.4(L) 11.9 - 15.5 g/dL [facility] Hct 29.1(L) 35.6 - 45.5 % [facility] Plt 148(L) 150 - 400 K/cumm [facility] MPV 8.4(L) 9.1 - 12.3 fL [facility] [facility] RBC 3.09(L) 3.90 - 5.20 M/cumm [facility] MCV 94.2 81.3 - 96.4 fL [facility] MCH 30.4 27.1 - 33.3 pg [facility] MCHC 32.3 32.3 - 35.7 g/dL [facility] RDW CV 20.3(H) 11.1 - 14.9 % [facility] RDW SD 69.7(H) 35.7 - 48.1 fL [facility] NRBC abs 0.04(H) 0.00 - 0.01 K/cumm [facility] Blood 03/22/2025 6:25 AM CDT 03/22/2025 6:33 AM CDT Kamila Askew MD LAB BLOOD ORDERABLES Final R esult Performing Organization Address City/[facility]/ZIP Co de Phone Number [address] [place] [address] * (ABNORMAL) Comprehensive metabolic panel (03/22/2025 6:25 AM CDT) Sodium 143 135 - 145 mmol/L Potassium, pl 3.8 3.3 - 4.9 mmol/L [facility] Chloride 107 97 - 110 mmol/L [facility] CO2 22 22 - 32 mmol/L [facility] Anion gap 14 2 - 15 mmol/L [facility] BUN 25 6 - 25 mg/dL [facility] Creatinine 2.12(H) 0.60 - 1.10 mg/dL [facility] Glucose 137 70 - 199 mg/dL [facility] Comment: Interpretive Data Fasting glucose >/= 126 mg/dl is diagnostic for diabetes. Fasting is defined as no caloric intake for at least 8 hours. Fasting glucose between 100 mg/dl to 125 mg/dl is diagnostic of prediabetes. In a patient with classic symptoms of hyperglycemia or hyperglycemic crisis, a random glucose >/= 200 mg/dl is diagnostic for diabetes. In the absence of unequivocal hyperglycemia, results should be confirmed by repeat testing. The classification and Diagnosis of Diabetes Diabetes Care 2021; 46: S19-S40. Current interpretive data was last revised 2022. Calcium 9.2 8.5 - 10.3 mg/dL [facility] Bilirubin, total 0.4 0.1 - 1.2 mg/dL [facility] Protein, pl 6.2(L) 6.5 - 8.5 g/dL [facility] Albumin 3.3(L) 3.5 - 5.0 g/dL [facility] Alk phos 152(H) 40 - 130 Units/L [facility] ALT 9 7 - 45 Units/L [facility] AST 28 10 - 45 Units/L [facility] Blood 03/22/2025 6:25 AM CDT 03/22/2025 6:33 AM CDT Kamila Askew MD LAB BLOOD ORDERABLES Final R esult [facility] [address] [facility] Department [place] [address] * (ABNORMAL) Hemoglobin and hematocrit (03/21/2025 11:38 PM CDT) Hgb 8.8(L) 11.9 - 15.5 g/dL Hct 27.0(L) 35.6 - 45.5 % [facility] Blood 03/21/2025 11:3 8 PM CDT 03/21/2025 11:40 PM CDT Kamila Askew MD LAB BLOOD ORDERABLES Final R esult Performing Organization Address City/[facility]/ZIP Co de Phone Number [address] [place] [place] [address] * POCT glucose (03/21/2025 8:15 PM CDT) [facility] Glucose, POC 179 70 - 199 mg/dL Blood 03/21/2025 8:15 PM CDT 03/21/2025 8:15 PM CDT Hardik Andrade MD LAB POCT ORDER SARA - DEVICE Final Result Performing Organization Address [facility] Co de Phone Number [address] [address] * (ABNORMAL) Hemoglobin and hematocrit (03/21/2025 6:32 PM CDT) [facility] Hgb 8.9(L) 11.9 - 15.5 g/dL Hct 27.0(L) 35.6 - 45.5 % [facility] Blood 03/21/2025 6:32 PM CDT 03/21/2025 6:45 PM CDT Kamila Askew MD LAB BLOOD ORDERABLES Final R esult Performing Organization Address City/[facility] Co de Phone Number [address] [place] [address] * POCT glucose (03/21/2025 5:03 PM CDT) Glucose, POC 169 70 - 199 mg/dL Blood 03/21/2025 5:03 PM CDT 03/21/2025 5:03 PM CDT Hardik Andrade MD LAB POCT ORDER SARA - DEVICE Final Result Performing Organization Address [facility] Co de Phone Number [address] [place] [address] * POCT glucose (03/21/2025 12:23 PM CDT) Glucose, POC 168 70 - 199 mg/dL Blood 03/21/2025 12:2 3 PM CDT 03/21/2025 12:23 PM CDT Hardik Andrade MD LAB POCT ORDER SARA - DEVICE Final Result Performing Organization Address [facility] de Phone Number [address] [address] * (ABNORMAL) Hemoglobin and hematocrit (03/21/2025 11:55 AM CDT) [facility] Hgb 9.1(L) 11.9 - 15.5 g/dL Hct 27.5(L) 35.6 - 45.5 % [facility] Blood 03/21/2025 11:5 5 AM CDT 03/21/2025 11:58 AM CDT Kamila Askew MD LAB BLOOD ORDERABLES Final R esult Performing Organization Address [facility] Co de Phone Number [address] [address] * POCT glucose (03/21/2025 7:37 AM CDT) Glucose, POC 153 70 - 199 mg/dL Blood 03/21/2025 7:37 AM CDT 03/21/2025 7:37 AM CDT Hardik Andrade MD LAB POCT ORDER SARA - DEVICE Final Result Performing Organization Address City/[facility]/ZIP Co de Phone Number [facility] [address] [address] * POCT glucose (03/21/2025 6:15 AM CDT) Glucose, POC 126 70 - 199 mg/dL Blood 03/21/2025 6:15 AM CDT 03/21/2025 6:15 AM CDT Hardik Noam Andrade MD LAB POCT ORDER SARA - DEVICE Final Result Performing Organization Address [facility] de Phone Number [facility] [address] [address] * (ABNORMAL) eGFR (03/21/2025 5:12 AM CDT) [facility] eGFR 18(L) >=60 mL/min/1. 73 m2 Comment: Interpretive Data Reference Interval Normal >/= 90 mL/min/1.73m2 Mildly decreased* 60 - 89 mL/min/1.73m2 Mildly to moderately decreased 45 - 59 mL/min/1.73m2 Moderately to severely decreased 30 - 44 mL/min/1.73m2 Severely decreased 15 - 29 mL/min/1.73m2 Kidney Failure < 15 mL/min/1.73m2 *Relative to young adult level Estimated glomerular filtration rate is determined by the 2020 CKD-EPI equation recommended by the National Kidney Foundation (A Unifying Approach to GFR Estimation: Recommendations of the NKF-ASK Task Force on Reassessing the Inclusion of Race in Diagnosing Kidney Disease, JASN 2020). The CKD-EPI equation should not be used for patients with unstable renal function and has not been validated in children and those over 70. Current interpretive data was last reviewed 2021. Blood 03/21/2025 5:12 AM CDT 03/21/2025 5:34 AM CDT us Kamila Askew MD LAB BLOOD ORDERABLES Final R esult [facility] [address] [facility] Department [place] [address] * (ABNORMAL) Differential, auto (03/21/2025 5:12 AM CDT) Neutrophil abs 2.54 1.50 - 6.50 K/cumm Imm gran abs 0.02 0.00 - 0.10 K/cumm [facility] Lymphocyte abs 0.72(L) 0.80 - 3.30 K/cumm [facility] Monocyte abs 0.75 0.20 - 0.80 K/cumm [facility] Eosinophil abs 0.08 0.00 - 0.50 K/cumm [facility] Basophil abs 0.01 0.00 - 0.10 K/cumm [facility] Neutrophil pct 61.7 % [facility] Comment: Interpretive Data Percent cell count reference ranges are not reported, since discordance with absolute values may lead to misinterpretation of CBC data. Current Interpretive Data was last revised on 2018. Imm gran pct 0.5 % [facility] Comment: Interpretive Data Percent cell count reference ranges are not reported, since discordance with absolute values may lead to misinterpretation of CBC data. Current Interpretive Data was last revised on 2018. Lymphocyte pct 17.5 % [facility] Comment: Interpretive Data Percent cell count reference ranges are not reported, since discordance with absolute values may lead to misinterpretation of CBC data. Current Interpretive Data was last revised on 2018. Monocyte pct 18.2 % [facility] Comment: Interpretive Data Percent cell count reference ranges are not reported, since discordance with absolute values may lead to misinterpretation of CBC data. Current Interpretive Data was last revised on 2018. Eosinophil pct 1.9 % [facility] Comment: Interpretive Data Percent cell count reference ranges are not reported, since discordance with absolute values may lead to misinterpretation of CBC data. Current Interpretive Data was last revised on 2018. Basophil pct 0.2 % [facility] Comment: Interpretive Data Percent cell count reference ranges are not reported, since discordance with absolute values may lead to misinterpretation of CBC data. Current Interpretive Data was last revised on 2018. Blood 03/21/2025 5:12 AM CDT 03/21/2025 5:34 AM CDT Kamila Askew MD LAB BLOOD ORDERABLES Final R esult Performing Organization Address City/[facility]/ZIP Co de Phone Number [facility] [address] [place] [address] * (ABNORMAL) CBC with auto differential (03/21/2025 5:12 AM CDT) WBC 4.12 3.80 - 9.90 K/cumm Hgb 9.8(L) 11.9 - 15.5 g/dL [facility] Hct 30.0(L) 35.6 - 45.5 % [facility] Plt 151 150 - 400 K/cumm [facility] MPV 8.6(L) 9.1 - 12.3 fL [facility] RBC 3.11(L) 3.90 - 5.20 M/cumm [facility] MCV 96.5(H) 81.3 - 96.4 fL [facility] MCH 31.5 27.1 - 33.3 pg [facility] MCHC 32.7 32.3 - 35.7 g/dL [facility] RDW CV 21.0(H) 11.1 - 14.9 % [facility] RDW SD 73.7(H) 35.7 - 48.1 fL [facility] NRBC abs 0.02(H) 0.00 - 0.01 K/cumm [facility] Blood 03/21/2025 5:12 AM CDT 03/21/2025 5:34 AM CDT Kamila Askew MD LAB BLOOD ORDERABLES Final R esult [facility] [address] [place] [address] * (ABNORMAL) Comprehensive metabolic panel (03/21/2025 5:12 AM CDT) [facility] Sodium 140 135 - 145 mmol/L Potassium, pl 4.0 3.3 - 4.9 mmol/L [facility] Chloride 107 97 - 110 mmol/L [facility] CO2 19(L) 22 - 32 mmol/L [facility] Anion gap 14 2 - 15 mmol/L [facility] BUN 32(H) 6 - 25 mg/dL [facility] Creatinine 2.58(H) 0.60 - 1.10 mg/dL [facility] Glucose 132 70 - 199 mg/dL [facility] Comment: Delta - Results Reviewed Interpretive Data Fasting glucose >/= 126 mg/dl is diagnostic for diabetes. Fasting is defined as no caloric intake for at least 8 hours. Fasting glucose between 100 mg/dl to 125 mg/dl is diagnostic of prediabetes. In a patient with classic symptoms of hyperglycemia or hyperglycemic crisis, a random glucose >/= 200 mg/dl is diagnostic for diabetes. In the absence of unequivocal hyperglycemia, results should be confirmed by repeat testing. The classification and Diagnosis of Diabetes Diabetes Care 202; 46: S19-S40. Current interpretive data was last revised 2022. Calcium 9.5 8.5 - 10.3 mg/dL [facility] Bilirubin, total 0.4 0.1 - 1.2 mg/dL [facility] Protein, pl 6.6 6.5 - 8.5 g/dL [facility] Albumin 3.3(L) 3.5 - 5.0 g/dL [facility] Alk phos 164(H) 40 - 130 Units/L [facility] ALT 10 7 - 45 Units/L [facility] AST 26 10 - 45 Units/L [facility] Blood 03/21/2025 5:12 AM CDT 03/21/2025 5:34 AM CDT us Kamila Askew MD LAB BLOOD ORDERABLES Final R esult [facility] [address] [facility] Department [place] [address] * (ABNORMAL) Hemoglobin and hematocrit (03/20/2025 11:49 PM CDT) [facility] Hgb 9.5(L) 11.9 - 15.5 g/dL Hct 29.6(L) 35.6 - 45.5 % [facility] Blood 03/20/2025 11:4 9 PM CDT 03/20/2025 11:53 PM CDT Kamila Askew MD LAB BLOOD ORDERABLES Final R esult Performing Organization Address City/[facility]/ZIP Co de Phone Number [address] [place] [address] * (ABNORMAL) POCT glucose (03/20/2025 8:34 PM CDT) [facility] Glucose, POC 239(H) 70 - 199 mg/dL Blood 03/20/2025 8:34 PM CDT 03/20/2025 8:34 PM CDT Hardik Andrade MD LAB POCT ORDER SARA - DEVICE Final Result Performing Organization Address [facility] Co de Phone Number [address] [place] [address] * (ABNORMAL) Hemoglobin and hematocrit (03/20/2025 5:50 PM CDT) [facility] Hgb 10.4(L) 11.9 - 15.5 g/dL Hct 33.0(L) 35.6 - 45.5 % [facility] Blood 03/20/2025 5:50 PM CDT 03/20/2025 6:16 PM CDT Kamila Askew MD LAB BLOOD ORDERABLES Final R esult Performing Organization Address City/[facility] Co de Phone Number [address] [place] [address] * (ABNORMAL) POCT glucose (03/20/2025 2:10 PM CDT) [facility] Glucose, POC 232(H) 70 - 199 mg/dL Blood 03/20/2025 2:1 0 PM CDT 03/20/2025 2:10 PM CDT us Hardik Andrade MD LAB POCT ORDER SARA - DEVICE Final Result [facility] [address] [facility] Department [place] [address] * EGD (03/20/2025 1:27 PM CDT) Anatomical Region Laterality Modality Other Narrative Procedure Note Los Farr MD - 03/20/2025 1:27 PM CDT [facility] GI ENDOSCOPY Patient Name: Savannah Lyles Procedure Date: 03/20/2025 1:27 PM Date of : 1945 Admit Type: Inpatient Age: 79 Gender: Female Attending MD: Los Farr M.D. Room: [facility] ENDOSCOPY ROOM [facility] Note Status: Finalized Procedure: Upper GI endoscopy Indications: Melena, Cirrhosis rule out esophageal varices Referring MD: Providers: Los Farr M.D. Medicines: Monitored Anesthesia Care Complications: No immediate complications. Estimated blood loss:None. Estimated Blood Loss: Estimated blood loss: none. Procedure: Pre-Anesthesia Assessment: - Prior to the procedure, a History and Physicalwas performed, and patient medications and allergieswere reviewed. The patient is competent. The risks and benefits of the procedure and the sedation optionsand risks were discussed with the patient. Allquestions were answered and informed consent was obtained. Patient identification and proposed procedure were verified by the physician, the nurse and the farm equipment mechanic in the procedure room. Mental Status Examination: alert and oriented. AirwayExamination: normal oropharyngeal airway and neck mobility. Respiratory Examination: clear to auscultation. CV Examination: normal. Prophylactic Antibiotics: The patient does not require prophylactic antibiotics. Prior Anticoagulants: The patient has taken Plavix (clopidogrel). ASA Grade Assessment: III - Apatient with severe systemic disease. After reviewing the risks and benefits, the patient was deemed in satisfactory condition to undergo the procedure.The anesthesia plan was to use monitored anesthesiacare (MAC). Immediately prior to administration of medications, the patient was re-assessed foradequacy to receive sedatives. The heart rate, respiratory rate, oxygen saturations, blood pressure, adequacyof pulmonary ventilation, and response to care were monitored throughout the procedure. The physical status of the patient was re-assessed after the procedure. The benefits, risks, and alternatives to theprocedure and sedation were discussed and informed consentwas obtained. The scope was passed under direct vision. The Endoscope was introduced through the mouth, and advanced to the second part of duodenum. The upperGI endoscopy was accomplished without difficulty. The patient tolerated the procedure well. Findings: The examined esophagus was normal. No esophageal varices. A small hiatal hernia was present. Diffuse inflammation characterized by erosions and erythema was foundin the gastric body and in the gastric antrum. The examined duodenum was normal. Impression: - Normal esophagus. - Small hiatal hernia. - Gastritis. - Normal examined duodenum. - No specimens collected. Recommendation: - Return patient to the hospital [facility] for ongoingcare. - Continue to monitor for signs of GI bleeding and trend hemoglobin. Transfuse for hemoglobin lessthan 7-8. - Treat with pantoprazole 40 mg PO BID for 8weeks. - Start carafate 1 gram slurry PO QID for 8weeks. - Follow up with outpatient GI/hepatology. - Avoid NSAIDs. - Check H pylori stool antigen and treat ifpositive. Los Farr M.D. Los Farr M.D. 03/20/2025 1:43:50 PM . Number of Addenda: 0 Note Initiated On: 03/20/2025 1:27 PM Recognized by the [place] [employer] for promoting quality in endoscopy us Los Farr MD ENDOSCOPY PROCEDURE S Final Result * (ABNORMAL) POCT glucose (03/20/2025 12:58 PM CDT) Glucose, POC 259(H) 70 - 199 mg/dL Glucose comment 1 RN/MD Notified [facility] Blood 03/20/2025 12:5 8 PM CDT 03/20/2025 12:58 PM CDT Hardik Andrade MD LAB POCT ORDER SARA - DEVICE Final Result Performing Organization Address [facility] Co de Phone Number [address] [place] [address] * (ABNORMAL) POCT glucose (03/20/2025 12:10 PM CDT) Glucose, POC 233(H) 70 - 199 mg/dL Blood 03/20/2025 12:1 0 PM CDT 03/20/2025 12:10 PM CDT Hardik Andrade MD LAB POCT ORDER SARA - DEVICE Final Result Performing Organization Address [facility] Co de Phone Number [address] [place] [address] * (ABNORMAL) CBC without differential (03/20/2025 11:50 AM CDT) [facility] WBC 4.40 3.80 - 9.90 K/cumm Hgb 10.2(L) 11.9 - 15.5 g/dL [facility] Hct 32.2(L) 35.6 - 45.5 % [facility] Plt 150 150 - 400 K/cumm [facility] MPV 8.8(L) 9.1 - 12.3 fL [facility] RBC 3.31(L) 3.90 - 5.20 M/cumm [facility] MCV 97.3(H) 81.3 - 96.4 fL [facility] MCH 30.8 27.1 - 33.3 pg [facility] MCHC 31.7(L) 32.3 - 35.7 g/dL [facility] RDW CV 21.5(H) 11.1 - 14.9 % [facility] RDW SD 75.6(H) 35.7 - 48.1 fL [facility] NRBC abs 0.03(H) 0.00 - 0.01 K/cumm [facility] Blood 03/20/2025 11:5 0 AM CDT 03/20/2025 12:00 PM CDT us Los Farr MD LAB BLOOD ORDERABLE S Final Result Performing Organization Address [facility] Co de Phone Number [address] [place] [employer] [address] * (ABNORMAL) POCT glucose (03/20/2025 7:59 AM CDT) [facility] Glucose, POC 263(H) 70 - 199 mg/dL Blood 03/20/2025 7:59 AM CDT 03/20/2025 7:59 AM CDT us Hardik Andrade MD LAB POCT ORDER SARA - DEVICE Final Result Performing Organization Address City/[facility]/ZIP Co de Phone Number [address] [place] [address] * (ABNORMAL) eGFR (03/20/2025 5:51 AM CDT) Pathologist [facility] eGFR 14(L) >=60 mL/min/1. 73 m2 Comment: Interpretive Data Reference Interval Normal >/= 90 mL/min/1.73m2 Mildly decreased* 60 - 89 mL/min/1.73m2 Mildly to moderately decreased 45 - 59 mL/min/1.73m2 Moderately to severely decreased 30 - 44 mL/min/1.73m2 Severely decreased 15 - 29 mL/min/1.73m2 Kidney Failure < 15 mL/min/1.73m2 *Relative to young adult level Estimated glomerular filtration rate is determined by the 2020 CKD-EPI equation recommended by the National Kidney Foundation (A Unifying Approach to GFR Estimation: Recommendations of the NKF-ASK Task Force on Reassessing the Inclusion of Race in Diagnosing Kidney Disease, JASN 2020). The CKD-EPI equation should not be used for patients with unstable renal function and has not been validated in children and those over 70. Current interpretive data was last reviewed 2021. Blood 03/20/2025 5:51 AM CDT 03/20/2025 6:28 AM CDT Kamila Askew MD LAB BLOOD ORDERABLES Final R esult [facility] [address] [facility] Department [place] [address] * (ABNORMAL) Differential, auto (03/20/2025 5:51 AM CDT) [facility] Neutrophil abs 2.52 1.50 - 6.50 K/cumm Imm gran abs 0.01 0.00 - 0.10 K/cumm [facility] Lymphocyte abs 0.70(L) 0.80 - 3.30 K/cumm [facility] Monocyte abs 0.66 0.20 - 0.80 K/cumm [facility] Eosinophil abs 0.09 0.00 - 0.50 K/cumm [facility] Basophil abs 0.01 0.00 - 0.10 K/cumm [facility] Neutrophil pct 63.1 % [facility] Comment: Interpretive Data Percent cell count reference ranges are not reported, since discordance with absolute values may lead to misinterpretation of CBC data. Current Interpretive Data was last revised on 2018. Imm gran pct 0.3 % [facility] Comment: Interpretive Data Percent cell count reference ranges are not reported, since discordance with absolute values may lead to misinterpretation of CBC data. Current Interpretive Data was last revised on 2018. Lymphocyte pct 17.5 % [facility] Comment: Interpretive Data Percent cell count reference ranges are not reported, since discordance with absolute values may lead to misinterpretation of CBC data. Current Interpretive Data was last revised on 2018. Monocyte pct 16.5 % [facility] Comment: Interpretive Data Percent cell count reference ranges are not reported, since discordance with absolute values may lead to misinterpretation of CBC data. Current Interpretive Data was last revised on 2018. Eosinophil pct 2.3 % [facility] Comment: Interpretive Data Percent cell count reference ranges are not reported, since discordance with absolute values may lead to misinterpretation of CBC data. Current Interpretive Data was last revised on 2018. Basophil pct 0.3 % [facility] Comment: Interpretive Data Percent cell count reference ranges are not reported, since discordance with absolute values may lead to misinterpretation of CBC data. Current Interpretive Data was last revised on 2018. Blood 03/20/2025 5:51 AM CDT 03/20/2025 6:28 AM CDT Kamila Askew MD LAB BLOOD ORDERABLES Final R esult [facility] [address] [facility] Department [place] [address] * (ABNORMAL) CBC with auto differential (03/20/2025 5:51 AM CDT) WBC 3.99 3.80 - 9.90 K/cumm Hgb 9.3(L) 11.9 - 15.5 g/dL [facility] Hct 29.9(L) 35.6 - 45.5 % [facility] Plt 143(L) 150 - 400 K/cumm [facility] MPV 8.7(L) 9.1 - 12.3 fL [facility] RBC 3.04(L) 3.90 - 5.20 M/cumm [facility] MCV 98.4(H) 81.3 - 96.4 fL [facility] MCH 30.6 27.1 - 33.3 pg [facility] MCHC 31.1(L) 32.3 - 35.7 g/dL [facility] RDW CV 21.5(H) 11.1 - 14.9 % [facility] RDW SD 75.7(H) 35.7 - 48.1 fL [facility] NRBC abs 0.02(H) 0.00 - 0.01 K/cumm [facility] Blood 03/20/2025 5:51 AM CDT 03/20/2025 6:28 AM CDT Kamila Askew MD LAB BLOOD ORDERABLES Final R esult [facility] [address] [facility] Department [place] [address] * [id number], Tumor Marker (03/20/2025 5:51 AM CDT) alpha Fetoprotein <2.0 <=8.3 ng/mL Comment: Interpretive Data The [employer] AFP assay procedure was used. Results from different manufacturers or methods may not be comparable. Serial testing should be performed using the same method. 0-1 month. AFP concentrations may reach or exceed 100,000 ng/mL after depending on gestational age and weight. 1-3 months 50 1000 ng/ml 3-6 months 10 500 ng/ml 6-12 months 3.0 100 ng/ml >1 year 0.0 8.3 ng/ml References Seth Peng. et al. J. Ped Surg 1978;13:155-156 Jarvis Plascencia al. Clin Chem Lab Med 2018;57:783-797 Barry Duran et al. Clin Chem 2014;4814-3977. Current interpretive data was last revised 2022. Testing performed by: [facility], [address] [facility], [place]., [address] Blood 03/20/2025 5:51 AM CDT 03/20/2025 9:15 AM CDT Sandy Cummings NP LAB BLOOD ORDERABLES Final Resu lt [facility] [address] [facility] Department of Laboratories [place] [address] * Hepatitis panel, acute Blood (03/20/2025 5:51 AM CDT) Hep A IgM Nonreactive Nonreactive Comment: Interpretive Data: If Hep A IgM Ab is reported as Equivocal, a new sample should be drawn in two weeks for testing. Current interpretive data was last revised on 19. Hep B core IgM Nonreactive Nonreactive [facility] Comment: Interpretive Data If HepB Core IgM Ab is reported as Equivocal, a new sample should be drawn in two weeks for testing. Current interpretive data was last revised on 19. Hep C Ab Nonreactive Nonreactive [facility] Comment: Antibodies to HCV not detected. Does NOT exclude the possibility of recent exposure to HCV. Current interpretive data was last revised on 22 Interpretive Data Nonreactive: Antibodies to HCV not detected. Does NOT exclude the possibility of recent exposure to HCV. Equivocal: Equivocal for HCV antibodies. Supplemental molecular testing will be automatically performed to determine infection status in accordance with current CDC screening recommendations. Reactive: Positive for HCV antibodies. This may represent current or past HCV infection. Supplemental molecular testing will be automatically performed to determine current infection status in accordance with current CDC screening recommendations. Interpretive data was last revised on 2019. HepBsAg Nonreactive Nonreactive [facility] Blood 03/20/2025 5:51 AM CDT 03/20/2025 6:28 AM CDT Sandy Cummings NP LAB MICROBIOLOGY - GENERAL ORDE RABLES Final Result [facility] [address] [facility] Department [place] [address] * Magnesium (03/20/2025 5:51 AM CDT) Pathologist [facility] Magnesium 1.9 1.4 - 2.5 mg/dL Blood 03/20/2025 5:51 AM CDT 03/20/2025 6:28 AM CDT Kamila Askew MD LAB BLOOD ORDERABLES Final R esult [facility] [address] [facility] [place] [address] * (ABNORMAL) Comprehensive metabolic panel (03/20/2025 5:51 AM CDT) Pathologist [facility] Sodium 132(L) 135 - 145 mmol/L Potassium, pl 5.4(H) 3.3 - 4.9 mmol/L [facility] Chloride 104 97 - 110 mmol/L [facility] CO2 16(L) 22 - 32 mmol/L [facility] Anion gap 12 2 - 15 mmol/L [facility] BUN 35(H) 6 - 25 mg/dL [facility] Creatinine 3.19(H) 0.60 - 1.10 mg/dL [facility] Glucose 281(H) 70 - 199 mg/dL [facility] Comment: Delta - Results Reviewed Interpretive Data Fasting glucose >/= 126 mg/dl is diagnostic for diabetes. Fasting is defined as no caloric intake for at least 8 hours. Fasting glucose between 100 mg/dl to 125 mg/dl is diagnostic of prediabetes. In a patient with classic symptoms of hyperglycemia or hyperglycemic crisis, a random glucose >/= 200 mg/dl is diagnostic for diabetes. In the absence of unequivocal hyperglycemia, results should be confirmed by repeat testing. The classification and Diagnosis of Diabetes Diabetes Care 202; 46: S19-S40. Current interpretive data was last revised 2022. Calcium 9.4 8.5 - 10.3 mg/dL [facility] Bilirubin, total 0.3 0.1 - 1.2 mg/dL [facility] Protein, pl 5.7(L) 6.5 - 8.5 g/dL [facility] Albumin 3.0(L) 3.5 - 5.0 g/dL [facility] Alk phos 163(H) 40 - 130 Units/L [facility] ALT 11 7 - 45 Units/L [facility] AST 28 10 - 45 Units/L [facility] Blood 03/20/2025 5:51 AM CDT 03/20/2025 6:28 AM CDT Kamila Askew MD LAB BLOOD ORDERABLES Final R esult Performing Organization Address City/[facility]/ZIP Co de Phone Number [address] [place] [address] * (ABNORMAL) POCT glucose (03/20/2025 1:14 AM CDT) Glucose, POC 272(H) 70 - 199 mg/dL Blood 03/20/2025 1:14 AM CDT 03/20/2025 1:14 AM CDT Steven Srivastava MD LAB POCT ORDERABLES - DEVICE Final Result Performing Organization Address [facility] Co de Phone Number [address] [place] [address] * (ABNORMAL) Hemoglobin and hematocrit (03/19/2025 11:44 PM CDT) [facility] Hgb 10.6(L) 11.9 - 15.5 g/dL Hct 33.4(L) 35.6 - 45.5 % [facility] Blood 03/19/2025 11:4 4 PM CDT 03/19/2025 11:59 PM CDT Kamila Askew MD LAB BLOOD ORDERABLES Final R esult Performing Organization Address City/[facility]/ZIP Co de Phone Number [address] [place] [address] * (ABNORMAL) POCT glucose (03/19/2025 11:38 PM CDT) Glucose, POC 312(H) 70 - 199 mg/dL Blood 03/19/2025 11:3 8 PM CDT 03/19/2025 11:38 PM CDT Steven Srivastava MD LAB POCT ORDERABLES - DEVICE Final Result Performing Organization Address City/[facility] Co de Phone Number [address] [place] [address] * (ABNORMAL) POCT glucose (03/19/2025 8:48 PM CDT) Glucose, POC 270(H) 70 - 199 mg/dL Blood 03/19/2025 8:48 PM CDT 03/19/2025 8:48 PM CDT Steven Srivastava MD LAB POCT ORDERABLES - DEVICE Final Result Performing Organization Address [facility] Co de Phone Number [address] [address] * (ABNORMAL) Hemoglobin and hematocrit (03/19/2025 6:03 PM CDT) [facility] Hgb 10.7(L) 11.9 - 15.5 g/dL Hct 33.1(L) 35.6 - 45.5 % [facility] Blood 03/19/2025 6:03 PM CDT 03/19/2025 7:01 PM CDT Kamila Askew MD LAB BLOOD ORDERABLES Final R esult Performing Organization Address [facility] Co de Phone Number [address] [place] [address] * POCT glucose (03/19/2025 5:13 PM CDT) [facility] Signature Glucose, POC 168 70 - 199 mg/dL Blood 03/19/2025 5:13 PM CDT 03/19/2025 5:13 PM CDT us Steven Srivastava MD LAB POCT ORDERABLES - DEVICE Final Result [facility] [address] [facility] Department [place] [address] * US RUQ (03/19/2025 4:37 PM CDT) Anatomical Region Laterality Modality Abdomen N/A Ultrasound 03/19/2025 11:3 9 PM CDT Narrative 03/19/2025 11:43 PM CDT EXAM DESCRIPTION: US RUQ REASON FOR STUDY: cirrhosis TECHNIQUE: 2D grayscale ultrasound and color and pulsed wave Doppler images were obtained of the right upper quadrant of the abdomen. COMPARISON: CT of the abdomen and pelvis of March 18, 2025. FINDINGS: LIVER: The liver appears normal in echogenicity. There is surface nodularity of the liver. No focal lesion identified. The liver measures 14 cm in the midclavicular line. PANCREAS: The visualized portions of the pancreas are within normal limits. Portions of the pancreatic body and tail are obscured due to bowel gas. GALLBLADDER: Surgically absent. BILIARY: There is no intrahepatic biliary ductal dilation. Common bile duct measures 16 mm in diameter, not significantly changed from previous. RIGHT KIDNEY: Normal echogenicity. The inferior pole is obscured by bowel gas. There is no hydronephrosis. No renal stones are seen. There are no renal cysts or masses. The right kidney measures approximately 8 cm in length. VASCULAR: The main portal vein is patent with antegrade flow. OTHER: No other significant findings. IMPRESSION: Cirrhosis of the liver. Status post cholecystectomy. Dilated common bile duct, likely related to post cholecystectomy state. Recommend correlation with liver enzymes and biliary levels. If there is clinical concern for biliary obstruction, consider further evaluation with MRCP. THIS IS AN ELECTRONICALLY VERIFIED FINAL REPORT 03/19/2025 11:43 PM - Electronically signed by Reyna Ruff M.D. SN T: Report ID: [id number] Reading Location: [id number] Procedure Note Reyna Ruff MD - 03/19/2025 EXAM DESCRIPTION: US RUQ REASON FOR STUDY: cirrhosis TECHNIQUE: 2D grayscale ultrasound and color and pulsed wave Dopplerimages were obtained of the right upper quadrant of the abdomen. COMPARISON: CT of the abdomen and pelvis of March 18, 2025. FINDINGS: LIVER: The liver appears normal in echogenicity. There issurface nodularity of the liver. No focal lesion identified. The liver emcxuevd25 cm in the midclavicular line. PANCREAS: The visualized portions of the pancreas are within normallimits. Portions of the pancreatic body and tail are obscured due to bowel gas. GALLBLADDER: Surgically absent. BILIARY: There is no intrahepatic biliary ductal dilation. Common bileduct measures 16 mm in diameter, not significantly changed from previous. RIGHT KIDNEY: Normal echogenicity. The inferior pole is obscured bybowel gas. There is no hydronephrosis. No renal stones are seen. There areno renal cysts or masses. The right kidney measures approximately 8 cm in length. VASCULAR: The main portal vein is patent with antegrade flow. OTHER: No other significant findings. IMPRESSION: Cirrhosis of the liver. Status post cholecystectomy. Dilated common bile duct, likely related to post cholecystectomy state. Recommend correlation with liver enzymes and biliary levels. If there is clinical concern for biliary obstruction, consider further evaluation with MRCP. THIS IS AN ELECTRONICALLY VERIFIED FINAL REPORT 03/19/2025 11:43 PM - Electronically signed by Reyna Ruff M.D. SN T: Report ID: [id number] Reading Location: [id number] Sandy Cummings NP IMG US PROCEDURES Final Result * (ABNORMAL) Albumin Creatinine Ratio, Urine (03/19/2025 1:13 PM CDT) Albumin Ur 93.8 mg/L Comment: Interpretive Data No reference range established. Current interpretive data was last revised 2019. Creatinine Ur 32.7 mg/dL [facility] Comment: Interpretive Data No reference range established. Current interpretive data was last revised 2019. Albumin Creatinine Ratio, Ur 287(H) 1 - 29 mg/g [facility] Urine 03/19/2025 1:13 PM CDT 03/19/2025 1:21 PM CDT us Gonzalez Martinez MD LAB URINE ORDERABLES Final Resu lt Performing Organization Address [facility] Co de Phone Number [address] [place] [address] * POCT glucose (03/19/2025 12:19 PM CDT) Glucose, POC 143 70 - 199 mg/dL Blood 03/19/2025 12:1 9 PM CDT 03/19/2025 12:19 PM CDT Result [facility] Steven Srivastava MD LAB POCT ORDERABLES - DEVICE Final Result Performing Organization Address [facility] de Phone Number [address] [place] [address] * (ABNORMAL) Vitamin D 25 hydroxy (03/19/2025 11:51 AM CDT) Pathologist [facility] Vitamin D 25-OH 23.0(L) 30.0 - 80.0 ng/mL Blood 03/19/2025 11:5 1 AM CDT 03/19/2025 12:01 PM CDT us Gonzalez Martinez MD LAB BLOOD ORDERABLES Final Resu lt Performing Organization Address [facility] Co de Phone Number [address] [place] [address] * PTH (03/19/2025 11:51 AM CDT) Pathologist [facility] PTH 38 15 - 65 pg/mL Blood 03/19/2025 11:5 1 AM CDT 03/19/2025 12:01 PM CDT us Gonzalez Martinez MD LAB BLOOD ORDERABLES Final Resu lt Performing Organization Address [facility] Co de Phone Number [facility] [address] [place] [address] * Hemoglobin A1c (03/19/2025 11:51 AM CDT) Pathologist [facility] Hgb A1C 5.2 4.0 - 5.6 % Estimated Average Glucose 103 mg/dL [facility] Comment: The ADA recommends reporting an estimated Average Glucose (eAG) with all Hemoglobin A1c results using the equation derived from a study of 507 normal and diabetic adults. Minority populations were underrepresented and children were not included. (Diabetes Care 31:1430-7184, 2008). The eAG is not equivalent to a fasting glucose. Blood 03/19/2025 11:5 1 AM CDT 03/19/2025 12:02 PM CDT Gonzalez Martinez MD LAB BLOOD ORDERABLES Final Resu lt Performing Organization Address [facility] de Phone Number ELIAN[address] [place] [address] * Ammonia (03/19/2025 9:47 AM CDT) [facility] Ammonia 30 <=50 mcmol/L Comment: Please note on 02/16/2024 the unit of measure changed from mcg/dL to mcmol/L. Current Interpretive Data was last revised on 2024. Blood 03/19/2025 9:47 AM CDT 03/19/2025 9:52 AM CDT Steven Srivastava MD LAB BLOOD ORDERABLES Final Re sult Performing Organization Address [facility] Co de Phone Number [place] [id number] [facility] [place] [address] * POCT glucose (03/19/2025 8:15 AM CDT) [facility] Glucose, POC 118 70 - 199 mg/dL Blood 03/19/2025 8:15 AM CDT 03/19/2025 8:15 AM CDT us Steven Srivastava MD LAB POCT ORDERABLES - DEVICE Final Result [facility] [address] [facility] Department [place] [address] * Differential, auto (03/19/2025 6:33 AM CDT) Pathologist [facility] Neutrophil abs 3.56 1.50 - 6.50 K/cumm Imm gran abs 0.07 0.00 - 0.10 K/cumm [facility] Lymphocyte abs 0.95 0.80 - 3.30 K/cumm [facility] Monocyte abs 0.79 0.20 - 0.80 K/cumm [facility] Eosinophil abs 0.07 0.00 - 0.50 K/cumm [facility] Basophil abs 0.03 0.00 - 0.10 K/cumm [facility] Neutrophil pct 65.1 % [facility] Comment: Interpretive Data Percent cell count reference ranges are not reported, since discordance with absolute values may lead to misinterpretation of CBC data. Current Interpretive Data was last revised on 2018. Imm gran pct 1.3 % [facility] Comment: Interpretive Data Percent cell count reference ranges are not reported, since discordance with absolute values may lead to misinterpretation of CBC data. Current Interpretive Data was last revised on 2018. Lymphocyte pct 17.4 % [facility] Comment: Interpretive Data Percent cell count reference ranges are not reported, since discordance with absolute values may lead to misinterpretation of CBC data. Current Interpretive Data was last revised on 2018. Monocyte pct 14.4 % [facility] Comment: Interpretive Data Percent cell count reference ranges are not reported, since discordance with absolute values may lead to misinterpretation of CBC data. Current Interpretive Data was last revised on 2018. Eosinophil pct 1.3 % [facility] Comment: Interpretive Data Percent cell count reference ranges are not reported, since discordance with absolute values may lead to misinterpretation of CBC data. Current Interpretive Data was last revised on 2018. Basophil pct 0.5 % [facility] Comment: Interpretive Data Percent cell count reference ranges are not reported, since discordance with absolute values may lead to misinterpretation of CBC data. Current Interpretive Data was last revised on 2018. Blood 03/19/2025 6:33 AM CDT 03/19/2025 6:43 AM CDT Kamila Askew MD LAB BLOOD ORDERABLES Final R esult Performing Organization Address City/[facility]/ZIP Co de Phone Number [address] [place] [address] * (ABNORMAL) CBC with auto differential (03/19/2025 6:33 AM CDT) WBC 5.47 3.80 - 9.90 K/cumm Hgb 10.7(L) 11.9 - 15.5 g/dL [facility] Hct 34.2(L) 35.6 - 45.5 % [facility] Plt 137(L) 150 - 400 K/cumm [facility] MPV 8.7(L) 9.1 - 12.3 fL [facility] RBC 3.40(L) 3.90 - 5.20 M/cumm [facility] MCV 100.6(H) 81.3 - 96.4 fL [facility] MCH 31.5 27.1 - 33.3 pg [facility] MCHC 31.3(L) 32.3 - 35.7 g/dL [facility] RDW CV 21.9(H) 11.1 - 14.9 % [facility] RDW SD 80.0(H) 35.7 - 48.1 fL [facility] NRBC abs 0.04(H) 0.00 - 0.01 K/cumm [facility] Blood 03/19/2025 6:33 AM CDT 03/19/2025 6:43 AM CDT Kamila Askew MD LAB BLOOD ORDERABLES Final R esult Performing Organization Address City/[facility]/ZIP Co de Phone Number [address] [place] [place] [address] * POCT glucose (03/19/2025 5:35 AM CDT) Glucose, POC 144 70 - 199 mg/dL Blood 03/19/2025 5:35 AM CDT 03/19/2025 5:35 AM CDT Kamila Askew MD LAB POCT ORDERABLES - DEVICE Final Result Performing Organization Address [facility] Co de Phone Number [address] [place] [address] * (ABNORMAL) Hemoglobin and hematocrit (03/19/2025 5:22 AM CDT) [facility] Hgb 10.3(L) 11.9 - 15.5 g/dL Hct 31.9(L) 35.6 - 45.5 % [facility] Blood 03/19/2025 5:22 AM CDT 03/19/2025 6:20 AM CDT Kamila Askew MD LAB BLOOD ORDERABLES Final R esult Performing Organization Address [facility] de Phone Number [address] [address] * (ABNORMAL) POCT glucose (03/19/2025 4:46 AM CDT) Glucose, POC 65(L) 70 - 199 mg/dL Blood 03/19/2025 4:46 AM CDT 03/19/2025 4:46 AM CDT us Kamila Askew MD LAB POCT ORDERABLES - DEVICE Final Result Performing Organization Address [facility] de Phone Number [address] [address] * POCT glucose (03/19/2025 4:14 AM CDT) Glucose, POC 119 70 - 199 mg/dL Blood 03/19/2025 4:14 AM CDT 03/19/2025 4:14 AM CDT us Kamila Askew MD LAB POCT ORDERABLES - DEVICE Final Result Performing Organization Address [facility] Co de Phone Number [facility] [address] [place] [address] * (ABNORMAL) eGFR (03/19/2025 4:11 AM CDT) eGFR 13(L) >=60 mL/min/1. 73 m2 Comment: Interpretive Data Reference Interval Normal >/= 90 mL/min/1.73m2 Mildly decreased* 60 - 89 mL/min/1.73m2 Mildly to moderately decreased 45 - 59 mL/min/1.73m2 Moderately to severely decreased 30 - 44 mL/min/1.73m2 Severely decreased 15 - 29 mL/min/1.73m2 Kidney Failure < 15 mL/min/1.73m2 *Relative to young adult level Estimated glomerular filtration rate is determined by the 2020 CKD-EPI equation recommended by the National Kidney Foundation (A Unifying Approach to GFR Estimation: Recommendations of the NKF-ASK Task Force on Reassessing the Inclusion of Race in Diagnosing Kidney Disease, JASN 2020). The CKD-EPI equation should not be used for patients with unstable renal function and has not been validated in children and those over 70. Current interpretive data was last reviewed 2021. Blood 03/19/2025 4:11 AM CDT 03/19/2025 4:14 AM CDT us Kamila Askew MD LAB BLOOD ORDERABLES Final R esult Performing Organization Address City/[facility]/ZIP Co de Phone Number [facility] [address] [place] [address] * Thyroid Function Winkler (03/19/2025 4:11 AM CDT) TSH 3.63 0.30 - 4.20 mcIUnit/mL Blood 03/19/2025 4:11 AM CDT 03/19/2025 4:14 AM CDT us Kamila Askew MD LAB BLOOD ORDERABLES Final R esult Performing Organization Address [facility] Co de Phone Number [address] [place] [address] * Iron profile w/ IBC (03/19/2025 4:11 AM CDT) Iron 56 35 - 145 mcg/dL TIBC 264 250 - 400 mcg/dL [facility] Transferrin saturation 21 20 - 50 % [facility] Blood 03/19/2025 4:11 AM CDT 03/19/2025 4:14 AM CDT us Kamila Askew MD LAB BLOOD ORDERABLES Final R esult Performing Organization Address [facility] Co de Phone Number [address] [place] [address] * Phosphorus (03/19/2025 4:11 AM CDT) Phosphorus, pl 3.1 2.3 - 4.5 mg/dL Blood 03/19/2025 4:11 AM CDT 03/19/2025 4:14 AM CDT us Kamila Askew MD LAB BLOOD ORDERABLES Final [facility] Performing Organization Address [facility] Co de Phone Number [address] [place] [address] * Magnesium (03/19/2025 4:11 AM CDT) Magnesium 1.9 1.4 - 2.5 mg/dL Blood 03/19/2025 4:11 AM CDT 03/19/2025 4:14 AM CDT us Kamila Askew MD LAB BLOOD ORDERABLES Final R esult Performing Organization Address [facility] Co de Phone Number [address] [place] [address] * (ABNORMAL) Lactate dehydrogenase (LD) (03/19/2025 4:11 AM CDT) Lactate dehydrogenase (LDH) 300(H) 100 - 250 Units/L Comment:Hemolyzed; result ma y be falsely elevated Blood 03/19/2025 4:11 AM CDT 03/19/2025 4:14 AM CDT Kamila Askew MD LAB BLOOD ORDERABLES Final R esult Performing Organization Address [facility] Co de Phone Number [address] [place] [address] * (ABNORMAL) Haptoglobin (03/19/2025 4:11 AM CDT) Haptoglobin 248(H) 30 - 200 mg/dL Comment:Hemolyzed; result ma y be falsely decreased Blood 03/19/2025 4:11 AM CDT 03/19/2025 4:14 AM CDT Kamila Askew MD LAB BLOOD ORDERABLES Final R esult Performing Organization Address [facility] Co de Phone Number [address] [place] [address] * (ABNORMAL) Folate (03/19/2025 4:11 AM CDT) Folic acid 3.4(L) >=5.0 ng/mL Blood 03/19/2025 4:11 AM CDT 03/19/2025 4:14 AM CDT Kamila Askew MD LAB BLOOD ORDERABLES Final R esult Performing Organization Address [facility] Co de Phone Number [address] [address] * (ABNORMAL) Vitamin B12 (03/19/2025 4:11 AM CDT) [facility] Vitamin B12 1,962(H) 230 - 1,250 pg/mL Blood 03/19/2025 4:11 AM CDT 03/19/2025 4:14 AM CDT Kamila Askew MD LAB BLOOD ORDERABLES Final R esult Performing Organization Address City/[facility]/ZIP Co de Phone Number [address] [address] * Creatine kinase (CK), total (03/19/2025 4:11 AM CDT) [facility] CK 104 30 - 200 Units/L Blood 03/19/2025 4:11 AM CDT 03/19/2025 4:14 AM CDT Gonzalez Martinez MD LAB BLOOD ORDERABLES Final Resu lt Performing Organization Address [facility] Co de Phone Number [address] [address] * (ABNORMAL) Comprehensive metabolic panel (03/19/2025 4:11 AM CDT) [facility] Sodium 132(L) 135 - 145 mmol/L Potassium, pl 4.8 3.3 - 4.9 mmol/L [facility] Comment:Hemolyzed; Potassium value may be falsely elevated by as much as 1.0 mmol/L. Suggest redraw and reanalysis. Chloride 107 97 - 110 mmol/L [facility] CO2 12(L) 22 - 32 mmol/L [facility] Anion gap 13 2 - 15 mmol/L [facility] BUN 38(H) 6 - 25 mg/dL [facility] Creatinine 3.38(H) 0.60 - 1.10 mg/dL [facility] Glucose 146 70 - 199 mg/dL [facility] Comment: Interpretive Data Fasting glucose >/= 126 mg/dl is diagnostic for diabetes. Fasting is defined as no caloric intake for at least 8 hours. Fasting glucose between 100 mg/dl to 125 mg/dl is diagnostic of prediabetes. In a patient with classic symptoms of hyperglycemia or hyperglycemic crisis, a random glucose >/= 200 mg/dl is diagnostic for diabetes. In the absence of unequivocal hyperglycemia, results should be confirmed by repeat testing. The classification and Diagnosis of Diabetes Diabetes Care 2021; 46: S19-S40. Current interpretive data was last revised 2022. Calcium 8.5 8.5 - 10.3 mg/dL [facility] Bilirubin, total 0.4 0.1 - 1.2 mg/dL [facility] Protein, pl 5.9(L) 6.5 - 8.5 g/dL [facility] Albumin 3.3(L) 3.5 - 5.0 g/dL [facility] Alk phos 167(H) 40 - 130 Units/L [facility] ALT 11 7 - 45 Units/L [facility] AST See Comment 10 - [address] [facility] Comment:Credited; Hemolyzed Specimen Blood 03/19/2025 4:11 AM CDT 03/19/2025 4:14 AM CDT Kamila Askew MD LAB BLOOD ORDERABLES Final R esult Performing Organization Address [facility] Co de Phone Number HELADIO [address] [place] [address] * POCT glucose (03/19/2025 3:28 AM CDT) [facility] Signature Glucose, POC 81 70 - 199 mg/dL Blood 03/19/2025 3:28 AM CDT 03/19/2025 3:28 AM CDT Kamila Askew MD LAB POCT ORDERABLES - DEVICE Final Result Performing Organization Address [facility] Co de Phone Number HELADIO [address] [place] [address] * POCT glucose (03/19/2025 2:46 AM CDT) Glucose, POC 101 70 - 199 mg/dL Blood 03/19/2025 2:46 AM CDT 03/19/2025 2:46 AM CDT Kamila Askew MD LAB POCT ORDERABLES - DEVICE Final Result Performing Organization Address [facility] Co de Phone Number [address] [place] [address] * POCT glucose (03/19/2025 1:59 AM CDT) Glucose, POC 118 70 - 199 mg/dL Blood 03/19/2025 1:59 AM CDT 03/19/2025 1:59 AM CDT Kamila Askew MD LAB POCT ORDERABLES - DEVICE Final Result Performing Organization Address [facility] Co de Phone Number [address] [place] [address] * (ABNORMAL) POCT glucose (03/19/2025 1:03 AM CDT) Glucose, POC 56(L) 70 - 199 mg/dL Blood 03/19/2025 1:03 AM CDT 03/19/2025 1:03 AM CDT Kamila Askew MD LAB POCT ORDERABLES - DEVICE Final Result Performing Organization Address City/[facility] Co de Phone Number [address] [place] [address] * (ABNORMAL) Urinalysis reflex to microscopic and culture Urine (03/19/2025 12:54 AM CDT) [facility] Color, ur Straw Yellow Clarity, ur Turbid(A) Clear [facility] Specific gravity, ur 1.007 1.003 - 1.030 HEL[facility]IO pH, urine 5.5 [facility] Comment: Interpretive Data U rine pH is affected by diet, medications, systemic acid-base disturbances, and renal tubular function. pH may affect urinary stone formation. For example, urine pH below 6.0 may help reduce the tendency for calcium phosphate stones and pH greater than 6.0 may reduce the tendency for uric acid stone formation. Source: [facility] Current Interpretive Data was last revised on 2017 Protein, ur ql Negative Negative [facility] Glucose, ur ql Negative Negative [facility] Ketones, ur Negative Negative [facility] Bilirubin, ur Negative Negative [facility] Blood, ur 2+(A) Negative [facility] Urobilinogen, ur <2.0 <2.0 mg/dL [facility] Nitrite, ur Negative Negative [facility] Leukocyte esterase, ur 4+(A) Negative [facility] UA reflex comment Reflex to microscopic UA will be performed. [facility] Urine 03/19/2025 12:5 4 AM CDT 03/19/2025 1:01 AM CDT Brett Noonan [facility] LAB MICROBIOLOGY - GENERAL ORDERABLES Final Result Performing Organization Address [facility] Phone Number [place] [id number] [facility] Department [place] [address] * (ABNORMAL) Urinalysis, microscopic only (03/19/2025 12:54 AM CDT) WBC, ur 21-50(A) 0 - 5 /HPF RBC, ur 3-5(A) 0 - 2 /HPF [facility] Epithelial cells, squamous, ur >50(A) 0 - 5 /HPF [facility] Comment:Suggestive of contam ination. Consider recollection by clean catch. Bacteria, ur 1+(A) [facility] Mucous, ur Present(A) [facility] Amorphous crystals, ur 1+(A) [facility] Culture Reflex Comment Reflex to urine culture will be performed. [facility] Urine 03/19/2025 12:5 4 AM CDT 03/19/2025 1:01 AM CDT Brett Noonan [facility] LAB URINE ORDERABLES Final Result Performing Organization Address [facility]/ZIP Co de Phone Number [address] [place] [address] * Urine culture Urine (03/19/2025 12:54 AM CDT) Report Final Report: Less than 100,000 colonies/mL (clinically insignificant growth based on current clinical standards) Comment:Testing performed by : [facility], [address] [place] [address] Organism (CLINICALLY INSIGNIFICANT GROWTH [facility] Urine 03/19/2025 12:5 4 AM CDT 03/19/2025 7:27 AM CDT [facility]ative [facility] 03/20/2025 10:32 AM CDT Urine culture reflexed based upon urinalysis results. Testing performed by [facility] Microbiology Laboratory ([phone]) Brett Ho DO LAB MICROBIOLOGY - GENERAL ORDERABLES Final Result Performing Organization Address [facility] de Phone Number [address] [place] [address] * (ABNORMAL) Hemoglobin and hematocrit (03/19/2025 12:44 AM CDT) Hgb 8.9(L) 11.9 - 15.5 g/dL Hct 28.6(L) 35.6 - 45.5 % [facility] Blood 03/19/2025 12:4 4 AM CDT 03/19/2025 12:52 AM CDT Kamila Askew MD LAB BLOOD ORDERABLES Final R esult Performing Organization Address [facility] Co de Phone Number [address] [place] [address] * Transfuse RBC (03/19/2025 12:43 AM CDT) Blood Brett Ho DO BLOOD TRANSFUSION ORDERABLE S Final Result Performing Organization Address [facility]/ZIP Co de Phone Number HELADIO [address] [place] [address] * POCT glucose (03/18/2025 11:39 PM CDT) [facility] Glucose, POC 97 70 - 199 mg/dL Blood 03/18/2025 11:3 9 PM CDT 03/18/2025 11:39 PM CDT Kamila Askew MD LAB POCT ORDERABLES - DEVICE Final Result Performing Organization Address [facility] Co de Phone Number HELADIO [address] [address] * (ABNORMAL) POCT glucose (03/18/2025 10:49 PM CDT) [facility] Glucose, POC 52(C) 70 - 199 mg/dL Glucose comment 1 Glu2: [facility]ADIO Blood 03/18/2025 10:4 9 PM CDT 03/18/2025 10:49 PM CDT Brett Ho DO LAB POCT ORDERABLES - DEVIC E Final Result Performing Organization Address [facility] Co de Phone Number ELIAN[address] [place] [address] * ECG 12 lead (03/18/2025 9:48 PM CDT) [facility] Ventricular Rate EKG/Min 83 BPM [facility] Atrial Rate 83 BPM [facility] AL-Interval (MSEC) 118 ms [facility] QRS-Interval (MSEC) 124 ms [facility] QT-Interval (MSEC) 380 ms [facility] QTc 446 ms [facility] P [place] 49 degrees [facility] R [place] -37 degrees [facility] T [place] 134 degrees [facility] Diagnosis Normal sinus rhythm Left axis deviation Right bundle branch block T wave abnormality, consider lateral ischemia Abnormal ECG When compared with ECG of 04-FEB-2020 16:32, T wave inversion now evident in Lateral leads Confirmed by ROMIE HAMLIN M.D. ([id number]) on 03/19/2025 7:35:39 PM [facility] 03/18/2025 9:48 PM CDT 03/19/2025 7:35 PM CDT us Brett Ho DO ECG ORDERABLES Final Resul t Performing Organization Address [facility] Co de Phone Number [facility] * (ABNORMAL) Troponin T high-sensitivity 2-hour (03/18/2025 9:26 PM CDT) Trop T hs 23(H) <=14 ng/L Comment: Interpretive Data For further hscTnT resources including the diagnostic algorithm and an aid in interpretation, copy and paste this link: https://nrl.testcatalog.org/show/hsTrop Current Interpretive Data last revised 2020. Trop T hs delta -5 ng/[facility] Trop T hs interp Equivocal [facility] Blood 03/18/2025 9:26 PM CDT 03/18/2025 9:28 PM CDT Brett Ho DO LAB BLOOD ORDERABLES Final Result Performing Organization Address [facility] de Phone Number [facility]IO [address] [facility] Department [place] [address] * CT Chest Abdomen Pelvis WO Contrast (03/18/2025 8:50 PM CDT) Anatomical Region Laterality Modality Body N/A Computed Tomogra phy 03/18/2025 9:12 PM CDT Narrative 03/18/2025 9:25 PM CDT EXAM DESCRIPTION: CT CHEST ABDOMEN PELVIS WO CONTRAST REASON FOR STUDY: Possible bleed, unkown source, Hb 6.6. GFR <30 Via ems from home. [facility] REPORTS THEY WERE CALLED FOR diabetic issue. Accucheck upon their arrival was 52 and ems gave the pt 15 grams of oral glucose. IV was started and 1 amp of D 50% was given iv. On arrival pt was lethargic but alert et oriented x 4. After pt was given D 50% PT WAS MORE ALERT AND REPORTS SHE FEELS BEETER. ERP at bedside. GFR 11 TECHNIQUE: CT scan of the chest, abdomen, and pelvis performed without intravenous and without oral contrast using helical scanning technique. Reconstructed coronal and sagittal MPR images reviewed. All images stored on PACS. Automated exposure control was used as a dose optimization technique for this examination. COMPARISON: None FINDINGS: LUNGS: 13 mm solid-appearing nodule in the right apex. 7 mm nodule abutting the lateral pleural surface in the right upper lung image 26/97. Several scattered smaller nodules. Trachea and major airways patent. HEART/MEDIASTINUM/AMOS: Heart size normal. Heavy coronary artery calcification. No enlarged lymph node. Thoracic inlet unremarkable. CHEST MSK: Qzmc-va-hkhwhehj multilevel disc disease. Nonspecific sclerotic/lucent areas in the upper lumbar vertebral bodies, indeterminate. Right humeral neck fracture. Healed sternotomy. Erosive lesions and several right anterior ribs. CHEST WALL: Left mastectomy. No axillary lymph node enlargement. LIVER/BILIARY: Cirrhotic liver. Post cholecystectomy biliary fullness. GALLBLADDER: Absent. SPLEEN: Normal. PANCREAS: Aqap-oa-wvifzdad atrophy. ADRENAL GLANDS: Normal. KIDNEYS/URINARY TRACT: Unremarkable. GI: Stomach and small bowel appear normal. Noninflamed colonic diverticula. Normal appendix. OTHER ABDOMINAL/PELVIS: Major vascular structures are normal in caliber. Heavy atherosclerotic calcification. No enlarged lymph node or free fluid. Hysterectomy. MSK: Extensive lytic disease throughout the spine. Moderate compression deformities at L3 and L4. Lower S1 fracture with anterolisthesis. Extensive lytic disease throughout the pelvis. Right iliac wing fracture. BODY WALL: Unremarkable. IMPRESSION: No active bleeding identified. Extensive lytic disease throughout the spine and pelvis with moderate compression deformities at L3 and L4 and lower S1 fracture with anterolisthesis. Impacted right iliac wing fracture. Right humeral neck fracture. 13 mm solid-appearing nodule in the right apex and 7 mm nodule abutting the lateral pleural surface in the right upper lung. Several smaller scattered nodules. Cirrhotic liver. THIS IS AN ELECTRONICALLY VERIFIED FINAL REPORT 03/18/2025 9:25 PM - Electronically signed by Kenney ULLOA T: Report ID: [id number] Reading Location: [id number] Procedure Note Kenney Leo MD - 03/18/2025 EXAM DESCRIPTION: CT CHEST ABDOMEN PELVIS WO CONTRAST REASON FOR STUDY: Possible bleed, unkown source, Hb 6.6. GFR <30 Via ems from home. BAS[facility] EMS REPORTS THEY WERE CALLED FOR diabetic issue. Accucheck upon their arrival was 52 and ems gave the pt 15 grams of oral glucose. IV was started and 1 amp of D 50% was given iv. On arrival pt was lethargic but alert et oriented x 4. After pt was given D 50% PT WASMORE ALERT AND REPORTS SHE FEELS BEETER. ERP at bedside. GFR 11 TECHNIQUE: CT scan of the chest, abdomen, and pelvis performed without intravenous and without oral contrast using helical scanning technique. Reconstructed coronal and sagittal MPR images reviewed. All images storedon PACS. Automated exposure control was used as a dose optimizationtechnique for this examination. COMPARISON: None FINDINGS: LUNGS: 13 mm solid-appearing nodule in the right apex. 7 mm noduleabutting the lateral pleural surface in the right upper lung image 26/97. Several scattered smaller nodules. Trachea and major airways patent. HEART/MEDIASTINUM/AMOS: Heart size normal. Heavy coronary artery calcification. No enlarged lymph node. Thoracic inlet unremarkable. CHEST MSK: Dkoi-po-bjvxromn multilevel disc disease. Nonspecific sclerotic/lucent areas in the upper lumbar vertebral bodies,indeterminate. Right humeral neck fracture. Healed sternotomy. Erosive lesions andseveral right anterior ribs. CHEST WALL: Left mastectomy. No axillary lymph node enlargement. LIVER/BILIARY: Cirrhotic liver. Post cholecystectomy biliary fullness. GALLBLADDER: Absent. SPLEEN: Normal. PANCREAS: Qhnh-rr-fyrutvny atrophy. ADRENAL GLANDS: Normal. KIDNEYS/URINARY TRACT: Unremarkable. GI: Stomach and small bowel appear normal. Noninflamed colonicdiverticula. Normal appendix. OTHER ABDOMINAL/PELVIS: Major vascular structures are normal in caliber. Heavy atherosclerotic calcification. No enlarged lymph node or freefluid. Hysterectomy. MSK: Extensive lytic disease throughout the spine. Moderate compression deformities at L3 and L4. Lower S1 fracture with anterolisthesis.Extensive lytic disease throughout the pelvis. Right iliac wing fracture. BODY WALL: Unremarkable. IMPRESSION: No active bleeding identified. Extensive lytic disease throughout the spine and pelvis with moderate compression deformities at L3 and L4 and lower S1 fracture with anterolisthesis. Impacted right iliac wing fracture. Right humeral neck fracture. 13 mm solid-appearing nodule in the right apex and 7 mm nodule abuttingthe lateral pleural surface in the right upper lung. Several smallerscattered nodules. Cirrhotic liver. THIS IS AN ELECTRONICALLY VERIFIED FINAL REPORT 03/18/2025 9:25 PM - Electronically signed by Kenney Leo M.D. AR T: Report ID: [id number] Reading Location: [id number] Brett Ho DO IMG CT PROCEDURES Final Res ult * Prepare RBC: 1 Units (03/18/2025 8:46 PM CDT) Units requested 1 Units requested Ready HEL[facility]IO Unit Number [id number] Product code [id number] [facility] Blood Expiration Date [id number] [facility] Product Blood Type (for scanning) 5100 [facility] Product Blood Type OPOS [facility] Dispense Status DISPENSED [facility] Blood 03/18/2025 8:46 PM CDT 03/18/2025 8:46 PM CDT Brett Ho BLOOD BANK PRODUCT ORDERABL ES Final Result Performing Organization Address [facility] Co de Phone Number HELADIO [facility] [facility] [employer] [place] [address] * ABO / Rh Confirmation Testing (03/18/2025 8:19 PM CDT) Pathologist [facility] ABO/Rh Confirmation O Positive [facility] Blood 03/18/2025 8:19 PM CDT 03/18/2025 8:21 PM CDT Brett Ho DO LAB BLOOD ORDERABLES Final Result [facility] [place] [employer] [place] [address] MHB * POCT glucose (03/18/2025 8:12 PM CDT) Glucose, POC 114 70 - 199 mg/dL Glucose comment 1 RN/MD Notified [facility] Glucose comment 2 Use This Result [facility] Blood 03/18/2025 8:12 PM CDT 03/18/2025 8:12 PM CDT [facility] POCT ORDERABLES - DEVIC E Final Result Performing Organization Address [facility]/ZIP Co de Phone Number [address] [place] [address] * ABO/Rh (03/18/2025 8:04 PM CDT) [facility] ABO/Rh O Positive Blood 03/18/2025 8:04 PM CDT 03/18/2025 8:07 PM CDT Narrative [facility] - 03/18/2025 8:45 PM CDT Has the patient had Daratumumab or Isatuximab in the past 6 months?->Unknown [facility] BLOOD BANK TEST ORDERAB LES Final Result Performing Organization Address [facility] Co de Phone Number [address] [place] [address] * Crossmatch (03/18/2025 8:04 PM CDT) [facility] Crossmatch Compatible [facility] Unit number for crossmatch [id number] [facility] Blood 03/18/2025 8:04 PM CDT 03/18/2025 8:07 PM CDT [facility] BLOOD BANK TEST ORDERAB LES Final Result Performing Organization Address [facility] Co de Phone Number [address] [place] [address] * Antibody screen (03/18/2025 8:04 PM CDT) [facility] Dianne, indirect, Gel Interpretation Negative ABSC Blood 03/18/2025 8:04 PM CDT 03/18/2025 8:07 PM CDT Narrative [facility] - 03/18/2025 8:45 PM CDT Has the patient had Daratumumab or Isatuximab in the past 6 months?->Unknown Brett Saran Ho DO LAB BLOOD BANK TEST ORDERAB LES Final Result [facility] [address] [facility] Department [place] [address] * XR Chest 1 Vw Portable (03/18/2025 8:00 PM CDT) Anatomical Region Laterality Modality Body, Chest N/A Computed Radiogr aphy 03/18/2025 8:10 PM CDT Narrative 03/18/2025 8:11 PM CDT EXAM DESCRIPTION: XR CHEST 1 VIEW REASON FOR STUDY: hypoglycemia Via ems from home. [facility] EMS REPORTS THEY WERE CALLED FOR diabetic issue. Accucheck upon their arrival was 52 and ems gave the pt 15 grams of oral glucose. On arrival to 26 pt had an accuchec of 26. Iv was started and 1 amp of D 50% was given iv. On arrival pt was lethargic but alert et oriented x 4. After pt was given D 50% PT WAS MORE ALERT AND REPORTS SHE FEELS BEETER. TECHNIQUE: Single radiographic view(s) of the chest. COMPARISON: None FINDINGS: LUNGS: Mild left base infiltrates are suspected superimposed on bilateral chronic lung changes. No consolidation or effusion is seen. HEART/MEDIASTINUM: Cardiac silhouette normal in size. Mediastinal and hilar contours appear normal. LINES/TUBES: None. BONES: Deformity versus fracture proximal right humeral shaft is noted consistent with the prior studies.. IMPRESSION: Mild left base infiltrates are suspected superimposed on chronic lung changes. THIS IS AN ELECTRONICALLY VERIFIED FINAL REPORT 03/18/2025 8:11 PM - Electronically signed by Brett Clay M.D. T: Report ID: [id number] Reading Location: [place] [address] Procedure Note Brett Clay MD - 03/18/2025 EXAM DESCRIPTION: XR CHEST 1 VIEW REASON FOR STUDY: hypoglycemia Via ems from home. BASIC EMS REPORTS THEY WERE CALLED FOR diabetic issue. Accucheck upon their arrival was 52 and ems gave the pt 15 grams of oral glucose. On arrival to 26 pt had an accuchec of 26. Iv was started and1 amp of D 50% was given iv. On arrival pt was lethargic but alert etoriented x 4. After pt was given D 50% PT WAS MORE ALERT AND REPORTS SHE FEELSBEETER. TECHNIQUE: Single radiographic view(s) of the chest. COMPARISON: None FINDINGS: LUNGS: Mild left base infiltrates are suspected superimposed on bilateral chronic lung changes. No consolidation or effusion is seen. HEART/MEDIASTINUM: Cardiac silhouette normal in size. Mediastinal andhilar contours appear normal. LINES/TUBES: None. BONES: Deformity versus fracture proximal right humeral shaft is noted consistent with the prior studies.. IMPRESSION: Mild left base infiltrates are suspected superimposed onchronic lung changes. THIS IS AN ELECTRONICALLY VERIFIED FINAL REPORT 03/18/2025 8:11 PM - Electronically signed by Brett Clay M.D. T: Report ID: [id number] Reading Location: [id number] Brett Ho DO IMG XR PROCEDURES Final Res ult * (ABNORMAL) Protime-INR (03/18/2025 7:33 PM CDT) PT 14.9(H) 12.0 - 14.6 sec Comment:Ref Range High INR 1.2 0.9 - 1.2 HEL[facility]IO Comment: Ref Range High Interpretive data Oral anticoagulant therapeutic ranges: Venous thromboembolism prophylaxis or treatment: 2.0-3.0 CARDIOLOGY Standard range: 2.0-3.0 High-intensity range: 2.5-3.5 Refer to indication-specific guidelines for appropriate target ranges for prosthetic heart valve replacement. Current interpretive data was last revised on 2019. Blood 03/18/2025 7:33 PM CDT 03/18/2025 7:35 PM CDT [facility] BLOOD ORDERABLES Final Result Performing Organization Address [facility] de Phone Number HELADIO [address] [address] * (ABNORMAL) D-dimer, quantitative (03/18/2025 7:33 PM CDT) D-Dimer 5,810(H) <=499 ng/mL FEU Comment: Interpretive data FDA approved the D-dimer, in conjunction with a low or moderate pretest probability score, to exclude venous thromboembolic events (VTE) (PE and DVT) in outpatients when the D-dimer result is < 500 ng/ml FEU. Evidence supports using an age-adjusted D-dimer cut-off for outpatients older than 50 (age x 10) to improve specificity without sacrificing sensitivity. Example: age 68, VTE cut-off 680 ng/ml FEU. References; Schouten HT et al. Brit Med J. 2013;346:f2492. Kenyetta KEE et al. Annals Int Med. 2015;163:701-11. Current interpretive data was last revised on 2019. Blood 03/18/2025 7:33 PM CDT 03/18/2025 7:35 PM CDT Brett Ho LAB BLOOD ORDERABLES Final Result Performing Organization Address [facility] de Phone Number HELADIO [address] [address] * (ABNORMAL) Troponin T high-sensitivity series (baseline, 2hr, 4hr, 6hr) (03/18/2025 7:28 PM CDT) Trop T hs 28(H) <=14 ng/L Comment: Interpretive Data For further hscTnT resources including the diagnostic algorithm and an aid in interpretation, copy and paste this link: https://nrl.testcatalog.org/show/hsTrop Current Interpretive Data last revised 2020. Blood 03/18/2025 7:28 PM CDT 03/18/2025 7:32 PM CDT Brett Ho LAB BLOOD ORDERABLES Final Result Performing Organization Address [facility] de Phone Number HELADIO [address] [place] [address] * (ABNORMAL) eGFR (03/18/2025 7:28 PM CDT) [facility] eGFR 11(L) >=60 mL/min/1. 73 m2 Comment: Interpretive Data Reference Interval Normal >/= 90 mL/min/1.73m2 Mildly decreased* 60 - 89 mL/min/1.73m2 Mildly to moderately decreased 45 - 59 mL/min/1.73m2 Moderately to severely decreased 30 - 44 mL/min/1.73m2 Severely decreased 15 - 29 mL/min/1.73m2 Kidney Failure < 15 mL/min/1.73m2 *Relative to young adult level Estimated glomerular filtration rate is determined by the 2020 CKD-EPI equation recommended by the National Kidney Foundation (A Unifying Approach to GFR Estimation: Recommendations of the NKF-ASK Task Force on Reassessing the Inclusion of Race in Diagnosing Kidney Disease, JASN 2020). The CKD-EPI equation should not be used for patients with unstable renal function and has not been validated in children and those over 70. Current interpretive data was last reviewed 2021. Blood 03/18/2025 7:28 PM CDT 03/18/2025 7:32 PM CDT Brett Saran Ho DO LAB BLOOD ORDERABLES Final Result Performing Organization Address [facility]/ZIP Co de Phone Number HELADIO [address] [place] [place] [address] * (ABNORMAL) Differential, auto (03/18/2025 7:28 PM CDT) [facility] Neutrophil abs 3.00 1.50 - 6.50 K/cumm Imm gran abs 0.03 0.00 - 0.10 K/cumm [facility] Lymphocyte abs 1.21 0.80 - 3.30 K/cumm [facility] Monocyte abs 0.84(H) 0.20 - 0.80 K/cumm [facility] Eosinophil abs 0.08 0.00 - 0.50 K/cumm [facility] Basophil abs 0.01 0.00 - 0.10 K/cumm [facility] Neutrophil pct 58.1 % [facility] Comment: Interpretive Data Percent cell count reference ranges are not reported, since discordance with absolute values may lead to misinterpretation of CBC data. Current Interpretive Data was last revised on 2018. Imm gran pct 0.6 % [facility] Comment: Interpretive Data Percent cell count reference ranges are not reported, since discordance with absolute values may lead to misinterpretation of CBC data. Current Interpretive Data was last revised on 2018. Lymphocyte pct 23.4 % [facility] Comment: Interpretive Data Percent cell count reference ranges are not reported, since discordance with absolute values may lead to misinterpretation of CBC data. Current Interpretive Data was last revised on 2018. Monocyte pct 16.2 % [facility] Comment: Interpretive Data Percent cell count reference ranges are not reported, since discordance with absolute values may lead to misinterpretation of CBC data. Current Interpretive Data was last revised on 2018. Eosinophil pct 1.5 % [facility] Comment: Interpretive Data Percent cell count reference ranges are not reported, since discordance with absolute values may lead to misinterpretation of CBC data. Current Interpretive Data was last revised on 2018. Basophil pct 0.2 % [facility] Comment: Interpretive Data Percent cell count reference ranges are not reported, since discordance with absolute values may lead to misinterpretation of CBC data. Current Interpretive Data was last revised on 2018. Blood 03/18/2025 7:28 PM CDT 03/18/2025 7:32 PM CDT Brett Ho DO LAB BLOOD ORDERABLES Final Result [facility] [address] [facility] Department [place] [address] * (ABNORMAL) Pro B-type natriuretic peptide (03/18/2025 7:28 PM CDT) NT-proBNP 2,376(H) <=450 pg/mL Comment: Interpretive Comments: A. Dyspnea in Acute Care Setting All Ages: < 300 pg/ml, acute heart failure unlikely. < 50 yrs: 300 - 450 pg/ml, further investigation warranted. > 450 pg/ml, acute heart failure likely. 50 - 74 yrs: 300 - 900 pg/ml, further investigation warranted. > 900 pg/ml, acute heart failure likely . > or = 75 yrs: 450 - 1800 pg/ml, further investigation warranted. > 1800 pg/ml, acute heart failure likely. B. Non-acute Setting < 75 yrs < 125 pg/ml, rules out heart failure. > or = 125 pg/ml, further investigation warranted. > or = 75 yrs < 450 pg/ml, rules out heart failure. > or = 450 pg/ml, further investigation warranted. - Knowledge of each individual patient's NT-proBNP range may be more useful than using similar cut-points for every patient. Please note that marked elevations in NT-proBNP levels may be observed in state other than Left Ventricular Congestive Failure, including: acute coronary syndromes, right heart strain/failure (including pulmonary embolism and cor pulmonale), critical illness, renal failure, as well as advanced age. - References: 1. Ashley COLLADO et.al. Eur Heart J. 2006:27:330-337. 2. Murphy RW, Robert CHAKRABORTY. J. AM Mamadou Cardiol: Cardiovasc Imag. 2009;2: 216- 225. Interpretive Data Last Revised Date: 2018. Blood 03/18/2025 7:28 PM CDT 03/18/2025 7:32 PM CDT us Brett Ho DO LAB BLOOD ORDERABLES Final Result [facility] [address] [facility] Department [place] [address] * (ABNORMAL) CBC with auto differential (03/18/2025 7:28 PM CDT) WBC 5.17 3.80 - 9.90 K/cumm Hgb 6.6(L) 11.9 - 15.5 g/dL [facility] Hct 21.5(L) 35.6 - 45.5 % [facility] Plt 168 150 - 400 K/cumm [facility] MPV 9.0(L) 9.1 - 12.3 fL [facility] RBC 2.09(L) 3.90 - 5.20 M/cumm [facility] MCV 102.9(H) 81.3 - 96.4 fL [facility] MCH 31.6 27.1 - 33.3 pg [facility] MCHC 30.7(L) 32.3 - 35.7 g/dL [facility] RDW CV 22.7(H) 11.1 - 14.9 % [facility] RDW SD 82.6(H) 35.7 - 48.1 fL [facility] NRBC abs 0.05(H) 0.00 - 0.01 K/cumm [facility] Blood 03/18/2025 7:28 PM CDT 03/18/2025 7:32 PM CDT Brett Ho DO LAB BLOOD ORDERABLES Final Result [facility] [address] [facility] Department [place] [address] * (ABNORMAL) Comprehensive metabolic panel (03/18/2025 7:28 PM CDT) Sodium 129(L) 135 - 145 mmol/L Potassium, pl 5.4(H) 3.3 - 4.9 mmol/L [facility] Chloride 103 97 - 110 mmol/L [facility] CO2 14(L) 22 - 32 mmol/L [facility] Anion gap 12 2 - 15 mmol/L [facility] BUN 43(H) 6 - 25 mg/dL [facility] Creatinine 3.86(H) 0.60 - 1.10 mg/dL [facility] Glucose 216(H) 70 - 199 mg/dL [facility] Comment: Interpretive Data Fasting glucose >/= 126 mg/dl is diagnostic for diabetes. Fasting is defined as no caloric intake for at least 8 hours. Fasting glucose between 100 mg/dl to 125 mg/dl is diagnostic of prediabetes. In a patient with classic symptoms of hyperglycemia or hyperglycemic crisis, a random glucose >/= 200 mg/dl is diagnostic for diabetes. In the absence of unequivocal hyperglycemia, results should be confirmed by repeat testing. The classification and Diagnosis of Diabetes Diabetes Care 2021; 46: S19-S40. Current interpretive data was last revised 2022. Calcium 8.6 8.5 - 10.3 mg/dL [facility] Bilirubin, total 0.2 0.1 - 1.2 mg/dL [facility] Protein, pl 5.6(L) 6.5 - 8.5 g/dL [facility] Albumin 3.2(L) 3.5 - 5.0 g/dL [facility] Alk phos 156(H) 40 - 130 Units/L [facility] ALT 11 7 - 45 Units/L [facility] AST 34 10 - 45 Units/L [facility] Blood 03/18/2025 7:28 PM CDT 03/18/2025 7:32 PM CDT Brett Ho DO LAB BLOOD ORDERABLES Final Result Performing Organization Address City/[facility]/ZIP Co de Phone Number [address] [place] [address] * (ABNORMAL) POCT glucose (03/18/2025 7:19 PM CDT) Glucose, POC 37(C) 70 - 199 mg/dL Glucose comment 1 Use This Result [facility] Glucose comment 2 RN/MD Notified [facility] Blood 03/18/2025 7:19 PM CDT 03/18/2025 7:19 PM CDT Notinfile Unknown LAB POCT ORDERABLES - DEVICE F inal Result Performing Organization Address City/[facility]/ZIP Co de Phone Number [address] [place] [place] [address] * (ABNORMAL) POCT glucose (03/18/2025 7:18 PM CDT) Glucose, POC 36(C) 70 - 199 mg/dL Glucose comment 1 Will Repeat Test [facility] Blood 03/18/2025 7:18 PM CDT 03/18/2025 7:18 PM CDT us Notinfile Unknown LAB POCT ORDERABLES - DEVICE F inal Result [facility] [address] [facility] Department [place] [address] * Dexa Axial Skeleton Bone Density 1 [...] dairy products and caffeinated beverages. COMPARISON(S): 06/08/2012 LEGISLATIVE ASSISTANT/MODEL: [employer] (S/N [id number]) FINDINGS: AP lumbar spine L1-L4 Total BMD is 0.86 g/iy0S-cmpmi is -1.7 Most recent prior BMD was 0.819 g/cm2 There has been a 4.9% increase in BMD which is statistically significant. Left Hip Current Total BMD is 0.959 g/kz9R-wxllc is 0.1 Most recent prior Total BMD was 0.973 g/cm2 There has been a 1.4% decrease in BMD. Current femoral neck BMD is 0.705 g/fc5Q-gqpjv is -1.3 Fracture risk assessment (FRAX): 10 [...] consumes dairy products and caffeinatedbeverages. COMPARISON(S): 06/08/2012 LEGISLATIVE ASSISTANT/MODEL: [employer] (S/N [id number]) FINDINGS: AP lumbar spine L1-L4 Total BMD is 0.86 g/uw1A-xriie is -1.7 Most recent prior BMD was 0.819 g/cm2 There has been a 4.9% increase in BMD which is statisticallysignificant. Left Hip Current Total BMD is 0.959 g/xg4E-ejkdf is 0.1 Most recent prior Total BMD was 0.973 g/cm2 There has been a 1.4% decrease in BMD. Current femoral neck BMD is 0.705 g/pl2I-ulgfg is -1.3 Fracture risk assessment (FRAX): 10 [...] Moreira M.D. 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
--- OUTSIDE RECORDS SUMMARY | 2025-04-19 15:04 | XMS_ITS | Encounter Summary ---
Author Organization [facility] Facility Care Team Providers Care Clinical Research Technician Name Role Phone No, Physician Primary Care Provider [phone] Jose Arguello MD Primary Care Prov ider Jose Guadalupe Auguste MD Unavailable [phone] Encounter Details Date Type Department Care Team (Latest Contact Info) Description 02/10/2006 Orders Only [facility] CLINCONV ProviderChristopher MD [address] [place] [place] [id number] Social History Tobacco Use Types Packs/Day Years Used Date Smoking Tobacco: Never Assessed Comments Unknown Sex and Gender Information Value Date Recorded Sex Assigned at Not on file 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 Patient may require a screening swab/n.moll 03/19/2025 03/19/2025 03/26/2025 7:26 PM CDT documented as of this encounter Care Teams Clinical Research Technician Relationship Specialty Start Date End Date No, Physician PCP - General 01/05/19 05/10/19 Jose Arguello MD PCP - General Family Medicine 05/11/19 Jose Guadalupe Auguste MD [address] [place] [address] [place] [id number] Consulting Physician Nephrology 03/22/25 documented as of this encounter
--- OUTSIDE RECORDS SUMMARY | 2025-04-19 15:04 | XMS_ITS | Encounter Summary ---
Author Organization [facility] Facility Care Team Providers Care Scenic Designer Name Role Phone No, Physician Primary Care Provider [phone] Jose Arguello MD Primary Care Prov ider Jose Guadalupe Auguste MD Unavailable [phone] Encounter Details Date Type Department Care Team (Latest Contact Info) Description 06/24/2018 Orders Only [facility] CLINCONV ProviderChristopher MD [address] [place] [address] Social History Tobacco Use Types Packs/Day Years Used Date Smoking Tobacco: Never Assessed Comments Unknown Sex and Gender Information Value Date Recorded Sex Assigned at Not on file 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
--- OUTSIDE RECORDS SUMMARY | 2025-04-19 15:04 | XMS_ITS | Encounter Summary ---
Author Organization [facility] Facility Care Team Providers Care Hydrodynamicist Name Role Phone No, Physician Primary Care Provider [phone] Jose Arguello MD Primary Care Prov ider Jose Guadalupe Auguste MD Unavailable [phone] Encounter Details Date Type Department Care Team (Latest Contact Info) Description 08/30/2018 Orders Only [facility] CLINCONV ProviderChristopher MD [address] [place] [address] Social History Tobacco Use Types Packs/Day Years Used Date Smoking Tobacco: Never Assessed Comments Unknown Sex and Gender Information Value Date Recorded Sex Assigned at Not on file Legal Sex Female 6:44 PM TACK PICKER Gender Identity Not on file Sexual Orientation Not on file documented as of this encounter Plan of Treatment Not on file documented as of this encounter Procedures Procedure Name Priority Date/Time Associated Diagnosis Comments PROCEDURE - RESULT 08/30/2018 12 :00 AM TACK PICKER documented in this encounter Results * PROCEDURE - RESULT (08/30/2018 12:00 AM TACK PICKER) Narrative 08/30/2018 12:00 AM TACK PICKER Ordered by an unspecified provider. Historical Provider [...] documented as of this encounter Care Teams Hydrodynamicist Relationship Specialty Start Date End Date No, Physician PCP - General 01/05/19 05/10/19 Jose Arguello MD PCP - General Family Medicine 05/11/19 Jose Guadalupe Auguste MD [address] [place] [address] [place] [address] Consulting Physician Nephrology 03/22/25 documented as of this encounter
--- OUTSIDE RECORDS SUMMARY | 2025-04-19 15:04 | XMS_ITS | Referral Summary ---
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 (Primary Dx) 03/23/2025 Telephone [facility] Home Care Services [address] [facility] [address] [place] [phone] Mynor Sharpe RN 03/23/2025 Telephone [facility] [address] [facility] [address] [place] [phone] Mynor Sharep, JOE 03/18/2025 7:09 PM CDT - 03/22/2025 3:56 PM CDT Hospital Encounter [address] [place] [address] Brett Ho DO Paruchuri, Tharun, MD Chapagain, Akhil, MD Bondalapati , Hardik Edmonds MD Hypoglycemia (Primary Dx); JENIFER (acute kidney injury); Iron deficiency anemia due to chronic blood loss; Melena; Acute kidney injury superimposed on chronic kidney disease; Metabolic acidosis; Hyperkalemia; Anemia of renal disease; Other cirrhosis of liver (HCC) [K74.69]; Physical deconditioning Discharge Disposition: Discharge to home, home health skilled care 03/20/2025 1:26 PM CDT Anesthesia Event [facility] [address] [place] [address] Clarence Bonilla MD 03/20/2025 12:30 PM CDT - 03/20/2025 1:00 PM CDT Surgery [facility] GI [facility] [address] [place] [address] Los Farr ra, MD ESOPHAGOGASTRODUODENOSCOPY 01/24/2025 Orders Only [facility] Orthopaedic Surgery [facility] Medicine 6th [place] [address] [place] [address] Dany Guerin MD 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, subsequent encounter (Primary Dx); 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) from Last 3 Months Allergies Active Allergy [...] Medium 04/18/2016 Simvastatin Muscle pain Medium 04/18/2016 Srflnnx-Ipi-Oxg Reductase Inhibitors Muscle pain Medium 04/18/2016 Medications [...] hours as needed 06/12/20 22 Active omega 7-jrb-utp-fish oil 1,000 mg (120 mg-180 mg) capsule [...] (1 mg total) by mouth daily 10/19/19 20 025 Discontinued(St op Taking at Discharge) doxycycline (doxycycline hyclate) 100 mg capsule Take 1 tablet/capsul e (100 mg total) by mouth 2 (two) times a day 09/09/20 22 025 Discontinued(St op Taking at Discharge) dexAMETHasone [...] Atorvastatin. Assessment & Plan (09/25/2020 10:41 AM ASSISTANT CLINICAL NURSE MANAGER): Stent to the saphenous vein graft to the RCA 07/01/[address] Rincon. Anti- platelet regimen. Aggressive risk factor modification. Assessment & Plan (03/20/2020 5:41 PM CDT): Stent to the saphenous vein graft to the RCA 07/01/[address] Rincon. Assessment & Plan (11/15/2019 1:37 PM ASSISTANT CLINICAL NURSE MANAGER): Stent to the saphenous vein graft to [...] 07/01/2018. Assessment & Plan (09/25/2020 10:38 AM ASSISTANT CLINICAL NURSE MANAGER): Was related to myocardial ischemia and to the coronary artery disease. No dyspnea since the stenting of the saphenous vein graft to the RCA 07/01/2018. Assessment & Plan (03/20/2020 5:36 PM CDT): No exertional dyspnea since the stenting of the saphenous vein graft to the RCA 07/01/2018. Assessment & Plan (11/15/2019 1:39 PM ASSISTANT CLINICAL NURSE MANAGER): No exertional dyspnea since the stenting of [...] weeks. Assessment & Plan (09/26/2020 9:58 AM ASSISTANT CLINICAL NURSE MANAGER): Blood pressure 158/60. Salt restriction. Continue the current regimen. Add losartan 100 mg p.o. daily for blood pressure control and for renal protective effect from diabetes. Assessment & Plan (03/21/2020 9:43 AM CDT): Blood pressure 144/80. Salt restriction. Continue the current regimen. Assessment & Plan (11/16/2019 11:28 AM ASSISTANT CLINICAL NURSE MANAGER): Blood pressure 140/70. Salt restriction. Continue the [...] Plavix. Assessment & Plan (09/25/2020 10:38 AM ASSISTANT CLINICAL NURSE MANAGER): Coronary artery bypass surgery 2006. Aggressive risk factor modification. Assessment & Plan (03/20/2020 5:37 PM CDT): Coronary artery bypass surgery 2006. Aggressive risk factor modification. Assessment & Plan (11/15/2019 1:39 PM ASSISTANT CLINICAL NURSE MANAGER): History of coronary artery bypass surgery 2006. [...] 07/01/2018. Assessment & Plan (09/25/2020 10:40 AM ASSISTANT CLINICAL NURSE MANAGER): No chest pains since stenting to the saphenous vein graft to the RCA 07/01/2018. Assessment & Plan (03/20/2020 5:42 PM CDT): No chest pain since stent to the saphenous vein graft to the RCA 07/01/2018. Ranexa was added which he found too expensive. Will consider Imdur if necessary. Assessment & Plan (11/16/2019 11:28 AM ASSISTANT CLINICAL NURSE MANAGER): Stent to the saphenous vein graft to [...] Stable. Assessment & Plan (09/25/2020 10:41 AM ASSISTANT CLINICAL NURSE MANAGER): Chronic. Stable. Assessment & Plan (03/20/2020 5:40 PM CDT): Chronic. Stable. Assessment & Plan (11/15/2019 1:37 PM ASSISTANT CLINICAL NURSE MANAGER): Chronic. Stable. Assessment & Plan (05/11/2019 12:19 [...] 75 Assessment & Plan (09/26/2020 9:58 AM ASSISTANT CLINICAL NURSE MANAGER): Low-fat low-cholesterol diet. Atorvastatin. On 07/24/2020 triglycerides [...] 93. Assessment & Plan (11/16/2019 11:29 AM ASSISTANT CLINICAL NURSE MANAGER): Low-fat low-cholesterol diet. Atorvastatin 40 mg bedtime [...] drink = 0.6 oz pur e alcohol) [facility] Utilities Answer Date Recorded In the past 12 months has [facility], [employer], oil, or water [employer] threatened to shut off services in your [...] often do you attend chur ch or mosque services? Never 03/19/2025 Do you belong to any clubs o r organizations such as mormonism groups, unions, fraternal or athletic groups, or [...] any time in the past 12 m [facility], were you homeless or living in a alf (including now)? No 03/19/2025 Personal Safety Answer Date Recorded Have you ever been in or are you currently in a harmful physical or emotional relationship or is someone making you feel afraid or unsafe? Denies 03/18/2025 Comments No Sex and Gender Information Value Date Recorded Sex Assigned at Not on file Legal Sex Female 6:44 PM ASSISTANT CLINICAL NURSE MANAGER Gender Identity Not on file Sexual [...] 03/19/2025 4:34 AM CDT Plan of Treatment Not on file Procedures [...] DIFFERENTIAL AUTO Routine 03/20/2025 5:51 AM CDT [id number], TUMOR MARKER Routine 03/20/2025 5:51 AM CDT [...] * POCT glucose (03/22/2025 12:15 PM CDT) Glucose, POC 173 70 - 199 mg/dL Blood 03/22/2025 12:1 5 PM CDT 03/22/2025 12:15 PM CDT Hardik Andrade MD LAB POCT ORDER SARA - DEVICE Final Result Performing Organization Address [facility] Co de Phone Number [address] [employer] [place] [address] * (ABNORMAL) Hemoglobin and hematocrit (03/22/2025 11:41 AM CDT) Pathologist [facility] Hgb 9.2(L) 11.9 - 15.5 g/dL Hct 28.1(L) 35.6 - 45.5 % [facility] Blood 03/22/2025 11:4 1 AM CDT 03/22/2025 11:51 AM CDT Kamila Askew MD LAB BLOOD ORDERABLES Final R esult Performing Organization Address [facility] de Phone Number [address] [employer] [place] [address] * POCT glucose (03/22/2025 7:24 AM CDT) Glucose, POC 149 70 - 199 mg/dL Blood 03/22/2025 7:24 AM CDT 03/22/2025 7:24 AM CDT Hardik Andrade MD LAB POCT ORDER SARA - DEVICE Final Result Performing Organization Address [facility] Co de Phone Number [address] [employer] [place] [address] * (ABNORMAL) eGFR (03/22/2025 6:25 AM CDT) [facility] [address] eGFR 23(L) >=60 mL/min/1. 73 m2 Comment: [...] MD LAB BLOOD ORDERABLES Final R esult [facility] [address] [facility] Department [place] [address] * (ABNORMAL) Differential, auto (03/22/2025 6:25 AM CDT) [facility] [address] Neutrophil abs 2.22 1.50 - 6.50 K/cumm Imm gran abs 0.02 0.00 - 0.10 K/cumm [facility] Lymphocyte abs 1.36 0.80 - 3.30 K/cumm [facility] Monocyte abs 0.83(H) 0.20 - 0.80 K/cumm [facility] Eosinophil abs 0.09 0.00 - 0.50 K/cumm [facility] Basophil abs 0.02 0.00 - 0.10 K/cumm [facility] Neutrophil pct 48.9 % [facility] Comment: Interpretive Data Percent cell count reference ranges are not reported, since discordance with absolute values may lead to misinterpretation of CBC data. Current Interpretive Data was last revised on 2018. Imm gran pct 0.4 % [facility] Comment: Interpretive Data Percent cell count reference ranges are not reported, since discordance with absolute values may lead to misinterpretation of CBC data. Current Interpretive Data was last revised on 2018. Lymphocyte pct 30.0 % [facility] Comment: Interpretive Data Percent cell count reference ranges are not reported, since discordance with absolute values may lead to misinterpretation of CBC data. Current Interpretive Data was last revised on 2018. Monocyte pct 18.3 % [facility] Comment: Interpretive Data Percent cell count reference ranges are not reported, since discordance with absolute values may lead to misinterpretation of CBC data. Current Interpretive Data was last revised on 2018. Eosinophil pct 2.0 % [facility] Comment: Interpretive Data Percent cell count reference ranges are not reported, since discordance with absolute values may lead to misinterpretation of CBC data. Current Interpretive Data was last revised on 2018. Basophil pct 0.4 % [facility] Comment: Interpretive Data Percent cell count reference ranges are not reported, since discordance with absolute values may lead to misinterpretation of CBC data. Current Interpretive Data was last revised on 2018. Blood 03/22/2025 6:25 AM CDT 03/22/2025 6:33 AM CDT us Kamila Askew MD LAB BLOOD ORDERABLES Final R esult [facility] [address] [facility] Department [place] [address] * (ABNORMAL) CBC with auto differential (03/22/2025 6:25 AM CDT) WBC 4.54 3.80 - 9.90 K/cumm Hgb 9.4(L) 11.9 - 15.5 g/dL [facility] Hct 29.1(L) 35.6 - 45.5 % [facility] Plt 148(L) 150 - 400 K/cumm [facility] MPV 8.4(L) 9.1 - 12.3 fL [facility] RBC 3.09(L) 3.90 - 5.20 M/cumm [facility] MCV 94.2 81.3 - 96.4 fL [facility] MCH 30.4 27.1 - 33.3 pg [facility] MCHC 32.3 32.3 - 35.7 g/dL [facility] RDW CV 20.3(H) 11.1 - 14.9 % [facility] RDW SD 69.7(H) 35.7 - 48.1 fL [facility] NRBC abs 0.04(H) 0.00 - 0.01 K/cumm [facility] Blood 03/22/2025 6:25 AM CDT 03/22/2025 6:33 AM CDT Kamila Askew MD LAB BLOOD ORDERABLES Final R esult [facility] [address] [facility] Department [place] [address] * (ABNORMAL) Comprehensive metabolic panel (03/22/2025 6:25 AM CDT) Sodium 143 135 - 145 mmol/L Potassium, pl 3.8 3.3 - 4.9 mmol/L [facility] Chloride 107 97 - 110 mmol/L [facility] CO2 22 22 - 32 mmol/L [facility] Anion gap 14 2 - 15 mmol/L [facility] BUN 25 6 - 25 mg/dL [facility] Creatinine 2.12(H) 0.60 - 1.10 mg/dL [facility] Glucose 137 70 - 199 mg/dL [facility] Comment: Interpretive Data Fasting glucose >/= [...] 2022. Calcium 9.2 8.5 - 10.3 mg/dL [facility] Bilirubin, total 0.4 0.1 - 1.2 mg/dL [facility] Protein, pl 6.2(L) 6.5 - 8.5 g/dL [facility] Albumin 3.3(L) 3.5 - 5.0 g/dL [facility] Alk phos 152(H) 40 - 130 Units/L [facility] ALT 9 7 - 45 Units/L [facility] AST 28 10 - 45 Units/L [facility] Blood 03/22/2025 6:25 AM CDT 03/22/2025 6:33 AM CDT Kamila Askew MD LAB BLOOD ORDERABLES Final R esult Performing Organization Address [facility] Co de Phone Number [address] [place] [address] * (ABNORMAL) Hemoglobin and hematocrit (03/21/2025 11:38 PM CDT) Hgb 8.8(L) 11.9 - 15.5 g/dL Hct 27.0(L) 35.6 - 45.5 % [facility] Blood 03/21/2025 11:3 8 PM CDT 03/21/2025 11:40 PM CDT Kamila Askew MD LAB BLOOD ORDERABLES Final R esult Performing Organization Address City/[facility]/ZIP Co de Phone Number [address] [employer] [place] [address] * POCT glucose (03/21/2025 8:15 PM CDT) Glucose, POC 179 70 - 199 mg/dL Blood 03/21/2025 8:15 PM CDT 03/21/2025 8:15 PM CDT Hardik Andrade MD LAB POCT ORDER SARA - DEVICE Final Result Performing Organization Address City/State/[facility] Co de Phone Number [address] [address] * (ABNORMAL) Hemoglobin and hematocrit (03/21/2025 6:32 PM CDT) [facility] [address] Hgb 8.9(L) 11.9 - 15.5 g/dL Hct 27.0(L) 35.6 - 45.5 % [facility] Blood 03/21/2025 6:32 PM CDT 03/21/2025 6:45 PM CDT Kamila Askew MD LAB BLOOD ORDERABLES Final R esult Performing Organization Address [place] Co de Phone Number [address] [address] * POCT glucose (03/21/2025 5:03 PM CDT) [facility] Glucose, POC 169 70 - 199 mg/dL Blood 03/21/2025 5:03 PM CDT 03/21/2025 5:03 PM CDT us Hardik Andrade MD LAB POCT ORDER SARA - DEVICE Final Result Performing Organization Address [place] Co de Phone Number [address] [employer] [place] [address] * POCT glucose (03/21/2025 12:23 PM CDT) [facility] Glucose, POC 168 70 - 199 mg/dL Blood 03/21/2025 12:2 3 PM CDT 03/21/2025 12:23 PM CDT Hardik Andrade MD LAB POCT ORDER SARA - DEVICE Final Result Performing Organization Address [facility] Co de Phone Number [address] [address] * (ABNORMAL) Hemoglobin and hematocrit (03/21/2025 11:55 AM CDT) [facility] [address] Hgb 9.1(L) 11.9 - 15.5 g/dL Hct 27.5(L) 35.6 - 45.5 % [facility] Blood 03/21/2025 11:5 5 AM CDT 03/21/2025 11:58 AM CDT Kamila Askew MD LAB BLOOD ORDERABLES Final R esult Performing Organization Address City/[facility]/ZIP Co de Phone Number [address] [employer] [place] [address] * POCT glucose (03/21/2025 7:37 AM CDT) [facility] [address] Glucose, POC 153 70 - 199 mg/dL Blood 03/21/2025 7:37 AM CDT 03/21/2025 7:37 AM CDT us Hardik Andrade MD LAB POCT ORDER SARA - DEVICE Final Result Performing Organization Address [facility] Co de Phone Number [address] [employer] [place] [address] * POCT glucose (03/21/2025 6:15 AM CDT) [facility] [address] Glucose, POC 126 70 - 199 mg/dL Blood 03/21/2025 6:15 AM CDT 03/21/2025 6:15 AM CDT Hardik Andrade MD LAB POCT ORDER SARA - DEVICE Final Result Performing Organization Address City/[facility] Co de Phone Number [address] [employer] [place] [address] * (ABNORMAL) eGFR (03/21/2025 5:12 AM CDT) [facility] [address] eGFR 18(L) >=60 mL/min/1. 73 m2 Comment: [...] of Race in Diagnosing Kidney Disease, JASN 202). The CKD-EPI equation should not be used for patients with unstable renal function and has not been validated in children and those over 70. Current interpretive data was last reviewed 2021. Blood 03/21/2025 5:12 AM CDT 03/21/2025 5:34 AM CDT us Kamila Askew MD LAB BLOOD ORDERABLES Final R esult [facility] [address] [facility] Department [place] [address] * (ABNORMAL) Differential, auto (03/21/2025 5:12 AM CDT) Neutrophil abs 2.54 1.50 - 6.50 K/cumm Imm gran abs 0.02 0.00 - 0.10 K/cumm [facility] Lymphocyte abs 0.72(L) 0.80 - 3.30 K/cumm [facility] Monocyte abs 0.75 0.20 - 0.80 K/cumm [facility] Eosinophil abs 0.08 0.00 - 0.50 K/cumm [facility] Basophil abs 0.01 0.00 - 0.10 K/cumm [facility] Neutrophil pct 61.7 % [facility] Comment: Interpretive Data Percent cell count reference ranges are not reported, since discordance with absolute values may lead to misinterpretation of CBC data. Current Interpretive Data was last revised on 2018. Imm gran pct 0.5 % [facility] Comment: Interpretive Data Percent cell count reference ranges are not reported, since discordance with absolute values may lead to misinterpretation of CBC data. Current Interpretive Data was last revised on 2018. Lymphocyte pct 17.5 % [facility] Comment: Interpretive Data Percent cell count reference ranges are not reported, since discordance with absolute values may lead to misinterpretation of CBC data. Current Interpretive Data was last revised on 2018. Monocyte pct 18.2 % [facility] Comment: Interpretive Data Percent cell count reference ranges are not reported, since discordance with absolute values may lead to misinterpretation of CBC data. Current Interpretive Data was last revised on 2018. Eosinophil pct 1.9 % [facility] Comment: Interpretive Data Percent cell count reference ranges are not reported, since discordance with absolute values may lead to misinterpretation of CBC data. Current Interpretive Data was last revised on 2018. Basophil pct 0.2 % [facility] Comment: Interpretive Data Percent cell count reference ranges are not reported, since discordance with absolute values may lead to misinterpretation of CBC data. Current Interpretive Data was last revised on 2018. Blood 03/21/2025 5:12 AM CDT 03/21/2025 5:34 AM CDT us Kamila Askew MD LAB BLOOD ORDERABLES Final R esult [facility] [address] [facility] Department of Laboratories [place], [place] [id number] * (ABNORMAL) CBC with auto differential (03/21/2025 5:12 AM CDT) WBC 4.12 3.80 - 9.90 K/cumm Hgb 9.8(L) 11.9 - 15.5 g/dL [facility] Hct 30.0(L) 35.6 - 45.5 % [facility] Plt 151 150 - 400 K/cumm [facility] MPV 8.6(L) 9.1 - 12.3 fL [facility] RBC 3.11(L) 3.90 - 5.20 M/cumm [facility] MCV 96.5(H) 81.3 - 96.4 fL [facility] MCH 31.5 27.1 - 33.3 pg [facility] MCHC 32.7 32.3 - 35.7 g/dL [facility] RDW CV 21.0(H) 11.1 - 14.9 % [facility] RDW SD 73.7(H) 35.7 - 48.1 fL [facility] NRBC abs 0.02(H) 0.00 - 0.01 K/cumm [facility] Blood 03/21/2025 5:12 AM CDT 03/21/2025 5:34 AM CDT Kamila Askew MD LAB BLOOD ORDERABLES Final R esult [facility] [address] [facility] Department [place] [address] * (ABNORMAL) Comprehensive metabolic panel (03/21/2025 5:12 AM CDT) Sodium 140 135 - 145 mmol/L Potassium, pl 4.0 3.3 - 4.9 mmol/L [facility] Chloride 107 97 - 110 mmol/L [facility] CO2 19(L) 22 - 32 mmol/L [facility] Anion gap 14 2 - 15 mmol/L [facility] BUN 32(H) 6 - 25 mg/dL [facility] Creatinine 2.58(H) 0.60 - 1.10 mg/dL [facility] Glucose 132 70 - 199 mg/dL [facility] Comment: Delta - Results Reviewed Interpretive [...] 2022. Calcium 9.5 8.5 - 10.3 mg/dL [facility] Bilirubin, total 0.4 0.1 - 1.2 mg/dL [facility] Protein, pl 6.6 6.5 - 8.5 g/dL [facility] Albumin 3.3(L) 3.5 - 5.0 g/dL [facility] Alk phos 164(H) 40 - 130 Units/L [facility] ALT 10 7 - 45 Units/L [facility] AST 26 10 - 45 Units/L [facility] Blood 03/21/2025 5:12 AM CDT 03/21/2025 5:34 AM CDT Kamila Askew MD LAB BLOOD ORDERABLES Final R esult Performing Organization Address [facility] Co de Phone Number [address] [employer] [place] [address] * (ABNORMAL) Hemoglobin and hematocrit (03/20/2025 11:49 PM CDT) Hgb 9.5(L) 11.9 - 15.5 g/dL Hct 29.6(L) 35.6 - 45.5 % [facility] Blood 03/20/2025 11:4 9 PM CDT 03/20/2025 11:53 PM CDT Kamila Askew MD LAB BLOOD ORDERABLES Final R esult Performing Organization Address [facility] Co de Phone Number [address] [employer] [place] [address] * (ABNORMAL) POCT glucose (03/20/2025 8:34 PM CDT) Glucose, POC 239(H) 70 - 199 mg/dL Blood 03/20/2025 8:34 PM CDT 03/20/2025 8:34 PM CDT Hardik Andrade MD LAB POCT ORDER SARA - DEVICE Final Result Performing Organization Address [facility]/ZIP Co de Phone Number [address] [address] * (ABNORMAL) Hemoglobin and hematocrit (03/20/2025 5:50 PM CDT) [facility] [address] Hgb 10.4(L) 11.9 - 15.5 g/dL Hct 33.0(L) 35.6 - 45.5 % [facility] Blood 03/20/2025 5:50 PM CDT 03/20/2025 6:16 PM CDT us Kamila Askew MD LAB BLOOD ORDERABLES Final R esult Performing Organization Address City/[facility]/ZIP Co de Phone Number [address] [address] * (ABNORMAL) POCT glucose (03/20/2025 2:10 PM CDT) [facility] [address] Glucose, POC 232(H) 70 - 199 mg/dL Blood 03/20/2025 2:10 PM CDT 03/20/2025 2:10 PM CDT us Hardik Andrade MD LAB POCT ORDER SARA - DEVICE Final Result Performing Organization Address [facility] Co de Phone Number [address] [address] * EGD (03/20/2025 1:27 PM CDT) Anatomical Region Laterality Modality Other Narrative Procedure Note Los Farr MD - 03/20/2025 1:27 PM CDT [facility] ENDOSCOPY Patient Name: Savannah Lyles Procedure Date: 03/20/2025 1:27 PM Date of : 1945 Admit Type: Inpatient Age: 79 Gender: Female Attending MD: Los Farr M.D. Room: [facility] ENDOSCOPY ROOM [facility] Note Status: Finalized Procedure: Upper GI endoscopy [...] by the physician, the nurse and the dimensional integration engineer in the procedure room. Mental Status Examination: [...] On: 03/20/2025 1:27 PM Recognized by the [employer] for promoting quality in endoscopy us Los Farr MD ENDOSCOPY PROCEDURE S Final Result * (ABNORMAL) POCT glucose (03/20/2025 12:58 PM CDT) Glucose, POC 259(H) 70 - 199 mg/dL Glucose comment 1 RN/MD Notified [facility] Blood 03/20/2025 12:5 8 PM CDT 03/20/2025 12:58 PM CDT Hardik Andrade MD LAB POCT ORDER SARA - DEVICE Final Result Performing Organization Address City/[facility]/ZIP Co de Phone Number [facility] [address] [address] * (ABNORMAL) POCT glucose (03/20/2025 12:10 PM CDT) [facility] [address] Glucose, POC 233(H) 70 - 199 mg/dL Blood 03/20/2025 12:1 0 PM CDT 03/20/2025 12:10 PM CDT Hardik Andrade MD LAB POCT ORDER SARA - DEVICE Final Result Performing Organization Address [facility] de Phone Number [facility] [address] [place] [address] * (ABNORMAL) CBC without differential (03/20/2025 11:50 AM CDT) [facility] [address] WBC 4.40 3.80 - 9.90 K/cumm Hgb 10.2(L) 11.9 - 15.5 g/dL [facility] Hct 32.2(L) 35.6 - 45.5 % [facility] Plt 150 150 - 400 K/cumm [facility] MPV 8.8(L) 9.1 - 12.3 fL [facility] RBC 3.31(L) 3.90 - 5.20 M/cumm [facility] MCV 97.3(H) 81.3 - 96.4 fL [facility] MCH 30.8 27.1 - 33.3 pg [facility] MCHC 31.7(L) 32.3 - 35.7 g/dL [facility] RDW CV 21.5(H) 11.1 - 14.9 % [facility] RDW SD 75.6(H) 35.7 - 48.1 fL [facility] NRBC abs 0.03(H) 0.00 - 0.01 K/cumm [facility] Blood 03/20/2025 11:5 0 AM CDT 03/20/2025 12:00 PM CDT Los Farr MD LAB BLOOD ORDERABLE S Final Result [facility] [address] [employer] [place] [address] * (ABNORMAL) POCT glucose (03/20/2025 7:59 AM CDT) Glucose, POC 263(H) 70 - 199 mg/dL Blood 03/20/2025 7:59 AM CDT 03/20/2025 7:59 AM CDT Hardik Andrade MD LAB POCT ORDER SARA - DEVICE Final Result Performing Organization Address City/[facility] Co de Phone Number [address] [employer] [place] [address] * (ABNORMAL) eGFR (03/20/2025 5:51 AM CDT) [facility] [address] eGFR 14(L) >=60 mL/min/1. 73 m2 Comment: [...] 5:51 AM CDT 03/20/2025 6:28 AM CDT us Kamila Askew MD LAB BLOOD ORDERABLES Final R esult [facility] [address] [facility] Department [place] [address] * (ABNORMAL) Differential, auto (03/20/2025 5:51 AM CDT) Pathologist [facility] Neutrophil abs 2.52 1.50 - 6.50 K/cumm Imm gran abs 0.01 0.00 - 0.10 K/cumm [facility] Lymphocyte abs 0.70(L) 0.80 - 3.30 K/cumm [facility] Monocyte abs 0.66 0.20 - 0.80 K/cumm [facility] Eosinophil abs 0.09 0.00 - 0.50 K/cumm [facility] Basophil abs 0.01 0.00 - 0.10 K/cumm [facility] Neutrophil pct 63.1 % [facility] Comment: Interpretive Data Percent cell count reference ranges are not reported, since discordance with absolute values may lead to misinterpretation of CBC data. Current Interpretive Data was last revised on 2018. Imm gran pct 0.3 % [facility] Comment: Interpretive Data Percent cell count reference ranges are not reported, since discordance with absolute values may lead to misinterpretation of CBC data. Current Interpretive Data was last revised on 2018. Lymphocyte pct 17.5 % [facility] Comment: Interpretive Data Percent cell count reference ranges are not reported, since discordance with absolute values may lead to misinterpretation of CBC data. Current Interpretive Data was last revised on 2018. Monocyte pct 16.5 % [facility] Comment: Interpretive Data Percent cell count reference ranges are not reported, since discordance with absolute values may lead to misinterpretation of CBC data. Current Interpretive Data was last revised on 2018. Eosinophil pct 2.3 % [facility] Comment: Interpretive Data Percent cell count reference ranges are not reported, since discordance with absolute values may lead to misinterpretation of CBC data. Current Interpretive Data was last revised on 2018. Basophil pct 0.3 % [facility] Comment: Interpretive Data Percent cell count reference ranges are not reported, since discordance with absolute values may lead to misinterpretation of CBC data. Current Interpretive Data was last revised on 2018. Blood 03/20/2025 5:51 AM CDT 03/20/2025 6:28 AM CDT Kamila Askew MD LAB BLOOD ORDERABLES Final R esult Performing Organization Address [facility] Co de Phone Number [address] [employer] [place], [place] [id number] * (ABNORMAL) CBC with auto differential (03/20/2025 5:51 AM CDT) WBC 3.99 3.80 - 9.90 K/cumm Hgb 9.3(L) 11.9 - 15.5 g/dL [facility] Hct 29.9(L) 35.6 - 45.5 % [facility] Plt 143(L) 150 - 400 K/cumm [facility] MPV 8.7(L) 9.1 - 12.3 fL [facility] RBC 3.04(L) 3.90 - 5.20 M/cumm [facility] MCV 98.4(H) 81.3 - 96.4 fL [facility] MCH 30.6 27.1 - 33.3 pg [facility] MCHC 31.1(L) 32.3 - 35.7 g/dL [facility] RDW CV 21.5(H) 11.1 - 14.9 % [facility] RDW SD 75.7(H) 35.7 - 48.1 fL [facility] NRBC abs 0.02(H) 0.00 - 0.01 K/cumm [facility] Blood 03/20/2025 5:51 AM CDT 03/20/2025 6:28 AM CDT Kamila Askew MD LAB BLOOD ORDERABLES Final R esult Performing Organization Address [facility] Co de Phone Number [address] [place] [address] * [id number], Tumor Marker (03/20/2025 5:51 AM CDT) Pathologist [facility] alpha Fetoprotein <2.0 <=8.3 ng/mL Comment: Interpretive [...] >1 year 0.0 8.3 ng/ml References Seth Y. et al. J. Ped Surg 1978;13:155-156 Jarvis Hunt et al. Clin Chem Lab Med 2018;57:783-797 Barry Duran et al. Clin Chem 2014;8342-3423. Current interpretive data was last revised 2022. Testing performed by: [facility], [address] [facility] [place] [address] Blood 03/20/2025 5:51 AM CDT 03/20/2025 9:15 AM CDT Sandy Cummings [employer] LAB BLOOD ORDERABLES Final Resu lt [facility] [address] [facility] Department [place] [address] * Hepatitis panel, acute Blood (03/20/2025 5:51 AM CDT) Pathologist [facility] Hep A IgM Nonreactive Nonreactive Comment: Interpretive Data: If Hep A IgM Ab is reported as Equivocal, a new sample should be drawn in two weeks for testing. Current interpretive data was last revised on 19. Hep B core IgM Nonreactive Nonreactive [facility] POPE Comment: Interpretive Data If HepB Core IgM Ab is reported as Equivocal, a new sample should be drawn in two weeks for testing. Current interpretive data was last revised on 19. Hep C Ab Nonreactive Nonreactive [facility] Comment: Antibodies to HCV not detected. Does [...] last revised on 2019. HepBsAg Nonreactive Nonreactive [facility] Blood 03/20/2025 5:51 AM CDT 03/20/2025 6:28 AM CDT Sandy Cummings NP LAB MICROBIOLOGY - GENERAL ORDDarrian MC Final Result Performing Organization Address [facility] Co de Phone Number [address] [place] [address] * Magnesium (03/20/2025 5:51 AM CDT) [facility] [address] Magnesium 1.9 1.4 - 2.5 mg/dL Blood 03/20/2025 5:51 AM CDT 03/20/2025 6:28 AM CDT Kamila Askew MD LAB BLOOD ORDERABLES Final R esult Performing Organization Address [facility] Co de Phone Number [address] [place] [address] * (ABNORMAL) Comprehensive metabolic panel (03/20/2025 5:51 AM CDT) [facility] [address] Sodium 132(L) 135 - 145 mmol/L Potassium, pl 5.4(H) 3.3 - 4.9 mmol/L [facility] Chloride 104 97 - 110 mmol/L [facility] CO2 16(L) 22 - 32 mmol/L [facility] Anion gap 12 2 - 15 mmol/L [facility] BUN 35(H) 6 - 25 mg/dL [facility] Creatinine 3.19(H) 0.60 - 1.10 mg/dL [facility] Glucose 281(H) 70 - 199 mg/dL [facility] Comment: Delta - Results Reviewed Interpretive [...] 2022. Calcium 9.4 8.5 - 10.3 mg/dL [facility] Bilirubin, total 0.3 0.1 - 1.2 mg/dL [facility] Protein, pl 5.7(L) 6.5 - 8.5 g/dL [facility] Albumin 3.0(L) 3.5 - 5.0 g/dL [facility] Alk phos 163(H) 40 - 130 Units/L [facility] ALT 11 7 - 45 Units/L [facility] AST 28 10 - 45 Units/L [facility] Blood 03/20/2025 5:51 AM CDT 03/20/2025 6:28 AM CDT Kamila Askew MD LAB BLOOD ORDERABLES Final R esult [facility] [address] [facility] Department [place] [address] * (ABNORMAL) POCT glucose (03/20/2025 1:14 AM CDT) [facility] [address] Glucose, POC 272(H) 70 - 199 mg/dL Blood 03/20/2025 1:14 AM CDT 03/20/2025 1:14 AM CDT Steven Srivastava MD LAB POCT ORDERABLES - DEVICE Final Result Performing Organization Address [facility] Co de Phone Number [address] [employer] [place] [address] * (ABNORMAL) Hemoglobin and hematocrit (03/19/2025 11:44 PM CDT) Hgb 10.6(L) 11.9 - 15.5 g/dL Hct 33.4(L) 35.6 - 45.5 % [facility] Blood 03/19/2025 11:4 4 PM CDT 03/19/2025 11:59 PM CDT Kamila Askew MD LAB BLOOD ORDERABLES Final R esult Performing Organization Address [facility] Co de Phone Number [address] [employer] [place] [address] * (ABNORMAL) POCT glucose (03/19/2025 11:38 PM CDT) Glucose, POC 312(H) 70 - 199 mg/dL Blood 03/19/2025 11:3 8 PM CDT 03/19/2025 11:38 PM CDT Steven Srivastava MD LAB POCT ORDERABLES - DEVICE Final Result Performing Organization Address [facility] Co de Phone Number [address] [employer] [place] [address] * (ABNORMAL) POCT glucose (03/19/2025 8:48 PM CDT) Glucose, POC 270(H) 70 - 199 mg/dL Blood 03/19/2025 8:48 PM CDT 03/19/2025 8:48 PM CDT Steven Srivastava MD LAB POCT ORDERABLES - DEVICE Final Result Performing Organization Address [facility] Co de Phone Number [address] [employer] [place] [address] * (ABNORMAL) Hemoglobin and hematocrit (03/19/2025 6:03 PM CDT) Pathologist [facility] Hgb 10.7(L) 11.9 - 15.5 g/dL Hct 33.1(L) 35.6 - 45.5 % [facility] Blood 03/19/2025 6:03 PM CDT 03/19/2025 7:01 PM CDT Kamila Askew MD LAB BLOOD ORDERABLES Final R esult [address] [address] * POCT glucose (03/19/2025 5:13 PM CDT) [facility] [address] Glucose, POC 168 70 - 199 mg/dL Blood 03/19/2025 5:13 PM CDT 03/19/2025 5:13 PM CDT Steven Srivastava MD LAB POCT ORDERABLES - DEVICE Final Result Performing Organization Address City/[facility]/ZIP Co de Phone Number [address] [address] * US RUQ (03/19/2025 4:37 PM CDT) [...] Reyna Ruff M.D. SN T: Report ID: [id number] Reading Location: [id number] Procedure Note Reyna Ruff MD - 03/19/2025 [...] liver. No focal lesion identified. The liver pbscycxt34 cm in the midclavicular line. PANCREAS: The [...] - Electronically signed by Reyna Ruff M.D. T: Report ID: [id number] Reading Location: [place] [address] Sandy Cummings [employer] IMG US PROCEDURES Final Result * (ABNORMAL) Albumin Creatinine Ratio, Urine (03/19/2025 1:13 PM CDT) Albumin Ur 93.8 mg/L Comment: Interpretive Data No reference range established. Current interpretive data was last revised 2019. Creatinine Ur 32.7 mg/dL [facility] Comment: Interpretive Data No reference range established. Current interpretive data was last revised 2019. Albumin Creatinine Ratio, Ur 287(H) 1 - 29 mg/g [facility] Urine 03/19/2025 1:13 PM CDT 03/19/2025 1:21 PM CDT Result [facility] Gonzalez Martinez MD LAB URINE ORDERABLES Final Resu lt Performing Organization Address [facility] Co de Phone Number [address] [place] [address] * POCT glucose (03/19/2025 12:19 PM CDT) Pathologist [facility] Glucose, POC 143 70 - 199 mg/dL Blood 03/19/2025 12:1 9 PM CDT 03/19/2025 12:19 PM CDT Steven Srivastava MD LAB POCT ORDERABLES - DEVICE Final Result Performing Organization Address [facility]/ZIP Co de Phone Number [address] [place] [address] * (ABNORMAL) Vitamin D 25 hydroxy (03/19/2025 11:51 AM CDT) Pathologist [facility] Vitamin D 25-OH 23.0(L) 30.0 - 80.0 ng/mL Blood 03/19/2025 11:5 1 AM CDT 03/19/2025 12:01 PM CDT Gonzalez Martinez MD LAB BLOOD ORDERABLES Final Resu lt Performing Organization Address [facility] de Phone Number ELIAN[address] [place] [employer] [address] * PTH (03/19/2025 11:51 AM CDT) [facility] [address] PTH 38 15 - 65 pg/mL Blood 03/19/2025 11:5 1 AM CDT 03/19/2025 12:01 PM CDT us Gonzalez Martinez MD LAB BLOOD ORDERABLES Final Resu lt Performing Organization Address [facility] de Phone Number [address] [employer] [place] [address] * Hemoglobin A1c (03/19/2025 11:51 AM CDT) [facility] [address] Hgb A1C 5.2 4.0 - 5.6 % Estimated Average Glucose 103 mg/dL [facility] Comment: The ADA recommends reporting an estimated Average Glucose (eAG) with all Hemoglobin A1c results using the equation derived from a study of 507 normal and diabetic adults. Minority populations were underrepresented and children were not included. (Diabetes Care 31:8907-3807, 2008). The eAG is not equivalent to a fasting glucose. Blood 03/19/2025 11:5 1 AM CDT 03/19/2025 12:02 PM CDT us Gonzalez Martinez MD LAB BLOOD ORDERABLES Final Resu lt Performing Organization Address [facility] Co de Phone Number ELIAN[address] [employer] [place] [address] * Ammonia (03/19/2025 9:47 AM CDT) [facility] [address] Ammonia 30 <=50 mcmol/L Comment: Please note on 02/16/2024 the unit of measure changed from mcg/dL to mcmol/L. Current Interpretive Data was last revised on 2024. Blood 03/19/2025 9:47 AM CDT 03/19/2025 9:52 AM CDT Steven Srivastava MD LAB BLOOD ORDERABLES Final Re sult [address] [employer] [place] [address] * POCT glucose (03/19/2025 8:15 AM CDT) [facility] [address] Glucose, POC 118 70 - 199 mg/dL Blood 03/19/2025 8:15 AM CDT 03/19/2025 8:15 AM CDT Steven Srivastava MD LAB POCT ORDERABLES - DEVICE Final Result Performing Organization Address City/[facility]/ZIP Co de Phone Number [address] [address] * Differential, auto (03/19/2025 6:33 AM CDT) [facility] [address] Neutrophil abs 3.56 1.50 - 6.50 K/cumm Imm gran abs 0.07 0.00 - 0.10 K/cumm [facility] Lymphocyte abs 0.95 0.80 - 3.30 K/cumm [facility] Monocyte abs 0.79 0.20 - 0.80 K/cumm [facility] Eosinophil abs 0.07 0.00 - 0.50 K/cumm [facility] Basophil abs 0.03 0.00 - 0.10 K/cumm [facility] Neutrophil pct 65.1 % [facility] Comment: Interpretive Data Percent cell count reference ranges are not reported, since discordance with absolute values may lead to misinterpretation of CBC data. Current Interpretive Data was last revised on 2018. Imm gran pct 1.3 % [facility] Comment: Interpretive Data Percent cell count reference ranges are not reported, since discordance with absolute values may lead to misinterpretation of CBC data. Current Interpretive Data was last revised on 2018. Lymphocyte pct 17.4 % [facility] Comment: Interpretive Data Percent cell count reference ranges are not reported, since discordance with absolute values may lead to misinterpretation of CBC data. Current Interpretive Data was last revised on 2018. Monocyte pct 14.4 % [facility] Comment: Interpretive Data Percent cell count reference ranges are not reported, since discordance with absolute values may lead to misinterpretation of CBC data. Current Interpretive Data was last revised on 2018. Eosinophil pct 1.3 % [facility] Comment: Interpretive Data Percent cell count reference ranges are not reported, since discordance with absolute values may lead to misinterpretation of CBC data. Current Interpretive Data was last revised on 2018. Basophil pct 0.5 % [facility] Comment: Interpretive Data Percent cell count reference ranges are not reported, since discordance with absolute values may lead to misinterpretation of CBC data. Current Interpretive Data was last revised on 2018. Blood 03/19/2025 6:33 AM CDT 03/19/2025 6:43 AM CDT Kamila Askew MD LAB BLOOD ORDERABLES Final R esult [facility] [address] [facility] Department [place] [address] * (ABNORMAL) CBC with auto differential (03/19/2025 6:33 AM CDT) WBC 5.47 3.80 - 9.90 K/cumm Hgb 10.7(L) 11.9 - 15.5 g/dL [facility] Hct 34.2(L) 35.6 - 45.5 % [facility] Plt 137(L) 150 - 400 K/cumm [facility] MPV 8.7(L) 9.1 - 12.3 fL [facility] RBC 3.40(L) 3.90 - 5.20 M/cumm [facility] MCV 100.6(H) 81.3 - 96.4 fL [facility] MCH 31.5 27.1 - 33.3 pg [facility] MCHC 31.3(L) 32.3 - 35.7 g/dL [facility] RDW CV 21.9(H) 11.1 - 14.9 % [facility] RDW SD 80.0(H) 35.7 - 48.1 fL [facility] NRBC abs 0.04(H) 0.00 - 0.01 K/cumm [facility] Blood 03/19/2025 6:33 AM CDT 03/19/2025 6:43 AM CDT Kamila Askew MD LAB BLOOD ORDERABLES Final R esult Performing Organization Address City/[facility] Co de Phone Number [address] [place] [address] * POCT glucose (03/19/2025 5:35 AM CDT) Glucose, POC 144 70 - 199 mg/dL Blood 03/19/2025 5:35 AM CDT 03/19/2025 5:35 AM CDT Kamila Askew MD LAB POCT ORDERABLES - DEVICE Final Result Performing Organization Address City/[facility] Co de Phone Number [address] [place] [address] * (ABNORMAL) Hemoglobin and hematocrit (03/19/2025 5:22 AM CDT) Hgb 10.3(L) 11.9 - 15.5 g/dL Hct 31.9(L) 35.6 - 45.5 % [facility] Blood 03/19/2025 5:22 AM CDT 03/19/2025 6:20 AM CDT Kamila Askew MD LAB BLOOD ORDERABLES Final R esult Performing Organization Address City/[facility] Co de Phone Number [facility] [address] [employer] [place] [address] * (ABNORMAL) POCT glucose (03/19/2025 4:46 AM CDT) [facility] Glucose, POC 65(L) 70 - 199 mg/dL Blood 03/19/2025 4:46 AM CDT 03/19/2025 4:46 AM CDT Kamila Askew MD LAB POCT ORDERABLES - DEVICE Final Result Performing Organization Address [facility] Co de Phone Number [facility] [address] [employer] [place] [address] * POCT glucose (03/19/2025 4:14 AM CDT) [facility] [address] Glucose, POC 119 70 - 199 mg/dL Blood 03/19/2025 4:14 AM CDT 03/19/2025 4:14 AM CDT Kamila Askew MD LAB POCT ORDERABLES - DEVICE Final Result Performing Organization Address [facility] Co de Phone Number [address] [employer] [place] [address] * (ABNORMAL) eGFR (03/19/2025 4:11 AM CDT) [facility] eGFR 13(L) >=60 mL/min/1. 73 m2 Comment: [...] ORDERABLES Final R esult Performing Organization Address [facility] Co de Phone Number [address] [employer] [place] [address] * Thyroid Function [place] (03/19/2025 4:11 AM CDT) TSH 3.63 0.30 - 4.20 mcIUnit/mL Blood 03/19/2025 4:11 AM CDT 03/19/2025 4:14 AM CDT us Kamila Askew MD LAB BLOOD ORDERABLES Final R esult Performing Organization Address [facility] Co de Phone Number [address] [employer] [place] [address] * Iron profile w/ IBC (03/19/2025 4:11 AM CDT) Iron 56 35 - 145 mcg/dL TIBC 264 250 - 400 mcg/dL [facility] Transferrin saturation 21 20 - 50 % [facility] Blood 03/19/2025 4:11 AM CDT 03/19/2025 4:14 AM CDT us Kamila Askew MD LAB BLOOD ORDERABLES Final R esult Performing Organization Address [facility] Co de Phone Number [address] [employer] [place] [address] * Phosphorus (03/19/2025 4:11 AM CDT) Pathologist [facility] Phosphorus, pl 3.1 2.3 - 4.5 mg/dL Blood 03/19/2025 4:11 AM CDT 03/19/2025 4:14 AM CDT Kamila Askew MD LAB BLOOD ORDERABLES Final R esult Performing Organization Address [facility] Co de Phone Number [address] [employer] [place] [address] * Magnesium (03/19/2025 4:11 AM CDT) Pathologist [facility] Magnesium 1.9 1.4 - 2.5 mg/dL Blood 03/19/2025 4:11 AM CDT 03/19/2025 4:14 AM CDT Kamila Askew MD LAB BLOOD ORDERABLES Final R esult Performing Organization Address [facility] Co de Phone Number [address] [employer] [place] [address] * (ABNORMAL) Lactate dehydrogenase (LD) (03/19/2025 4:11 AM CDT) [facility] [address] Lactate dehydrogenase (LDH) 300(H) 100 - 250 Units/L Comment:Hemolyzed; result ma y be falsely elevated Blood 03/19/2025 4:11 AM CDT 03/19/2025 4:14 AM CDT Kamila Askew MD LAB BLOOD ORDERABLES Final R esult Performing Organization Address [facility] Co de Phone Number [address] [employer] [place] [address] * (ABNORMAL) Haptoglobin (03/19/2025 4:11 AM CDT) [facility] [address] Haptoglobin 248(H) 30 - 200 mg/dL Comment:Hemolyzed; result ma y be falsely decreased Blood 03/19/2025 4:11 AM CDT 03/19/2025 4:14 AM CDT Kamila Askew MD LAB BLOOD ORDERABLES Final R esult Performing Organization Address [facility] Co de Phone Number [address] [employer] [place] [address] * (ABNORMAL) Folate (03/19/2025 4:11 AM CDT) Pathologist [facility] Folic acid 3.4(L) >=5.0 ng/mL Blood 03/19/2025 4:11 AM CDT 03/19/2025 4:14 AM CDT Kamila Askew MD LAB BLOOD ORDERABLES Final R esult Performing Organization Address [facility] Co de Phone Number [address] [employer] [place] [address] * (ABNORMAL) Vitamin B12 (03/19/2025 4:11 AM CDT) Pathologist [facility] Vitamin B12 1,962(H) 230 - 1,250 pg/mL Blood 03/19/2025 4:11 AM CDT 03/19/2025 4:14 AM CDT Kamila Askew MD LAB BLOOD ORDERABLES Final R esult Performing Organization Address [facility] Co de Phone Number [address] [employer] [place] [address] * Creatine kinase (CK), total (03/19/2025 4:11 AM CDT) Pathologist [facility] CK 104 30 - 200 Units/L Blood 03/19/2025 4:11 AM CDT 03/19/2025 4:14 AM CDT Gonzalez Martinez MD LAB BLOOD ORDERABLES Final Resu lt [facility] [address] [facility] Department [place] [address] * (ABNORMAL) Comprehensive metabolic panel (03/19/2025 4:11 AM CDT) Sodium 132(L) 135 - 145 mmol/L Potassium, pl 4.8 3.3 - 4.9 mmol/L [facility] Comment:Hemolyzed; Potassium value may be falsely elevated by as much as 1.0 mmol/L. Suggest redraw and reanalysis. Chloride 107 97 - 110 mmol/L [facility] CO2 12(L) 22 - 32 mmol/L [facility] Anion gap 13 2 - 15 mmol/L [facility] BUN 38(H) 6 - 25 mg/dL [facility] Creatinine 3.38(H) 0.60 - 1.10 mg/dL [facility] Glucose 146 70 - 199 mg/dL [facility] Comment: Interpretive Data Fasting glucose >/= [...] 2022. Calcium 8.5 8.5 - 10.3 mg/dL [facility] Bilirubin, total 0.4 0.1 - 1.2 mg/dL [facility] Protein, pl 5.9(L) 6.5 - 8.5 g/dL [facility] Albumin 3.3(L) 3.5 - 5.0 g/dL [facility] Alk phos 167(H) 40 - 130 Units/L [facility] ALT 11 7 - 45 Units/L [facility] AST See Comment 10 - 45 [facility] Comment:Credited; Hemolyzed Specimen Blood 03/19/2025 4:11 AM CDT 03/19/2025 4:14 AM CDT us Kamila Askew MD LAB BLOOD ORDERABLES Final R esult Performing Organization Address City/[facility]/ZIP Co de Phone Number HELADIO [address] [employer] [place] [address] * POCT glucose (03/19/2025 3:28 AM CDT) Glucose, POC 81 70 - 199 mg/dL Blood 03/19/2025 3:28 AM CDT 03/19/2025 3:28 AM CDT us Kamila Askew MD LAB POCT ORDERABLES - DEVICE Final Result Performing Organization Address [facility] Co de Phone Number HELADIO [address] [employer] [place] [address] * POCT glucose (03/19/2025 2:46 AM CDT) Glucose, POC 101 70 - 199 mg/dL Blood 03/19/2025 2:46 AM CDT 03/19/2025 2:46 AM CDT us Kamila Askew MD LAB POCT ORDERABLES - DEVICE Final Result Performing Organization Address [facility] Co de Phone Number HELADIO [address] [employer] [place] [address] * POCT glucose (03/19/2025 1:59 AM CDT) Glucose, POC 118 70 - 199 mg/dL Blood 03/19/2025 1:59 AM CDT 03/19/2025 1:59 AM CDT us Kamila Askew MD LAB POCT ORDERABLES - DEVICE Final Result Performing Organization Address City/[facility] Co de Phone Number HELADIO [address] [employer] [place] [address] * (ABNORMAL) POCT glucose (03/19/2025 1:03 AM CDT) Glucose, POC 56(L) 70 - 199 mg/dL Blood 03/19/2025 1:03 AM CDT 03/19/2025 1:03 AM CDT Kamila Askew MD LAB POCT ORDERABLES - DEVICE Final Result Performing Organization Address [facility] de Phone Number [facility] [address] [facility] Department [place] [address] * (ABNORMAL) Urinalysis reflex to microscopic and culture Urine (03/19/2025 12:54 AM CDT) Color, ur Straw Yellow Clarity, ur Turbid(A) Clear [facility] Specific gravity, ur 1.007 1.003 - 1.030 [facility] pH, urine 5.5 [facility] Comment: Interpretive Data U rine pH is affected by diet, medications, systemic acid-base disturbances, and renal tubular function. pH may affect urinary stone formation. For example, urine pH below 6.0 may help reduce the tendency for calcium phosphate stones and pH greater than 6.0 may reduce the tendency for uric acid stone formation. Source: [facility] Current Interpretive Data was last revised on 2017 Protein, ur ql Negative Negative [facility] Glucose, ur ql Negative Negative [facility] Ketones, ur Negative Negative [facility] Bilirubin, ur Negative Negative [facility] Blood, ur 2+(A) Negative [facility] Urobilinogen, ur <2.0 <2.0 mg/dL [facility] Nitrite, ur Negative Negative [facility] Leukocyte esterase, ur 4+(A) Negative [facility] UA reflex comment Reflex to microscopic UA will be performed. [facility] Urine 03/19/2025 12:5 4 AM CDT 03/19/2025 1:01 AM CDT Brett Ho DO LAB MICROBIOLOGY - GENERAL ORDERABLES Final Result Performing Organization Address [facility]/ZIP Co de Phone Number [place] [id number] [facility] [place] [address] * (ABNORMAL) Urinalysis, microscopic only (03/19/2025 12:54 AM CDT) WBC, ur 21-50(A) 0 - 5 /HPF RBC, ur 3-5(A) 0 - 2 /HPF [facility] Epithelial cells, squamous, ur >50(A) 0 - 5 /HPF [facility] Comment:Suggestive of contam ination. Consider recollection by clean catch. Bacteria, ur 1+(A) [facility] Mucous, ur Present(A) [facility] Amorphous crystals, ur 1+(A) [facility] Culture Reflex Comment Reflex to urine culture will be performed. [facility] Urine 03/19/2025 12:5 4 AM CDT 03/19/2025 1:01 AM CDT [facility] URINE ORDERABLES Final Result Performing Organization Address [facility] Co de Phone Number [address] [place] [address] * Urine culture Urine (03/19/2025 12:54 AM CDT) Report Final Report: Less than 100,000 colonies/mL (clinically insignificant growth based on current clinical standards) Comment:Testing performed by : [facility], [address] [facility] [place] [address] Organism (CLINICALLY INSIGNIFICANT GROWTH [facility] Urine 03/19/2025 12:5 4 AM CDT 03/19/2025 7:27 AM CDT Narrative [facility] - 03/20/2025 10:32 AM CDT Urine culture reflexed based upon urinalysis results. Testing performed by [facility] Microbiology Laboratory ([phone]) [facility] LAB MICROBIOLOGY - GENERAL ORDERABLES Final Result Performing Organization Address City/[facility]/ZIP Co de Phone Number [address] [place] [address] * (ABNORMAL) Hemoglobin and hematocrit (03/19/2025 12:44 AM CDT) [facility] [address] Hgb 8.9(L) 11.9 - 15.5 g/dL Hct 28.6(L) 35.6 - 45.5 % [facility] Blood 03/19/2025 12:4 4 AM CDT 03/19/2025 12:52 AM CDT Kamila Askew MD LAB BLOOD ORDERABLES Final R esult Performing Organization Address City/[facility]/ZIP Co de Phone Number [address] [address] * Transfuse RBC (03/19/2025 12:43 AM CDT) Blood Brett Ho DO BLOOD TRANSFUSION ORDERABLE S Final Result Performing Organization Address City/[facility]/ZIP Co de Phone Number [address] [address] * POCT glucose (03/18/2025 11:39 PM CDT) [facility] [address] Glucose, POC 97 70 - 199 mg/dL Blood 03/18/2025 11:3 9 PM CDT 03/18/2025 11:39 PM CDT Kamila Askew MD LAB POCT ORDERABLES - DEVICE Final Result Performing Organization Address City/[facility]/ZIP Co de Phone Number [address] [address] * (ABNORMAL) POCT glucose (03/18/2025 10:49 PM CDT) Pathologist [facility] Glucose, POC 52(C) 70 - 199 mg/dL Glucose comment 1 Glu2: [facility] Blood 03/18/2025 10:4 9 PM CDT 03/18/2025 10:49 PM CDT Brett Saran Ho DO LAB POCT ORDERABLES - DEVIC E Final Result Performing Organization Address City/[facility]/ZIP Co de Phone Number [facility] [address] [facility] Department [place] [address] * ECG 12 lead (03/18/2025 9:48 PM CDT) Ventricular Rate EKG/Min 83 BPM [facility] Atrial Rate 83 BPM [facility] [place]-Interval (MSEC) 118 ms [facility] QRS-Interval (MSEC) 124 ms [facility] QT-Interval (MSEC) 380 ms [facility] QTc 446 ms [facility] P [place] 49 degrees [facility] R [place] -37 degrees [facility] T [place] 134 degrees [facility] Diagnosis Normal sinus rhythm Left axis deviation Right bundle branch block T wave abnormality, consider lateral ischemia Abnormal ECG When compared with ECG of 04-FEB-2020 16:32, T wave inversion now evident in Lateral leads Confirmed by ROMIE HAMLIN M.D. ([id number]) on 03/19/2025 7:35:39 PM [facility] 03/18/2025 9:48 PM CDT 03/19/2025 7:35 PM CDT Brett Ho DO ECG ORDERABLES Final Resul t Performing Organization Address [facility] Co de Phone Number [facility] * (ABNORMAL) Troponin T high-sensitivity 2-hour (03/18/2025 9:26 PM CDT) Trop T hs 23(H) <=14 ng/L Comment: Interpretive Data For further hscTnT resources including the diagnostic algorithm and an aid in interpretation, copy and paste this link: https://nrl.testcatalog.org/show/hsTrop Current Interpretive Data last revised 2020. Trop T hs delta -5 ng/L [facility] Trop T hs interp Equivocal [facility] Blood 03/18/2025 9:26 PM CDT 03/18/2025 9:28 PM CDT us Brett Ho DO LAB BLOOD ORDERABLES Final Result [facility] [address] [facility] Department [place] [address] * CT Chest Abdomen Pelvis WO Contrast [...] surface in the right upper lung image . Several scattered smaller nodules. Trachea and major airways patent. HEART/MEDIASTINUM/AMOS: Heart size normal. Heavy coronary artery calcification. No enlarged lymph node. Thoracic inlet unremarkable. CHEST MSK: Hmlb-rq-hveureun multilevel disc disease. Nonspecific sclerotic/lucent areas in the upper lumbar vertebral bodies, indeterminate. Right humeral neck fracture. Healed sternotomy. Erosive lesions and several right anterior ribs. CHEST WALL: Left mastectomy. No axillary lymph node enlargement. LIVER/BILIARY: Cirrhotic liver. Post cholecystectomy biliary fullness. GALLBLADDER: Absent. SPLEEN: Normal. PANCREAS: Vjgx-se-rabfwaqa atrophy. ADRENAL GLANDS: Normal. KIDNEYS/URINARY TRACT: Unremarkable. [...] signed by Kenney ULLOA T: Report ID: [id number] Reading Location: [id number] Procedure Note Kenney Leo MD - 03/18/2025 [...] surface in the right upper lung image . Several scattered smaller nodules. Trachea and major airways patent. HEART/MEDIASTINUM/AMOS: Heart size normal. Heavy coronary artery calcification. No enlarged lymph node. Thoracic inlet unremarkable. CHEST MSK: Mbnq-ai-ayjybebx multilevel disc disease. Nonspecific sclerotic/lucent areas in the upper lumbar vertebral bodies,indeterminate. Right humeral neck fracture. Healed sternotomy. Erosive lesions andseveral right anterior ribs. CHEST WALL: Left mastectomy. No axillary lymph node enlargement. LIVER/BILIARY: Cirrhotic liver. Post cholecystectomy biliary fullness. GALLBLADDER: Absent. SPLEEN: Normal. PANCREAS: Gjxq-qw-dseudvib atrophy. ADRENAL GLANDS: Normal. KIDNEYS/URINARY TRACT: Unremarkable. [...] signed by Kenney ULLOA T: Report ID: [id number] Reading Location: [place] [address] Brett Ho DO IMG CT PROCEDURES Final Res ult * Prepare RBC: 1 Units (03/18/2025 8:46 PM CDT) Units requested 1 Units requested Ready [facility] Unit Number [id number] Product code [id number] [facility] Blood Expiration Date [id number] [facility] Product Blood Type (for scanning) 5100 [facility] Product Blood Type OPOS [facility] Dispense Status DISPENSED [facility] Blood 03/18/2025 8:46 PM CDT 03/18/2025 8:46 PM CDT us Brett Ho DO BLOOD BANK PRODUCT ORDERABL ES Final Result Performing Organization Address [facility] Co de Phone Number HELADIO [address] [address] * ABO / Rh Confirmation Testing (03/18/2025 8:19 PM CDT) ABO/Rh Confirmation O Positive [facility] Blood 03/18/2025 8:19 PM CDT 03/18/2025 8:21 PM CDT us Brett Ho DO LAB BLOOD ORDERABLES Final Result Performing Organization Address [facility] de Phone Number HELADIO [address] [address] [facility] * POCT glucose (03/18/2025 8:12 PM CDT) Glucose, POC 114 70 - 199 mg/dL Glucose comment 1 RN/MD Notified [facility] Glucose comment 2 Use This Result [facility] Blood 03/18/2025 8:12 PM CDT 03/18/2025 8:12 PM CDT us Brett Ho DO LAB POCT ORDERABLES - DEVIC E Final Result Performing Organization Address [facility] Co de Phone Number HELADIO [address] [employer] [place] [address] * ABO/Rh (03/18/2025 8:04 PM CDT) ABO/Rh O Positive Blood 03/18/2025 8:04 PM CDT 03/18/2025 8:07 PM CDT Narrative [facility] - 03/18/2025 8:45 PM CDT Has the patient had Daratumumab or Isatuximab in the past 6 months?->Unknown Brett Ho DO LAB BLOOD BANK TEST ORDERAB LES Final Result Performing Organization Address [facility] Co de Phone Number [address] [address] * Crossmatch (03/18/2025 8:04 PM CDT) Crossmatch Compatible [facility] Unit number for crossmatch [id number] [facility] Blood 03/18/2025 8:04 PM CDT 03/18/2025 8:[address] [facility] BLOOD BANK TEST ORDERAB LES Final Result Performing Organization Address [facility] Co de Phone Number [address] [address] * Antibody screen (03/18/2025 8:04 PM CDT) Dianne, indirect, Gel Interpretation Negative ABSC Blood 03/18/2025 8:04 PM CDT 03/18/2025 8:07 PM CDT Narrative [facility] - 03/18/2025 8:45 PM CDT Has the patient had Daratumumab or Isatuximab in the past 6 months?->Unknown Brett [facility] BLOOD BANK TEST ORDERAB LES Final Result Performing Organization Address [facility] Co de Phone Number [address] [address] * XR Chest 1 Vw Portable (03/18/2025 [...] by Brett Clay M.D. T: Report ID: [id number] Reading Location: [place] [address] Procedure Note Brett Clay MD - 03/18/2025 [...] - Electronically signed by Brett Clay M.D. KH T: Report ID: [id number] Reading Location: [id number] Brett Ho DO IMG XR PROCEDURES Final [...] CDT 03/18/2025 7:35 PM CDT Brett Ho DO LAB BLOOD ORDERABLES Final Result [facility] [address] [facility] Department [place] [address] * (ABNORMAL) D-dimer, quantitative (03/18/2025 7:33 PM [...] et al. Brit Med J. 2013;346:f2492. Kenyetta et al. Annals Int Med. 2015;163:701-11. Current interpretive data was last revised on 2019. Blood 03/18/2025 7:33 PM CDT 03/18/2025 7:35 PM CDT Brett Ho LAB BLOOD ORDERABLES Final Result Performing Organization Address [facility] de Phone Number HELADIO [address] [address] * (ABNORMAL) Troponin T high-sensitivity series (baseline, [...] BLOOD ORDERABLES Final Result Performing Organization Address [facility] de Phone Number HELADIO [address] [address] * (ABNORMAL) eGFR (03/18/2025 7:28 PM CDT) eGFR 11(L) >=60 mL/min/1. 73 m2 Comment: [...] of Race in Diagnosing Kidney Disease, JASN 202). The CKD-EPI equation should not be used for patients with unstable renal function and has not been validated in children and those over 70. Current interpretive data was last reviewed 2021. Blood 03/18/2025 7:28 PM CDT 03/18/2025 7:32 PM CDT Brett Ho DO LAB BLOOD ORDERABLES Final Result [facility] [address] [facility] Department [place] [address] * (ABNORMAL) Differential, auto (03/18/2025 7:28 PM CDT) Neutrophil abs 3.00 1.50 - 6.50 K/cumm Imm gran abs 0.03 0.00 - 0.10 K/cumm [facility] Lymphocyte abs 1.21 0.80 - 3.30 K/cumm [facility] Monocyte abs 0.84(H) 0.20 - 0.80 K/cumm [facility] Eosinophil abs 0.08 0.00 - 0.50 K/cumm [facility] Basophil abs 0.01 0.00 - 0.10 K/cumm [facility] Neutrophil pct 58.1 % [facility] Comment: Interpretive Data Percent cell count reference ranges are not reported, since discordance with absolute values may lead to misinterpretation of CBC data. Current Interpretive Data was last revised on 2018. Imm gran pct 0.6 % [facility] Comment: Interpretive Data Percent cell count reference ranges are not reported, since discordance with absolute values may lead to misinterpretation of CBC data. Current Interpretive Data was last revised on 2018. Lymphocyte pct 23.4 % [facility] Comment: Interpretive Data Percent cell count reference ranges are not reported, since discordance with absolute values may lead to misinterpretation of CBC data. Current Interpretive Data was last revised on 2018. Monocyte pct 16.2 % [facility] Comment: Interpretive Data Percent cell count reference ranges are not reported, since discordance with absolute values may lead to misinterpretation of CBC data. Current Interpretive Data was last revised on 2018. Eosinophil pct 1.5 % [facility] Comment: Interpretive Data Percent cell count reference ranges are not reported, since discordance with absolute values may lead to misinterpretation of CBC data. Current Interpretive Data was last revised on 2018. Basophil pct 0.2 % [facility] Comment: Interpretive Data Percent cell count reference ranges are not reported, since discordance with absolute values may lead to misinterpretation of CBC data. Current Interpretive Data was last revised on 2018. Blood 03/18/2025 7:28 PM CDT 03/18/2025 7:32 PM CDT Brett Ho DO LAB BLOOD ORDERABLES Final Result [facility] [address] [facility] Department [place] [address] * (ABNORMAL) Pro B-type natriuretic peptide (03/18/2025 [...] et.al. Eur Heart J. 2006:27:330-337. 2. Murphy PORTER, Robert CHAKRABORTY. J. AM Mamadou Cardiol: Cardiovasc Imag. 2009;2: 216- 225. Interpretive Data Last Revised Date: 2018. Blood 03/18/2025 7:28 PM CDT 03/18/2025 7:32 PM CDT Brett Ho DO LAB BLOOD ORDERABLES Final Result [place] [address] [facility] Department [place] [address] * (ABNORMAL) CBC with auto differential (03/18/2025 7:28 PM CDT) WBC 5.17 3.80 - 9.90 K/cumm Hgb 6.6(L) 11.9 - 15.5 g/dL [facility] Hct 21.5(L) 35.6 - 45.5 % [facility] Plt 168 150 - 400 K/cumm [facility] MPV 9.0(L) 9.1 - 12.3 fL [facility] RBC 2.09(L) 3.90 - 5.20 M/cumm [facility] MCV 102.9(H) 81.3 - 96.4 fL [facility] MCH 31.6 27.1 - 33.3 pg [facility] MCHC 30.7(L) 32.3 - 35.7 g/dL [facility] RDW CV 22.7(H) 11.1 - 14.9 % [facility] RDW SD 82.6(H) 35.7 - 48.1 fL [facility] NRBC abs 0.05(H) 0.00 - 0.01 K/cumm [facility] Blood 03/18/2025 7:28 PM CDT 03/18/2025 7:32 PM CDT us Brett Kiranhu DO LAB BLOOD ORDERABLES Final Result [facility] [address] [facility] Department [place] [address] * (ABNORMAL) Comprehensive metabolic panel (03/18/2025 7:28 PM CDT) Sodium 129(L) 135 - 145 mmol/L Potassium, pl 5.4(H) 3.3 - 4.9 mmol/L [facility] Chloride 103 97 - 110 mmol/L [facility] CO2 14(L) 22 - 32 mmol/L [facility] Anion gap 12 2 - 15 mmol/L [facility] BUN 43(H) 6 - 25 mg/dL [facility] Creatinine 3.86(H) 0.60 - 1.10 mg/dL [facility] Glucose 216(H) 70 - 199 mg/dL [facility] Comment: Interpretive Data Fasting glucose >/= [...] 2022. Calcium 8.6 8.5 - 10.3 mg/dL [facility] Bilirubin, total 0.2 0.1 - 1.2 mg/dL [facility] Protein, pl 5.6(L) 6.5 - 8.5 g/dL [facility] Albumin 3.2(L) 3.5 - 5.0 g/dL [facility] Alk phos 156(H) 40 - 130 Units/L [facility] ALT 11 7 - 45 Units/L [facility] AST 34 10 - 45 Units/L [facility] Blood 03/18/2025 7:28 PM CDT 03/18/2025 7:32 PM CDT [facility] BLOOD ORDERABLES Final Result Performing Organization Address [facility] de Phone Number [address] [address] * (ABNORMAL) POCT glucose (03/18/2025 7:19 PM CDT) Glucose, POC 37(C) 70 - 199 mg/dL Glucose comment 1 Use This Result [facility] Glucose comment 2 RN/MD Notified [facility] Blood 03/18/2025 7:19 PM CDT 03/18/2025 7:19 PM CDT us Notinfile Unknown LAB POCT ORDERABLES - DEVICE F inal Result Performing Organization Address [facility] de Phone Number [address] [address] * (ABNORMAL) POCT glucose (03/18/2025 7:18 PM CDT) Glucose, POC 36(C) 70 - 199 mg/dL Glucose comment 1 Will Repeat Test [facility] Blood 03/18/2025 7:18 PM CDT 03/18/2025 7:18 PM CDT us Notinfile Unknown LAB POCT ORDERABLES - DEVICE F inal Result Performing Organization Address [facility] de Phone Number [address] [address] * Dexa Axial Skeleton Bone Density 1 [...] PM: Leander Moreira M.D. Leander Moreira M.D. [place]:wa 02:52 PM 02:52 PM BM [EOD] Narrative [...] dairy products and caffeinated beverages. COMPARISON(S): 06/08/2012 ADVENTURE GUIDE/MODEL: [employer] (S/N [id number]) FINDINGS: AP lumbar spine L1-L4 Total BMD is 0.86 g/ic5G-bjexq is -1.7 Most recent prior BMD was 0.819 g/cm2 There has been a 4.9% increase in BMD which is statistically significant. Left Hip Current Total BMD is 0.959 g/hp2M-fjnci is 0.1 Most recent prior Total BMD was 0.973 g/cm2 There has been a 1.4% decrease in BMD. Current femoral neck BMD is 0.705 g/pz9B-bssfm is -1.3 Fracture risk assessment (FRAX): 10 [...] consumes dairy products and caffeinatedbeverages. COMPARISON(S): 06/08/2012 ADVENTURE GUIDE/MODEL: [employer] (S/N [id number]) FINDINGS: AP lumbar spine L1-L4 Total BMD is 0.86 g/jh8C-lhwfq is -1.7 Most recent prior BMD was 0.819 g/cm2 There has been a 4.9% increase in BMD which is statisticallysignificant. Left Hip Current Total BMD is 0.959 g/ci2V-pewep is 0.1 Most recent prior Total BMD was 0.973 g/cm2 There has been a 1.4% decrease in BMD. Current femoral neck BMD is 0.705 g/fn8E-uqgxs is -1.3 Fracture risk assessment (FRAX): 10 [...] Moreira M.D. NH:perla 02:52 PM 02:52 PM [facility] [EOD] Jose Arguello MD IMG DXA PROCEDURES Final Result from Last 3 Months or Most Recently Relevant to Health Maintenance Insurance [facility]ICARE [facility] MEDICARE MEDICARE Advance Directives For more information, please contact: [phone] Documents on File Type Date Recorded Patient Behavioral Health Therapist Expl anation ADVANCE DIRECTIVE 02/22/2013 12:00 AM SARAY R OF DOCUMENT MANAGER FINANCIAL/MEDICAL * Full Code (Latest Code Status on File) Date Activated Date Inactivated Comments 03/20/2025 12:51 PM 03/22/2025 8:02 PM * Full Code Date Activated Date Inactivated Comments 03/18/2025 11:42 PM 03/20/2025 12:51 PM 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
--- NOTE | 2025-04-19 15:10 | ED_ITS ---
HPI - General Adult General Chief complaint: Unspecified Stated complaint: all over pain x weeks Time Seen by Provider: 04/19/25 14:50 History of Present Illness HPI narrative: Pt presents with low abdominal pain and back pain and pain in sacrum. 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 Pt is being treated by Dr Mohan. Pt has a sacral decubitus ulcer that seems to be healing but is causing her more pain Pt denies fever. Related Data Home Medications ?Medication ?Instructions ?Recorded ?Confirmed ?Last Taken ?Type aspirin 81 mg tablet,delayed 81 mg PO DAILY 03/03/22 03/13/25 01/10/24 History release cetirizine 10 mg capsule (Zyrtec) 10 mg PO PRN PRN Allergy Symptoms 03/03/22 03/13/25 Unknown History clopidogrel 75 mg tablet 75 mg PO DAILY 03/03/22 03/13/25 01/09/24 History nitroglycerin 0.4 mg sublingual 0.4 mg sublingual Q5M PRN Chest 03/03/22 03/13/25 Unknown History tablet Pain potassium chloride 20 mEq 20 meq PO DAILY 03/03/22 03/13/25 05/27/22 History tablet,extended release(part/cryst) acetaminophen 500 mg tablet 1,000 mg PO Q6H PRN Pain 03/31/22 03/13/25 05/27/22 History (Tylenol Extra Strength) amlodipine 10 mg tablet 10 mg PO QAM 03/31/22 03/13/25 01/17/24 06:30 History cholecalciferol (vitamin D3) 125 125 mcg PO DAILY 07/13/22 03/13/25 01/10/24 History mcg (5,000 unit) capsule docusate sodium 100 mg capsule 100 mg PO BID PRN Constipation 01/10/24 03/13/25 Unknown History (Colace) omega-3 fatty acids-vitamin E 1 cap PO DAILY 01/10/24 03/13/25 Unknown History 1,000 mg capsule anastrozole 1 mg tablet 1 mg PO DAILY 11/10/24 03/13/25 Unknown History ferrous sulfate 325 mg (65 mg 325 mg PO BID 11/10/24 03/13/25 Unknown History iron) tablet,delayed release Allergies Allergy/AdvReac Type Severity Reaction Status Date / Time No Known Allergies Allergy Verified 04/05/25 07:34 Review of Systems 2 Review of Systems: All systems reviewed & are unremarkable except as noted in HPI and below PMFSH Past Medical History Medical History Invasive ductal carcinoma of left breast History of breast cancer (2021) Hx of hemorrhoids Surgical History Surgical History H/O lymph node biopsy left axillary sentinel lymph node biopsy on 04/17/22. H/O mastectomy left simple mastectomy on 04/17/22 Hx of hysterectomy Hx of carpal tunnel repair Hx of CABG Family History Family History Other Cerebrovascular accident Family history of malignant neoplasm Social History Social History Social History: current everyday caffeine use Smoking packs per day: 0.5 Smoking cigarettes per day: 10.0 Years smoked: 13 Smoking pack-years: 6.50 Smoking status: Former smoker Tobacco type: cigarettes Second hand tobacco smoke exposure: No Smoking end date: 04/10/88 Alcohol intake: never Substance use: never Substance use type: does not use Living arrangements: alone Occupation/Education: retired Gender identity (if verbalized by the patient): Female Sexual Orientation (if Verbalized by the Patient): Straight or Heterosexual Spiritual care concerns: No Agree to blood products: Yes Exam 2 Const: General: cooperative and no acute distress Nutritional Appearance: o verweight Orientation/consciousness: patient oriented x3 Limitations: no limitations HENMT: Head: normal to inspection Mouth: Yes Normal oral and palatal mucosa present Neck: Neck: normal visual inspection, full ROM and no meningeal signs Chest: Chest palpation & inspection: normal inspection of the chest Resp: Effort & Inspection: normal respiratory effort and able to speak in complete sentences Auscultation: clear to auscultation bilaterally Cardio: Rate: regular rate Rhythm: regular rhythm GI: Inspection: normal to inspection GI Palp: Yes abdominal tenderness, Yes Soft to palpation and Yes Tenderness to palpation present (GI) (mild genealized tenderness) Auscultation: normal bowel sounds Back/Spine/Pelvis: Back: other (tender across low back sacral wound closed and no draining mild erythema) Skin: Lesions: no lesions Neuro: General: patient oriented x3 Psych: Appearance: grossly normal Mental Status: mental status grossly normal Course Vital Signs Vital signs: Vital Signs Temperature 99.7 F H 04/19/25 11:05 Pulse Rate 107 H 04/19/25 11:05 Respiratory Rate 10 L 04/19/25 11:05 Blood Pressure 138/72 04/19/25 11:05 Pulse Oximetry 97 04/19/25 11:05 Oxygen Delivery Room Air 04/19/25 11:05 Temperature 99.7 F H 04/19/25 11:05 Pulse Rate 104 H 04/19/25 13:30 Respiratory Rate 16 04/19/25 13:30 Blood Pressure 144/76 H 04/19/25 13:30 Pulse Oximetry 99 04/19/25 13:30 Oxygen Delivery Room Air 04/19/25 11:05 Medical Decision Making MDM Narrative Medical decision making narrative: Pt presents with pain in abd and back and sacrum. Pt has metasatic breast ca with bone mets. pain could be related to mets so will treat with some IV dilaudid and toradol. Pt running low grade fever so might be infected. will check labs and ua and cxr and get CT abd/pelvis which should eleicit any abdominal pathology and get a view of sacrum and lumbar spineas well to rule out pathologic fx or osteo of sacrum. Pt has hypercalcemia likely related to mets. CT shows metastatic lesions to multiple areas of bone. Discussed with family and they want pat to be DNR. Discussed with Dacia and agrees to admit will start bisphospates and fluid rehydration as bun and cr are up as well and pt is dry. Vital Signs Vital Signs: Vital Signs Temperature 99.7 F H 04/19/25 11:05 Pulse Rate 107 H 04/19/25 11:05 Respiratory Rate 10 L 04/19/25 11:05 Blood Pressure 138/72 04/19/25 11:05 Pulse Oximetry 97 04/19/25 11:05 Oxygen Delivery Room Air 04/19/25 11:05 Temperature 99.7 F H 04/19/25 11:05 Pulse Rate 104 H 04/19/25 13:30 Respiratory Rate 16 04/19/25 13:30 Blood Pressure 144/76 H 04/19/25 13:30 Pulse Oximetry 99 04/19/25 13:30 Oxygen Delivery Room Air 04/19/25 11:05 Lab Data 04/19/25 15:11 04/19/25 15:11 Labs: Lab Results 04/19/25 Range/Units 15:11 WBC 6.7 (4.5-10.0) K/mm3 RBC 3.14 L (4.2-5.4) M/mm3 Hgb 9.4 L (12.0-15.0) g/dL Hct 29.8 L (37.0-47.0) % MCV 94.9 (80-100) fl MCH 29.9 (26-34) pg MCHC 31.5 L (32-36) g/dl RDW 15.8 H (11.5-14.5) % Plt Count 154 (150-375) k/mm3 MPV 8.5 (7.4-10.4) fl Immature Gran % (Auto) 0.5 (0-0.5) % Neut % (Auto) 68.2 (45.5-73.1) % Lymph % (Auto) 17.1 L (18.3-44.2) % [place] % (Auto) 11.1 H (2.6-8.5) % Eos % (Auto) 2.9 (0-4.4) % Baso % (Auto) 0.2 (0.2-1.2) % Lymph # (Auto) 1.14 (0.9-3.2) K/mm3 [place] # (Auto) 0.7 H (0.1-0.6) K/mm3 Eos # (Auto) 0.2 (0-0.3) K/mm3 Baso # (Auto) 0.0 (0.0-0.1) K/mm3 Abs Immat Gran (auto) 0.03 (0.00-0.031) K/mm3 Absolute Neuts (auto) 4.5 (1.3-6.7) K/mm3 Absolute Nucleated RBC 0.000 (0.0-0.012) K/mm3 Nucleated RBC % 0.0 (0.0-0.2) % Sodium 132 L (137-145) mmol/L Potassium 3.6 (3.4-5.0) mmol/L Chloride 99 (98-107) mmol/L Carbon Dioxide 24 (22-30) mmol/L Anion Gap 9 (4-12) mmol/L BUN 44 H D (7-17) mg/dL Creatinine 1.51 H (0.7-1.0) mg/dL Estim Creat Clear Calc 22 ml/min Estimated GFR 33 L (59 - ) Glucose 146 H (65-110) mg/dL Lactic Acid 1.7 (0.7-2.0) mmol/L Calcium 12.8 H* (8.4-10.2) mg/dL Total Bilirubin 0.3 (0.2-1.3) mg/dL AST 50 H (14-36) U/L ALT 21 (6-35) U/L Alkaline Phosphatase 116 (38-126) U/L Total Protein 7.4 (6.3-8.2) g/dL Albumin 3.7 (3.5-5.1) g/dL Discharge Plan Discharge Clinical Impression: History of left breast cancer, Metastasis to bone, Hypercalcemia Patient Disposition: Still a Patient Condition: Stable
[2025-04-19 15:25] LABS: Hematocrit 29.8 % (37.0-47.0); Hemoglobin 9.4 g/dL (12.0-15.0); Immature Granulocyte Percent A 0.5 % (0-0.5); Lymphocytes Absolute Auto 1.14 K/mm3 (0.9-3.2); Mean Corpuscular HGB Conc 31.5 g/dl (32-36); Mean Corpuscular Hemoglobin 29.9 pg (26-34); Mean Corpuscular Volume 94.9 fl (80-100); Nucleated Red Blood Cells Absolute Auto 0.000 K/mm3 (0.0-0.012); Nucleated Red Blood Cells Perc 0.0 % (0.0-0.2); Platelet Count Result 154 k/mm3 (150-375); Red Blood Count 3.14 M/mm3 (4.2-5.4); White Blood Count 6.7 K/mm3 (4.5-10.0)
[2025-04-19 15:49] LABS: Alanine Aminotransferase 21 U/L (6-35); Albumin Level 3.7 g/dL (3.5-5.1); Alkaline Phosphatase 116 U/L (38-126); Anion Gap 9 mmol/L (4-12); Aspartate Amino Transferase 50 U/L (14-36); Bilirubin,Total 0.3 mg/dL (0.2-1.3); Blood Urea Nitrogen 44 mg/dL (7-17); Calcium 12.8 mg/dL (8.4-10.2); Carbon Dioxide 24 mmol/L (22-30); Chloride 99 mmol/L (98-107); Estimated CRCL calculation 22 ml/min; Estimated Glomerular Filt Rate 33; Glucose 146 mg/dL (65-110); Potassium 3.6 mmol/L (3.4-5.0); Sodium 132 mmol/L (137-145); Total Protein 7.4 g/dL (6.3-8.2)
[2025-04-19] MEDS: SODIUM CHLORIDE 0.9% IV 1,000 ML 999 ML IV CONT (15:49)
[2025-04-19] MEDS: ONDANSETRON INJ 4 MG/2 ML VIAL IV PUSH (15:50)
--- NOTE | 2025-04-19 15:50 | ECG_ITS ---
Test Date: 2025-04-19 16:21:24 Measurements Intervals [place] Rate: 80 P: 35 TX: 127 QRS: -18 QRSD: 144 T: 81 QT: 420 QTc: 486 Interpretive Statements SINUS RHYTHM RIGHT BUNDLE BRANCH BLOCK [120+ ms QRS DURATION, UPRIGHT V1, 40+ ms S IN I/aVL/V4/V5/V6] Compared to ECG 11/21/2024 18:40:18 Short TX interval no longer present Electronically Signed On 04-20-2025 07:14:05 CDT by Mary Pugh M.D.
[2025-04-19] MEDS: HYDROmorphone HCL INJ (*CRX) 2 MG/ML VIAL 0.5 MG IV PUSH (15:51)
[2025-04-19] MEDS: KETOROLAC 30 MG/ML VIAL (*BKC) 15 MG IV PUSH (15:53)
[2025-04-19] MEDS: PAMIDRONATE DISODIUM 30 MG in DEXTROSE 5% IN WATER 500 ML 125 MG IVPB (18:43)
--- NOTE | 2025-04-19 19:35 | P.HP_ITS ---
H&P: HPI History of Present Illness Date/Time: 04/19/25 22:30 Chief Complaint: Generalized pain. Narrative: This is an 79-year-old female with breast cancer metastasized to bone, chronic kidney disease, hypertension, coronary artery disease, hyperlipidemia, diet- controlled type 2 diabetes mellitus, and gastroesophageal reflux disease presented to the emergency department via EMS from home with complaints of g eneralized pain. She was diagnosed with invasive ductal carcinoma of left breast several years ago and underwent left-sided mastectomy with sentinel lymph node sampling for which she received chemoradiation starting in April 2022. She has been on anastrozole since that time and was started on Ibrance (currently on hold due to development of anemia) for metastatic disease earlier this year after she was found to have lung and bone involvement. More recent imaging has shown extensive lytic lesions with pathologic fractures of the right upper extremity and pelvis. She has seen Radiation Oncology who has referred her for palliative care to help with pain symptoms and there have been discussions about possible kyphoplasty to stabilize vertebral fractures. She is now essentially wheelchair-bound and spends most of her time in bed. She has a prescription for hydrocodone-acetaminophen 7.5-325 mg which is not keeping her pain controlled. She presents today with worsening pain over the last several weeks, worse in the back and pelvis. She denies fever, cold and flu symptoms, chest pain, pleuritic pain, shortness of breath, vomiting, diarrhea, dysuria, and confusion. In the ED: Vital signs on arrival include a temperature of 99.7?, blood pressure 130/72, pulse 107, respiratory rate 10, SpO2 97%. Labs are significant for hemoglobin of 9.4, BUN 44, creatinine 1.51, calcium 12.8. CT of the abdomen and pelvis showed extensive metastatic lesions in the bones with pathological fracture in the right iliac and sacrum, dilated common bile duct measuring 1.7 cm, and slightly thickened wall of urinary bladder. She received ketorolac and hydromorphone for pain as well as a 1 L normal saline bolus and pamidronate 30 mg IV. She is being admitted in this setting for further pain control. Review of Systems Review of Systems: 12 systems were reviewed and are negativ e except for as per HPI. [facility] Past Medical History Medical History (Updated 04/20/25 @ 04:17 by Mckenna Gr PA-C) Chronic anemia Chronic kidney disease Gastroesophageal reflux disease Diverticulosis Overactive bladder Type 2 diabetes mellitus without complications Mixed hyperlipidemia Coronary artery disease Essential (primary) hypertension Invasive ductal carcinoma of left breast (2021) status post simple mastectomy and chemoradiation Surgical History Surgical History (Updated 04/19/25 @ 19:48 by Mckenna Gr PA-C) History of bilateral cataract extraction History of bilateral carpal tunnel release History of cholecystectomy History of four vessel coronary artery bypass graft History of left mastectomy (04/17/22) with sentinel lymph node biopsy History of hysterectomy Family History Family History Other Cerebrovascular accident Family history of malignant neoplasm Social History Social History (Updated 04/19/25 @ 20:15 by Mckenna Gr PA-C) Social History: Surrogate medical decision maker: [place], rebel ([phone]). Code status: Do not resuscitate. Smoking packs per day: 0.5 Smoking cigarettes per day: 10.0 Years smoked: 13 Smoking pack-years: 6.50 Smoking status: Former smoker Tobacco type: cigarettes Second hand tobacco smoke exposure: No Smoking end date: 04/10/88 Alcohol intake: never Substance use: never Substance use type: does not use Do You Feel Safe in your Home?: Yes Lack of Transportation: No Lack of Food: Never True Current Housing: I Have Housing Concerned About Future Housing: No Difficulty Paying Gas/Electric Bills: No Difficulty Paying for Meds: No Currently Unemployed: No Education: Grade School Difficulty w/ Childcare or Family Care: No Living arrangements: alone Occupation/Education: retired Spiritual care concerns: No Agree to blood products: Yes Meds Home Medications and Allergies Home Medications ?Medication ?Instructions ?Recorded ?Confirmed ?Type aspirin 81 mg tablet,delayed 81 mg PO DAILY 03/03/22 04/19/25 History release cetirizine 10 mg capsule (Zyrtec) 10 mg PO PRN PRN Allergy Symptoms 03/03/22 04/19/25 History nitroglycerin 0.4 mg sublingual 0.4 mg sublingual Q5M PRN Chest 03/03/22 04/19/25 History tablet Pain acetaminophen 500 mg tablet 1,000 mg PO Q6H PRN Pain 03/31/22 04/19/25 History (Tylenol Extra Strength) amlodipine 10 mg tablet 10 mg PO QAM 03/31/22 04/19/25 History docusate sodium 100 mg capsule 100 mg PO BID PRN Constipation 01/10/24 04/19/25 History (Colace) omega-3 fatty acids-vitamin E 1 cap PO DAILY 01/10/24 04/19/25 History 1,000 mg capsule anastrozole 1 mg tablet 1 mg PO DAILY 11/10/24 04/19/25 History ferrous sulfate 325 mg (65 mg 325 mg PO BID 11/10/24 04/19/25 History iron) tablet,delayed release Ventolin HFA 90 mcg/actuation 2 inh inhalation QID PRN shortness 01/29/25 04/19/25 Rx aerosol inhaler (albuterol sulfate) of breath or wheezing #8 grams atorvastatin 80 mg tablet 80 mg PO HS 04/19/25 04/19/25 History cyanocobalamin (vitamin B-12) 1,000 mcg PO DAILY 04/19/25 04/19/25 History 1,000 mcg tablet (Vitamin B-12) hydrocodone 7.5 mg-acetaminophen 1 tablet PO Q6H PRN pain 04/19/25 04/19/25 History 325 mg tablet metoprolol succinate 100 mg 50 mg PO DAILY 04/19/25 04/19/25 History tablet,extended release 24 hr pantoprazole 40 mg tablet,delayed 40 mg PO BID 04/19/25 04/19/25 History release triamterene 37.5 1 tablet PO DAILY 04/19/25 04/19/25 History mg-hydrochlorothiazide 25 mg tablet Allergies Allergy/AdvReac Type Severity Reaction Status Date / Time pitavastatin Allergy Mild Rash Verified 04/19/25 19:50 lisinopril AdvReac Intermediate Swelling Verified 04/19/25 19:50 colesevelam AdvReac Mild intolerance Verified 04/19/25 19:50 fenofibrate AdvReac Mild Muscle Pain Verified 04/19/25 19:50 fluvastatin AdvReac Mild Muscle Pain Verified 04/19/25 19:50 rosuvastatin AdvReac Mild Muscle Pain Verified 04/19/25 19:50 simvastatin AdvReac Mild Muscle Pain Verified 04/19/25 19:50 [id number] Reductase AdvReac Mild Muscle Pain Verified 04/19/25 19:50 Inhibitor Vital Signs Vital Signs - 24 hr 04/19/25 11:05 04/19/25 11:26 04/19/25 12:11 Temperature 99.7 F H Pulse Rate 107 H 109 H 104 H Respiratory Rate 10 L 12 Blood Pressure 138/72 138/72 Pulse Oximetry 97 98 Oxygen Delivery Room Air 04/19/25 13:30 04/19/25 18:48 Temperature Pulse Rate 104 H 78 Respiratory Rate 16 14 Blood Pressure 144/76 H 94/44 L Pulse Oximetry 99 93 Oxygen Delivery Exam Narrative: General: Frail elderly female in the semi-Adames position in bed. Weight: 63.7 kg. BMI: 27.4. HEENT: Normocephalic, atraumatic. PERRL, EOMI. Sclera anicteric. Moist mucous membranes. Neck: Supple. No midline vertebral tenderness. Respiratory: Lungs are clear to auscultation bilaterally. Cardiovascular: Regular rate and rhythm with S1-S2. Gastrointestinal: Abdomen is soft, nontender, and nondistended with positive bowel sounds. Skin: Warm and dry. No rash or lesions on limited exam. Extremities: No cyanosis, clubbing, or edema. Radial and pedal pulses intact. Right arm is in a sling. Neurological: Alert. Cranial nerves 2-12 are grossly intact. Generalized weak ness without gross focal findings. Psychiatric: Pleasant and cooperative with appropriate mood and affect. H&P: Results Labs Labs: Short CBC 04/19/25 Range/Units 15:11 WBC 6.7 (4.5-10.0) K/mm3 Hgb 9.4 L (12.0-15.0) g/dL Hct 29.8 L (37.0-47.0) % Plt Count 154 (150-375) k/mm3 [facility] 04/19/25 15:11 Sodium 132 L Potassium 3.6 Chloride 99 Carbon Dioxide 24 BUN 44 H D Creatinine 1.51 H Glucose 146 H Calcium 12.8 H* Liver Function 04/19/25 Range/Units 15:11 Total Bilirubin 0.3 (0.2-1.3) mg/dL AST 50 H (14-36) U/L ALT 21 (6-35) U/L Alkaline Phosphatase 116 (38-126) U/L Albumin 3.7 (3.5-5.1) g/dL Imaging Abdomen/Pelvis CT 07/10/25 17:34 IMPRESSION: 1. Extensive metastatic lesions seen on the bones with pathological fracture in the right iliac bone and sacrum slightly advanced compared to previous study. 2. No evidence of appendicitis, diverticulitis or intestinal obstruction. 3. Dilated CBD measuring 1.7 cm. 4. Slightly thickened wall of the urinary bladder. Further evaluation advised. 5. Possible nodule in the right lung base. Assessment and Plan Assessment and plan (1) Hypercalcemia: Code(s): E83.52 - Hypercalcemia Status: Acute (2) Breast cancer metastasized to multiple sites: Code(s): C50.919 - Malignant neoplasm of unspecified site of unspecified female breast Status: Acute (3) Pain of metastatic malignancy: Code(s): G89.3 - Neoplasm related pain (acute) (chronic) Status: Acute (4) Chronic kidney disease: Code(s): N18.9 - Chronic kidney disease, unspecified Status: Acute (5) Chronic anemia: Code(s): D64.9 - Anemia, unspecified Status: Acute (6) Essential (primary) hypertension: Code(s): I10 - Essential (primary) hypertension Status: Acute (7) Diet-controlled diabetes mellitus: Code(s): E11.9 - Type 2 diabetes mellitus without complications Status: Acute (8) Coronary artery disease: Code(s): I25.10 - Atherosclerotic heart disease of [place] coronary artery without angina pectoris Status: Acute Plan The patient presented to the emergency department with complaints of worsening generalized pain over the last several weeks attributed to metastatic breast cancer to the bones as detailed in HPI. Labs, imaging, EKG, and all reports were personally reviewed. She has been taking hydrocodone-acetaminophen 7.5-325 mg with lesser and lesser benefit. Hydromorphone received in the emergency department has helped quite a bit and will be a available as needed for breakthrough pain. It is my understanding that she was referred for palliative care for pain management which would be beneficial. She would likely benefit from an increase in dose or a stronger opioid to control her pain. Depending on her requirements over the next 24 hours, consider initiating MS Contin or fentanyl patch. Her calcium is once again pretty significantly elevated, likely related to bony mets in addition to combination thiazide diuretic use. She was given pamidronate 30 mg IV in the ED and we will continue with judicious IV fluid rehydration overnight. Hold diuretic and repeat calcium in a.m. her kidney function is stable on review of previous labs. Blood pressures reviewed, they are stable, and will be monitored daily. Her diabetes is diet controlled and random glucose today was 146. Her glucose has not been significantly elevated glucoses for quite some time thus will hold on sliding scale. No acute issues with regards to coronary artery disease. Her home medications will be reviewed and resumed as appropriate. Findings and treatment plan were discussed with the patient. Questions were solicited and answered to satisfaction. The patient's medical management will be taken over by the hospitalist team in a.m. Quality VTE Prophylaxis VTE prophylaxis: pharmacologic ordered The patient has been admitted under observation status. Hospitalist MIPS Advance Care Plan I have confirmed that the patient's Advanced Care Plan is present, code status is documented, or surrogate decision maker is listed in patient medical record.: Yes Medication Reconciliation I have utilized all available resources to obtain, update and review the pa ramakrishnas current medications (includes all prescriptions, OTC, herbals, cannabis, and nutritional supplements).: Yes
--- NOTE | 2025-04-19 19:39 | ADMGEN ---
This patient, Savannah Lyles, was admitted to Medical Room 349-01. Patient/family oriented to hospital policies and general routines including ID bracelet, bed and alarms, visiting hours, pain management, procedures, bathroom and other care routines, personal items, smoking policy, room service/diet, and visiting hours. Information on how to activate the Rapid Response Team has been discussed. Patient/Family are encouraged to report perceived risks to care and to ask questions if they do not understand what they are told or what they should do.
[2025-04-19] MEDS: ATORVASTATIN 40 MG TABLET 80 MG PO (21:39)
[2025-04-19] MEDS: SODIUM CHLORIDE 0.9% IV 1,000 ML 200 ML IV CONT (21:44)
[2025-04-20] VITALS (9 sets, daily range): BP systolic 104–106; BP diastolic 44–58; PULSE 81–98; RESP 16–20; TEMP 36.6–37.3; O2SAT 95–100; BMI 27.4
[2025-04-20] MEDS: SODIUM CHLORIDE 0.9% IV 1,000 ML 100 ML IV CONT (03:46)
[2025-04-20 03:57] LABS: Add Urine Microscopic? YES; Appearance Urine Cloudy (Clear); Glucose Urine UA Negative (Negative); Leukocyte Esterase Ur Negative LEU/UL (Negative); Nitrate Urine Negative (Negative); Non Pathogenic Casts 0-2; Specific Grav Ur 1.045 (1.001-1.035)
[2025-04-20 05:37] LABS: Hematocrit 30.5 % (37.0-47.0); Hemoglobin 9.3 g/dL (12.0-15.0); Mean Corpuscular HGB Conc 30.5 g/dl (32-36); Mean Corpuscular Hemoglobin 30.4 pg (26-34); Mean Corpuscular Volume 99.7 fl (80-100); Platelet Count Result 110 k/mm3 (150-375); Red Blood Count 3.06 M/mm3 (4.2-5.4); White Blood Count 5.3 K/mm3 (4.5-10.0)
[2025-04-20 05:59] LABS: Anion Gap 9 mmol/L (4-12); Blood Urea Nitrogen 37 mg/dL (7-17); Calcium 11.8 mg/dL (8.4-10.2); Carbon Dioxide 18 mmol/L (22-30); Chloride 105 mmol/L (98-107); Estimated CRCL calculation 24 ml/min; Estimated Glomerular Filt Rate 37; Glucose 115 mg/dL (65-110); Magnesium 2.0 mg/dL (1.6-2.3); Potassium 3.7 mmol/L (3.4-5.0); Sodium 132 mmol/L (137-145)
[2025-04-20] MEDS: METOPROLOL SUCCINATE EXT REL 50 MG TABCR PO (09:15)
[2025-04-20] MEDS: OMEGA 3 POLYUNSAT FATTY ACIDS 1 GM CAP PO (09:15)
[2025-04-20] MEDS: HYDROmorphone HCL INJ (*CRX) 2 MG/ML VIAL 0.5 MG IV PUSH (09:15)
[2025-04-20] MEDS: FERROUS SULFATE 325 MG TABLET DR PO ×2 (09:15→18:31)
[2025-04-20] MEDS: LORATADINE 10 MG TABLET PO (09:16)
[2025-04-20] MEDS: ENOXAPARIN 30 MG/0.3 ML SYRINGE SUB-Q (09:16)
[2025-04-20] MEDS: PANTOPRAZOLE 40 MG TABLET PO ×2 (09:16→22:36)
[2025-04-20] MEDS: ANASTROZOLE (*CHEMO) 1 MG TABLET PO (09:16)
[2025-04-20] MEDS: DOCUSATE SODIUM 100 MG CAPSULE PO (09:16)
[2025-04-20] MEDS: ASPIRIN 81 MG ENTERIC TABLET PO (09:16)
[2025-04-20] MEDS: CYANOCOBALAMIN 1,000 MCG TABLET 1000 MCG PO (09:16)
[2025-04-20] MEDS: HYDROcodone/acetaminophen (*CRX) 7.5-325 MG TABLET 1 TAB PO ×2 (11:06→18:31)
--- NOTE | 2025-04-20 13:16 | P.CDI_ITS ---
CDI Query Clarification Request BMI: 27.4 Nutritional Diagnostic Statement: Please refer to the comprehensive nutrition assessment for further information. If you agree with diagnosis of Severe Protein Calorie Malnutrition as related to inadequate protein-energy intake with increased protein-energy needs in setting of chronic disease as evidenced by minimal oral intake for > 1-2 months; significant weight loss of 15% (25 ibs) in 4 months; moderate subcutaneous fat loss (orbital fat pads) and moderate muscle wasting (temporalis). Please specify severity if known: * Mild * Moderate * Severe * Other/Unknown <Angela Vieyra RN - Last Filed: 04/20/25 13:17> Provider Comments Severe protein calorie malnutrition <Jose A Swenson MD - Last Filed: 04/23/25 16:04>
[2025-04-20] MEDS: SODIUM CHLORIDE 0.9% IV 1,000 ML 85 ML IV CONT (13:25)
--- NOTE | 2025-04-20 13:49 | P.PNIM_ITS ---
Progress Note: A&P Assessment and Plan (1) Hypercalcemia: Code(s): E83.52 - Hypercalcemia Status: Acute (2) Breast cancer metastasized to multiple sites: Code(s): C50.919 - Malignant neoplasm of unspecified site of unspecified female breast Status: Acute (3) Pain of metastatic malignancy: Code(s): G89.3 - Neoplasm related pain (acute) (chronic) Status: Acute (4) Chronic kidney disease: Code(s): N18.9 - Chronic kidney disease, unspecified Status: Acute (5) Chronic anemia: Code(s): D64.9 - Anemia, unspecified Status: Acute (6) Essential (primary) hypertension: Code(s): I10 - Essential (primary) hypertension Status: Acute (7) Diet-controlled diabetes mellitus: Code(s): E11.9 - Type 2 diabetes mellitus without complications Status: Acute (8) Coronary artery disease: Code(s): I25.10 - Atherosclerotic heart disease of [place] coronary artery without angina pectoris Status: Acute Plan This is an 79-year-old female with breast cancer metastasized to bone, chronic kidney disease, hypertension, coronary artery disease, hyperlipidemia, diet- controlled type 2 diabetes mellitus, and gastroesophageal reflux disease presented to the emergency department via EMS from home with complaints of generalized pain. She was diagnosed with invasive ductal carcinoma of left breast several years ago and underwent left-sided mastectomy with sentinel lymph node sampling for which she received chemoradiation starting in April 2022. She has been on anastrozole since that time and was started on Ibrance (currently on hold due to development of anemia) for metastatic disease earlier this year after she was found to have lung and bone involvement. More recent imaging has shown extensive lytic lesions with pathologic fractures of the right upper extremity and pelvis. She has seen Radiation Oncology who has referred her for palliative care to help with pain symptoms and there have been discussions about possible kyphoplasty to stabilize vertebral fractures. She is now essentially wheelchair-bound and spends most of her time in bed. She has a prescription for hydrocodone-acetaminophen 7.5-325 mg which is not keeping her pain controlled. She presents today with worsening pain over the last several weeks, worse in the back and pelvis. She denies fever, cold and flu symptoms, chest pain, pleuritic pain, shortness of breath, vomiting, diarrhea, dysuria, and confusion. In the ED: Vital signs on arrival include a temperature of 99.7?, blood pressure 130/72, pulse 107, respiratory rate 10, SpO2 97%. Labs are significant for hemoglobin of 9.4, BUN 44, creatinine 1.51, calcium 12.8. CT of the abdomen and pelvis showed extensive metastatic lesions in the bones with pathological fracture in the right iliac and sacrum, dilated common bile duct measuring 1.7 cm, and slightly thickened wall of urinary bladder. She received ketorolac and hydromorphone for pain as well as a 1 L normal saline bolus and pamidronate 30 mg IV. She is being admitted in this setting for further pain control. Generalized pain over the last several weeks attributed to metastatic breast cancer to the bones with pathology fractures. Not a candidate for radiation treatment. Currently on hydrocodone acetaminophen 7.5325 mg q.6 hours. On Dilaudid IV for breakthrough pain. Will consult Oncology. Likely a candidate for hospice. 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 Also on thiazide diuretics. She received pamidronate in the ER on IV fluid. Calcium level improved. Continue to monitor. Diabetes diet controlled Coronary artery disease CKD GERD Diverticulosis Hyperlipidemia Hypertension Metastatic breast cancer Chronic anemia DVT prophylaxis SCDs Code status do not resuscitate Subjective Date/time seen: 04/20/25 13:49 Interval history: No overnight events. Continues to have pain. No chest pain or shortness of breath. Review of Systems Review of Systems: All systems reviewed & are unremarkable except as noted in HPI and below Exam Narrative: General: Frail elderly female in the semi-Adames position in bed. HEENT: Normocephalic, atraumatic. PERRL, EOMI. Sclera anicteric. Moist mucous membranes. Neck: Supple. No midline vertebral tenderness. Respiratory: Lungs are clear to auscultation bilaterally. Cardiovascular: Regular rate and rhythm with S1-S2. Gastrointestinal: Abdomen is soft, nontender, and nondistended with positive bowel sounds. Skin: Warm and dry. No rash or lesions on limited exam. Extremities: No cyanosis, clubbing, or edema. Radial and pedal pulses intact. Right arm is in a sling. Neurological: Alert. Cranial nerves 2-12 are grossly intact. Generalized weakness without gross focal findings. Psychiatric: Pleasant and cooperative with appropriate mood and affect. Objective Data Vital Signs Vital Signs: Vital Signs - 24 hr 04/19/25 18:48 04/19/25 20:00 04/19/25 21:30 Temperature Pulse Rate 78 80 Respiratory Rate 14 Blood Pressure 94/44 L Pulse Oximetry 93 Oxygen Delivery Room Air 04/19/25 21:50 04/20/25 00:05 04/20/25 04:00 Temperature 97.7 F Pulse Rate 77 81 86 Respiratory Rate 16 Blood Pressure 128/46 L Pulse Oximetry 99 Oxygen Delivery 04/20/25 06:00 04/20/25 08:00 04/20/25 08:00 Temperature 99.1 F Pulse Rate 99 97 Respiratory Rate 16 Blood Pressure 130/54 L Pulse Oximetry 94 Oxygen Delivery Room Air 04/20/25 09:15 04/20/25 12:00 Temperature Pulse Rate 98 88 Respiratory Rate Blood Pressure Pulse Oximetry Oxygen Delivery Intake/Output Intake/Output: Intake & Output 04/17/25 04/18/25 04/19/25 04/20/25 23:59 23:59 23:59 23:59 Intake Total 1510 2897.5 Output Total 900 Balance 1510 1997.5 Meds/Results Medications: Active Medications Generic Name Dose Route Start Last Admin Trade Name Freq PRN Reason Stop Dose Admin Acetaminophen 650 mg 04/19/25 20:15 Acetaminophen 325 Mg Tablet PO Q6H PRN Mild Pain (1-3) or Fever Hydrocodone Bitart/Acetaminophen 1 tab 04/19/25 20:16 04/20/25 11:06 Hydrocodone/Acetaminophen (*Crx) 7.5-325 Mg Tablet PO 1 tab Q6H PRN Administration pain 7-10 Hydrocodone Bitart/Acetaminophen 1 tab 04/19/25 20:18 Hydrocodone/Acetaminophen (*Crx) 5-325 Mg Tablet PO Q6H PRN Pain Rated 4-6 Albuterol 2 puff 04/19/25 20:16 Albuterol Sulfate (*Sp) Aerosol 1 Puff INHALATION QIDRT PRN shortness of breath or wheezin Anastrozole 1 mg 04/20/25 09:00 04/20/25 09:16 Anastrozole (*Chemo) 1 Mg Tablet PO 1 mg DAILY WIN Administration Aspirin 81 mg 04/20/25 09:00 04/20/25 09:16 Aspirin 81 Mg Enteric Tablet PO 81 mg DAILY WIN Administration Atorvastatin Calcium 80 mg 04/19/25 21:00 04/19/25 21:39 Atorvastatin 40 Mg Tablet PO 80 mg HS WIN Administration Cyanocobalamin 1,000 mcg 04/20/25 09:00 04/20/25 09:16 Cyanocobalamin 1,000 Mcg Tablet PO 1,000 mcg DAILY WIN Administration Docusate Sodium 100 mg 04/19/25 20:16 04/20/25 09:16 Docusate Sodium 100 Mg Capsule PO 100 mg BID PRN Administration Constipation Enoxaparin Sodium 30 mg 04/20/25 09:00 04/20/25 09:16 Enoxaparin 30 Mg/0.3 Ml Syringe SUB-Q 30 mg DAILY WIN Administration Ferrous Sulfate 325 mg 04/20/25 09:00 04/20/25 09:15 Ferrous Sulfate [address] PO 325 mg BID WIN Administration Fish Oil 1 gm 04/20/25 09:00 04/20/25 09:15 [place] 3 Polyunsat Fatty Acids 1 Gm Cap PO 1 gm QAM WIN Administration Hydromorphone HCl 0.5 mg 04/19/25 20:15 04/20/25 09:15 Hydromorphone Hcl Inj (*Crx) 2 Mg/Ml Vial IV PUSH 0.5 mg Q3H PRN Administration break[place]ough pain Sodium Chloride 1,000 mls @ 85 mls/hr 04/19/25 18:10 04/20/25 13:25 Normal Saline Iv IV CONT 85 mls/hr .[id number] WIN Administration Loratadine 10 mg 04/19/25 20:44 04/20/25 09:16 Loratadine 10 Mg Tablet PO 10 mg DAILY PRN Administration Allergy Symptoms Metoprolol Succinate 50 mg 04/20/25 09:00 04/20/25 09:15 Metoprolol Succinate Ext Rel 50 Mg Tabcr PO 50 mg DAILY WIN Administration Pantoprazole Sodium 40 mg 04/20/25 09:00 04/20/25 09:16 Pantoprazole 40 Mg Tablet PO 40 mg Q12HR WIN Administration Radiology Results: ITS Impressions Abdomen/Pelvis CT 04/19/25 17:34 IMPRESSION: 1. Extensive metastatic lesions seen on the bones with pathological fracture in the right iliac bone and sacrum slightly advanced compared to previous study. 2. No evidence of appendicitis, diverticulitis or intestinal obstruction. 3. Dilated CBD measuring 1.7 cm. 4. Slightly thickened wall of the urinary bladder. Further evaluation advised. 5. Possible nodule in the right lung base. Labs Labs: Laboratory Results - last 24 hr 04/19/25 04/19/25 04/20/25 15:11 21:35 03:41 WBC 6.7 RBC 3.14 L Hgb 9.4 L Hct 29.8 L MCV 94.9 MCH 29.9 MCHC 31.5 L RDW 15.8 H Plt Count 154 MPV 8.5 Immature Gran % (Auto) 0.5 Neut % (Auto) 68.2 Lymph % (Auto) 17.1 L [place] % (Auto) 11.1 H Eos % (Auto) 2.9 Baso % (Auto) 0.2 Lymph # (Auto) 1.14 [place] # (Auto) 0.7 H Eos # (Auto) 0.2 Baso # (Auto) 0.0 Abs Immat Gran (auto) 0.03 Absolute Neuts (auto) 4.5 Absolute Nucleated RBC 0.000 Nucleated RBC % 0.0 Sodium 132 L Potassium 3.6 Chloride 99 Carbon Dioxide 24 Anion Gap 9 BUN 44 H D Creatinine 1.51 H Estim Creat Clear Calc 22 Estimated GFR 33 L Glucose 146 H POC Capillary Glucose 150 H Lactic Acid 1.7 Calcium 12.8 H* Magnesium Total Bilirubin 0.3 AST 50 H ALT 21 Alkaline Phosphatase 116 Total Protein 7.4 Albumin 3.7 Urine Color Yellow Urine Appearance Cloudy H Urine pH 5.5 Ur Specific [place] 1.045 H Urine Protein Trace Urine Glucose (UA) Negative Urine Ketones Negative Ur Blood (Man) 2+ H Urine Nitrate Negative Urine Bilirubin Negative Urine Urobilinogen 0.2 Leukocyte Esterase Rfl Negative Urine RBC 21-50 H Urine WBC 0-5 Ur Squamous Epith Cells None seen Urine Bacteria None seen Urine Casts 0-2 04/20/25 05:31 WBC 5.3 RBC 3.06 L Hgb 9.3 L Hct 30.5 L MCV 99.7 D MCH 30.4 MCHC 30.5 L RDW 15.8 H Plt Count 110 L MPV 8.7 Immature Gran % (Auto) Neut % (Auto) Lymph % (Auto) [place] % (Auto) Eos % (Auto) Baso % (Auto) Lymph # (Auto) [place] # (Auto) Eos # (Auto) Baso # (Auto) Abs Immat Gran (auto) Absolute Neuts (auto) Absolute Nucleated RBC Nucleated RBC % Sodium 132 L Potassium 3.7 Chloride 105 Carbon Dioxide 18 L Anion Gap 9 BUN 37 H Creatinine 1.38 H Estim Creat Clear Calc 24 Estimated GFR 37 L Glucose 115 H POC Capillary Glucose Lactic Acid Calcium 11.8 H Magnesium 2.0 Total Bilirubin AST ALT Alkaline Phosphatase Total Protein Albumin Urine Color Urine Appearance Urine pH Ur Specific [place] Urine Protein Urine Glucose (UA) Urine Ketones Ur Blood (Man) Urine Nitrate Urine Bilirubin Urine Urobilinogen Leukocyte Esterase Rfl Urine RBC Urine WBC Ur Squamous Epith Cells Urine Bacteria Urine Casts
--- NOTE | 2025-04-20 15:34 | PC.NURSE ---
RN spoke to Dr. Mohan about patient going on hospice, as a request from CC, and MD stated he has no concerns and thinks it is reasonable. CC called and updated. Hospice consult to follow.
--- NOTE | 2025-04-20 20:11 | PC.NURSE ---
[facility] notified of consult through exchange.
[2025-04-20] MEDS: ATORVASTATIN 40 MG TABLET 80 MG PO (22:35)
[2025-04-21] VITALS (8 sets, daily range): BP systolic 115–117; BP diastolic 51–62; PULSE 75–105; RESP 16–24; TEMP 36.3–37.7; O2SAT 84–97
[2025-04-21] MEDS: SODIUM CHLORIDE 0.9% IV 1,000 ML 85 ML IV CONT (01:22)
[2025-04-21] MEDS: HYDROmorphone HCL INJ (*CRX) 2 MG/ML VIAL 0.5 MG IV PUSH ×3 (06:40→16:11)
[2025-04-21 07:03] LABS: Hematocrit 31.8 % (37.0-47.0); Hemoglobin 9.3 g/dL (12.0-15.0); Immature Granulocyte Percent A 0.9 % (0-0.5); Lymphocytes Absolute Auto 0.98 K/mm3 (0.9-3.2); Mean Corpuscular HGB Conc 29.2 g/dl (32-36); Mean Corpuscular Hemoglobin 29.7 pg (26-34); Mean Corpuscular Volume 101.6 fl (80-100); Nucleated Red Blood Cells Absolute Auto 0.000 K/mm3 (0.0-0.012); Nucleated Red Blood Cells Perc 0.0 % (0.0-0.2); Platelet Count Result 131 k/mm3 (150-375); Red Blood Count 3.13 M/mm3 (4.2-5.4); White Blood Count 4.7 K/mm3 (4.5-10.0)
[2025-04-21 07:25] LABS: Alanine Aminotransferase 16 U/L (6-35); Albumin Level 3.0 g/dL (3.5-5.1); Alkaline Phosphatase 103 U/L (38-126); Anion Gap 8 mmol/L (4-12); Aspartate Amino Transferase 46 U/L (14-36); Bilirubin,Total 0.3 mg/dL (0.2-1.3); Blood Urea Nitrogen 35 mg/dL (7-17); Calcium 11.9 mg/dL (8.4-10.2); Carbon Dioxide 18 mmol/L (22-30); Chloride 108 mmol/L (98-107); Estimated CRCL calculation 22 ml/min; Estimated Glomerular Filt Rate 33; Glucose 116 mg/dL (65-110); Magnesium 2.0 mg/dL (1.6-2.3); Potassium 3.9 mmol/L (3.4-5.0); Sodium 134 mmol/L (137-145); Total Protein 6.3 g/dL (6.3-8.2)
[2025-04-21 07:53] LABS: Schistocytes None Seen
[2025-04-21 07:54] LABS: Hypochromasia 1+
[2025-04-21] MEDS: OMEGA 3 POLYUNSAT FATTY ACIDS 1 GM CAP PO (09:25)
[2025-04-21] MEDS: ANASTROZOLE (*CHEMO) 1 MG TABLET PO (09:25)
[2025-04-21] MEDS: HYDROcodone/acetaminophen (*CRX) 7.5-325 MG TABLET 1 TAB PO (09:25)
[2025-04-21] MEDS: METOPROLOL SUCCINATE EXT REL 50 MG TABCR PO (09:25)
[2025-04-21] MEDS: LORATADINE 10 MG TABLET PO (09:25)
[2025-04-21] MEDS: FERROUS SULFATE 325 MG TABLET DR PO (09:25)
[2025-04-21] MEDS: ASPIRIN 81 MG ENTERIC TABLET PO (09:25)
[2025-04-21] MEDS: PANTOPRAZOLE 40 MG TABLET PO (09:25)
[2025-04-21] MEDS: CYANOCOBALAMIN 1,000 MCG TABLET 1000 MCG PO (09:25)
[2025-04-21] MEDS: ENOXAPARIN 30 MG/0.3 ML SYRINGE SUB-Q (09:26)
--- NOTE | 2025-04-21 11:37 | P.DS_ITS ---
DS: Admitting Diagnosis Discharge Date 04/21/2025 Admitting Diagnosis Pain DS: Discharge Diagnosis Discharge Diagnosis (1) Hypercalcemia: Code(s): E83.52 - Hypercalcemia Status: Acute (2) Breast cancer metastasized to multiple sites: Code(s): C50.919 - Malignant neoplasm of unspecified site of unspecified female breast Status: Acute (3) Pain of metastatic malignancy: Code(s): G89.3 - Neoplasm related pain (acute) (chronic) Status: Acute (4) Chronic kidney disease: Code(s): N18.9 - Chronic kidney disease, unspecified Status: Acute (5) Chronic anemia: Code(s): D64.9 - Anemia, unspecified Status: Acute (6) Essential (primary) hypertension: Code(s): I10 - Essential (primary) hypertension Status: Acute (7) Diet-controlled diabetes mellitus: Code(s): E11.9 - Type 2 diabetes mellitus without complications Status: Acute (8) Coronary artery disease: Code(s): I25.10 - Atherosclerotic heart disease of [place] coronary artery without angina pectoris Status: Acute Plan Pain DS: Summary Hospital Course Hospital Course: This is an 79-year-old female with breast cancer metastasized to bone, chronic kidney disease, hypertension, coronary artery disease, hyperlipidemia, diet- controlled type 2 diabetes mellitus, and gastroesophageal reflux disease presented to the emergency department via EMS from home with complaints of generalized pain. She was diagnosed with invasive ductal carcinoma of left breast several years ago and underwent left-sided mastectomy with sentinel lymph node sampling for which she received chemoradiation starting in April 2022. She has been on anastrozole since that time and was started on Ibrance (currently on hold due to development of anemia) for metastatic disease earlier this year after she was found to have lung and bone involvement. More recent imaging has shown extensive lytic lesions with pathologic fractures of the right upper extremity and pelvis. She has seen Radiation Oncology who has referred her for palliative care to help with pain symptoms and there have been discussions about possible kyphoplasty to stabilize vertebral fractures. She is now essentially wheelchair-bound and spends most of her time in bed. She has a prescription for hydrocodone-acetaminophen 7.5-325 mg which is not keeping her pain controlled. She presents today with worsening pain over the last several weeks, worse in the back and pelvis. She denies fever, cold and flu symptoms, chest pain, pleuritic pain, shortness of breath, vomiting, diarrhea, dysuria, and confusion. In the ED: Vital signs on arrival include a temperature of 99.7?, blood pressure 130/72, pulse 107, respiratory rate 10, SpO2 97%. Labs are significant for hemoglobin of 9.4, BUN 44, creatinine 1.51, calcium 12.8. CT of the abdomen and pelvis showed extensive metastatic lesions in the bones with pathological fracture in the right iliac and sacrum, dilated common bile duct measuring 1.7 cm, and slightly thickened wall of urinary bladder. She received ketorolac and hydromorphone for pain as well as a 1 L normal saline bolus and pamidronate 30 mg IV. She is being admitted in this setting for further pain control. Generalized pain over the last several weeks attributed to metastatic breast cancer to the bones with pathology fractures. Not a candidate for radiation treatment. Currently on hydrocodone acetaminophen 7.5325 mg q.6 hours. On Dilaudid IV for breakthrough pain. Consulted Oncology. Discussed goals of care with the patient and after family discussion patient opted for hospice care. Hospice arrangement for home done for discharge.. 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 Also on thiazide diuretics. She received pamidronate in the ER on IV fluid. Calcium level improved. Continue to monitor. Diabetes diet controlled Coronary artery disease CKD GERD Diverticulosis Hyperlipidemia Hypertension Metastatic breast cancer Chronic anemia DVT prophylaxis SCDs Code status do not resuscitate Time Spent with Patient Time attestation: Total time spent providing and/or coordinating discharge services: 35 minutes Exam Narrative: General: Frail elderly female in the semi-Adames position in bed. HEENT: Normocephalic, atraumatic. PERRL, EOMI. Sclera anicteric. Moist mucous membranes. Neck: Supple. No midline vertebral tenderness. Respiratory: Lungs are clear to auscultation bilaterally. Cardiovascular: Regular rate and rhythm with S1-S2. Gastrointestinal: Abdomen is soft, nontender, and nondistended with positive bowel sounds. Skin: Warm and dry. No rash or lesions on limited exam. Extremities: No cyanosis, clubbing, or edema. Radial and pedal pulses intact. Right arm is in a sling. Neurological: Alert. Cranial nerves 2-12 are grossly intact. Generalized weakness without gross focal findings. Psychiatric: Pleasant and cooperative with appropriate mood and affect. DS: Data Data Completed and Pending Labs on day of discharge: Labs from last 24 hours 04/21/25 05:42 WBC 4.7 RBC 3.13 L Hgb 9.3 L Hct 31.8 L MCV 101.6 H MCH 29.7 MCHC 29.2 L RDW 15.7 H Plt Count 131 L MPV 8.7 Immature Gran % (Auto) 0.9 H Neut % (Auto) 62.3 Lymph % (Auto) 21.0 [place] % (Auto) 12.4 H Eos % (Auto) 3.2 Baso % (Auto) 0.2 Lymph # (Auto) 0.98 [place] # (Auto) 0.6 Eos # (Auto) 0.2 Baso # (Auto) 0.0 Abs Immat Gran (auto) 0.04 H Absolute Neuts (auto) 2.9 Absolute Nucleated RBC 0.000 Band Neutrophils % Not Reportable Nucleated RBC % 0.0 Platelet Estimate Slightly decreased Hypochromasia 1+ Schistocytes None seen Sodium 134 L Potassium 3.9 Chloride 108 H Carbon Dioxide 18 L Anion Gap 8 BUN 35 H Creatinine 1.50 H Estim Creat Clear Calc 22 Estimated GFR 33 L Glucose 116 H Calcium 11.9 H Magnesium 2.0 Total Bilirubin 0.3 AST 46 H ALT 16 Alkaline Phosphatase 103 Total Protein 6.3 Albumin 3.0 L Imaging Radiologist's impression: ITS Impressions Abdomen/Pelvis CT 04/19/25 17:34 IMPRESSION: 1. Extensive metastatic lesions seen on the bones with pathological fracture in the right iliac bone and sacrum slightly advanced compared to previous study. 2. No evidence of appendicitis, diverticulitis or intestinal obstruction. 3. Dilated CBD measuring 1.7 cm. 4. Slightly thickened wall of the urinary bladder. Further evaluation advised. 5. Possible nodule in the right lung base. Discharge Plan Discharge Attending physician on discharge: Jose A Swenson Consulting providers: Bhanu Mohan Discharging Clinician: Jose A Swenson Anticipated Discharge Date/Time: 04/21/25 11:39 Patient Disposition: Hospice - Home Activity: as tolerated Diet: as tolerated Patient Language: [place] Stand Alone Forms: General Discharge Information Follow-up/Referrals: Jose Arguello MD [Primary Care Provider] - 1 Week Discharge Medications: Continued anastrozole 1 mg tablet 1 mg PO DAILY amlodipine 10 mg tablet 10 mg PO QAM Patient Comments: QAM acetaminophen [Tylenol Extra Strength] 500 mg tablet 1,000 mg PO Q6H PRN (Reason: Pain) Patient Comments: .. aspirin 81 mg tablet,delayed release (DR/EC) 81 mg PO DAILY Patient Comments: QAM nitroglycerin 0.4 mg tablet, sublingual 0.4 mg sublingual Q5M PRN (Reason: Chest Pain) Rx Instructions: do not exceed 3 doses per episode Zyrtec 10 mg capsule 10 mg PO PRN PRN (Reason: Allergy Symptoms) ferrous sulfate 325 mg (65 mg iron) tablet,delayed release (DR/EC) 325 mg PO BID docusate sodium [Colace] 100 mg capsule 100 mg PO BID PRN (Reason: Constipation) omega-3 fatty acids-vitamin E 1,000 mg Capsule 1 cap PO DAILY triamterene-hydrochlorothiazid 37.5-25 mg tablet 1 tablet PO DAILY hydrocodone-acetaminophen 7.5-325 mg tablet 1 tablet PO Q6H PRN (Reason: pain) atorvastatin 80 mg tablet 80 mg PO HS pantoprazole 40 mg tablet,delayed release (DR/EC) 40 mg PO BID metoprolol succinate 100 mg tablet extended release 24 hr 50 mg PO DAILY cyanocobalamin (vitamin B-12) [Vitamin B-12] 1,000 mcg tablet 1,000 mcg PO DAILY albuterol sulfate [Ventolin HFA] 90 mcg/actuation HFA aerosol inhaler 2 inh inhalation QID PRN (Reason: shortness of breath or wheezing) Qty: 8 3RF Date of admission: 04/20/25 17:57 Primary Care Provider: Jose Arguello Admitting Provider: Zak Waldron Attending physician on admission: Zak Waldron Condition: Guarded Prognosis
== END 2025-04-21 18:25 | disposition hospice, home (50) | DRG 947 ==
LOC: ANHED 18:06 → ANH3MED 18:33
PROVIDERS: Physician Assistant; Admitting Provider Internal Medicine; Emergency Provider Emergency Medicine; PCP Family Medicine Adolescent Medicine; Visit Provider Internal Medicine
DX: G89.3 Neoplasm related pain (acute) (chronic) (principal); E43 Unspecified severe protein-calorie malnutrition; C79.51 Secondary malignant neoplasm of bone; M84.550A Pathological fracture in neoplastic disease, pelvis, initial encounter for fracture; E83.52 Hypercalcemia; I12.9 Hypertensive chronic kidney disease with stage 1 through stage 4 chronic kidney disease, or unspecified chronic kidney disease; E11.22 Type 2 diabetes mellitus with diabetic chronic kidney disease; N18.9 Chronic kidney disease, unspecified; Z66 Do not resuscitate; I25.10 Atherosclerotic heart disease of native coronary artery without angina pectoris; K21.9 Gastro-esophageal reflux disease without esophagitis; D64.9 Anemia, unspecified; K57.90 Diverticulosis of intestine, part unspecified, without perforation or abscess without bleeding; E78.2 Mixed hyperlipidemia; Z85.3 Personal history of malignant neoplasm of breast; Z95.1 Presence of aortocoronary bypass graft; Z90.710 Acquired absence of both cervix and uterus; Z87.891 Personal history of nicotine dependence; Z90.49 Acquired absence of other specified parts of digestive tract; Z98.42 Cataract extraction status, left eye; Z98.41 Cataract extraction status, right eye; Z68.27 Body mass index [BMI] 27.0-27.9, adult
CPT/HCPCS: 36415; 74177; 80048; 80053; 81001; 82948; 83605; 83735; 85025; 85027; 93005; 96361; 96365; 96366; 96372; 96375; 99285; A9270; G0378; J1171; J1650; J1885; J2405; J2430; J7030; J7060; Q9967